=== PATIENT | female | born 1940 | race Caucasian/White ===

== ENCOUNTER 2019-12-10 11:42 | Inpatient (IN) | payer MEDICARE, OTHER ==
[2019-12-10] VITALS (19 sets, daily range): BP systolic 85–146; BP diastolic 44–96
[~2019-12-10] VITALS: Ht 162.6 cm; Wt 55.3 kg
--- NOTE | 2019-12-10 11:45 | NUR ---
PT BIBRA FROM SNF TO ER BED 08. PER REPORT PT WAS NOTED TO BE HAVING SOB FOR THE PAST 24 HRS. PT ARRIVED ON RESPIRATORY DISTRESS AND ON 15L NON REBREATHER. SKIN WARM TO TOUCH. ON MONITOR. DR GUILLORY FOR EVAL.
[2019-12-10 12:15] LABS: BASOPHILS % (AUTO) 0.2 % (0.0-2.0); EOSINOPHILS % (AUTO) 0.7 % (0.0-6.0); HEMATOCRIT 30 % (33-45); HEMOGLOBIN 9.8 g/dL (11.5-14.8); LYMPHOCYTES # (AUTO) 0.3 /CMM (0.8-4.8); LYMPHOCYTES % (AUTO) 3.6 % (20.0-44.0); MEAN CORPUSCULAR HGB CONC 33 g/dl (31.0-36.0); MEAN CORPUSCULAR VOLUME 83 fL (82-100); MONOCYTES # (AUTO) 0.2 /CMM (0.1-1.30); MONOCYTES % (AUTO) 1.9 % (2.0-12.0); NEUTROPHILS # (AUTO) 8.9 /CMM (1.8-8.9); NEUTROPHILS % (AUTO) 93.6 % (43.0-81.0); PLATELET COUNT (AUTO) 189 /CMM (150-450); RED BLOOD CELL COUNT(AUTO) 3.59 MIL/uL (4.0-5.2); WHITE BLOOD COUNT (AUTO) 9.5 K/uL (4.3-11.0)
[2019-12-10 12:19] LABS: APPEARANCE,URINE Cloudy (CLEAR); BILIRUBIN,URINE Negative (NEGATIVE); BLOOD, URINE Small Ery/uL (NEGATIVE); COLOR,URINE Yellow (YELLOW); KETONES,URINE Negative (NEGATIVE); LEUKOCYTE ESTERASE ,URINE Small (NEGATIVE); NITRITE, URINE Positive (NEGATIVE); PROTEIN,URINE 100 mg/dl (NEGATIVE); UGLUCOSE Negative (NEGATIVE)
[2019-12-10] MEDS ORDERED: MULT-447 PO (12:26)
[2019-12-10] MEDS ORDERED: GEMF600T PO (12:26)
[2019-12-10] MEDS ORDERED: LEVO175T7 PO (12:26)
[2019-12-10] MEDS ORDERED: BISA10SU11 RC (12:26)
[2019-12-10] MEDS ORDERED: MAGN400O6 PO (12:26)
[2019-12-10] MEDS ORDERED: ACET650S11 RC (12:26)
[2019-12-10] MEDS ORDERED: NA P133E RC (12:26)
[2019-12-10] MEDS ORDERED: ATOR10TA PO (12:26)
[2019-12-10] MEDS ORDERED: ACET-868 PO (12:26)
[2019-12-10] MEDS ORDERED: DONE23TA3 PO (12:26)
[2019-12-10] MEDS ORDERED: QUET25TA PO (12:26)
[2019-12-10] MEDS ORDERED: GUAI-755 PO (12:26)
[2019-12-10] MEDS ORDERED: IPRATROPIUM NEB FS 0.5 MG/2.5 ML AMPUL.NEB NEB ONE (12:30)
[2019-12-10] MEDS ORDERED: ALBUTEROL FS 2.5 MG/3 ML VIAL.NEB NEB ONE (12:30)
[2019-12-10] MEDS ORDERED: IV NS 0.9% 1,000 ML BAG IV ONE (12:30)
[2019-12-10 12:33] LABS: CALCIUM, SERUM 8.5 mg/dL (8.5-10.1); CREATININE 0.7 mg/dL (0.6-1.3)
[2019-12-10 12:34] LABS: BACTERIA,URINE Many /HPF (None Seen)
[2019-12-10 12:35] LABS: SQUAMOUS EPITHELIAL CELL,UR Few /HPF (None Seen)
[2019-12-10] MEDS ORDERED: PROPOFOL 100 ML ONE (12:35)
[2019-12-10 12:36] LABS: POTASSIUM 3.4 mmol/L (3.5-5.1)
--- NOTE | 2019-12-10 12:39 | NUR ---
RN, RT AND MD AT BEDSIDE FOR INTUBATION
--- NOTE | 2019-12-10 12:40 | NUR ---
ETOMIDATE 20MG IVP X 1. VS
--- NOTE | 2019-12-10 12:41 | NUR ---
INTUBATED. ET 7.5, 24 @ LIP. POSITIVE BILAT CHEST RISE. +CO2 CHANGE
--- NOTE | 2019-12-10 12:41 | NUR ---
Philip figueroa in ED - 12/10/19 at 1313 by NICKI PT INTUBATED. ET 7.5
--- NOTE | 2019-12-10 12:41 | NUR ---
SUCCINYLCHOLINE 100MG IVP X 1
[2019-12-10 12:44] LABS: ALBUMIN 1.8 g/dL (3.4-5.0); BILIRUBIN,TOTAL 0.5 mg/dL (0.2-1.0); TOTAL PROTEIN, SERUM 6.6 g/dL (6.4-8.2)
--- NOTE | 2019-12-10 12:48 | NUR ---
RADIOLOGY AT BEDSIDE FOR CHEST XRAY S/P RSI.
[2019-12-10] MEDS ORDERED: VANCOMYCIN 1 GM in IV D5W 250 ML IV ONE (13:00)
[2019-12-10] MEDS ORDERED: PIPERACILLIN /TAZOBACTAM 3.375 G in IV D5W 50 ML IV ONE (13:00)
[2019-12-10] MEDS ORDERED: PROPOFOL 1,000 MG/100 ML BOTTLE IV ONE (13:00)
--- NOTE | 2019-12-10 13:19 | NUR ---
ACCOMPANIED PT TO RADIOLOGY FOR HEAD CT SCAN VIA [employer].
--- NOTE | 2019-12-10 13:30 | NUR ---
ER TALKING TO EPIC
--- NOTE | 2019-12-10 13:30 | NUR ---
RT NOTE PATIENT INTUBATED PER MD ORDERS. POSITIVE COLOR CHANGE ON CO2 DETECTOR. BILATERAL BREATH SOUNDS AND EVEN CHEST RISE. ET TUBE 7.5 SECURED WITH ANCHOR FAST, 21CM AT THE LIP. PLACED ON VENT WITH ORDERED SETTINGS. ALARMS ON AND AUDIBLE. VENT PLUGGED IN TO THE RED OUTLET. AMBU BAG BY THE BEDSIDE.
--- NOTE | 2019-12-10 13:32 | NUR ---
PT VENT CURRENT SETTINGS: AC 14, TV 450 FIO2 100% PEEP 5
--- NOTE | 2019-12-10 13:40 | NUR ---
NURSING SUP GAVE ICU 257.
--- NOTE | 2019-12-10 13:40 | NUR ---
RT NOTE PT TRANSPORTED TO ICU 254, BAGGED ON 15L WITH VIRAL FILTER AT THE EXHALATION, AND INHALATION PORT. VENT PLUGGED IN TO RED OUTLET. ALARMS ON AND AUDIBLE WITH ORDERED SETTINGS. ET TUBE 7.5, 21CM AT THE LIP.
--- NOTE | 2019-12-10 13:48 | NUR ---
REPORT GIVEN TO DESMOND BURKS. AWAITING TRANSFER TO ICU FLOOR.
[2019-12-10] MEDS ORDERED: ONDANSETRON HCL/PF 4 MG/2 ML VIAL IVP PRN (14:00)
[2019-12-10] MEDS ORDERED: Z GUARD REMEDY 2 OZ OINT TP PRN (14:00)
--- NOTE | 2019-12-10 14:15 | NUR ---
ICU/RN PT ADMITTED FROM SNF,FROM ER.INTUBATED ON THE VENT AC MODE,FIO2-100%.V/S STABLE,AFEBRILE.SEDATED ON DIPRIVAN.F/C IN PLACE DRAINING WITH YELLOW CLOUDY URINE.PERIFERAL IV.WOUND ON THE LOWER BACK ,MEPILEX APPLY,KCI MATRASS ORDERED,WOUND CONSULT ORDERED.OG TUBE INSERTED.SUCTION PROVIDED.
[2019-12-10] MEDS ORDERED: FEE PK DOSING 1 MIN EA MC ONE (14:19)
[2019-12-10] MEDS ORDERED: PROPOFOL 100 ML IV PRN (14:30)
[2019-12-10] MEDS ORDERED: SUCCINYLCHOLINE CHLORIDE 20 MG/ML VIAL IV ONE (15:29)
[2019-12-10] MEDS ORDERED: ETOMIDATE 2 MG/ML VIAL IV ONE (15:29)
[2019-12-10] MEDS: POTASSIUM CL. PREMIX PERIPHER. 50 ML IV SCH ×3 (15:43→18:42)
[2019-12-10] MEDS: DEXAMETHASONE SOD PHOSPHATE 10 MG/ML VIAL IV SCH (15:43)
[2019-12-10] MEDS: FUROSEMIDE 40 MG/4 ML VIAL IV SCH ×2 (15:43→20:21)
[2019-12-10] MEDS: ENOXAPARIN SODIUM 40 MG/0.4 ML DISP.SYRIN SQ SCH (15:44)
[2019-12-10 16:03] LABS: ABG BASE EXCESS -3.7 mmol/L; ABG OXYGEN SATURATION 92.8 % (92.0-98.5); ABG PCO2 28.4 mmHg (35.0-45.0); ABG PH 7.452 (7.350-7.450); ABG PO2 64.5 mmHg (75.0-100.0); AaDO2 620.1 mmHg; COHb 0.3 % (0.5-1.5); MetHb 0.3 % (0.0-1.5); O2Hb 92.2 % (94.0-97.0); SITE, ABG Right Radial; VENT MODE, BG AC 14 450 100% +5
[2019-12-10] MEDS: PIPERACILLIN /TAZOBACTAM 3.375 G in IV D5W 50 ML IV SCH ×2 (17:05→23:32)
[2019-12-10 17:42] LABS: C-REACTIVE PROTEIN 36.1 mg/dL (0.0-0.9)
--- NOTE | 2019-12-10 18:02 | NUR ---
RT NOTE TX NOT GIVEN. PT INTUBATED INSTEAD PER MD ORDERS.
--- NOTE | 2019-12-10 19:00 | NUR ---
ICU/RN K-3.4.REPLACED WITH 30 MEQ KCL IV.LASIX 40 MG WAS GIVEN ORDERED.1300 ML URINE OUTPUT.SEDATED WITH DIPRIVAN. SUCTION PROVIDED.REPOSITION FOR COMFORT.MRSA SWAB DONE.
--- NOTE | 2019-12-10 20:30 | NUR ---
Received patient sedated on Diprivan gtt and orally intubated to mechanical vent.Tolerating vent settings well.No acute respiratory distress noted.VSS.SR per monitor.OGT clamped.NPO.Good urine output from [place] [facility].Sputum sample collected and sent to lab.Turned and repositioned. continue monitoring.
[2019-12-10] MEDS ORDERED: NOREPINEPHRINE 4 MG/4 ML AMPUL IV ONE (23:06)
[2019-12-10] MEDS: NOREPINEPHRINE 8 MG in IV NS 0.9% 242 ML IV PRN (23:26)
[2019-12-10] MEDS ORDERED: IV NS 0.9% 1,000 ML IV SCH (23:30)
--- NOTE | 2019-12-10 23:30 | NUR ---
Noted patient anastasia'd down to the 40's and BP low.EKG done.COUTURE DRESSMAKER,Brant notified with orders and carried out.Levophed gtt started and titrated.VS monitored.Diprivan gtt stopped.No acute distress noted.
[2019-12-10 23:34] LABS: MAGNESIUM 1.8 mg/dL (1.8-2.4); PHOSPHORUS 2.7 mg/dL (2.5-4.9); POTASSIUM 3.5 mmol/L (3.5-5.1)
[2019-12-11] VITALS (84 sets, daily range): BP systolic 78–155; BP diastolic 41–104
[2019-12-11 05:11] LABS: ALBUMIN 1.7 g/dL (3.4-5.0); BILIRUBIN,TOTAL 0.5 mg/dL (0.2-1.0); CALCIUM, SERUM 8.4 mg/dL (8.5-10.1); CREATININE 0.9 mg/dL (0.6-1.3); MAGNESIUM 1.8 mg/dL (1.8-2.4); PHOSPHORUS 2.5 mg/dL (2.5-4.9); POTASSIUM 3.2 mmol/L (3.5-5.1); TOTAL PROTEIN, SERUM 6.6 g/dL (6.4-8.2)
[2019-12-11 05:19] LABS: THYROID STIMULATING HORMONE 3.838 uIU/mL (0.358-3.74)
[2019-12-11 05:28] LABS: BASOPHILS % (AUTO) 0.1 % (0.0-2.0); HEMATOCRIT 33 % (33-45); HEMOGLOBIN 10.7 g/dL (11.5-14.8); LYMPHOCYTES # (AUTO) 0.7 /CMM (0.8-4.8); LYMPHOCYTES % (AUTO) 5.5 % (20.0-44.0); MEAN CORPUSCULAR HGB CONC 33 g/dl (31.0-36.0); MEAN CORPUSCULAR VOLUME 83 fL (82-100); MONOCYTES # (AUTO) 0.2 /CMM (0.1-1.30); MONOCYTES % (AUTO) 1.5 % (2.0-12.0); NEUTROPHILS # (AUTO) 11.7 /CMM (1.8-8.9); NEUTROPHILS % (AUTO) 92.9 % (43.0-81.0); PLATELET COUNT (AUTO) 250 /CMM (150-450); RED BLOOD CELL COUNT(AUTO) 3.91 MIL/uL (4.0-5.2); WHITE BLOOD COUNT (AUTO) 12.6 K/uL (4.3-11.0)
[2019-12-11 05:44] LABS: BAND % (MANUAL) 1 % (0.0-5.0); LYMPHOCYTES % (MANUAL) 8 % (16-48); MONOCYTES % (MANUAL) 2 % (0-11.0); NEUTROPHILS % (MANUAL) 89 (42-76)
[2019-12-11] MEDS: PIPERACILLIN /TAZOBACTAM 3.375 G in IV D5W 50 ML IV SCH ×4 (05:56→23:37)
--- NOTE | 2019-12-11 06:30 | NUR ---
Patient resting.VSS.SR/SB 40's.Bathed and complete linens changed.Tolerating vent settings. Good respond to Lasix.No BM noted.All due meds administered.Turned and repositioned.IVF infusing well.Will endorse to day shift for henna.
[2019-12-11 07:19] LABS: ABG BASE EXCESS 0.3 mmol/L; ABG OXYGEN SATURATION 97.5 % (92.0-98.5); ABG PCO2 29.2 mmHg (35.0-45.0); ABG PO2 98.8 mmHg (75.0-100.0); COHb 0.3 % (0.5-1.5); MetHb 0.3 % (0.0-1.5); O2Hb 96.9 % (94.0-97.0); SITE, ABG Right Radial; VENT MODE, BG AC 14 450 100% +10
[2019-12-11] MEDS: VANCOMYCIN 1 GM in IV D5W 250 ML IV SCH (07:40)
--- NOTE | 2019-12-11 08:00 | NUR ---
ICU/RN PT IS INTUBATED ON THE VENT ,AC MODE,FIO2-100%.,PEEP-8.V/S STABLE,AFEBRILE.NO PAIN REPORTED AT THIS TIME.NOT SEDATED.OG TUBE CLAMPED. F/C DRAINING WITH YELLOW URINE.SUCTION PROVIDED.REPOSITION FOR COMFORT.
[2019-12-11] MEDS: DEXAMETHASONE SOD PHOSPHATE 10 MG/ML VIAL IV SCH (08:03)
[2019-12-11] MEDS: PANTOPRAZOLE 40 MG VIAL IV SCH (08:03)
[2019-12-11] MEDS: POTASSIUM CHLORIDE 20 MEQ POWDER PACKET NG SCH ×2 (08:59→10:59)
[2019-12-11] MEDS: FUROSEMIDE 40 MG/4 ML VIAL IV SCH ×3 (08:59→17:22)
--- NOTE | 2019-12-11 09:30 | NUR ---
ICU/RN DUE MEDS ARE GIVEN ORDERED.LABS REVIEW.MD NOTIFIED NEW ORDERERS RECEIVED.
[2019-12-11] MEDS: PROPOFOL 10MG/ML 50ML 50 ML IV PRN ×4 (12:42→22:18)
--- NOTE | 2019-12-11 13:00 | NUR ---
ICU/RN PT IS RR 33., DR OQUENDO NOTIFIED.DIPRIVAN RESTARTED..CONTINUE MONITORING .
[2019-12-11] MEDS: NOREPINEPHRINE 8 MG in IV NS 0.9% 242 ML IV PRN (17:51)
--- NOTE | 2019-12-11 18:10 | NUR ---
ICU/RN RIGHT UPPER ARM ML INSERTED.PT IS ON LEVOPHED AND DIPRIVAN NOW.F/C DRAINED WITH 2000 ML OF URINE.
[2019-12-11] MEDS: ENOXAPARIN SODIUM 40 MG/0.4 ML DISP.SYRIN SQ SCH (21:23)
[2019-12-12] VITALS (97 sets, daily range): BP systolic 82–182; BP diastolic 36–95
[2019-12-12] MEDS: PROPOFOL 10MG/ML 50ML 50 ML IV PRN ×3 (02:01→15:58)
[2019-12-12] MEDS: VANCOMYCIN 1 GM in IV D5W 250 ML IV SCH ×2 (02:01→19:51)
[2019-12-12 04:21] LABS: BASOPHILS % (AUTO) 0.2 % (0.0-2.0); HEMATOCRIT 30 % (33-45); HEMOGLOBIN 9.9 g/dL (11.5-14.8); LYMPHOCYTES # (AUTO) 1.3 /CMM (0.8-4.8); LYMPHOCYTES % (AUTO) 9.5 % (20.0-44.0); MEAN CORPUSCULAR HGB CONC 33 g/dl (31.0-36.0); MEAN CORPUSCULAR VOLUME 82 fL (82-100); MONOCYTES # (AUTO) 0.4 /CMM (0.1-1.30); MONOCYTES % (AUTO) 2.6 % (2.0-12.0); NEUTROPHILS # (AUTO) 12.2 /CMM (1.8-8.9); NEUTROPHILS % (AUTO) 87.7 % (43.0-81.0); PLATELET COUNT (AUTO) 320 /CMM (150-450); RED BLOOD CELL COUNT(AUTO) 3.67 MIL/uL (4.0-5.2); WHITE BLOOD COUNT (AUTO) 13.9 K/uL (4.3-11.0)
[2019-12-12 04:40] LABS: CALCIUM, SERUM 9.2 mg/dL (8.5-10.1); PHOSPHORUS 2.5 mg/dL (2.5-4.9); POTASSIUM 3.7 mmol/L (3.5-5.1)
[2019-12-12 04:57] LABS: C-REACTIVE PROTEIN 35.4 mg/dL (0.0-0.9)
[2019-12-12] MEDS: PIPERACILLIN /TAZOBACTAM 3.375 G in IV D5W 50 ML IV SCH ×4 (05:45→23:50)
[2019-12-12] MEDS ORDERED: IV NS 0.9% 250 ML IV ONE (06:00)
[2019-12-12] MEDS ORDERED: POTASSIUM CHLORIDE 20 MEQ POWDER PACKET NG SCH (08:00)
[2019-12-12 08:52] LABS: ABG BASE EXCESS 0.8 mmol/L; ABG OXYGEN SATURATION 93.5 % (92.0-98.5); ABG PCO2 30.8 mmHg (35.0-45.0); ABG PH 7.501 (7.350-7.450); ABG PO2 65.4 mmHg (75.0-100.0); AaDO2 328.5 mmHg; COHb 0.3 % (0.5-1.5); MetHb 0.3 % (0.0-1.5); O2Hb 92.9 % (94.0-97.0); SITE, ABG Right Radial; VENT MODE, BG AC 14 400 60% +10
[2019-12-12] MEDS: FUROSEMIDE 40 MG/4 ML VIAL IV SCH ×2 (09:26→12:07)
[2019-12-12] MEDS: DEXAMETHASONE SOD PHOSPHATE 10 MG/ML VIAL IV SCH (09:26)
[2019-12-12] MEDS: PANTOPRAZOLE 40 MG VIAL IV SCH (09:26)
[2019-12-12] MEDS ORDERED: POTASSIUM CHLORIDE 20 MEQ POWDER PACKET GT ONE (09:30)
[2019-12-12] MEDS: NOREPINEPHRINE 8 MG in IV NS 0.9% 242 ML IV PRN (17:41)
[2019-12-12] MEDS: GLUCERNA 1.2 1,000 ML BOTTLE GT PRN (17:42)
--- NOTE | 2019-12-12 18:55 | NUR ---
END OF SHIFT NOTE: PT HAD A FAIRLY UNEVENTFUL SHIFT. TUBE FEEDING STARTED AT 1800, GLUCERNA AT 20ML/S, GOAL 50ML/HR. LEVOPHED GTT STARTED BACK UP AT 1043 THIS AM, CURRENTLY INFUSING AT 0.04 MCG/KG/MIN. NO SEDATION VACATION TODAY PER MD ORDERS. PT WAS PUT ON A KCI MATTRESS. TOTAL URINE OUTPUT THIS SHIFT WAS 1625ML. PT CHECKED ON HOURLY AND PRN BY NURSING STAFF.
--- NOTE | 2019-12-12 19:30 | NUR ---
CANDY FORMING MACHINE OPERATOR INITIAL SHIFT NOTES RECEIVED PATIENT IN BED, SEDATED ON DIPRIVAN DRIP, ORALLY INTUBATED ON MECHANICAL VENTILATION, TOLERATING FAIRLY, NO SIGNS OF ACUTE RESPIRATORY DISTRESS AT THIS TIME. OGT PATENT AND INTACT, ONGOING TUBE FEEDING AT PRESCRIBED RATE, MINIMAL GASTRIC RESIDUALS. HOB KEPT ELEVATED FOR ASPIRATION PRECAUTIONS, ISOLATION PRECAUTIONS OBSERVED. WILL MONITOR CLOSELY
[2019-12-12] MEDS: ENOXAPARIN SODIUM 40 MG/0.4 ML DISP.SYRIN SQ SCH (20:04)
--- NOTE | 2019-12-12 21:30 | NUR ---
REVERBERATORY FURNACE OPERATOR NOTES RT AT BEDSIDE. PATIENT REMAINS ON HI-FLOW NC @60LPM, FIO2 TITRATED BY RT DOWN TO 75%. ONGOING CLOSE MONITORING Addendum: 12/13/19 at 0724 by OANH MACIEL RN WRONG PATIENT
[2019-12-13] VITALS (83 sets, daily range): BP systolic 85–164; BP diastolic 38–101
[2019-12-13] MEDS: PROPOFOL 10MG/ML 50ML 50 ML IV PRN ×3 (00:32→16:29)
[2019-12-13 04:15] LABS: BASOPHILS # (AUTO) 0.1 /CMM (0.0-0.2); BASOPHILS % (AUTO) 1.1 % (0.0-2.0); HEMATOCRIT 28 % (33-45); HEMOGLOBIN 9.5 g/dL (11.5-14.8); LYMPHOCYTES # (AUTO) 0.9 /CMM (0.8-4.8); LYMPHOCYTES % (AUTO) 9.2 % (20.0-44.0); MEAN CORPUSCULAR HGB CONC 34 g/dl (31.0-36.0); MEAN CORPUSCULAR VOLUME 83 fL (82-100); MONOCYTES # (AUTO) 0.3 /CMM (0.1-1.30); MONOCYTES % (AUTO) 2.9 % (2.0-12.0); NEUTROPHILS # (AUTO) 8.2 /CMM (1.8-8.9); NEUTROPHILS % (AUTO) 86.8 % (43.0-81.0); PLATELET COUNT (AUTO) 290 /CMM (150-450); RED BLOOD CELL COUNT(AUTO) 3.42 MIL/uL (4.0-5.2); WHITE BLOOD COUNT (AUTO) 9.5 K/uL (4.3-11.0)
[2019-12-13 04:28] LABS: CALCIUM, SERUM 8.7 mg/dL (8.5-10.1); CREATININE 1.2 mg/dL (0.6-1.3); PHOSPHORUS 3.1 mg/dL (2.5-4.9); POTASSIUM 3.5 mmol/L (3.5-5.1)
[2019-12-13] MEDS: PIPERACILLIN /TAZOBACTAM 3.375 G in IV D5W 50 ML IV SCH ×2 (05:24→11:42)
--- NOTE | 2019-12-13 06:45 | NUR ---
HIGH SCHOOL AGRICULTURE TEACHER CLOSING NOTES PATIENT LAYING IN BED, REMAINS ORALLY INTUBATED ON MECHANICAL VENTILATOR. NO BM NOTED THIS SHIFT, REMAINS ON LEVOPHED DRIP AT 0.02MCG/KG/MIN, UNABLE TO TITRATE OFF AND KEEP OFF. DIPRIVAN DRIP @ 10MCG/KG/MIN. OGT CONTINUES WITH TUBE FEEDING, WILL ENDORSE PATIENT TO THE AM SHIFT NURSE FOR CEE
--- NOTE | 2019-12-13 07:20 | NUR ---
RN INITIAL NOTES RECEIVED PT INTUBATED, ON VENT. NO RESPIRATORY DISTRESS NOTED. NO SIGNS OF PAIN NOTED. PT SEDATED, ON DIPRIVAN AT 10MCG/KG/MIN. ON LEVO AT 0.02MCG/KG/MIN. OG TUBE IN PLACE. TOLERATING TUBE FEEDING WELL. DANY MIDLINE IN PLACE. FC IN PLACE. BLE ELEVATED. PT COMFORTABLE. WILL MONITOR
--- NOTE | 2019-12-13 07:48 | NUR ---
WOUND CARE CONSULT: REVIEWED CHART, NURSING DOCUMENTATION AND ADMISSION PHOTOS WHICH SHOW FULL THICKNESS WOUND TO SACRAL AREA WHICH EXTENDS TO LEFT BUTTOCK, PRESENT ON ADMISSION. RECOMMEND SURGICAL CONSULT. DR DARRIAN DE LA [place]GA CALLED FOR CONSULT REQUEST. RECOMMENDATIONS MADE FOR SKIN PROTECTION AND WOUND CARE. DISCUSSED WITH NURSING STAFF. PT IS ON FIRST STEP [facility]. WILL SEE PRN. IN AGREEMENT WITH PLAN OF CARE.
[2019-12-13] MEDS ORDERED: HYDROGEL DRESSING 90 GM TUBE TP PRN (08:00)
[2019-12-13 08:09] LABS: ABG BASE EXCESS 4.1 mmol/L; ABG OXYGEN SATURATION 93.5 % (92.0-98.5); ABG PCO2 32.6 mmHg (35.0-45.0); ABG PH 7.531 (7.350-7.450); ABG PO2 65.6 mmHg (75.0-100.0); AaDO2 326.3 mmHg; COHb 0.3 % (0.5-1.5); MetHb 0.3 % (0.0-1.5); O2Hb 92.9 % (94.0-97.0); SITE, ABG Right Radial
[2019-12-13] MEDS: HYDROGEL DRESSING 90 GM TUBE TP SCH (08:16)
[2019-12-13] MEDS: DEXAMETHASONE SOD PHOSPHATE 10 MG/ML VIAL IV SCH (08:50)
[2019-12-13] MEDS: PANTOPRAZOLE 40 MG VIAL IV SCH (08:50)
--- NOTE | 2019-12-13 09:30 | NUR ---
RN NOTES 09 SEEN AND EXAMINED BY DR OQUENDO. PT ON LEVO AT 0.02MGC/KG/MIN AND DIPRIVAN 10MCG/KG/MIN. STILL INTUBATED, PEEP +12. NO SEDATION VACATION TODAY. WILL CONTINUE TO MONITOR 929 SEEN AND EXAMINED BY DR CONNER. AWARE OF LAB VALUES AND CXR RESULT. TOLERATING TUBE FEEDING. CONTINUE ON LEVO AND DIPRIVAN, WILL TITRATE ACCORDIINGLY. WILL MONITOR
[2019-12-13] MEDS: CEFTRIAXONE 1 G in IV D5W 50 ML IV SCH (16:29)
--- NOTE | 2019-12-13 18:33 | NUR ---
RN CLOSING NOTES NO SIGNIFICANT CHANGE NOTED. NO RESPIRATORY DISTRESS NOTED. NO SIGNS OF PAIN NOTED. PT REMAINS INTUBATED. HOB ELEVATED. KEPT CLEAN AND DRY. TX PROVIDED ORDERED. KEPT COMFORTABLE. WILL ENDORSE FOR CONTINUITY OF CARE
[2019-12-13 18:48] LABS: URINE TOTAL PROTEIN 70.5 mg/dL (0-11.9)
[2019-12-13 18:50] LABS: APPEARANCE,URINE CLEAR (CLEAR); BILIRUBIN,URINE NEGATIVE (NEGATIVE); BLOOD, URINE TRACE-INTA Ery/uL (NEGATIVE); COLOR,URINE YELLOW (YELLOW); KETONES,URINE NEGATIVE (NEGATIVE); LEUKOCYTE ESTERASE ,URINE NEGATIVE (NEGATIVE); NITRITE, URINE NEGATIVE (NEGATIVE); PROTEIN,URINE 30 mg/dl (NEGATIVE); UGLUCOSE NEGATIVE (NEGATIVE)
--- NOTE | 2019-12-13 19:00 | NUR ---
Received patient on Contact/Droplet isolation COVID 19 +,orally intubated on AC mode rate -12,TV-400,Fio2-60 % , PEEP-12, sedated on Propofol drip ,breathing regular, non labored. Levophed drip off at this time .MIDLINE via DANY intact with good blood return. OGT (59 cm at the lip)with on going tube feeding(rate increase to goal 50 ml/hr),tolerating well,Aspiration Precaution implemented, will monitor residuals. 1930 Patient got tachypneic RR=40's, deep labored breathing and coughing,Propofol increased.
[2019-12-13 19:11] LABS: BACTERIA,URINE 1+ /HPF (None Seen); SQUAMOUS EPITHELIAL CELL,UR 0-2 /HPF (None Seen); WBC,URINE 0-2 /HPF (0-3)
[2019-12-13 19:34] LABS: EOSINOPHIL,URINE None Seen
[2019-12-13] MEDS ORDERED: VANCOMYCIN 1 GM in IV D5W 250 ML IV SCH (20:00)
[2019-12-13] MEDS: ENOXAPARIN SODIUM 40 MG/0.4 ML DISP.SYRIN SQ SCH (21:19)
[2019-12-14] VITALS (36 sets, daily range): BP systolic 85–126; BP diastolic 39–61
--- NOTE | 2019-12-14 | NUR ---
Stable,no change in status,remains on Propofol @ 15 mcg/kg/min, occasionally awakens and gets tachypneic but calms down easily.Continue comfort care.
--- NOTE | 2019-12-14 02:00 | NUR ---
AM care done,tolerated turning with no SOB.
[2019-12-14] MEDS: PROPOFOL 10MG/ML 50ML 50 ML IV PRN ×7 (03:12→22:18)
[2019-12-14 04:03] LABS: BASOPHILS % (AUTO) 0.4 % (0.0-2.0); EOSINOPHILS % (AUTO) 0.6 % (0.0-6.0); HEMATOCRIT 28 % (33-45); HEMOGLOBIN 9.4 g/dL (11.5-14.8); LYMPHOCYTES % (AUTO) 10.6 % (20.0-44.0); MEAN CORPUSCULAR HGB CONC 34 g/dl (31.0-36.0); MEAN CORPUSCULAR VOLUME 83 fL (82-100); MONOCYTES # (AUTO) 0.2 /CMM (0.1-1.30); MONOCYTES % (AUTO) 1.9 % (2.0-12.0); NEUTROPHILS # (AUTO) 8.5 /CMM (1.8-8.9); NEUTROPHILS % (AUTO) 86.5 % (43.0-81.0); PLATELET COUNT (AUTO) 275 /CMM (150-450); RED BLOOD CELL COUNT(AUTO) 3.35 MIL/uL (4.0-5.2); WHITE BLOOD COUNT (AUTO) 9.9 K/uL (4.3-11.0)
[2019-12-14 04:15] LABS: CREATININE 0.9 mg/dL (0.6-1.3); MAGNESIUM 1.9 mg/dL (1.8-2.4); PHOSPHORUS 2.8 mg/dL (2.5-4.9); POTASSIUM 3.5 mmol/L (3.5-5.1)
[2019-12-14 04:19] LABS: BILIRUBIN,DIRECT 0.2 mg/dL (0.0-0.2); BILIRUBIN,TOTAL 0.3 mg/dL (0.2-1.0); TOTAL PROTEIN, SERUM 6.4 g/dL (6.4-8.2)
[2019-12-14 04:28] LABS: C-REACTIVE PROTEIN 10.2 mg/dL (0.0-0.9)
--- NOTE | 2019-12-14 06:00 | NUR ---
Remains stable,on mild sedation but easily arousable,opens eyes,coughs,gets tachypneic when awake,will maintain Propofol drip.
--- NOTE | 2019-12-14 07:00 | NUR ---
Report given to Raquel BURKS.Patient stable,still on Propofol drip,off Levophed drip.
--- NOTE | 2019-12-14 07:15 | NUR ---
RN INITIAL NOTES RECEIVED PT INTUBATED, ON VENT. NO RESPIRATORY DISTRESS NOTED. NO SIGNS OF PAIN NOTED. PT SEDATED, ON DIPRIVAN AT 10MCG/KG/MIN. OG TUBE IN PLACE. TOLERATING TUBE FEEDING WELL. DANY MIDLINE IN PLACE. FC IN PLACE. BLE ELEVATED. PT COMFORTABLE. WILL MONITOR
[2019-12-14] MEDS: PANTOPRAZOLE 40 MG VIAL IV SCH (08:29)
[2019-12-14] MEDS: DEXAMETHASONE SOD PHOSPHATE 10 MG/ML VIAL IV SCH (08:29)
[2019-12-14 08:30] LABS: ABG PCO2 32.4 mmHg (35.0-45.0); ABG PH 7.486 (7.350-7.450); ABG PO2 56.5 mmHg (75.0-100.0); AaDO2 335.7 mmHg; COHb 0.3 % (0.5-1.5); MetHb 0.3 % (0.0-1.5); O2Hb 88.5 % (94.0-97.0); VENT MODE, BG AC 12 400 60% +12
[2019-12-14] MEDS: HYDROGEL DRESSING 90 GM TUBE TP SCH (08:30)
[2019-12-14] MEDS: GLUCERNA 1.2 1,000 ML BOTTLE GT PRN (14:26)
[2019-12-14] MEDS ORDERED: ACETAMINOPHEN 650 MG/20.3 ML UDC GT ONE (16:00)
[2019-12-14] MEDS ORDERED: diphenhydrAMINE HCL 50 MG/ML VIAL IV ONE (16:00)
[2019-12-14] MEDS ORDERED: TOCILIZUMAB 400 MG in IV NS 0.9% 80 ML IV ONE (16:30)
[2019-12-14] MEDS: CEFTRIAXONE 1 G in IV D5W 50 ML IV SCH (17:46)
[2019-12-14] MEDS: ENOXAPARIN SODIUM 40 MG/0.4 ML DISP.SYRIN SQ SCH (21:22)
[2019-12-15] VITALS (26 sets, daily range): BP systolic 83–137; BP diastolic 41–69
[2019-12-15] MEDS: PROPOFOL 10MG/ML 50ML 50 ML IV PRN ×6 (03:00→22:07)
[2019-12-15 04:21] LABS: BASOPHILS % (AUTO) 0.2 % (0.0-2.0); EOSINOPHILS % (AUTO) 1.5 % (0.0-6.0); HEMATOCRIT 30 % (33-45); HEMOGLOBIN 9.9 g/dL (11.5-14.8); LYMPHOCYTES # (AUTO) 0.8 /CMM (0.8-4.8); LYMPHOCYTES % (AUTO) 12.2 % (20.0-44.0); MEAN CORPUSCULAR HGB CONC 33 g/dl (31.0-36.0); MEAN CORPUSCULAR VOLUME 84 fL (82-100); MONOCYTES # (AUTO) 0.2 /CMM (0.1-1.30); MONOCYTES % (AUTO) 2.3 % (2.0-12.0); NEUTROPHILS # (AUTO) 5.6 /CMM (1.8-8.9); NEUTROPHILS % (AUTO) 83.8 % (43.0-81.0); PLATELET COUNT (AUTO) 292 /CMM (150-450); RED BLOOD CELL COUNT(AUTO) 3.55 MIL/uL (4.0-5.2); WHITE BLOOD COUNT (AUTO) 6.7 K/uL (4.3-11.0)
[2019-12-15 04:46] LABS: CALCIUM, SERUM 9.3 mg/dL (8.5-10.1); CREATININE 0.7 mg/dL (0.6-1.3); POTASSIUM 3.8 mmol/L (3.5-5.1)
[2019-12-15 04:53] LABS: C-REACTIVE PROTEIN 17.8 mg/dL (0.0-0.9)
[2019-12-15 04:58] LABS: FERRITIN 407 ng/mL (8-388); TRIGLYCERIDES 263 mg/dL (30-150)
--- NOTE | 2019-12-15 07:15 | NUR ---
RN INITIAL NOTES RECEIVED PT INTUBATED, ON VENT. NO RESPIRATORY DISTRESS NOTED. NO SIGNS OF PAIN NOTED. PT SEDATED, ON DIPRIVAN AT 30MCG/KG/MIN. OG TUBE IN PLACE. TOLERATING TUBE FEEDING WELL. DANY MIDLINE IN PLACE. FC IN PLACE. BLE ELEVATED. PT COMFORTABLE. WILL MONITOR
[2019-12-15 07:56] LABS: ABG BASE EXCESS 3.5 mmol/L; ABG OXYGEN SATURATION 97.1 % (92.0-98.5); ABG PCO2 36.4 mmHg (35.0-45.0); ABG PH 7.488 (7.350-7.450); ABG PO2 98.7 mmHg (75.0-100.0); AaDO2 361.3 mmHg; COHb 0.3 % (0.5-1.5); MetHb 0.3 % (0.0-1.5); O2Hb 96.5 % (94.0-97.0); PEEP,BG 14 cm H2O; SITE, ABG Right Radial; VENT MODE, BG AC 70%; VT, ABG 400 mL
[2019-12-15] MEDS: HYDROGEL DRESSING 90 GM TUBE TP SCH (08:51)
[2019-12-15] MEDS: PANTOPRAZOLE 40 MG VIAL IV SCH (08:52)
[2019-12-15] MEDS: DEXAMETHASONE SOD PHOSPHATE 10 MG/ML VIAL IV SCH (08:53)
[2019-12-15] MEDS: GLUCERNA 1.2 1,000 ML BOTTLE GT PRN (08:58)
[2019-12-15] MEDS: CEFTRIAXONE 1 G in IV D5W 50 ML IV SCH (16:28)
--- NOTE | 2019-12-15 18:18 | NUR ---
RN CLOSING NOTES NO SIGNIFICANT CHANGE NOTED. NO RESPIRATORY DISTRESS NOTED. NO SIGNS OF PAIN NOTED. PT REMAINS INTUBATED. HOB ELEVATED. KEPT CLEAN AND DRY. TX PROVIDED ORDERED. KEPT COMFORTABLE. REPOSITIONED WHEN ABLE DUE TO ISOLATION WILL ENDORSE FOR CONTINUITY OF CARE
--- NOTE | 2019-12-15 20:00 | NUR ---
Received patient mildly sedated on full vent support.Vent settings well tolerated.SR/SB 50's. VSS.Tube feeding infusing via OGT tolerating well.Placement verified with small residual.HOB elevated.Diprivan gtt for sedation infusing via DANY ML site intact.No distress noted.Turned and repositioned.Drpolet/Contact Isolation precaution maintained for COVID 19 +.
[2019-12-15] MEDS: ENOXAPARIN SODIUM 40 MG/0.4 ML DISP.SYRIN SQ SCH (21:06)
[2019-12-16] VITALS (40 sets, daily range): BP systolic 79–125; BP diastolic 33–55
[2019-12-16] MEDS: PROPOFOL 10MG/ML 50ML 50 ML IV PRN ×5 (07:25→21:12)
--- NOTE | 2019-12-16 07:30 | NUR ---
RN OPENING NOTES RECEIVED PATIENT SEDATED IN BED, RUNNING ON PROPOFOL AT 30MCG, TOLERATING WELL, PATIENT SEEMS COMFORTABLE AT CURRENT RATE. PER REPORT, NO SEDATION VACATION FOR THIS PATIENT DUE TO HER CONDITION. PATIENT ON TELE MONITOR WITH SR NOTED, HR IN THE 70S. ON MECHANICAL VENTILATOR WITH SETTING ORDERED, TOLERATING WELL, NO SIGNS OF RESPIRATORY DISTRESS NOTED. O2 SATURATION AT 100%. VITAL SIGNS ARE STABLE. PATIENT HAS OGT, FEEDING RUNNING ORDERED, NO RESIDUAL NOTED, TOLERATING WELL. MARQUEZ CATHETER IN PLACE, DRAINING URINE. PATIENTS SAFETY MAINTAINED, CALL LIGHT WITHIN REACH WILL CONTINUE TO MONITOR CLOSELY
[2019-12-16] MEDS: PANTOPRAZOLE 40 MG VIAL IV SCH (08:02)
[2019-12-16] MEDS: DEXAMETHASONE SOD PHOSPHATE 10 MG/ML VIAL IV SCH (08:03)
[2019-12-16 08:19] LABS: CALCIUM, SERUM 8.8 mg/dL (8.5-10.1); CREATININE 0.7 mg/dL (0.6-1.3)
[2019-12-16] MEDS: HYDROGEL DRESSING 90 GM TUBE TP SCH (08:31)
[2019-12-16 08:54] LABS: BILIRUBIN,TOTAL 0.2 mg/dL (0.2-1.0); CREATININE 0.8 mg/dL (0.6-1.3); MAGNESIUM 2.4 mg/dL (1.8-2.4); POTASSIUM 3.9 mmol/L (3.5-5.1)
[2019-12-16 09:04] LABS: BASOPHILS % (AUTO) 0.4 % (0.0-2.0); EOSINOPHILS % (AUTO) 2.8 % (0.0-6.0); HEMATOCRIT 28 % (33-45); HEMOGLOBIN 9.3 g/dL (11.5-14.8); LYMPHOCYTES # (AUTO) 1.1 /CMM (0.8-4.8); LYMPHOCYTES % (AUTO) 17.2 % (20.0-44.0); MEAN CORPUSCULAR HGB CONC 33 g/dl (31.0-36.0); MEAN CORPUSCULAR VOLUME 84 fL (82-100); MONOCYTES # (AUTO) 0.2 /CMM (0.1-1.30); MONOCYTES % (AUTO) 2.4 % (2.0-12.0); NEUTROPHILS # (AUTO) 5.1 /CMM (1.8-8.9); NEUTROPHILS % (AUTO) 77.2 % (43.0-81.0); PLATELET COUNT (AUTO) 265 /CMM (150-450); RED BLOOD CELL COUNT(AUTO) 3.38 MIL/uL (4.0-5.2); WHITE BLOOD COUNT (AUTO) 6.6 K/uL (4.3-11.0)
[2019-12-16] MEDS ORDERED: IV NS 0.9% 250 ML IV ONE (09:30)
--- NOTE | 2019-12-16 10:10 | NUR ---
VENT CHANGES BELOW MADE PER DR. OQUENDO: FIO2 55% PEEP + 12 cm H2O Addendum: 12/16/19 at 1011 by MARY MARCOS RT Amended: Links added.
[2019-12-16 13:26] LABS: EOSINOPHILS % (MANUAL) 5 % (0-4); LYMPHOCYTES % (MANUAL) 21 % (16-48); MONOCYTES % (MANUAL) 4 % (0-11.0); MYELOCYTES % 1 % (0-0); NEUTROPHILS % (MANUAL) 69 (42-76)
[2019-12-16] MEDS: GLUCERNA 1.2 1,000 ML BOTTLE GT PRN (15:20)
--- NOTE | 2019-12-16 19:27 | NUR ---
RN CLOSING NOTES PATIENT REMAINED IN STABLE CONDITION DURING MY SHIFT. ALL PATIENT NEEDS MET. NO ACUTE CHANGES TO PATIENT CONDITION DURING MY SHIFT. SAFETY MAINTAINED, CALL LIGHT WITHIN REACH, ENDORSED TO PM NURSE FOR CONTINUITY OF CARE
[2019-12-16] MEDS: ENOXAPARIN SODIUM 40 MG/0.4 ML DISP.SYRIN SQ SCH (20:56)
[2019-12-17] VITALS (48 sets, daily range): BP systolic 83–127; BP diastolic 36–70
[2019-12-17] MEDS: PROPOFOL 10MG/ML 50ML 50 ML IV PRN ×3 (01:00→11:38)
[2019-12-17 04:37] LABS: BASOPHILS # (AUTO) 0.1 /CMM (0.0-0.2); BASOPHILS % (AUTO) 0.9 % (0.0-2.0); EOSINOPHILS % (AUTO) 2.4 % (0.0-6.0); HEMATOCRIT 31 % (33-45); LYMPHOCYTES # (AUTO) 1.3 /CMM (0.8-4.8); LYMPHOCYTES % (AUTO) 20.2 % (20.0-44.0); MEAN CORPUSCULAR HGB CONC 32 g/dl (31.0-36.0); MEAN CORPUSCULAR VOLUME 85 fL (82-100); MONOCYTES # (AUTO) 0.3 /CMM (0.1-1.30); MONOCYTES % (AUTO) 4.2 % (2.0-12.0); NEUTROPHILS # (AUTO) 4.8 /CMM (1.8-8.9); NEUTROPHILS % (AUTO) 72.3 % (43.0-81.0); PLATELET COUNT (AUTO) 325 /CMM (150-450); RED BLOOD CELL COUNT(AUTO) 3.66 MIL/uL (4.0-5.2); WHITE BLOOD COUNT (AUTO) 6.6 K/uL (4.3-11.0)
[2019-12-17 04:52] LABS: ALANINE AMINOTRANSFERASE 25 U/L (12-78); ALBUMIN 2.3 g/dL (3.4-5.0); ALKALINE PHOSPHATASE 65 U/L (46-116); ASPARTATE AMINOTRANSFERASE 33 U/L (15-37); BILIRUBIN,TOTAL 0.2 mg/dL (0.2-1.0); CALCIUM, SERUM 9.2 mg/dL (8.5-10.1); CARBON DIOXIDE 32 mmol/L (21-32); CHLORIDE 104 mmol/L (98-107); CREATININE 0.7 mg/dL (0.6-1.3); GLUCOSE 104 mg/dL (74-106); MAGNESIUM 2.6 mg/dL (1.8-2.4); PHOSPHORUS 3.2 mg/dL (2.5-4.9); POTASSIUM 4.6 mmol/L (3.5-5.1); SODIUM SERUM 140 mmol/L (136-145); TOTAL PROTEIN, SERUM 6.4 g/dL (6.4-8.2); UREA NITROGEN, BLOOD 27 mg/dL (7-18)
--- NOTE | 2019-12-17 07:16 | NUR ---
Patient resting in no acute distress.VSS.SR.Intubated to vent in full vent support.Sedated with Diprivan gtt at 30 mck/kg/min via DANY ML and site intact.Tube feeding via OGT infusing at 50 ml/hr.Placement verified and residual 10 ml.Abdomen soft BS active.Turned and repositioned.Droplet/Contact Isolation observed for patient with COVID 19 +.
--- NOTE | 2019-12-17 07:20 | NUR ---
Patient status unchanged.VSS.SR.All iv's infusing well.Tolerating vent settings and ogt feeding.No BM noted.Bathed and repositioned Q 2 hrs. All needs met.Endorse to day shift RM.
[2019-12-17] MEDS: PANTOPRAZOLE 40 MG VIAL IV SCH (08:09)
[2019-12-17] MEDS: DEXAMETHASONE SOD PHOSPHATE 10 MG/ML VIAL IV SCH (08:09)
--- NOTE | 2019-12-17 08:10 | NUR ---
NEONATAL DOCTOR: pt is sedated with Diprivan 30 mcg/kg/m, grimacing with suction, reactive to pain stimuli, rest, no SOB, O2sat over 95%, no sedation vacation per , FiO2 55% now, peep 12, SR, SBP over 90, GTF residual WNL, all AM/skin/wounds care done per report, suctioned via ETT with large amount
[2019-12-17] MEDS: HYDROGEL DRESSING 90 GM TUBE TP SCH (08:24)
[2019-12-17 08:26] LABS: ABG BASE EXCESS 5.7 mmol/L; ABG OXYGEN SATURATION 98.4 % (92.0-98.5); ABG PCO2 41.2 mmHg (35.0-45.0); ABG PH 7.477 (7.350-7.450); ABG PO2 135.4 mmHg (75.0-100.0); AaDO2 319.4 mmHg; COHb 0.3 % (0.5-1.5); MetHb 0.3 % (0.0-1.5); O2Hb 97.8 % (94.0-97.0); SITE, ABG Right Radial; VENT MODE, BG AC 12 400 +12 70%
[2019-12-17 08:26] LABS: ABG BASE EXCESS 4.7 mmol/L; ABG OXYGEN SATURATION 98.1 % (92.0-98.5); ABG PCO2 40.5 mmHg (35.0-45.0); ABG PH 7.469 (7.350-7.450); ABG PO2 115.5 mmHg (75.0-100.0); AaDO2 340.1 mmHg; COHb 0.3 % (0.5-1.5); MetHb 0.1 % (0.0-1.5); O2Hb 97.7 % (94.0-97.0); PEEP,BG 14 cm H2O; SITE, ABG Right Radial; VT, ABG 400 mL
--- NOTE | 2019-12-17 08:40 | NUR ---
TAXATION INSPECTOR: is updated with pt.current condition, VS, ABG
--- NOTE | 2019-12-17 11:42 | NUR ---
REGULATORY AFFAIRS COORDINATOR: pt.son updated with pt current condition, VS, orders, POC, O2sat.
--- NOTE | 2019-12-17 11:46 | NUR ---
NOTE KEEPER: reupdated with pt VS, O2sat., sedation level, vent.setting, said: ok to start sedation vacation/ V and report neuro status
--- NOTE | 2019-12-17 13:45 | NUR ---
ROCKET ENGINE COMPONENT MECHANIC: pt is off of sedation during 1.5hrs, RR 24-27, O2sat. 98-100%, no distress noted, FiO2 55%, peep8 now, suctioned well with large amount, pt is able to open eyes for seconds by touch, no any interaction reaction, trace arms activity, notified /said: keep pt without sedation if no distress otherwise resume sedation
--- NOTE | 2019-12-17 15:31 | NUR ---
THERAPEUTIC RECREATION LEADER: NARESH Mckenna called/updated with pt.VS, Levophed gtt, no vomiting, NPO, meds, wounds status/discharge, s/s oozing from lower part abdomen incision, NGT LIsuction amount, small loose stool, pain meds given x1
--- NOTE | 2019-12-17 15:32 | NUR ---
JOB COACH/JOB DEVELOPER: previous note is error
--- NOTE | 2019-12-17 18:31 | NUR ---
ACADEMIC SPECIALIST: pt is off of sedation, rest, no SOB/distress, O2sat over 98%, RR 22-26, VSS
[2019-12-17 18:54] LABS: FERRITIN 360 ng/mL (8-388)
--- NOTE | 2019-12-17 19:00 | NUR ---
RN OPENING NOTE: PATIENT IN BED. INTUBATED AND TOLERATING CURRENT VENT SETTINGS WELL. NO RESPIRATORY DISTRESS. NO S/S OF PAIN. NO FACIAL GRIMACING. SAFETY PRECAUTIONS IMPLEMENTED. ON BILATERAL SOFT WRIST RESTRAINTS. ASSESSED SKIN FOR CIRCULATION. BED LOCKED, LOW POSITION, SIDE RAILS X 2 UP. HOB ELEVATED. ON BEDSIDE MONITOR, NSR. WILL TURN AND REPOSITION Q2H FOR SKIN INTEGRITY. WILL CONT. TO MONITOR.
[2019-12-17] MEDS: GLUCERNA 1.2 1,000 ML BOTTLE GT PRN (20:12)
[2019-12-17] MEDS: ENOXAPARIN SODIUM 40 MG/0.4 ML DISP.SYRIN SQ SCH (20:17)
[2019-12-18] VITALS (46 sets, daily range): BP systolic 91–128; BP diastolic 46–82
[2019-12-18 04:49] LABS: BASOPHILS # (AUTO) 0.1 /CMM (0.0-0.2); BASOPHILS % (AUTO) 0.8 % (0.0-2.0); EOSINOPHILS % (AUTO) 1.4 % (0.0-6.0); HEMATOCRIT 27 % (33-45); LYMPHOCYTES # (AUTO) 1.3 /CMM (0.8-4.8); LYMPHOCYTES % (AUTO) 16.5 % (20.0-44.0); MEAN CORPUSCULAR HGB CONC 33 g/dl (31.0-36.0); MEAN CORPUSCULAR VOLUME 84 fL (82-100); MONOCYTES # (AUTO) 0.3 /CMM (0.1-1.30); MONOCYTES % (AUTO) 3.8 % (2.0-12.0); NEUTROPHILS # (AUTO) 6.2 /CMM (1.8-8.9); NEUTROPHILS % (AUTO) 77.5 % (43.0-81.0); PLATELET COUNT (AUTO) 336 /CMM (150-450); RED BLOOD CELL COUNT(AUTO) 3.24 MIL/uL (4.0-5.2)
[2019-12-18 05:14] LABS: CREATININE 0.8 mg/dL (0.6-1.3); MAGNESIUM 2.3 mg/dL (1.8-2.4); PHOSPHORUS 3.4 mg/dL (2.5-4.9); POTASSIUM 4.5 mmol/L (3.5-5.1)
[2019-12-18 05:20] LABS: BAND % (MANUAL) 3 % (0.0-5.0); EOSINOPHILS % (MANUAL) 3 % (0-4); LYMPHOCYTES % (MANUAL) 22 % (16-48); MONOCYTES % (MANUAL) 4 % (0-11.0); NEUTROPHILS % (MANUAL) 68 (42-76)
--- NOTE | 2019-12-18 06:30 | NUR ---
RN CLOSING NOTES: PATIENT IN BED. INTUBATED AND TOLERATING CURRENT VENT SETTINGS WELL. UNLABORED BREATHING. NO S/S OF PAIN. NO FACIAL GRIMACING. SAFETY PRECAUTIONS IMPLEMENTED. ON BILATERAL SOFT WRIST RESTRAINTS. ASSESSED SKIN FOR CIRCULATION. BED LOCKED, LOW POSITION, SIDE RAILS X 2 UP. HOB ELEVATED. TURNED AND REPOSITIONED Q2H FOR SKIN INTEGRITY. WOUND CARE AND BED BATH DONE. PATIENT TOLERATED PROCEDURES WELL. REMAINS OFF DIPRIVAN. WILL ENDORSE TO AM SHIFT NURSE FOR CONTINUITY OF CARE.
--- NOTE | 2019-12-18 08:10 | NUR ---
BLASTING WORKER: pt is obtunded, grimacing by touch/eyes are close, strong coughing with suction, no any contact tracking reaction, weak arms activity, on wrists restraints for self extubation prevention, sedation is off since 12/16, no distress reported over night, O2sat. over 96%, no SOB now, 50% FiO2, peep8, suctioned x2 well, ABG: pH7.49/36/100/27, SR, SBP is over 100, I/O -175ml/24hrs, GTF residual 10ml, keep HOB over 40, urine out 750ml/over night, T WNL
[2019-12-18] MEDS: DEXAMETHASONE SOD PHOSPHATE 10 MG/ML VIAL IV SCH (08:37)
[2019-12-18] MEDS: PANTOPRAZOLE 40 MG VIAL IV SCH (08:37)
[2019-12-18] MEDS: FUROSEMIDE 40 MG/4 ML VIAL IV SCH ×2 (08:53→13:30)
[2019-12-18] MEDS: HYDROGEL DRESSING 90 GM TUBE TP SCH (09:14)
--- NOTE | 2019-12-18 10:56 | NUR ---
BOOK SORTER: is in unit/updated with pt.current neuro status without sedation, VS, vent.setting/suction amount, GTF, I/O, ABG, ordered: repeat Covid19 test
--- NOTE | 2019-12-18 11:19 | NUR ---
SUPERVISOR NET MAKING: updated with pt.current neurostatus/sedation is off/no distress noted, vent setting/ABG, VS, I/O, NGTF, suction amount, see new orders
[2019-12-18 11:49] LABS: ABG OXYGEN SATURATION 97.4 % (92.0-98.5); ABG PH 7.498 (7.350-7.450); ABG PO2 100.1 mmHg (75.0-100.0); AaDO2 215.9 mmHg; COHb 0.3 % (0.5-1.5); MetHb 0.3 % (0.0-1.5); O2Hb 96.8 % (94.0-97.0); SITE, ABG Right Radial; VENT MODE, BG AC 12 400 +8 50%
[2019-12-18] MEDS: PROSOURCE / PROSTAT (PYXIS) 30 ML UDC GT SCH ×2 (13:30→17:32)
--- NOTE | 2019-12-18 18:40 | NUR ---
DAIRY EQUIPMENT REPAIRER: pt is obtunded, grimacing, head,arms weak activity, unable to open eyes, no any tracking reaction, O2sat. over 97%, no SOB/no distress during shift, FiO2 40%/peep8, suctioned well, keep HOB over 40, SR, SBP is over 90/below 160, GTF residual WNL, 2.7L urine out per shift, BMx1, all PM/skin/wound care done, skin under restraints: intact/normal color, second Covid19 test taken
[2019-12-18] MEDS: ENOXAPARIN SODIUM 40 MG/0.4 ML DISP.SYRIN SQ SCH (21:22)
[2019-12-18] MEDS: GLUCERNA 1.2 1,000 ML BOTTLE GT PRN (23:15)
[2019-12-19] VITALS (32 sets, daily range): BP systolic 91–126; BP diastolic 41–77
[2019-12-19 04:53] LABS: BASOPHILS # (AUTO) 0.1 /CMM (0.0-0.2); BASOPHILS % (AUTO) 0.7 % (0.0-2.0); HEMATOCRIT 33 % (33-45); HEMOGLOBIN 10.7 g/dL (11.5-14.8); LYMPHOCYTES # (AUTO) 1.6 /CMM (0.8-4.8); LYMPHOCYTES % (AUTO) 16.1 % (20.0-44.0); MEAN CORPUSCULAR HGB CONC 32 g/dl (31.0-36.0); MEAN CORPUSCULAR VOLUME 85 fL (82-100); MONOCYTES # (AUTO) 0.6 /CMM (0.1-1.30); MONOCYTES % (AUTO) 6.1 % (2.0-12.0); NEUTROPHILS # (AUTO) 7.8 /CMM (1.8-8.9); NEUTROPHILS % (AUTO) 76.1 % (43.0-81.0); PLATELET COUNT (AUTO) 356 /CMM (150-450); WHITE BLOOD COUNT (AUTO) 10.2 K/uL (4.3-11.0)
[2019-12-19 05:13] LABS: ALBUMIN 2.8 g/dL (3.4-5.0); BILIRUBIN,TOTAL 0.3 mg/dL (0.2-1.0); CALCIUM, SERUM 9.5 mg/dL (8.5-10.1); CREATININE 0.9 mg/dL (0.6-1.3); MAGNESIUM 2.6 mg/dL (1.8-2.4); PHOSPHORUS 3.9 mg/dL (2.5-4.9); POTASSIUM 3.9 mmol/L (3.5-5.1)
--- NOTE | 2019-12-19 06:44 | NUR ---
RN notes In bed, comfortably resting with no apparent distress. Breathing even and unlabored. Vent setting well tolerated. No physical manifestation of pain or discomfort. Vital signs wnl. NO significant change of condition. Will endorse to next shift for continuity of care.
[2019-12-19] MEDS: PROSOURCE / PROSTAT (PYXIS) 30 ML UDC GT SCH ×3 (08:12→17:07)
[2019-12-19] MEDS: HYDROGEL DRESSING 90 GM TUBE TP SCH (08:13)
[2019-12-19] MEDS: PANTOPRAZOLE 40 MG VIAL IV SCH (08:13)
[2019-12-19] MEDS: DEXAMETHASONE SOD PHOSPHATE 10 MG/ML VIAL IV SCH (08:13)
[2019-12-19] MEDS ORDERED: PANTOPRAZOLE 40 MG/PACK PACK NG SCH (09:00)
[2019-12-19] MEDS ORDERED: BUMETANIDE INJ 0.25 MG/ML VIAL IV ONE (14:00)
--- NOTE | 2019-12-19 18:57 | NUR ---
END OF SHIFT NOTE: PT HAD AN UNEVENTFUL SHIFT. PT HAD 2 BM'S THIS SHIFT, 1 SMALL AND 1 LARGE, LIQUID. PT HAD A TOTAL UOP OF 1475, BUMEX WAS GIVEN PER MD ORDERS. NO CHANGES TO VENT SETTINGS OR TUBE FEEDING. NO RESIDUAL NOTED THIS SHIFT. PT CHANGE IN MENTAL STATUS THIS SHIFT, PT OBTUNDED, WITHDRAWALS TO PAIN ONLY.
--- NOTE | 2019-12-19 20:39 | NUR ---
RECEIVED PT INTUBATED ON VENT. 7.5 ETT SECURED AT 21CM AT THE LIP. NO RESP DISTRESS. PT TOLERATING VENT SETTINGS. SX'D FOR SML AMT OF THIN WHITE SECRETIONS. VENT ALARMS SET AND AUDIBLE. VENT PLUGGED INTO RED OUTLET. CONTINUE [facility] VENT SUPPORT. Addendum: 12/19/19 at 2040 by DIONTE ALVAREZ RT Amended: Links added.
[2019-12-19] MEDS: ENOXAPARIN SODIUM 40 MG/0.4 ML DISP.SYRIN SQ SCH (21:18)
[2019-12-20] VITALS (25 sets, daily range): BP systolic 92–135; BP diastolic 38–94
[2019-12-20 04:35] LABS: BASOPHILS # (AUTO) 0.1 /CMM (0.0-0.2); BASOPHILS % (AUTO) 0.5 % (0.0-2.0); EOSINOPHILS % (AUTO) 0.5 % (0.0-6.0); HEMATOCRIT 37 % (33-45); HEMOGLOBIN 11.8 g/dL (11.5-14.8); LYMPHOCYTES # (AUTO) 1.5 /CMM (0.8-4.8); LYMPHOCYTES % (AUTO) 12.3 % (20.0-44.0); MEAN CORPUSCULAR HGB CONC 32 g/dl (31.0-36.0); MEAN CORPUSCULAR VOLUME 87 fL (82-100); MONOCYTES # (AUTO) 0.7 /CMM (0.1-1.30); MONOCYTES % (AUTO) 5.8 % (2.0-12.0); NEUTROPHILS # (AUTO) 9.6 /CMM (1.8-8.9); NEUTROPHILS % (AUTO) 80.9 % (43.0-81.0); PLATELET COUNT (AUTO) 397 /CMM (150-450); WHITE BLOOD COUNT (AUTO) 11.9 K/uL (4.3-11.0)
[2019-12-20 05:01] LABS: ALBUMIN 3.2 g/dL (3.4-5.0); BILIRUBIN,TOTAL 0.3 mg/dL (0.2-1.0); CREATININE 0.9 mg/dL (0.6-1.3); MAGNESIUM 2.7 mg/dL (1.8-2.4); PHOSPHORUS 3.9 mg/dL (2.5-4.9); POTASSIUM 4.7 mmol/L (3.5-5.1); TOTAL PROTEIN, SERUM 7.8 g/dL (6.4-8.2)
--- NOTE | 2019-12-20 06:29 | NUR ---
RN notes No significant change of condition. Comfortably resting in bed. No distress noted. Breathing even and unlabored. Vent setting well tolerated. No physical manifestation of pain or discomfort. Vital signs wnl. Will endorse to next shift for continuity of care.
[2019-12-20] MEDS: DEXAMETHASONE SOD PHOSPHATE 10 MG/ML VIAL IV SCH (08:25)
[2019-12-20] MEDS: PROSOURCE / PROSTAT (PYXIS) 30 ML UDC GT SCH ×3 (08:25→17:43)
[2019-12-20] MEDS: PANTOPRAZOLE 40 MG/PACK PACK NG SCH (08:25)
[2019-12-20] MEDS: HYDROGEL DRESSING 90 GM TUBE TP SCH (08:26)
--- NOTE | 2019-12-20 09:00 | NUR ---
PER REQUEST ON CHEST XRAY OG TUBE WAS PULLED BACK 5CM, PLACEMENT WAS CHECKED AFTER, TUBE SECURED.
[2019-12-20 12:19] LABS: ABG BASE EXCESS 7.5 mmol/L; ABG OXYGEN SATURATION 94.1 % (92.0-98.5); ABG PCO2 39.3 mmHg (35.0-45.0); ABG PH 7.514 (7.350-7.450); ABG PO2 68.5 mmHg (75.0-100.0); AaDO2 171.5 mmHg; COHb 0.3 % (0.5-1.5); MetHb 0.1 % (0.0-1.5); O2Hb 93.7 % (94.0-97.0); SITE, ABG Right Radial
--- NOTE | 2019-12-20 18:54 | NUR ---
END OF SHIFT NOTE: PT HAD AN UNEVENTFUL SHIFT. TMAX WAS 99.8 AX. PT HAD 1 LARGE LIQUID BM AND 2 SMALL STICKY BM'S. NEW ORDER TO SEND CDIFF SAMPLE IF PT HAS 3 DIARRHEA STOOLS IN 24 HOURS. PT HAD 1 AT 0800 THIS AM. PT CHECKED ON HOURLY AND PRN BY NURSING STAFF.
--- NOTE | 2019-12-20 20:00 | NUR ---
Received patient obtunded.Intubated to mechanical vent with prescribed settings.Patient tolerating vent settings well.No acute distress noted.SR per monitor.OGT feeding in progress.OGT placement verified no residual noted.HOB elevated.FC to gravity drainage with clear yellow urine.Turned and repositioned.Continue monitoring.
[2019-12-20] MEDS: ENOXAPARIN SODIUM 40 MG/0.4 ML DISP.SYRIN SQ SCH (21:03)
--- NOTE | 2019-12-20 22:00 | NUR ---
Patient incontinent of stool pasty brown.Perineal care done.Bed bath rendered and complete linens changed. Turned and repositioned.
[2019-12-21] VITALS (25 sets, daily range): BP systolic 100–144; BP diastolic 51–82
--- NOTE | 2019-12-21 07:10 | NUR ---
Patient resting in no acute distress.No significant change noted during the shift.VS remains stable.SR. BM X2 pasty brown colored.Kept clean and dry.Turned and repositioned q 2 hrs.All needs met.
[2019-12-21] MEDS: PANTOPRAZOLE 40 MG/PACK PACK NG SCH (08:39)
[2019-12-21] MEDS: PROSOURCE / PROSTAT (PYXIS) 30 ML UDC GT SCH ×3 (08:40→17:22)
[2019-12-21] MEDS: GLUCERNA 1.2 1,000 ML BOTTLE GT PRN (08:40)
[2019-12-21] MEDS: DEXAMETHASONE SOD PHOSPHATE 10 MG/ML VIAL IV SCH (08:40)
[2019-12-21] MEDS: HYDROGEL DRESSING 90 GM TUBE TP SCH (08:41)
[2019-12-21 10:33] LABS: ABG BASE EXCESS 7.5 mmol/L; ABG OXYGEN SATURATION 95.1 % (92.0-98.5); ABG PCO2 39.9 mmHg (35.0-45.0); ABG PH 7.509 (7.350-7.450); ABG PO2 71.5 mmHg (75.0-100.0); AaDO2 167.8 mmHg; COHb 0.1 % (0.5-1.5); PEEP,BG 5 cm H2O; SITE, ABG Right Radial; VT, ABG 400 mL
--- NOTE | 2019-12-21 10:44 | NUR ---
PT'S SECOND COVID TEST CAME BACK NEGATIVE THIS AM, THE FIRST ONE WAS POSITIVE. RN SENT A 3RD TEST TO LAB AT THIS TIME PER MD ORDERS.
--- NOTE | 2019-12-21 17:13 | NUR ---
RT NOTE: RECEIVED PT ON NOTED ORDERED VENT SETTINGS. NO RESPIRATORY DISTRESS NOTED. ETT CHECKED SECURE AND PATENT. ROTATED Q 2 FOR INFECTION CONTROL MEASURE. SXD AND LAVAGE NEEDED. EMERGENCY EQUIPMENT @ BEDSIDE. ALARMS CHECKED ON AND AUDIBLE. VENT PLUGGED INTO RED OUTLET.
--- NOTE | 2019-12-21 18:24 | NUR ---
END OF SHIFT NOTE: PT HAD AN UNEVENTFUL SHIFT. 1 PASTY BM THIS SHIFT. TOTAL URINE OUTPUT WAS 370ML. REPEAT COVID TEST SENT THIS AM. PT REMAINS IN ISOLATION. PT CHECKED ON HOURLY AND PRN BY NURSING STAFF.
--- NOTE | 2019-12-21 19:30 | NUR ---
GAS METER CHECKER INITIAL SHIFT NOTES RECEIVED PATIENT IN BED, OBTUNDED NOW AT BASELINE, OFF SEDATION SINCE 12/17/19, REACTS ONLY TO PAINFUL STIMULI, NO MEANINGFUL COMMUNICATION ESTABLISHED. PATIENT ORALLY INTUBATED ON MECHANICAL VENTILATION, FREE FROM ANY SIGNS AND SYMPTOMS OF DISTRESS. BEDSIDE TELEMETRY MONITORING SHOWS SINUS RHYTHM. MARQUEZ CATHETER PATENT AND INTACT, DRAINING CLEAR YELLOW URINE TO BEDSIDE DRAINAGE BAG. BILATERAL SOFT WRIST RESTRAINTS IN PLACE FOR SAFETY TO PREVENT PATIENT FROM SELF EXTUBATION. ISOLATION PRECAUTIONS OBSERVED PATIENT IS NOW A COVID-19 SUSPECT SINCE THE FIRST TEST RESULTED POSITIVE, SECOND RESULT NEGATIVE, AND NOW PENDING 3RD COVID-19 RESULT. HOB KEPT ELEVATED FOR ASPIRATION PRECAUTIONS. WILL MONITOR CLOSELY
[2019-12-21] MEDS: ENOXAPARIN SODIUM 40 MG/0.4 ML DISP.SYRIN SQ SCH (21:16)
--- NOTE | 2019-12-21 22:30 | NUR ---
BRAZER RESISTANCE NOTES NOTED WITH BOWEL MOVEMENT, SOFT BROWN. PARTIAL BED BATH RENDERED, TOLERATED WELL, WILL CONTINUE TO MONITOR
[2019-12-22] VITALS (24 sets, daily range): BP systolic 100–139; BP diastolic 51–74
[2019-12-22 04:39] LABS: BASOPHILS # (AUTO) 0.1 /CMM (0.0-0.2); BASOPHILS % (AUTO) 0.7 % (0.0-2.0); EOSINOPHILS % (AUTO) 0.2 % (0.0-6.0); HEMATOCRIT 36 % (33-45); HEMOGLOBIN 11.3 g/dL (11.5-14.8); LYMPHOCYTES # (AUTO) 1.2 /CMM (0.8-4.8); LYMPHOCYTES % (AUTO) 11.2 % (20.0-44.0); MEAN CORPUSCULAR HGB CONC 32 g/dl (31.0-36.0); MEAN CORPUSCULAR VOLUME 87 fL (82-100); MONOCYTES # (AUTO) 0.5 /CMM (0.1-1.30); MONOCYTES % (AUTO) 4.4 % (2.0-12.0); NEUTROPHILS # (AUTO) 9.3 /CMM (1.8-8.9); NEUTROPHILS % (AUTO) 83.5 % (43.0-81.0); PLATELET COUNT (AUTO) 319 /CMM (150-450); RED BLOOD CELL COUNT(AUTO) 4.12 MIL/uL (4.0-5.2); WHITE BLOOD COUNT (AUTO) 11.1 K/uL (4.3-11.0)
[2019-12-22 04:44] LABS: CALCIUM, SERUM 10.2 mg/dL (8.5-10.1); CARBON DIOXIDE 34 mmol/L (21-32); CHLORIDE 104 mmol/L (98-107); CREATININE 0.8 mg/dL (0.6-1.3); GLUCOSE 130 mg/dL (74-106); POTASSIUM 4.2 mmol/L (3.5-5.1); SODIUM SERUM 142 mmol/L (136-145); UREA NITROGEN, BLOOD 41 mg/dL (7-18)
[2019-12-22 05:02] LABS: C-REACTIVE PROTEIN 0.8 mg/dL (0.0-0.9); FERRITIN 301 ng/mL (8-388)
--- NOTE | 2019-12-22 07:00 | NUR ---
BELT TENDER CLOSING NOTES PATIENT RESTING IN BED, APPEARS COMFORTABLE, NO NOTED FACIAL GRIMACE OR CHANGE IN VITALS TO SUGGEST PATIENT IS EXPERIENCING PAIN OR DISCOMFORT. WILL ENDORSE THE PATIENT TO THE AM SHIFT NURSE FOR CEE
--- NOTE | 2019-12-22 07:20 | NUR ---
RN OPENING NOTE Received patient in bed appears calm and relaxed. On ETT 7.5 and vent settings: AC 12 TV 400 Fio2 40% PEEP 5. tolerating well no signs of distress. Patient is non verbal and obtunded and was off sedation since 12/16, withdraws from painful stimuli. Tele reading SR 70 bpm. Andrea catheter in place draining clear yellow urine by gravity. Patient on Bilateral soft wrist restraints kept extremities elevated. On OGT running Glucerna 1.2 @ 50ml/hr. Has DANY midline and L hand #20. COVID test pending from yesterday. Patient was off sedation from 12/17/19. Safety measures reinforced. Bed locked and on lowest position. Call light within reach. Side rails up x2. Will cont to monitor
[2019-12-22] MEDS: PROSOURCE / PROSTAT (PYXIS) 30 ML UDC GT SCH ×3 (08:40→17:35)
[2019-12-22] MEDS: DEXAMETHASONE SOD PHOSPHATE 10 MG/ML VIAL IV SCH (08:40)
[2019-12-22] MEDS: PANTOPRAZOLE 40 MG/PACK PACK NG SCH (08:40)
[2019-12-22] MEDS: HYDROGEL DRESSING 90 GM TUBE TP SCH (08:41)
[2019-12-22] MEDS: ACETAMINOPHEN 650 MG/SUPP.RECT RC PRN (09:25)
[2019-12-22 11:31] LABS: ABG BASE EXCESS 4.2 mmol/L; ABG OXYGEN SATURATION 95.1 % (92.0-98.5); ABG PCO2 37.6 mmHg (35.0-45.0); ABG PH 7.486 (7.350-7.450); ABG PO2 76.3 mmHg (75.0-100.0); AaDO2 165.7 mmHg; COHb 0.3 % (0.5-1.5); MetHb 0.3 % (0.0-1.5); O2Hb 94.5 % (94.0-97.0); SITE, ABG Right Radial; VENT MODE, BG AC 12 400 +5 40%
[2019-12-22] MEDS: GLUCERNA 1.2 1,000 ML BOTTLE GT PRN (17:35)
--- NOTE | 2019-12-22 20:16 | NUR ---
COOLER CONVEYOR LOADER. INITIAL ASSESSMENT. RECEIVED THE PT REST ON THE BED. ORALLY INTUBATED, ETT 7.5,FIO2 40%,TV 400, PEEP 5. SAT 98%. NO ACUTE DISTRESS NOTED. JACQUARD CARD LACER SHOWING NSR. IV RT UPPER ARM MID LINE. RT HAND 20G. TKO RUNNING, TITA SOFT WRIST RESTRAINT CHECKED AND RELEASED. NO INJURY OR REDNESS NOTED, HOB ELEVATED. WILL CONTINUE TO MONITOR VITALS.
[2019-12-22] MEDS: ENOXAPARIN SODIUM 40 MG/0.4 ML DISP.SYRIN SQ SCH (21:15)
[2019-12-23] VITALS (27 sets, daily range): BP systolic 93–137; BP diastolic 45–95
--- NOTE | 2019-12-23 03:15 | NUR ---
CONVENTIONAL MORTGAGE UNDERWRITER. AM CARE, ORAL CARE, BED BATH GIVEN. LINEN CHANGED, REMAINING SAME VENT SETTING TOLERATED WELL. SAT 98%, NO ACUTE DISTRESS NOTED. BUTTON DECORATING MACHINE OPERATOR SHOWING NSR, IV RT UPPER ARM MID LINE. TKO RUNNING. WILL CONTINUE TO MONITOR VITALS.
--- NOTE | 2019-12-23 07:44 | NUR ---
RN OPENING NOTE: Received patient in bed and asleep. Appears comfortable and relaxed. On mechanical ventilation and tolerating settings well. Isolation precaution for COVID-[address] Bilateral soft-wrist restraints on. OGT in place, patent and intact with feeding of Glucerna 1.2 @ 50mls/hr running. IV site clean, dry, patent and intact. Call light in reach. Bed locked, low and at semi-ellington's position. Side rails up x3. Safety ensured and observed. Will continue to monitor.
[2019-12-23] MEDS: PROSOURCE / PROSTAT (PYXIS) 30 ML UDC GT SCH ×3 (08:13→17:12)
[2019-12-23] MEDS: DEXAMETHASONE SOD PHOSPHATE 10 MG/ML VIAL IV SCH (08:13)
[2019-12-23] MEDS: PANTOPRAZOLE 40 MG/PACK PACK NG SCH (08:13)
[2019-12-23] MEDS: HYDROGEL DRESSING 90 GM TUBE TP SCH (09:36)
[2019-12-23] MEDS: GLUCERNA 1.2 1,000 ML BOTTLE GT PRN (17:12)
--- NOTE | 2019-12-23 19:25 | NUR ---
RN CLOSING NOTE: No acute changes noted on shift. Patient remains stable. Providers made rounds earlier on shift. Spoke to armand Jean Baptiste and clarified to only disclose patient information to only him. Patient remains in bed and asleep. Appears comfortable and relaxed. On mechanical ventilation and tolerating settings well. Isolation precaution for COVID-[address] Bilateral soft-wrist restraints on. OGT in place, patent and intact with feeding of Glucerna 1.2 @ 50mls/hr running. Tele monitor showing sinus rhythm @ 90s. IV site clean, dry, patent and intact. Call light in reach. Bed locked, low and at semi-ellington's position. Side rails up x3. Safety ensured and observed. Due medications given. Treatment given as ordered. Endorsed to oncoming shift for CEE.
--- NOTE | 2019-12-23 19:42 | NUR ---
rn note: Stool sample given to lab for C. diff testing.
--- NOTE | 2019-12-23 19:43 | NUR ---
RT NOTES PT RECEIVED ORALLY INTUBATED WITH 7.5 ETT SECURED AT 21CM AT THE LIP LINE ON [facility] VENT ON ORDERED VENT SETTINGS. AIRWAY PATENT AND SECURED. LINK ASSEMBLER DONE. SUCTIONED MODERATE AMOUNT OF THICK, YELLOW SECRETIONS. ALARMS SET AND AUDIBLE. AMBUBAG AT BESIDE. VENT PLUGGED INTO RED OUTLET. WILL CONT TO MONITOR. Addendum: 12/23/19 at 2246 by KARINA VALERA RT Amended: Links added.
[2019-12-23] MEDS ORDERED: IV NS 0.9% 250 ML IV ONE (20:00)
[2019-12-23] MEDS: ENOXAPARIN SODIUM 40 MG/0.4 ML DISP.SYRIN SQ SCH (21:08)
--- NOTE | 2019-12-23 21:45 | NUR ---
Patient desat to 88%.Secretions suctioned by RT.Hyperventilating to upper 30"s -40.FIO2 increased to 100% by RT.Continue to monitor.
--- NOTE | 2019-12-23 21:50 | NUR ---
Patient incontinent of loose brown stool.Perineal and bed bath rendered.All linens changed. Turned and repositioned.Report given to Liudmila Savage RN for continuity of care.
[2019-12-24] VITALS (25 sets, daily range): BP systolic 81–135; BP diastolic 41–76
[2019-12-24 04:27] LABS: BASOPHILS % (AUTO) 0.1 % (0.0-2.0); EOSINOPHILS % (AUTO) 0.1 % (0.0-6.0); HEMATOCRIT 34 % (33-45); LYMPHOCYTES % (AUTO) 8.5 % (20.0-44.0); MEAN CORPUSCULAR HGB CONC 33 g/dl (31.0-36.0); MEAN CORPUSCULAR VOLUME 87 fL (82-100); MONOCYTES # (AUTO) 0.3 /CMM (0.1-1.30); MONOCYTES % (AUTO) 2.8 % (2.0-12.0); NEUTROPHILS # (AUTO) 9.9 /CMM (1.8-8.9); NEUTROPHILS % (AUTO) 88.5 % (43.0-81.0); PLATELET COUNT (AUTO) 263 /CMM (150-450); RED BLOOD CELL COUNT(AUTO) 3.86 MIL/uL (4.0-5.2); WHITE BLOOD COUNT (AUTO) 11.2 K/uL (4.3-11.0)
[2019-12-24 05:04] LABS: CALCIUM, SERUM 10.1 mg/dL (8.5-10.1); CREATININE 0.9 mg/dL (0.6-1.3); MAGNESIUM 2.4 mg/dL (1.8-2.4); PHOSPHORUS 3.2 mg/dL (2.5-4.9); POTASSIUM 4.7 mmol/L (3.5-5.1)
--- NOTE | 2019-12-24 07:00 | NUR ---
OIL WELL SHOOTER CLOSING NOTES Patient remains stable. Patient remains in bed and asleep. Appears comfortable at this time On mechanical ventilation and tolerating settings well. Isolation precaution for COVID-[address] Bilateral soft-wrist restraints in place. OGT is patent and intact with feeding Glucerna 1.2 infusing at 50mls/hr running. Andrea cath draining yellow urine, pt afebrile throughout shift. SR on monitor, IV site and midliine patent intact and flushing well. Side rails up x 2, bed locked and in lowest position. Endorsed to am RN for henna.
--- NOTE | 2019-12-24 08:00 | NUR ---
PROOF COINS INSPECTOR: pt is obtunded, grimacing with touch, pain stimuli, suction, weak arms/legs activity, unable to open eyes, no any interaction, traction reaction, on wrists restraints for self extubation prevention by report, SR, SBP over 100, O2sat. over 96%, no SOB, suctioned well, GTF residual 5ml/keep HOB over 40%, cdiff pending, w/c done by report, plan: pt is candidate for trach f/u note by night nurse report
--- NOTE | 2019-12-24 09:00 | NUR ---
RECYCLING CREW SUPERVISOR: updated with pt.current condition, VS, neuro status, I/O ,vent setting, GTF, note: pt is candidate to trach, see new orders
[2019-12-24] MEDS: PROSOURCE / PROSTAT (PYXIS) 30 ML UDC GT SCH ×3 (09:04→16:55)
[2019-12-24] MEDS: DEXAMETHASONE SOD PHOSPHATE 10 MG/ML VIAL IV SCH (09:06)
[2019-12-24] MEDS: PANTOPRAZOLE 40 MG/PACK PACK NG SCH (09:07)
[2019-12-24] MEDS: HYDROGEL DRESSING 90 GM TUBE TP SCH (09:21)
--- NOTE | 2019-12-24 11:30 | NUR ---
SHRIMP TRAWLER CAPTAIN: updated with pt neuro status, VS, vent setting/suction amount, O2sat., I/O, GTF
--- NOTE | 2019-12-24 14:15 | NUR ---
TOOL TURRET LATHE SET UP OPERATOR: ABHINAV Lee updated with pt.neuro status, VS, T, labs, I/O, GTF, microbio/labs, POC
--- NOTE | 2019-12-24 17:43 | NUR ---
SALESPERSON HOUSEHOLD APPLIANCES: same neurostatus, obtunded, rest, no SOB/distress, O2sat. over 96%, suctioned well, SR, SBP [id number], tolerated well for OGTF, all PM/bedbath/wounds care done, pt is clean now, all IV access ok, 3d Covid19 test negative
--- NOTE | 2019-12-24 19:00 | NUR ---
RN NOTES RECEIVED PATIENT IN BED, OBTUNDED, UNABLE TO OPEN EYES, HOWEVER GRIMACING WITH TOUCH/LIGHT PAIN NOTED. ON TELE MONITOR SR WITH HR 90'S. ETT NOTED INTACT, MECHANICAL VENT SETTINGS AC 12, TV 400, FIO2 40%, PEEP 5; TOLERATING WELL, SATURATING 96%, NO SOB OR RESPIRATORY DISTRESS NOTED. IV SITE DANY MIDLINE, FLUSHING AND PATENT, ON TKO 10ML/HR, NO INFILTRATION NOTED. OGT INTACT, TUBE FEEDING RUNNING ORDERED, MINIMAL RESIDUAL NOTED. MARQUEZ CATH INTACT AND DRAINING WELL. REPOSITIONED. SAFETY MEASURES IN PLACE, CALL LIGHT WITHIN REACH, SIDE RAILS UP X2, HOB ELEVATED, BED LOCKED AND IN LOW POSITION. WILL CONT TO MONITOR CLOSELY.
--- NOTE | 2019-12-24 20:04 | NUR ---
RT NOTES PT RECEIVED ORALLY INTUBATED WITH 7.5 ETT SECURED AT 21CM AT THE LIP LINE ON [facility] VENT ON ORDERED VENT SETTINGS. AIRWAY PATENT AND SECURED. INSPECTOR HEATING AND REFRIGERATION DONE. ALARMS SET AND AUDIBLE. AMBUBAG AT BESIDE. VENT PLUGGED INTO RED OUTLET. WILL CONT TO MONITOR. Addendum: 12/24/19 at 2005 by KENNETH BOWEN RT Amended: Links added.
[2019-12-24] MEDS: ENOXAPARIN SODIUM 40 MG/0.4 ML DISP.SYRIN SQ SCH (21:29)
[2019-12-24] MEDS: GLUCERNA 1.2 1,000 ML BOTTLE GT PRN (21:33)
[2019-12-25] VITALS (25 sets, daily range): BP systolic 89–142; BP diastolic 53–86
[2019-12-25] MEDS: ACETAMINOPHEN 650 MG/SUPP.RECT RC PRN ×2 (03:09→20:34)
--- NOTE | 2019-12-25 04:01 | NUR ---
RN NOTES PATIENT TEMP 99.6 VIA AXILLARY, COOLING MEASURES PLACED. WILL CONT TO MONITOR.
--- NOTE | 2019-12-25 06:53 | NUR ---
RN NOTES PATIENT REMAINS OBTUNDED, UNABLE TO OPEN EYES, HOWEVER GRIMACING WITH TOUCH/LIGHT PAIN NOTED. ON TELE MONITOR SR WITH HR 70'S. ETT INTACT, MECHANICAL VENT SETTINGS AC 12, TV 400, FIO2 40%, PEEP 5; TOLERATING WELL, SATURATING 98%, NO SOB OR RESPIRATORY DISTRESS NOTED. IV SITE DANY MIDLINE, FLUSHING AND PATENT, ON TKO 10ML/HR, NO INFILTRATION NOTED. OGT INTACT, TUBE FEEDING RUNNING ORDERED, MINIMAL RESIDUAL NOTED. MARQUEZ CATH INTACT AND DRAINING WELL. REPOSITIONED Q2H. WOUND TX DONE ORDERED. SAFETY MEASURES MAINTAINED. WILL ENDORSE TO AM RN FOR CEE. PATIENT TMAX 99.6, RECHECKED AT 0600 TEMP 99.2 VIA AXILLARY. COOLING MEASURES MAINTAINED.
--- NOTE | 2019-12-25 08:15 | NUR ---
INFORMATION SYSTEMS DIRECTOR: pt is obtunded/lethargic, reactive by touch/pain stimuli with grimacing. weak arms/legs activity, unable to open eyes, no any tracking/interaction reaction, rest, good coughing reaction with suction, on wrists restraints for self extubation prevention, SR, SBP over 100/[id number], O2sat. over 95%, no SOB, no distress reported, OGTF residual WNL, keep SOB over 40, voids, suctioned well, will speak with re d/c? Decadron f/u IDNP Q
[2019-12-25] MEDS: HYDROGEL DRESSING 90 GM TUBE TP SCH (09:00)
--- NOTE | 2019-12-25 09:30 | NUR ---
RN CHRISTOPH: , updated with pt.condition, neurostatus, VS, O2sat/suction amount, I/O OGTF, meds
[2019-12-25] MEDS: PANTOPRAZOLE 40 MG/PACK PACK NG SCH (09:50)
--- NOTE | 2019-12-25 10:00 | NUR ---
MAINTENANCE SUPERINTENDENT: updated with Decadron 6mg IV daily used period, ordered: stop
[2019-12-25] MEDS: PROSOURCE / PROSTAT (PYXIS) 30 ML UDC GT SCH ×3 (10:37→16:43)
--- NOTE | 2019-12-25 17:36 | NUR ---
FLYER REPAIRER: same neurostatus, obtunded, grimacing with touch/pain/suction, unable to open eyes, on wrists restraints, skin under restraints is intact/WNL, weak arms/legs activity, little tremor occasionally, no any contact reaction, SR, SBO over 100/below 160, O2sat. over 97%, suctioned q2-4h, no SOB/distress, OGTF tolerated well, f/c 400ml/12hr, all PM/bedbath/skin/wound care done
--- NOTE | 2019-12-25 19:00 | NUR ---
RN NOTES RECEIVED PATIENT IN BED, OBTUNDED, UNABLE TO OPEN EYES, HOWEVER GRIMACING WITH TOUCH/LIGHT PAIN NOTED. ON TELE MONITOR SR WITH HR 80'S. ETT NOTED INTACT, MECHANICAL VENT SETTINGS AC 12, TV 400, FIO2 40%, PEEP 5; TOLERATING WELL, SATURATING 96%, NO SOB OR RESPIRATORY DISTRESS NOTED. IV SITE DANY MIDLINE, FLUSHING AND PATENT, ON TKO 10ML/HR, NO INFILTRATION NOTED. OGT INTACT, TUBE FEEDING RUNNING ORDERED, MINIMAL RESIDUAL NOTED. MARQUEZ CATH INTACT AND DRAINING WELL. REPOSITIONED. SAFETY MEASURES IN PLACE, CALL LIGHT WITHIN REACH, SIDE RAILS UP X2, HOB ELEVATED, BED LOCKED AND IN LOW POSITION. WILL CONT TO MONITOR CLOSELY.
--- NOTE | 2019-12-25 20:00 | NUR ---
RN NOTES PATIENT NOTED WITH INCREASED TEMP 100.2 VIA AXILLARY. WILL ADMINISTER PRN TYLENOL. COOLING MEASURES IN PLACE.
[2019-12-25] MEDS: ENOXAPARIN SODIUM 40 MG/0.4 ML DISP.SYRIN SQ SCH (20:34)
--- NOTE | 2019-12-25 23:26 | NUR ---
RN NOTES PATIENT STILL NOTED WITH ELEVATED TEMP 100 VIA AXILLARY, ALSO NOTED PATIENT WITH SMALL AMOUNT OF EMESIS. HR 110'S. PUT TUBE FEEDING ON HOLD. WILL ADMINISTER PRN ZOFRAN. WILL CONT TO MONITOR PATIENT CLOSELY.
[2019-12-26] VITALS (24 sets, daily range): BP systolic 92–134; BP diastolic 45–81
[2019-12-26] MEDS: ACETAMINOPHEN 650 MG/SUPP.RECT RC PRN (04:46)
[2019-12-26 04:56] LABS: BASOPHILS % (AUTO) 0.1 % (0.0-2.0); EOSINOPHILS % (AUTO) 1.3 % (0.0-6.0); HEMATOCRIT 36 % (33-45); HEMOGLOBIN 11.4 g/dL (11.5-14.8); LYMPHOCYTES # (AUTO) 0.6 /CMM (0.8-4.8); LYMPHOCYTES % (AUTO) 3.9 % (20.0-44.0); MEAN CORPUSCULAR HGB CONC 32 g/dl (31.0-36.0); MEAN CORPUSCULAR VOLUME 86 fL (82-100); MONOCYTES # (AUTO) 0.5 /CMM (0.1-1.30); MONOCYTES % (AUTO) 3.6 % (2.0-12.0); NEUTROPHILS # (AUTO) 13.7 /CMM (1.8-8.9); NEUTROPHILS % (AUTO) 91.1 % (43.0-81.0); PLATELET COUNT (AUTO) 230 /CMM (150-450); RED BLOOD CELL COUNT(AUTO) 4.13 MIL/uL (4.0-5.2); WHITE BLOOD COUNT (AUTO) 15.1 K/uL (4.3-11.0)
[2019-12-26 05:02] LABS: CALCIUM, SERUM 9.3 mg/dL (8.5-10.1); CARBON DIOXIDE 27 mmol/L (21-32); CHLORIDE 107 mmol/L (98-107); CREATININE 0.8 mg/dL (0.6-1.3); GLUCOSE 166 mg/dL (74-106); POTASSIUM 4.1 mmol/L (3.5-5.1); SODIUM SERUM 142 mmol/L (136-145); UREA NITROGEN, BLOOD 37 mg/dL (7-18)
[2019-12-26] MEDS: PROSOURCE / PROSTAT (PYXIS) 30 ML UDC GT SCH ×3 (11:18→17:32)
[2019-12-26] MEDS: PANTOPRAZOLE 40 MG/PACK PACK NG SCH (11:18)
[2019-12-26] MEDS: HYDROGEL DRESSING 90 GM TUBE TP SCH (11:18)
[2019-12-26] MEDS: GLUCERNA 1.2 1,000 ML BOTTLE GT PRN (11:56)
--- NOTE | 2019-12-26 12:00 | NUR ---
RECTAL TUBE INSERTED AT THIS TIME D/T LARGE AMOUNT OF LIQUID STOOL. PT HAS PREVIOUSLY BEEN TESTED FOR C-DIFF, RESULT WAS NEGATIVE
[2019-12-26] MEDS ORDERED: FEE PK DOSING 1 MIN EA MC ONE (14:49)
[2019-12-26] MEDS ORDERED: MEROPENEM 1 G in IV NS 0.9% 100 ML IV SCH ×3 (15:00→17:00)
--- NOTE | 2019-12-26 15:47 | NUR ---
BLOOD CULTURES WERE COLLECTED BY LAB, URINE CULTURE AND MRSA SWAB WAS COLLECTED AT THIS TIME BY RN AND SENT TO LAB. RT NOTIFIED OF NEED FOR SPUTUM CULTURE.
[2019-12-26] MEDS: VANCOMYCIN 1 GM in IV D5W 250ml IV SCH (15:49)
[2019-12-26] MEDS ORDERED: VANCOMYCIN 1 GM in IV D5W 250ml IV SCH (16:00)
[2019-12-26] MEDS ORDERED: MEROPENEM 1 G in IV NS 0.9% 100 ML IV ONE (16:00)
[2019-12-26 16:45] LABS: APPEARANCE,URINE CLEAR (CLEAR); BILIRUBIN,URINE NEGATIVE (NEGATIVE); BLOOD, URINE NEGATIVE Ery/uL (NEGATIVE); COLOR,URINE YELLOW (YELLOW); KETONES,URINE NEGATIVE (NEGATIVE); LEUKOCYTE ESTERASE ,URINE TRACE (NEGATIVE); NITRITE, URINE NEGATIVE (NEGATIVE); PH,URINE 5.5 (5.0-8.0); PROTEIN,URINE NEGATIVE (NEGATIVE); UGLUCOSE NEGATIVE (NEGATIVE); UROBILINOGEN,URINE 0.2 EU/dL (0.2)
--- NOTE | 2019-12-26 17:30 | NUR ---
TELEPHONE CONSENT FOR TRACHEOSTOMY PLACEMENT RECEIVED FROM ALEXANDRA VERDE AND ON CHART
[2019-12-26 17:37] LABS: BACTERIA,URINE 1+ /HPF (None Seen); SQUAMOUS EPITHELIAL CELL,UR 0-2 /HPF (None Seen)
--- NOTE | 2019-12-26 18:38 | NUR ---
END OF SHIFT NOTE: PT HAD A FAIRLY UNEVENTFUL SHIFT. RECTAL TUBE WAS INSERTED PER MD ORDERS FOR LIQUID STOOL. TMAX THIS SHIFT WAS 100.0 TYMPANIC. PREVIOUSLY NOTED CONSENT ON CHART FOR TRACH TOMORROW BY DR. AGUILAR, SCHEDULED FOR 1000 TOMORROW AM. PT WILL BE NPO AFTER MIDNIGHT FOR TRACH PLACEMENT. PT WAS COATES CULTURED TODAY PER MD ORDERS. ABX GIVEN PER MD ORDERS. PT CHECKED ON HOURLY AND PRN BY NURSING STAFF.
--- NOTE | 2019-12-26 19:40 | NUR ---
SOCIAL SCIENCES RESEARCH SCIENTIST OPENING NOTES, RECEIVED PATIENT IN BED INTUBATED, OBTUNDED, TOLERATING VENT SETTING WELL, NO SOB OR ACUTE DISTRESS NOTED AT THIS TIME. NO EYE OPENING. ON TELE MONITOR HR @90/100s. IV SITE DANY MIDLINE, FLUSHING WELL, NO S/S OF INFILTRATION NOTED RUNNING NS @ 10ML/HR TKO. OGT FEEDING INTACT AND RUNNING GLUCERNA @50ML./HR TOLERATING WILL. PATIENT WILL BE NPO AFTER MIDNIGHT FOR THE TRACH SURGERY IN THE MORNING. SAFETY MEASURES IN PLACE, BED IN LOW LOCKED POSITION, HOB ELEVATED, SIDE RAILS UP X3. WILL CONTINUE TO MONITOR THE PATIENT CLOSELY.
[2019-12-26] MEDS: ENOXAPARIN SODIUM 40 MG/0.4 ML DISP.SYRIN SQ SCH (21:03)
[2019-12-27] VITALS (36 sets, daily range): BP systolic 88–122; BP diastolic 44–79
[2019-12-27] MEDS: MEROPENEM 1 G in IV NS 0.9% 100 ML IV SCH ×3 (00:01→16:17)
--- NOTE | 2019-12-27 00:10 | NUR ---
PATIENT IS NPO FOR THE TRACHEOSTOMY PROCEDURE IN THE MORNING. VSS, NO ACUTE DISTRESS OR SOB. WILL CONTINUE TO MONITOR.
[2019-12-27 04:48] LABS: B-TYPE NATRIURETIC PEPTIDE 260 PG/ML (0-125)
--- NOTE | 2019-12-27 05:30 | NUR ---
CRITICAL LAB VALUE RECEIVED FROM OG RESENDIZ. LACTIC ACID 2.1, REPRODUCTION MACHINE LOADER PHOTOGRAPHIC MACHINE OPERATOR WAS NOTIFIED, NO NEW ORDERS RECEIVED. VSS. WILL CONTINUE TO MONITOR.
--- NOTE | 2019-12-27 07:15 | NUR ---
MOLD CLOSER HELPER CLOSING NOTES, PATIENT IN BED INTUBATED, OBTUNDED, TOLERATING VENT SETTING WELL, NO SOB OR ACUTE DISTRESS NOTED AT THIS TIME. NO EYE OPENING. ON TELE MONITOR HR @80/90s. IV SITE DANY MIDLINE, FLUSHING WELL, NO S/S OF INFILTRATION NOTED RUNNING NS @ 10ML/HR TKO. PATIENT WAS NPO SINCE MIDNIGHT FOR THE TRACH SURGERY AT 1000. BILATERAL SOFT RESTRAINS IN PLACE FOR SAFETY. SAFETY MEASURES IN PLACE, BED IN LOW LOCKED POSITION, HOB ELEVATED, SIDE RAILS UP X3. ENDORSED THE PATIENT TO AM RN FOR CEE.
[2019-12-27 07:40] LABS: BILIRUBIN,DIRECT 0.1 mg/dL (0.0-0.2); BILIRUBIN,TOTAL 0.3 mg/dL (0.2-1.0)
[2019-12-27] MEDS: PROSOURCE / PROSTAT (PYXIS) 30 ML UDC GT SCH ×3 (07:49→18:00)
--- NOTE | 2019-12-27 07:49 | NUR ---
PROTONIX HELD UNTIL AFTER SURGERY THIS AM AND OK FROM TO GIVE MEDS
[2019-12-27] MEDS: HYDROGEL DRESSING 90 GM TUBE TP SCH (08:17)
[2019-12-27] MEDS ORDERED: ROCURONIUM BROMIDE 50 MG/5 ML ONE (09:28)
[2019-12-27] MEDS ORDERED: CELLULOSE,OXIDIZED 1 PKT EACH MC ONE (09:56)
[2019-12-27] MEDS ORDERED: LIDOCAINE HCL/MPF 1% 30 ML VIAL IJ ONE (09:56)
--- NOTE | 2019-12-27 10:25 | NUR ---
PT LEFT FOR SURGERY AT APPROX 1020, VIA BED WITH SURGERY STAFF AND RT JIMENEZ.
--- NOTE | 2019-12-27 11:17 | NUR ---
PT RETURNED FROM SURGERY AT THIS TIME
--- NOTE | 2019-12-27 11:38 | NUR ---
SRIRAM NOTE: Sales Representative Door To Door followed up with ICU Charge Nurse, eKith regarding consensus for trach treatment on the pt. Per multidisciplinary report this morning with [facility] medical staff, was pending consent from the pt's son to move forward with a trach, and wanted SW to confirm consent in order to proceed with treatment. SRIRAM reviewed pt's chart and contacted Keith, who indicated the pt's trach was already put in as she received consent from her son via telephone. SRIRAM notified Starter Mechanic, Enriqueta.
[2019-12-27] MEDS: PANTOPRAZOLE 40 MG/PACK PACK NG SCH (14:40)
[2019-12-27] MEDS: VANCOMYCIN 1 GM in IV D5W 250ml IV SCH (14:41)
[2019-12-27] MEDS: GLUCERNA 1.2 1,000 ML BOTTLE GT PRN (15:00)
--- NOTE | 2019-12-27 18:28 | NUR ---
END OF SHIFT NOTE: PT HAD A TRACH PLACEMENT TODAY. KYLIE #8. OG TUBE REMOVED AND LEFT NARE NG TUBE REPLACED. TUBE FEEDING RESUMED PER MD ORDERS. RESTRAINTS DC'D. PT OBTUNDED, APPEARS SLIGHTLY LESS RESPONSIVE TO PAIN THAN PRIOR TO TRACH PLACEMENT, PT HAD SEDATION DURING TRACH PLACEMENT. PT CHECKED ON HOURLY AND PRN BY NURSING STAFF.
--- NOTE | 2019-12-27 19:40 | NUR ---
SAND TECHNOLOGIST OPENING NOTES, RECEIVED PATIENT IN BED NEW TRACHEOSTOMY IN PLACE, OBTUNDED, TOLERATING VENT SETTING WELL, NO SOB OR ACUTE DISTRESS NOTED AT THIS TIME. NO EYE OPENING. ON TELE MONITOR HR @90/100s. IV SITE DANY MIDLINE, FLUSHING WELL, NO S/S OF INFILTRATION NOTED RUNNING NS @ 10ML/HR TKO. NGT FEEDING INTACT AND RUNNING GLUCERNA @50ML./HR TOLERATING WILL. MARQUEZ CATH DRAINING CLEAR YELLOW URIN TO THE GRAVITY.RECTAL TUBE IN PLACE. SAFETY MEASURES IN PLACE, BED IN LOW LOCKED POSITION, HOB ELEVATED, SIDE RAILS UP X3. WILL CONTINUE TO MONITOR THE PATIENT CLOSELY.
[2019-12-27] MEDS: ENOXAPARIN SODIUM 40 MG/0.4 ML DISP.SYRIN SQ SCH (20:54)
--- NOTE | 2019-12-27 21:30 | NUR ---
LITTLE BLOODS DRAINAGE NOTED AT NEW TRACHEAL SITE. CHARGE NURSE NOTIFIED. NO ACUTE DISTRESS NOTED, VSS. WILL CONTINUE TO MONITOR.
[2019-12-28] VITALS (22 sets, daily range): BP systolic 94–123; BP diastolic 48–65
[2019-12-28] MEDS: MEROPENEM 1 G in IV NS 0.9% 100 ML IV SCH ×3 (00:12→20:33)
[2019-12-28 04:32] LABS: CALCIUM, SERUM 8.9 mg/dL (8.5-10.1); CREATININE 0.7 mg/dL (0.6-1.3); POTASSIUM 3.9 mmol/L (3.5-5.1)
--- NOTE | 2019-12-28 07:00 | NUR ---
RN NOTES, RECEIVED PATIENT ON BED, TRACH/ VENT DEPENDENT, TOLERATING CURRENT VENT SETTING WELL, NO DISTRESS NOTED, PT DOES NOT FOLLOW COMMAND, RESPONSE TO PAINFUL, ON TELE MONITOR HR IN 90'S , IV SITE DANY MIDLINE, FLUSHING WELL, NO S/S OF INFILTRATION NOTED RUNNING NS @ 10ML/HR TKO. NGT FEEDING INTACT AND RUNNING GLUCERNA @50 ML/ HR TOLERATING WILL. MARQUEZ CATH DRAINING CLEAR YELLOW URIN TO THE GRAVITY.RECTAL TUBE IN PLACE. SAFETY MEASURES IN PLACE, BED IN LOW LOCKED POSITION, HOB ELEVATED, SIDE RAILS UP X3. WILL CONTINUE TO MONITOR THE PATIENT CLOSELY.
--- NOTE | 2019-12-28 07:09 | NUR ---
MANAGER PIPELINE CLOSING NOTES, PATIENT HAD A TRACH PLACEMENT YESTERDAY. KYLIE #8. LEFT NARES TUBE FEEDING, @ 50ML/HR TOLERATING WELL. BILATERAL UPPER SOFT RESTRAINS RESTRAINTS APPLIED FOR SAFETY. PATIENT IS OBTUNDED, NO SIGN OF PAIN , PATIENT CHECKED ON HOURLY AND PRN. ALL SAFETY MEASURES IN PLACE, BED IN LOW/LOCKED POSITION, SIDRAIES UOP X2. ENDORSED THE PATIENT TO AM RN FOR CEE,
[2019-12-28] MEDS: PANTOPRAZOLE 40 MG/PACK PACK NG SCH (08:05)
[2019-12-28] MEDS: PROSOURCE / PROSTAT (PYXIS) 30 ML UDC GT SCH ×3 (08:07→16:46)
[2019-12-28] MEDS: HYDROGEL DRESSING 90 GM TUBE TP SCH (08:08)
--- NOTE | 2019-12-28 10:00 | NUR ---
RN NOTES BAILEE STUNTMAN NOITFED REGARDING LOW URIN OUTPUT. CONTINUE TO MONITOR .
--- NOTE | 2019-12-28 14:00 | NUR ---
RN NOTES SMALL AMOUNT OF SEROSANGUINEOUS DRAINING NOTED AT THE TRACH SITE, DRESSING APPLIED , CONTINUE TO MONITOR .
[2019-12-28] MEDS: GLUCERNA 1.2 1,000 ML BOTTLE GT PRN (14:05)
[2019-12-28] MEDS: VANCOMYCIN 1 GM in IV D5W 250ml IV SCH (14:35)
--- NOTE | 2019-12-28 18:01 | NUR ---
RN NOTES REPORT GIVEN TO DAVIE BURKS ON 3W FOR CONTINUITY OF CARE .
--- NOTE | 2019-12-28 18:30 | NUR ---
RN NOTES NO SIGNIFICANT CHANGES NOTED ON THIS SHIFT, PT TOLERATING VENT SETTING WELL, MARQUEZ DRINING TO GRAVITY, KIMMIEANG TF AT 50CC/HR, NO RESIDUAL NOTED , TELEPHONE CONSENT OBTAINED FROM PT SON, FOR PEG PLACEMENT TOMORROW PER DR AKHTAR'S ORDER . SR UP X3, CALL LIGHT WITHIN EASY REACH, BED LOCKED AND IN LOWEST POSITION, WILL ENDORSE TO CYBER SECURITY ENGINEER NURSE FOR CONTINUITY OF CARE .
--- NOTE | 2019-12-28 19:24 | NUR ---
RN NOTES PT TRANSFERRED TO ROOM 320-1 , TELE STATUS VIA ACLS PROTOCOL IN STABLE CONDITION, NO BELONGINGS NOTED .
--- NOTE | 2019-12-28 19:25 | NUR ---
OIL CHANGE TECHNICIAN NOTES PATIENT ARRIVED ON FLOOR AT 1925. PATIENT IS NONVERBAL, WITH EYES CLOSED. BREATHING EVEN AND UNLABORED ON MV TRACH SHILEY 8, AC 12, FI02 40%, PEEP 5, AND TV 400. SHOWS NO SIGNS OF ACUTE RESPIRATORY DISTRESS, NO ACUTE PAIN. TELE MONITOR SR. RECTAL TUBE CLEAN DRY AND IN PLACE. FC DRAINING YELLOW CLEAR URINE. NG TUBE FEEDING ON GLUCERNA AT 50ML/HR, NO RESIDUALS. IV ON DANY MIDLINE AND L HAND 20G ITS CLEAN DRY AND INTACT. SHOWS NO SIGNS OF INFILTRATION. SAFETY PRECAUTIONS IN PLACE. BED IN LOWEST POSITION, LOCKED, AND CALL LIGHT KEPT WITHIN REACH. WILL CONTINUE TO MONITOR.
[2019-12-28] MEDS: ENOXAPARIN SODIUM 40 MG/0.4 ML DISP.SYRIN SQ SCH (21:00)
[2019-12-29] VITALS: BP 125/57
[2019-12-29 04:00] VITALS: BP 116/53
--- NOTE | 2019-12-29 06:19 | NUR ---
INSTRUMENT LENS GRINDER NOTES CALLED FAMILY FOR CONSENT FOR PROCEDURE. UNABLE TO GET CONSENT, FAMILY DID NOT ANSWER. WILL ENDORSE TO ONCOMING NURSE.
[2019-12-29 06:40] LABS: CALCIUM, SERUM 8.9 mg/dL (8.5-10.1); CREATININE 0.6 mg/dL (0.6-1.3); POTASSIUM 3.7 mmol/L (3.5-5.1)
--- NOTE | 2019-12-29 06:43 | NUR ---
CHIPPER FEEDER NOTES PATIENT IS NONVERBAL, WITH EYES CLOSED. BREATHING EVEN AND UNLABORED ON MV TRACH SHILEY 8, AC 12, FI02 40%, PEEP 5, AND TV 400. SHOWS NO SIGNS OF ACUTE RESPIRATORY DISTRESS, NO ACUTE PAIN. TELE MONITOR SR. RECTAL TUBE CLEAN DRY AND IN PLACE. FC DRAINING YELLOW CLEAR URINE. NG TUBE FEEDING ON GLUCERNA AT 50ML/HR, HELD AT 0000 FOR PROCEDURE. IV ON DANY MIDLINE AND L HAND 20G ITS CLEAN DRY AND INTACT. SHOWS NO SIGNS OF INFILTRATION. ALL DUE MEDICATIONS GIVEN. SAFETY PRECAUTIONS IN PLACE. BED IN LOWEST POSITION, LOCKED, AND CALL LIGHT KEPT WITHIN REACH. WILL ENDORSE TO ONCOMING NURSE.
[2019-12-29 06:44] LABS: EOSINOPHILS % (AUTO) 6.9 % (0.0-6.0); HEMATOCRIT 31 % (33-45); HEMOGLOBIN 9.8 g/dL (11.5-14.8); LYMPHOCYTES # (AUTO) 0.9 /CMM (0.8-4.8); LYMPHOCYTES % (AUTO) 23.2 % (20.0-44.0); MEAN CORPUSCULAR HGB CONC 32 g/dl (31.0-36.0); MEAN CORPUSCULAR VOLUME 88 fL (82-100); MONOCYTES # (AUTO) 0.3 /CMM (0.1-1.30); MONOCYTES % (AUTO) 6.5 % (2.0-12.0); NEUTROPHILS # (AUTO) 2.5 /CMM (1.8-8.9); NEUTROPHILS % (AUTO) 62.4 % (43.0-81.0); PLATELET COUNT (AUTO) 155 /CMM (150-450); RED BLOOD CELL COUNT(AUTO) 3.51 MIL/uL (4.0-5.2)
--- NOTE | 2019-12-29 07:41 | NUR ---
CLAIMS ADJUDICATOR OPENING NOTE PATIENT IN BED RESTING COMFORTABLY. PATIENT IN NO ACUTE DISTRESS. NO SOB NOTED. PATIENT BREATHING IS EVEN AND UNLABORED. PATIENT ON VENT, TOLERATING VENT SETTINGS WELL. PATIENT ON CARDIAC MONITORING READING SINUS RHYTHM HR 74. PATIENT MAINTAINED NPO STATUS EXCEPTS MEDS. HOB IS ELEVATED. PATIENT BED ALARM IS ON. SAFETY PRECAUTIONS IN PLACE. PATIENT BED IS LOCKED AND IN LOWEST POSITION. CALL LIGHT WITHIN REACH. WILL CONTINUE TO MONITOR.
[2019-12-29 08:00] VITALS: BP 131/71
[2019-12-29] MEDS: MEROPENEM 1 G in IV NS 0.9% 100 ML IV SCH (08:29)
[2019-12-29] MEDS: PROSOURCE / PROSTAT (PYXIS) 30 ML UDC GT SCH ×3 (08:29→17:22)
[2019-12-29] MEDS: PANTOPRAZOLE 40 MG/PACK PACK NG SCH (08:30)
[2019-12-29] MEDS: HYDROGEL DRESSING 90 GM TUBE TP SCH (08:31)
[2019-12-29 13:09] VITALS: BP 112/57
--- NOTE | 2019-12-29 13:26 | NUR ---
FIELD SERVICES ANALYST NOTE PATIENT TOLERATED PEG PLACEMENT INSERTION WELL. NG TUBE REMOVED. WRITTEN ORDERS FROM DR. AKHTAR FOR USE OF PEG TUBE FOR WATER AND MEDS IN 4 HOURS AND RESUME TUBE FEEDINGS TOMORROW AM.
[2019-12-29] MEDS: CEFEPIME 2 GM in IV D5W 100 ML IV SCH (17:22)
--- NOTE | 2019-12-29 19:30 | NUR ---
RN OPENING NOTES Received patient on vent with current settings tolerated well. No respiratory distress or s/sx of discomfort noted at this time. With rectal tube with liquid stool noted. With Andrea catheter noted with clear yellow urine out put noted. With trach dressing noted soiled with secretions - Changed accordingly. With L hand peripheral IV line, noted patent, reinforced dressing. S/P PEG placement day 0, to resume GTF tomorrow AM. Kept HOB elevated, on fall and aspiration precautions. Ensure KCI mattress working well, will continue to monitor accordingly.
--- NOTE | 2019-12-29 19:42 | NUR ---
MUTUAL FUND MANAGER CLOSING NOTE PATIENT IN BED RESTING COMFORTABLY. PATIENT IN NO ACUTE DISTRESS. NO SOB NOTED. PATIENT BREATHING IS EVEN AND UNLABORED. PATIENT ON VENT, TOLERATING VENT SETTINGS WELL. PATIENT ON CARDIAC MONITORING READING SINUS RHYTHM HR 80. PATIENT TO RESUME TUBE FEEDINGS IN THE AM. PATIENT GTUBE IS PATENT AND INTACT. HOB IS ELEVATED. PATIENT KEPT CLEAN, DRY AND COMFORTABLE. PATIENT TURNED AND REPOSITIONED Q2H. PATIENT BED ALARM IS ON. SAFETY PRECAUTIONS IN PLACE. PATIENT BED IS LOCKED AND IN LOWEST POSITION. CALL LIGHT WITHIN REACH. WILL ENDORSE CARE TO PM SHIFT FOR CEE.
[2019-12-29] MEDS: ENOXAPARIN SODIUM 40 MG/0.4 ML DISP.SYRIN SQ SCH (21:02)
[2019-12-30] MEDS: CEFEPIME 2 GM in IV D5W 100 ML IV SCH ×2 (03:25→16:17)
[2019-12-30] MEDS: GLUCERNA 1.2 1,000 ML BOTTLE GT PRN (06:16)
--- NOTE | 2019-12-30 06:17 | NUR ---
RN NOTES Current PEG tube checked for patency and residual, 0ml residual noted and patent. Started GTF as ordered, Glucerna 1.2 @ 20ml/hr with goal rate of 50ml/hr as ordered. Kept HOB elevated at least 30 degrees up, respiratory monitored. On aspiration precautions. Will continue to monitor accordingly.
--- NOTE | 2019-12-30 06:45 | NUR ---
RN CLOSING NOTES Pt on bed, no new unusualities noted. Afebrile the whole shift, all nursing needs attended. Due meds given as ordered. On tele monitor with NSR noted. Kept on bed clean, dry comfortable. Endorsed.
--- NOTE | 2019-12-30 07:24 | NUR ---
rn notes patient received on room air, no sob noted, a/o x0 at this time. rectal tube present and is draining, [place] cath drained 550, glucerna 1.2 @ 50 ml per hour. to be increased 5 ml per hour. DANY midline SL and .l hand 20 SL. bed at the lowest setting, call light within reach, side rails up x2.
[2019-12-30 08:00] VITALS: BP 125/65
[2019-12-30 08:40] LABS: BASOPHILS % (AUTO) 0.6 % (0.0-2.0); EOSINOPHILS % (AUTO) 5.4 % (0.0-6.0); HEMATOCRIT 32 % (33-45); HEMOGLOBIN 10.4 g/dL (11.5-14.8); LYMPHOCYTES # (AUTO) 0.8 /CMM (0.8-4.8); LYMPHOCYTES % (AUTO) 21.7 % (20.0-44.0); MEAN CORPUSCULAR HGB CONC 32 g/dl (31.0-36.0); MEAN CORPUSCULAR VOLUME 87 fL (82-100); MONOCYTES # (AUTO) 0.3 /CMM (0.1-1.30); NEUTROPHILS # (AUTO) 2.5 /CMM (1.8-8.9); NEUTROPHILS % (AUTO) 65.3 % (43.0-81.0); PLATELET COUNT (AUTO) 136 /CMM (150-450); RED BLOOD CELL COUNT(AUTO) 3.74 MIL/uL (4.0-5.2); WHITE BLOOD COUNT (AUTO) 3.8 K/uL (4.3-11.0)
[2019-12-30 08:47] LABS: CREATININE 0.6 mg/dL (0.6-1.3); POTASSIUM 3.7 mmol/L (3.5-5.1)
[2019-12-30] MEDS: PROSOURCE / PROSTAT (PYXIS) 30 ML UDC GT SCH ×3 (08:47→16:17)
[2019-12-30] MEDS: PANTOPRAZOLE 40 MG/PACK PACK NG SCH (08:47)
[2019-12-30] MEDS: HYDROGEL DRESSING 90 GM TUBE TP SCH (08:47)
[2019-12-30 16:00] VITALS: BP 131/60
--- NOTE | 2019-12-30 18:03 | NUR ---
rn notes patient remains on room air, no sob noted, a/o x0 at this time. rectal tube present and is draining, [place] cath drained 450, glucerna 1.2 @ 50 ml per hour and is GOAL, to be ran for 24 hours. Remains on the ventilator. DANY midline SL and .l hand 20 SL. bed at the lowest setting, call light within reach, side rails up x2.
--- NOTE | 2019-12-30 19:40 | NUR ---
RT NOTE Pt received trach'd on mechanical ventilation. Alarms are set and audible gilbert fregoso @ hob. Pt sx'd. Pt is stable. No respiratory distress noted t/o shift. Addendum: 12/30/19 at 1941 by KENNETH BOWEN RT Amended: Links added.
[2019-12-30 20:00] VITALS: BP 137/73
--- NOTE | 2019-12-30 20:00 | NUR ---
RN NOTES/ASSESSMENT: RECEIVED REPORT FORM EV RN. PT [facility] VENT TRACHE DEPENDENT WITH THE FF SETTINGS: AC 12 TV 400 PEEP 5 FIO2 40%, SHILEY #8. CLINICAL ALARMS CHECK AND AUDIBLE. AMBU BAG AT BED SIDE. PT ON CONTINUOUS PULSE OXIMETRY, TELE MONITORING SINUS RHYTHM HR 88. SUCTION SET UP SECURED. RECEIVED PT WITH BILATERAL SOFT WRIST RESTRAINT PT TUGGING/PULLING ON IV ACCESS, GTUBE AND TRACHE. RADIAL PULSES PALPABLE AND INTACT, PT ABLE TO MOVE ARMS AND HANDS, WITH GOOD CAPILLARY REFILL NOTED, NO S/S OF IMPEDIMENT IN CIRCULATION NOTED. PT HAS MARQUEZ CATHETER IN PLACED, AND RECTAL TUBE IN PLACED. DANY MIDLINE PATENT AND FLUSHING WELL, ON HL. S/P PEG PLACEMENT ON 12/29/2019, CURRENTLY RECEIVING GLUCERNA 1.2 AT 50ML/HR, GOAL. KEPT HOB 30 DEGREES. BLE AND BUE KEPT OFFLOADED ON PILLOWS, SCD IN USE. SAFETY PRECAUTIONS FOR FALL INITIATED, CALL LIGHT IN REACH, WILL CONTINUE MONITORING PT.
[2019-12-30 20:24] VITALS: BP 137/73
--- NOTE | 2019-12-30 21:00 | NUR ---
rn notes/gtube residual: check pt's gtube residual, noted 210ml of feeding/milk, pt's abdomen soft to touch with active bowel sound hreard upon auscultation of abdomen. gtube can be easily flushes with water. will hold gtube feeding for 2hrs per protocol, and will continue to monitor.
[2019-12-30] MEDS: ENOXAPARIN SODIUM 40 MG/0.4 ML DISP.SYRIN SQ SCH (21:25)
--- NOTE | 2019-12-30 21:55 | NUR ---
RN NOTES/EPIC MD: NOTIFIED EPIC MD REGARDING PT'S GTUBE RESIDUAL, INFORMED THAT ASSIGNED RN HOLD GTUBE FEEDING AT THE MOMENT, WILL STAY ON HOLD FOR 2HRS AND THEN WILL REASSESS. NO NEW ORDERS RECEIVE FROM MD.
--- NOTE | 2019-12-30 23:00 | NUR ---
rn notes/gtube residual reassessment: reassessment performed after 2hrs of holding gtube feeding. 5ml of gtube residual noted. flushed gtube with 30cc of water. glucerna 1.2 restarted at 20cc/hr, will continue to monitor .
[2019-12-30 23:47] VITALS: BP 119/54
[2019-12-31] VITALS (8 sets, daily range): BP systolic 111–126; BP diastolic 54–66
[2019-12-31] MEDS: GLUCERNA 1.2 1,000 ML BOTTLE GT PRN (03:41)
[2019-12-31] MEDS: CEFEPIME 2 GM in IV D5W 100 ML IV SCH ×2 (03:41→15:21)
--- NOTE | 2019-12-31 06:40 | NUR ---
rn notes: rectal tube accidentally came out during cleaning of pt. new rectal tube inserted with help of another rn vu, following rectal tube protocol.
--- NOTE | 2019-12-31 07:03 | NUR ---
end of shift report: Pt tolerated mech vent settings well, no bleeding noted on tracheostomy site and surrounding area. Latest Gtube residual is 10ml. Pt currently on Glucerna 1.2 at 30 ml/hr. DANY midline remains patent and flushing well, on hl, no s/s of iv infiltration noted. Remains tele monitoring sinus rhythm hr 99. Andrea catheter remains in placed.Pt remains with bilateral soft wrist restraint, no s/s of impediment in circulation noted, restraint protocol followed. Kept on aspiration precaution, hob 30 degree. Turning and repositioning q2hrs provided. AM care, wound care and complete linen change provided. PLAN OF CARE: Dc planning to SO-JOS. Ble offloaded on pillows. VS remains stable, needs attended. Safety precautions for fall remains engaged, call light in reach, will endorse to day rn for continuity of care.
--- NOTE | 2019-12-31 07:35 | NUR ---
RN OPENING NOTE Patient is resting in bed, obtunded, opens eyes, on mechanical vent Shiley #8 AC 12 TV 400 PEEP 5 FiO2 40%. Continuous pulse ox at the bedside saturating 100%. Tele monitor SR 80s. DANY midline noted is clean and intact flushing well. Left hand #20g is clean and intact flushing well. Andrea catheter noted with clear urine output and rectal tube in place with brown stool. Patient is bedbound, on KCI mattress, will turn and reposition, q2 hours. Bed is in lowest position, side rails x3 in upright position, fall safety and aspiration precautions enforced. Will continue with plan of care.
--- NOTE | 2019-12-31 08:00 | NUR ---
RN NOTE G-TUBE residual 10ml at this time. G-tube feeding running 30mls/hr. Will increase feeding as tolerated.
[2019-12-31 08:21] LABS: CALCIUM, SERUM 8.8 mg/dL (8.5-10.1); CREATININE 0.6 mg/dL (0.6-1.3)
[2019-12-31] MEDS: PANTOPRAZOLE 40 MG/PACK PACK NG SCH (09:09)
[2019-12-31] MEDS: PROSOURCE / PROSTAT (PYXIS) 30 ML UDC GT SCH ×3 (09:09→17:00)
[2019-12-31] MEDS: HYDROGEL DRESSING 90 GM TUBE TP SCH (09:10)
--- NOTE | 2019-12-31 18:48 | NUR ---
RN CLOSING NOTE Patient is resting in bed, obtunded, opens eyes, on mechanical vent Shiley #8 AC 12 TV 400 PEEP 5 FiO2 40%. Continuous pulse ox at the bedside saturating 100%. Tele monitor SR 80s. DANY midline noted is clean and intact flushing well. Left hand #20g is clean and intact flushing well. Andrea catheter noted with clear urine output total 350cc out. Rectal tube re-inserted 2x this shift, and it continues to come out, notifed Chidi Hunter Made a call to ICU and they stated to call after change of shift report to see if an TRANSPLANT WORKER can come down to re-insert rectal tube. Will endorse to maintenance fitter RN. Patient is bedbound, on KCI mattress, turned and repositioned q 2 hours. Bed is in lowest position, side rails x3 in upright position, fall safety and aspiration precautions enforced. All patient needs met, all due medications given, patient kept clean and dry throughout shift. Will endorse to maintenance fitter for CEE.
--- NOTE | 2019-12-31 19:10 | NUR ---
ELASTIC ATTACHER ZIGZAG NOTES received pt in bed resting. pt obtunded, opens eyes, on mechanical vent Shiley #8 AC 12 TV 400 PEEP 5 FiO2 40%. pt on Continuous pulse ox at the bedside saturating 100%. DANY midline noted. Left hand #20g noted. Andrea catheter noted draining well. safety measures in place with bed in lowest locked position with side rails up x2. call light within reach. will continue to monitor.
--- NOTE | 2019-12-31 21:37 | NUR ---
RESPIRATORY CARE PRACTITIONER NOTES PT NOTED WITH PLT OF 136, LAB DRAW FOR 12/30/19. MADE AWARE. OK TO GIVE ENOXAPARIN. WILL CONTINUE TO MONITOR.
[2019-12-31] MEDS: ENOXAPARIN SODIUM 40 MG/0.4 ML DISP.SYRIN SQ SCH (21:42)
[2020-01-01] VITALS (7 sets, daily range): BP systolic 104–120; BP diastolic 46–56
[2020-01-01 06:53] LABS: CALCIUM, SERUM 8.4 mg/dL (8.5-10.1); CARBON DIOXIDE 26 mmol/L (21-32); CHLORIDE 103 mmol/L (98-107); CREATININE 0.5 mg/dL (0.6-1.3); GLUCOSE 123 mg/dL (74-106); POTASSIUM 3.7 mmol/L (3.5-5.1); SODIUM SERUM 135 mmol/L (136-145); UREA NITROGEN, BLOOD 20 mg/dL (7-18)
--- NOTE | 2020-01-01 07:30 | NUR ---
RN OPENING NOTES Received patient in bed, obtunded. Responsive to tactile and verbal stimulation through opening eyes. Currently tolerating mechanical vent settings well, [place] #8 AC 12 TV 400 PEEP 5 FiO2 40%. Continuous pulse ox at the bedside saturating 100%. Breathing even and non-labored. Tele monitor SR HR 63. DANY midline and L hand #20 gauge IV accesses noted, patent and intact, and flushing well. Andrea catheter noted with clear urine output. Fall precautions maintained.Will continue with plan of care. Addendum: 01/01/20 at 1813 by LYDIA BARAHONA RN G-tube in place, clean and patent.
--- NOTE | 2020-01-01 07:42 | NUR ---
PALLIATIVE SENIOR NP NOTES pt in bed resting. pt obtunded, opens eyes, on mechanical vent Shiley #8 AC 12 TV 400 PEEP 5 FiO2 40%. pt on Continuous pulse ox at the bedside saturating 100%. DANY midline noted. Left hand #20g noted. Andrea catheter noted draining well. pt kept clean, dry, and comfortable. safety measures in place with bed in lowest locked position with side rails up x2. call light within reach. will endorse to oncoming nurse for henna.
[2020-01-01] MEDS: PANTOPRAZOLE 40 MG/PACK PACK NG SCH (08:39)
[2020-01-01] MEDS: HYDROGEL DRESSING 90 GM TUBE TP SCH (08:39)
[2020-01-01] MEDS: PROSOURCE / PROSTAT (PYXIS) 30 ML UDC GT SCH ×3 (08:42→16:44)
--- NOTE | 2020-01-01 09:34 | NUR ---
TELE/RN NOTES Paused patient's tube feeding due to gastric residual of > 100 mL noted. Notified Chidi Winston, will order reglan 5 mg BID. Will continue to monitor patient.
[2020-01-01] MEDS: METOCLOPRAMIDE HCL 10 MG/10 ML UDC GT SCH ×2 (09:54→21:13)
[2020-01-01] MEDS: GLUCERNA 1.2 1,000 ML BOTTLE GT PRN (11:22)
--- NOTE | 2020-01-01 11:30 | NUR ---
TELE/RN NOTES Gastric residual at 5 cc noted. Started tube feeding at 40 mls/hr. Will continue to monitor patient for feeding toleration.
--- NOTE | 2020-01-01 13:05 | NUR ---
MS/RN NOTES Patient tolerating tube feeding well @40 mls/hr. Gastric residual of 5 cc noted. Will continue to monitor.
--- NOTE | 2020-01-01 14:00 | NUR ---
MS/RN NOTES Patient tolerating tube feeding well, gastric residual of < 5 cc noted. Increased tube feeding to goal of 50 cc/hr. Will continue to monitor patient feeding toleration.
--- NOTE | 2020-01-01 16:08 | NUR ---
MS/RN NOTES Patient currently tolerates feeding of 50 cc/hr, gastric residual of < 5 cc noted. Will continue to monitor patient for any changes of condition.
--- NOTE | 2020-01-01 18:08 | NUR ---
TELE/RN CLOSING NOTES Patient resting in bed, obtunded. Eye opening response to tactile and verbal stimulation. No s/s of pain/discomfort noted. Tolerating mechanical vent settings well, Shiley #8 AC 12 TV 400 PEEP 5 FiO2 40%, saturating at 100%. Breathing even and non-labored. Tele monitor SR HR 70. DANY midline and L hand #20 gauge IV accesses noted, patent and intact, and flushing well. G-tube in place, clean and intact. Currently tolerating tube feeding running at 50 mls/hr, 10 cc of gastric residual noted. Andrea catheter noted with clear urine output. Fall precautions maintained. Continue to monitor tube feeding tolerance and gastric residual. Will endorse to housing management officer nurse.
--- NOTE | 2020-01-01 19:57 | NUR ---
RN OPENING NOTES RECEIVED PATIENT IN BED, OBTUNDED, RESPONSIVE TO TACTILE AND VERBAL STIMULI, OPENS EYES. MECHANICAL VENT SETTINGS TOLERATING WELL, TRACH SHILEY #8 AC 12 TV 400 PEEP 5 FIO2 40%. CONTINUOUS PULSE OXIMETRY MONITOR AT BEDSIDE SATING 100%. NO SIGNS OF ACUTE RESPIRATORY DISTRESS NOTED. TELE MONITOR READS SR 80s. DANY MIDLINE AND PERIPHERAL IV LINE ON HER LEFT HAND G#20 INTACT AND PATENT, FLUSHING WELL. MARQUEZ CATHETER INTACT AND PATENT DRAINING TO A CLEAR YELLOW URINE OUTPUT. SAFETY MEASURES IN PLACE, ASPIRATION PRECAUTION INPLACE. CALL LIGHT WITHIN EASY REACH AT BEDSIDE. REPOSITIONED FOR COMFORT. ALL NEEDS ANTICIPATED. WILL CONTINUE TO MONITOR ACCORDINGLY.
[2020-01-01] MEDS: ENOXAPARIN SODIUM 40 MG/0.4 ML DISP.SYRIN SQ SCH (21:16)
[2020-01-02] VITALS (8 sets, daily range): BP systolic 98–121; BP diastolic 53–73
--- NOTE | 2020-01-02 06:15 | NUR ---
RN NOTES ALL NEEDS ATTENDED AND MET. KEPT RESTED. PATIENT IN BED, OBTUNDED, RESPONSIVE TO TACTILE AND VERBAL STIMULI, OPENS EYES. MECHANICAL VENT SETTINGS TOLERATING WELL, TRACH SHILEY #8 AC 12 TV 400 PEEP 5 FIO2 40%. CONTINUOUS PULSE OXIMETRY MONITOR AT BEDSIDE SATING 100%. NO SIGNS OF ACUTE RESPIRATORY DISTRESS NOTED. TELE MONITOR READS SR 80s. DANY MIDLINE AND PERIPHERAL IV LINE ON HER LEFT HAND G#20 INTACT AND PATENT, FLUSHING WELL. MARQUEZ CATHETER INTACT AND PATENT DRAINING TO A CLEAR YELLOW URINE OUTPUT. SAFETY MEASURES IN PLACE, ASPIRATION PRECAUTION INPLACE. CALL LIGHT WITHIN EASY REACH AT BEDSIDE. REPOSITIONED FOR COMFORT. ALL NEEDS ANTICIPATED. WILL ENDORSE TO AM NURSE FOR CONTINUITY OF CARE.
[2020-01-02 06:43] LABS: CALCIUM, SERUM 8.6 mg/dL (8.5-10.1); CREATININE 0.6 mg/dL (0.6-1.3); POTASSIUM 3.9 mmol/L (3.5-5.1)
--- NOTE | 2020-01-02 07:30 | NUR ---
RN OPENING NOTE Patient is resting in bed, A/O x0, opens eyes, non-verbal. Patient is on mechanical vent Shiley #8 AC 12 TV 400 PEEP 5 FiO2 40%. Tele monitor SR 80s. Andrea catheter in place with clear yellow output. Patient is on [employer] mattress, will turn [id number]. DANY Midline noted and left hand #20g noted flushed and patent. G-tube feedings running at 50 mls/hr, with 15 ml residual. Bed is in lowest position, side rails x3 in upright position, call light is within reach, fall safety and aspiration precautions enforced. Will continue with plan of care.
[2020-01-02] MEDS: PANTOPRAZOLE 40 MG/PACK PACK NG SCH (08:40)
[2020-01-02] MEDS: PROSOURCE / PROSTAT (PYXIS) 30 ML UDC GT SCH ×3 (08:40→17:16)
[2020-01-02] MEDS: HYDROGEL DRESSING 90 GM TUBE TP SCH (08:40)
[2020-01-02] MEDS: METOCLOPRAMIDE HCL 10 MG/10 ML UDC GT SCH ×2 (08:40→20:20)
--- NOTE | 2020-01-02 10:12 | NUR ---
RN NOTE Patient presents with temp of 99.2. Bed bath given, cooling measures implemented. Temp re-checked 98.9, Will continue to monitor.
[2020-01-02] MEDS: ACETAMINOPHEN 650 MG/20.3 ML UDC GT PRN (12:58)
--- NOTE | 2020-01-02 13:06 | NUR ---
RN NOTE Temp is 99.3. Tylenol given, cooling measure implemented. Will continue to monitor.
[2020-01-02] MEDS: GLUCERNA 1.2 1,000 ML BOTTLE GT PRN (17:16)
--- NOTE | 2020-01-02 18:43 | NUR ---
RN CLOSING NOTE Patient is resting in bed, A/O x0, opens eyes, non-verbal. Patient is on mechanical vent Shiley #8 AC 12 TV 400 PEEP 5 FiO2 40%, trach tie and dressing changed this shift. Tele monitor SR 80s. Andrea catheter in place with clear yellow output 200cc out this shift. Patient is on [employer] mattress, turned q 2 hours. DANY Midline noted dressing changed this shift and left hand #20g noted flushed and patent. G-tube feedings running at 50 mls/hr, with 15 ml residual, feeding has been changed this shift. All patient needs met, all due medications given, patient kept clean and dry throughout shift, 1 BM today, skin protection measures and mepilex applied. Bed is in lowest position, side rails x3 in upright position, call light is within reach, fall safety and aspiration precautions enforced. Will endorse to second shift supervisor for CEE.
--- NOTE | 2020-01-02 19:38 | NUR ---
DATA DEVELOPER NOTES PATIENT IN BED, EYES CLOSED, OBTUNDED. BREATHING EVEN AND UNLABORED ON MV TRACH SHILEY #8, AC 12, TV 400, PEEP 5, FIO2 40%. TELE MONITOR SR. FC CLEAN DRY AND INTACT. FLOWING YELLOW CLEAR URINE. GTUBE RUNNING GLUCERNA 1.2 AT 50ML/HR. 5ML RESIDUAL. DANY MIDLINE AND L HAND 20G ITS CLEAN DRY AND INTACT. SHOWS NO SIGNS OF INFILTRATION. SAFETY PRECAUTIONS IN PLACE. BED IN LOWEST POSITION, LOCKED, AND CALL LIGHT KEPT WITHIN REACH. WILL CONTINUE TO MONITOR.
[2020-01-02] MEDS: ENOXAPARIN SODIUM 40 MG/0.4 ML DISP.SYRIN SQ SCH (20:21)
[2020-01-03] VITALS (7 sets, daily range): BP systolic 109–137; BP diastolic 51–79
[2020-01-03] MEDS: ACETAMINOPHEN 650 MG/20.3 ML UDC GT PRN ×2 (04:30→14:53)
--- NOTE | 2020-01-03 07:06 | NUR ---
NATURALIZATION EXAMINER NOTES PATIENT IN BED, EYES CLOSED, OBTUNDED. BREATHING EVEN AND UNLABORED ON MV TRACH SHILEY #8, AC 12, TV 400, PEEP 5, FIO2 40%. TELE MONITOR SR. FC CLEAN DRY AND INTACT. FLOWING YELLOW CLEAR URINE. GTUBE RUNNING GLUCERNA 1.2 AT 50ML/HR. 0ML RESIDUAL. DANY MIDLINE AND L HAND 20G ITS CLEAN DRY AND INTACT. SHOWS NO SIGNS OF INFILTRATION. ALL DUE MEDICATIONS GIVEN. SAFETY PRECAUTIONS IN PLACE. BED IN LOWEST POSITION, LOCKED, AND CALL LIGHT KEPT WITHIN REACH. WILL ENDORSE TO ONCOMING NURSE.
--- NOTE | 2020-01-03 07:31 | NUR ---
RN OPENING NOTE Patient is resting in bed, A/O x0, opens eyes, non-verbal. Patient is on mechanical vent Shiley #8 AC 12 TV 400 PEEP 5 FiO2 40%. Tele monitor SR 70-71. Andrea catheter in place with clear yellow output. Patient is on [employer] mattress, will turn [id number]. DANY Midline noted and left hand #20g noted flushed and patent. G-tube feedings running at 50 mls/hr, with 5 ml residual. Bed is in lowest position, side rails x3 in upright position, call light is within reach, fall safety and aspiration precautions enforced. Will continue with plan of care.
--- NOTE | 2020-01-03 09:00 | NUR ---
RN NOTE Patient presents with temp of 99.0, cooling measures implemented and bed bath given. Will continue to monitor.
[2020-01-03] MEDS: PANTOPRAZOLE 40 MG/PACK PACK NG SCH (09:22)
[2020-01-03] MEDS: METOCLOPRAMIDE HCL 10 MG/10 ML UDC GT SCH ×2 (09:22→20:10)
[2020-01-03] MEDS: PROSOURCE / PROSTAT (PYXIS) 30 ML UDC GT SCH ×3 (09:22→17:00)
[2020-01-03] MEDS: HYDROGEL DRESSING 90 GM TUBE TP SCH (09:23)
--- NOTE | 2020-01-03 18:11 | NUR ---
RT NOTE RECEIVED PT MECHANICALLY VENTILATED VIA CUFFED TRACHEOSTOMY TUBE. CUFF INFLATED. TRACH TUBE MIDLINE AND SECURE. ALARMS SET PER PROTOCOL AND AUDIBLE. VENT PLUGGED IN TO RED OUTLET. AMBU BAG AT BED SIDE. NO DISTRESS NOTED. Addendum: 01/03/20 at 1811 by NAIF QUACH RT Amended: Links added.
--- NOTE | 2020-01-03 18:51 | NUR ---
RN CLOSING NOTE Patient is resting in bed, A/O x0, opens eyes, non-verbal. Patient is on mechanical vent Shiley #8 AC 12 TV 400 PEEP 5 FiO2 40%, trach tie and dressing changed this shift. Tele monitor SR 70s. Andrea catheter in place with clear yellow output 450cc out this shift. Patient is on [employer] mattress, turned q 2 hours. DANY Midline noted and left hand #20g noted flushed and patent. G-tube feedings running at 50 mls/hr, with 5 ml residual, feeding has been changed this shift. All patient needs met, all due medications given, patient kept clean and dry throughout shift, 2 BM today, skin protection measures and mepilex applied. Bed is in lowest position, side rails x3 in upright position, call light is within reach, fall safety and aspiration precautions enforced. Will endorse to instrument and control technician for CEE.
--- NOTE | 2020-01-03 19:35 | NUR ---
EARLY YEARS TEACHER NOTES PATIENT IN BED, EYES CLOSED, OBTUNDED. BREATHING EVEN AND UNLABORED ON MV TRACH SHILEY #8, AC 12, TV 400, PEEP 5, FIO2 40%. TELE MONITOR SR 70's . FC CLEAN DRY AND INTACT. FLOWING YELLOW CLEAR URINE. GTUBE RUNNING GLUCERNA 1.2 AT 50ML/HR. 5ML RESIDUAL. DANY MIDLINE AND L HAND 20G ITS CLEAN DRY AND INTACT. SHOWS NO SIGNS OF INFILTRATION. SAFETY PRECAUTIONS IN PLACE. BED IN LOWEST POSITION, LOCKED, AND CALL LIGHT KEPT WITHIN REACH. WILL CONTINUE TO MONITOR.
[2020-01-03] MEDS: ENOXAPARIN SODIUM 40 MG/0.4 ML DISP.SYRIN SQ SCH (20:10)
[2020-01-04] VITALS: BP_SYST 52
[2020-01-04 04:00] VITALS: BP 135/59
[2020-01-04] MEDS: GLUCERNA 1.2 1,000 ML BOTTLE GT PRN (04:38)
--- NOTE | 2020-01-04 06:34 | NUR ---
MAIL CARRIER AND CLERK NOTES PATIENT IN BED, EYES CLOSED, OBTUNDED. BREATHING EVEN AND UNLABORED ON MV TRACH SHILEY #8, AC 12, TV 400, PEEP 5, FIO2 40%. TELE MONITOR SR. FC CLEAN DRY AND INTACT. FLOWING YELLOW CLEAR URINE. GTUBE RUNNING GLUCERNA 1.2 AT 50ML/HR. 0ML RESIDUAL. DANY MIDLINE AND L HAND 20G ITS CLEAN DRY AND INTACT. SHOWS NO SIGNS OF INFILTRATION, NO REDNESS. ALL DUE MEDICATIONS GIVEN. SAFETY PRECAUTIONS IN PLACE. BED IN LOWEST POSITION, LOCKED, AND CALL LIGHT KEPT WITHIN REACH. WILL ENDORSE TO ONCOMING NURSE.
--- NOTE | 2020-01-04 07:30 | NUR ---
MANAGER BENCH OPEN NOTES PATIENT IS IN BED OBTUNDED OPENS EYES. VENTILATOR SETTINGS IN 100% SPO2. R UA MIDLINE SL AND IV L HAND #20G INTACT AND PATENT. MARQUEZ CATHETER PRESENT AND INTACT. G-TUBE PRESENT AND INTACT FEEDING GLUCERNAL 1.2 AT 50 ML/HR. SAFETY MEASURE ARE APPLIED BED LOCK IN LOW POSITION, SIDE RAILS X 2 UP FOR SAFETY. CALL LIGHT WITHIN REACH. WILL CONTINUE TO MONITOR.
[2020-01-04 08:00] VITALS: BP 136/78
[2020-01-04] MEDS: PROSOURCE / PROSTAT (PYXIS) 30 ML UDC GT SCH ×3 (08:02→16:13)
[2020-01-04] MEDS: METOCLOPRAMIDE HCL 10 MG/10 ML UDC GT SCH ×2 (08:14→20:59)
[2020-01-04] MEDS: HYDROGEL DRESSING 90 GM TUBE TP SCH (08:14)
[2020-01-04] MEDS: PANTOPRAZOLE 40 MG/PACK PACK NG SCH (08:14)
[2020-01-04 09:09] LABS: BASOPHILS % (AUTO) 0.5 % (0.0-2.0); HEMATOCRIT 33 % (33-45); HEMOGLOBIN 9.9 g/dL (11.5-14.8); LYMPHOCYTES # (AUTO) 3.2 /CMM (0.8-4.8); LYMPHOCYTES % (AUTO) 35.8 % (20.0-44.0); MEAN CORPUSCULAR HGB CONC 30 g/dl (31.0-36.0); MEAN CORPUSCULAR VOLUME 92 fL (82-100); MONOCYTES % (AUTO) 11.3 % (2.0-12.0); NEUTROPHILS # (AUTO) 4.5 /CMM (1.8-8.9); NEUTROPHILS % (AUTO) 49.4 % (43.0-81.0); PLATELET COUNT (AUTO) 174 /CMM (150-450); RED BLOOD CELL COUNT(AUTO) 3.57 MIL/uL (4.0-5.2); WHITE BLOOD COUNT (AUTO) 9.1 K/uL (4.3-11.0)
[2020-01-04 11:41] LABS: EOSINOPHILS % (MANUAL) 4 % (0-4); LYMPHOCYTES % (MANUAL) 31 % (16-48); MONOCYTES % (MANUAL) 6 % (0-11.0); NEUTROPHILS % (MANUAL) 59 (42-76)
[2020-01-04 16:00] VITALS: BP 128/52
[2020-01-04] MEDS ORDERED: ACET650S26 GT (17:33)
[2020-01-04] MEDS ORDERED: METO5SOL2 GT (17:33)
[2020-01-04] MEDS ORDERED: Prosource GT (17:33)
[2020-01-04] MEDS ORDERED: ENOX40DI SQ ×2 (17:33→18:27)
[2020-01-04] MEDS ORDERED: NUT.237L45 GT (17:33)
[2020-01-04] MEDS ORDERED: PANT40SU2 NG (17:33)
[2020-01-04] MEDS ORDERED: PANT40TA4 GT (18:27)
[2020-01-04] MEDS ORDERED: AMIN887L GT (18:27)
[2020-01-04] MEDS ORDERED: METO-295 GT (18:27)
[2020-01-04] MEDS ORDERED: ACET325T53 GT (18:27)
[2020-01-04] MEDS ORDERED: NUT.237L30 GT (18:27)
--- NOTE | 2020-01-04 19:07 | NUR ---
PRODUCT CONTROL AND LOGISTICS ANALYST CLOSED NOTES PRODUCT CONTROL AND LOGISTICS ANALYST CLOSING NOTES PATIENT IS OBTUNDED WITH NO SIGNS OF DISTRESS ON VENTILATOR WITH SPO2 100%. IV L HAND INTACT AND PATENT. G-TUBE INTACT AND PATENT FEEDING GLUCERNA AT 50ML/HR. MARQUEZ CATHETER IN PLACE AND INTACT. SCHEDULED MEDICATION WERE GIVEN AND TOLERATED WELL. SAFETY MEASURED ARE APPLIED BED IS IN LOCK POSITION LOCKED AND SIDE RAILS UP X 2 FOR SAFETY. CALL LIGHT WITHIN REACH. WILL ENDORSE TO THE NEXT SHIFT.
--- NOTE | 2020-01-04 20:02 | NUR ---
HERB DIGGER OPENING NOTES PATIENT RECEIVED RESTING IN BED, OBTUNDED. TOLERATING VENT SETTINGS WELL WITH BREATHING EVEN AND UNLABORED, NO SOB NOTED. NO SIGNS OF ACUTE DISTRESS. NO FACIAL GRIMACING NOTED. DANY MIDLINE SL AND L HAND #20 SL INTACT. MARQUEZ NOTED AND IN PLACE. GTUBE FEEDING RUNNING GLUCERNA 1.2 @ 50ML/HR. SAFETY PRECAUTIONS IN PLACE WITH BED IN LOWEST POSITION, BREAKS ON, SIDE RAILS UP. WILL CONTINUE TO MONITOR THROUGHOUT THE NIGHT.
[2020-01-04] MEDS: ENOXAPARIN SODIUM 40 MG/0.4 ML DISP.SYRIN SQ SCH (20:59)
--- NOTE | 2020-01-04 23:06 | NUR ---
MILITARY PILOT NOTES PATIENT DISCHARGED TO [facility] ASSISTED BY RT, RN, AND RESORT HOUSEKEEPER. PATIENT MEDICALLY STABLE. NO SIGNS OF ACUTE DISTRESS. REPORT GIVEN TO PAEDIATRIC PHYSIOTHERAPISTKIMMIE VALENZUELA. DISCHARGE PACKET GIVEN TO PAEDIATRIC PHYSIOTHERAPIST.
== END 2020-01-04 22:45 | DRG 4 ==
LOC: ER 11:55 → ICU 13:55 → TELE 12-28 19:18
PROVIDERS: ADMIT Hospitalist; ATTEND Hospitalist
PROC: 5A1955Z Respiratory Ventilation, Greater than 96 Consecutive Hours (ICD-10-PCS; principal; 2019-12-10)
PROC: 0BH17EZ Insertion of Endotracheal Airway into Trachea, Via Natural or Artificial Opening (ICD-10-PCS; 2019-12-10)
PROC: 05H533Z Insertion of Infusion Device into Right Subclavian Vein, Percutaneous Approach (ICD-10-PCS; 2019-12-11)
PROC: B546ZZA Ultrasonography of Right Subclavian Vein, Guidance (ICD-10-PCS; 2019-12-11)
PROC: 0B110F4 Bypass Trachea to Cutaneous with Tracheostomy Device, Open Approach (ICD-10-PCS; 2019-12-27)
PROC: 0DH63UZ Insertion of Feeding Device into Stomach, Percutaneous Approach (ICD-10-PCS; 2019-12-29)
DX: A41.89 Other specified sepsis (principal); E43 Unspecified severe protein-calorie malnutrition; G93.41 Metabolic encephalopathy; U07.1 COVID-19; J12.89 Other viral pneumonia; N17.0 Acute kidney failure with tubular necrosis; J96.21 Acute and chronic respiratory failure with hypoxia; R53.2 Functional quadriplegia; R65.21 Severe sepsis with septic shock; R40.2342 Coma scale, best motor response, flexion withdrawal, at arrival to emergency department; R40.2212 Coma scale, best verbal response, none, at arrival to emergency department; F01.51 Vascular dementia, unspecified severity, with behavioral disturbance; N39.0 Urinary tract infection, site not specified; E22.2 Syndrome of inappropriate secretion of antidiuretic hormone; D68.69 Other thrombophilia; E03.9 Hypothyroidism, unspecified; G30.9 Alzheimer's disease, unspecified; I25.10 Atherosclerotic heart disease of native coronary artery without angina pectoris; D63.8 Anemia in other chronic diseases classified elsewhere; I50.9 Heart failure, unspecified; I11.0 Hypertensive heart disease with heart failure; D64.9 Anemia, unspecified; E88.09 Other disorders of plasma-protein metabolism, not elsewhere classified; F09 Unspecified mental disorder due to known physiological condition; E87.6 Hypokalemia; Z68.20 Body mass index [BMI] 20.0-20.9, adult; I95.9 Hypotension, unspecified; E86.1 Hypovolemia; L89.329 Pressure ulcer of left buttock, unspecified stage; B96.5 Pseudomonas (aeruginosa) (mallei) (pseudomallei) as the cause of diseases classified elsewhere; B95.1 Streptococcus, group B, as the cause of diseases classified elsewhere; Z74.01 Bed confinement status; E11.65 Type 2 diabetes mellitus with hyperglycemia; R13.10 Dysphagia, unspecified; R40.2142 Coma scale, eyes open, spontaneous, at arrival to emergency department
CPT/HCPCS: 31720; 36410; 36415; 36600; 43246; 70450-TC; 71045-TC; 80048-TC; 80053-TC; 80061-TC; 80076-TC; 80202-TC; 81000-TC; 82247-TC; 82248-TC; 82550-TC; 82570-TC; 82728-TC; 82803-TC; 82962-TC; 83540-TC; 83605-TC; 83615-TC; 83735-TC; 83880; 84100-TC; 84132-TC; 84155-TC; 84300-TC; 84439-TC; 84443-TC; 84478-TC; 84484-TC; 85025-TC; 85378-TC; 85610-TC; 85730-TC; 86140-TC; 86480; 86850-TC; 87040-TC; 87070-TC; 87081-TC; 87086-TC; 87186-TC; 93307-TC; 94002-TC; 94003-TC; 94640-TC; 94760-TC; 94762-TC; 94799-TC; 99082-TC; A4623; A6248; A6253; A6403; A7526; C9113; G0378; J0330; J0692; J0696; J1100; J1200; J1650; J1940; J2185; J2405; J2543; J2704; J3262; J3370; J3480; J3490; J7030; J7050; J7060; J8597; U0003-CS

== ENCOUNTER 2020-08-04 09:25 | Outpatient (CLI) | payer MEDICARE, MEDICAID ==
[~2020-08-04 09:25] MED LIST: ACET325T53 GT; AMIN887L GT; ENOX40DI SQ; METO-295 GT; NUT.237L30 GT; PANT40TA49 GT
[2020-08-04] MEDS ORDERED: IOHEXOL-300 100 ML VIAL IV ONE (14:09)
[2020-08-04] MEDS ORDERED: IV NS 0.9% 250 ML IV ONE (14:09)
== END 2020-08-04 23:59 | disposition home or self-care (01) ==
LOC: CT 09:25
PROVIDERS: ATTEND Internal Medicine
DX: S72.91XA Unspecified fracture of right femur, initial encounter for closed fracture (principal); K57.30 Diverticulosis of large intestine without perforation or abscess without bleeding; I70.0 Atherosclerosis of aorta; X58.XXXA Exposure to other specified factors, initial encounter; Y93.89 Activity, other specified; Y92.89 Other specified places as the place of occurrence of the external cause; Y99.8 Other external cause status
CPT/HCPCS: 72192; J7050; Q9967

== ENCOUNTER 2021-01-16 11:17 | Outpatient (CLI) | payer MEDICARE, MEDICAID | END 2021-01-16 23:59 | disposition home or self-care (01) | LOC: CT 11:17 | PROVIDERS: ATTEND Internal Medicine | DX: I25.10 Atherosclerotic heart disease of native coronary artery without angina pectoris (principal); I70.0 Atherosclerosis of aorta; J98.11 Atelectasis; M47.819 Spondylosis without myelopathy or radiculopathy, site unspecified | CPT/HCPCS: 74150-TC ==

== ENCOUNTER 2021-01-22 08:00 | Day surgery (SDC) | payer MEDICARE, OTHER | END 2021-01-22 12:00 | disposition home or self-care (01) | LOC: DS 08:00 | PROVIDERS: ATTEND Internal Medicine | DX: R13.10 Dysphagia, unspecified (principal); K29.70 Gastritis, unspecified, without bleeding; G93.40 Encephalopathy, unspecified; F01.50 Vascular dementia, unspecified severity, without behavioral disturbance, psychotic disturbance, mood disturbance, and anxiety; I70.90 Unspecified atherosclerosis; I10 Essential (primary) hypertension; E78.5 Hyperlipidemia, unspecified; E03.9 Hypothyroidism, unspecified; R53.2 Functional quadriplegia; E87.1 Hypo-osmolality and hyponatremia; L89.159 Pressure ulcer of sacral region, unspecified stage | CPT/HCPCS: 43246; J2704; J3490 ==

== ENCOUNTER 2021-01-27 08:49 | Outpatient (CLI) | payer MEDICARE, MEDICAID | END 2021-01-27 23:59 | disposition home or self-care (01) | LOC: CT 08:49 | PROVIDERS: ATTEND Internal Medicine | DX: I25.10 Atherosclerotic heart disease of native coronary artery without angina pectoris (principal); J43.9 Emphysema, unspecified; L02.211 Cutaneous abscess of abdominal wall; J98.11 Atelectasis; I70.0 Atherosclerosis of aorta; K57.90 Diverticulosis of intestine, part unspecified, without perforation or abscess without bleeding; M47.819 Spondylosis without myelopathy or radiculopathy, site unspecified; Z93.1 Gastrostomy status ==

== ENCOUNTER 2021-02-02 14:40 | Outpatient (CLI) | payer MEDICARE, MEDICAID ==
[2021-02-02] MEDS ORDERED: DIATR MEGLU/DIATRIZOATE SODIUM 30 ML BOTTLE (GASTROGRAPHIN) ONE (15:15)
== END 2021-02-02 23:59 | disposition home or self-care (01) ==
LOC: RAD 14:40
PROVIDERS: ATTEND Internal Medicine
DX: I25.10 Atherosclerotic heart disease of native coronary artery without angina pectoris (principal); R16.0 Hepatomegaly, not elsewhere classified; K57.90 Diverticulosis of intestine, part unspecified, without perforation or abscess without bleeding; I70.0 Atherosclerosis of aorta; J43.9 Emphysema, unspecified; L02.211 Cutaneous abscess of abdominal wall; M47.819 Spondylosis without myelopathy or radiculopathy, site unspecified
CPT/HCPCS: 74176; Q9963

== ENCOUNTER 2021-02-05 14:12 | Day surgery (SDC) | payer MEDICARE, OTHER ==
[2021-02-05] MEDS ORDERED: BUPIVACAINE MPF W/EPI 0.25% 30 ML VIAL ONE (15:06)
[2021-02-05] MEDS ORDERED: POLYMYXIN B SULFATE 0 UNITS ONE (15:06)
[2021-02-05] MEDS ORDERED: LIDOCAINE 1% INJ 50 ML MDV IJ ONE (15:07)
[2021-02-05] MEDS ORDERED: ROCURONIUM BROMIDE 50 MG/5 ML ONE (15:24)
[2021-02-05] MEDS ORDERED: FENTANYL PF 100MCG/2ML AMPUL ONE (15:24)
== END 2021-02-05 23:00 ==
LOC: DS 14:12
PROVIDERS: ATTEND Internal Medicine
DX: L02.211 Cutaneous abscess of abdominal wall (principal); I96 Gangrene, not elsewhere classified
CPT/HCPCS: 10060; 11005; 87070; 87075; 87077; 87186; A4217; A6253; A6407; J0690; J3010; J3490

== ENCOUNTER 2022-05-23 14:15 | Outpatient (CLI) | payer MEDICARE, OTHER ==
[2022-05-23] MEDS ORDERED: CT SWABBABLE VALVE TRANS SET 1 EA INFUS.SET MC ONE (20:58)
[2022-05-23] MEDS ORDERED: IV NS 0.9% 250 ML IV ONE (20:58)
[2022-05-23] MEDS ORDERED: IOHEXOL-300 100 ML VIAL IV ONE (20:58)
== END 2022-05-23 23:59 | disposition home or self-care (01) ==
LOC: CT 14:15
PROVIDERS: ATTEND Surgery
DX: K94.29 Other complications of gastrostomy (principal); M62.08 Separation of muscle (nontraumatic), other site; M47.819 Spondylosis without myelopathy or radiculopathy, site unspecified; R93.89 Abnormal findings on diagnostic imaging of other specified body structures
CPT/HCPCS: 74160; J7050; Q9967

== ENCOUNTER 2024-06-23 00:01 | Inpatient (IN) | payer MEDICARE, MEDICAID ==
[~2024-06-23] VITALS: Ht 154.9 cm; Wt 64.9 kg
[2024-06-24] MEDS ORDERED: LEVOTHYROXINE SODIUM 125 MCG TABLET GT SCH ×2 (07:52)
[2024-06-24] MEDS ORDERED: Z GUARD REMEDY 4 OZ OINT TP PRN (07:52)
[2024-06-24] MEDS ORDERED: LEVOTHYROXINE SODIUM 100 MCG TABLET GT SCH (07:52)
[2024-06-24] MEDS ORDERED: LEVOTHYROXINE SODIUM 100 MCG TABLET PO SCH ×6 (07:52)
[2024-06-24] MEDS ORDERED: TUBERCULIN,PURIF.PROT.DERIV. 5 TU/0.1 ML VIAL ID SCH (07:52)
[2024-06-24] MEDS ORDERED: LEVOTHYROXINE INJ 100 MCG VIAL IV SCH ×2 (07:52)
[2024-06-24 07:56] VITALS: BP 102/52; TEMP 98.4; O2SAT 99
[2024-06-24] MEDS: HYDROGEN PEROXIDE 480 ML BOTTLE TP SCH (09:14)
[2024-06-24] MEDS: VITAMINS A AND D 56.7 GM TUBE TP SCH (09:43)
[2024-06-24] MEDS: LEVOTHYROXINE SODIUM 75 MCG TABLET GT SCH (09:55)
[2024-06-24] MEDS: ENOXAPARIN SODIUM 40 MG/0.4 ML DISP.SYRIN SQ SCH (09:55)
[2024-06-24] MEDS: DOCUSATE SODIUM LIQ 100 MG/10 ML UDC GT SCH (09:59)
[2024-06-24] MEDS: NEOMY SULF/BACITRAC ZN/POLY 15 GM TUBE TP SCH (09:59)
[2024-06-24] MEDS: SODIUM CHLORIDE 1000 MG TABLET GT SCH (09:59)
[2024-06-24] MEDS: METOPROLOL TARTRATE 25 MG TABLET GT SCH (09:59)
[2024-06-24 11:10] VITALS: O2SAT 99
[2024-06-24 11:11] VITALS: O2SAT 99
[2024-06-24] MEDS: BACLOFEN (10 MG) 10 MG TABLET GT SCH (12:45)
[2024-06-24] MEDS: ALBUTEROL FS 2.5 MG/0.5 ML VIAL.NEB NEB SCH (13:02)
[2024-06-24] MEDS: IPRATROPIUM NEB FS 0.5 MG/2.5 ML AMPUL.NEB NEB SCH (13:02)
[2024-06-24] MEDS: METOCLOPRAMIDE HCL 10 MG/10 ML UDC GT SCH (17:39)
[2024-06-24] MEDS: SENNOSIDES 8.6 MG TABLET GT SCH (21:01)
[2024-06-24] MEDS: ASCORBIC ACID 500 MG TABLET GT SCH (21:01)
[2024-06-24] MEDS: MULTIVIT W/MINERALS 1 TAB TABLET GT SCH (21:01)
[2024-06-24 21:27] VITALS: BP 99/58; TEMP 98.2; O2SAT 99
[2024-06-24 23:07] VITALS: O2SAT 99
[2024-06-25] MEDS: JEVITY 1.5 CAL LIQUID 1,000 ML BOTTLE GT PRN (04:44)
[2024-06-25] MEDS: LEVOTHYROXINE SODIUM 100 MCG TABLET PO SCH (05:10)
[2024-06-25] MEDS: OMEPRAZOLE 20 MG CAPSULE.DR GT SCH (05:10)
[2024-06-25 08:01] VITALS: BP 109/44; TEMP 99.9; O2SAT 98
[2024-06-25 10:05] VITALS: O2SAT 99
[2024-06-25 19:19] VITALS: BP 100/58; TEMP 97.9; O2SAT 100
[2024-06-25 22:52] VITALS: O2SAT 99
[2024-06-25 22:53] VITALS: O2SAT 99
[2024-06-26] MEDS: ENOXAPARIN SODIUM 40 MG/0.4 ML DISP.SYRIN SQ SCH (09:38)
[2024-06-26 10:31] VITALS: O2SAT 99
[2024-06-26 19:29] VITALS: BP 119/58; TEMP 98.2; O2SAT 99
[2024-06-26 23:14] VITALS: O2SAT 99
[2024-06-26] MEDS: GUAIFENESIN 300 MG/15 ML UDC GT PRN (23:14)
[2024-06-26 23:16] VITALS: O2SAT 99
[2024-06-27 10:00] VITALS: BP 113/58; TEMP 91; O2SAT 100
[2024-06-27 10:06] VITALS: O2SAT 99
[2024-06-27 19:34] VITALS: BP 121/64; TEMP 99.3; O2SAT 100
[2024-06-27 22:04] VITALS: O2SAT 99
[2024-06-28 08:56] VITALS: BP 107/51; TEMP 99.1; O2SAT 99
[2024-06-28 10:37] VITALS: O2SAT 99
[2024-06-28 19:41] VITALS: BP 112/65; TEMP 99.7; O2SAT 100
[2024-06-29 00:51] VITALS: O2SAT 97
[2024-06-29 08:46] VITALS: BP 114/53; TEMP 99.8; O2SAT 99
[2024-06-29 10:45] VITALS: O2SAT 99
[2024-06-29 20:06] VITALS: BP 133/61; TEMP 99.7; O2SAT 99
[2024-06-30 01:03] VITALS: O2SAT 98
[2024-06-30 07:27] VITALS: BP 131/81; TEMP 99.8; O2SAT 98
[2024-06-30 10:44] VITALS: O2SAT 99
[2024-06-30] MEDS ORDERED: DIATR MEGLU/DIATRIZOATE SODIUM 30 ML BOTTLE (GASTROGRAPHIN) ONE (12:35)
[2024-06-30 21:22] VITALS: BP 101/62; TEMP 98.8; O2SAT 99
[2024-06-30 23:32] VITALS: O2SAT 98
[2024-07-01 07:40] VITALS: BP 99/78; TEMP 98; O2SAT 98
[2024-07-01 10:21] VITALS: O2SAT 100
[2024-07-01 10:22] VITALS: O2SAT 100
[2024-07-01 19:16] VITALS: BP 103/55; TEMP 99; O2SAT 98
[2024-07-01 23:26] VITALS: O2SAT 99
[2024-07-02 08:05] VITALS: BP 118/54; TEMP 97; O2SAT 100
[2024-07-02 10:14] VITALS: O2SAT 100
[2024-07-02 19:17] VITALS: BP 104/87; TEMP 98.6; O2SAT 99
[2024-07-02 22:27] VITALS: O2SAT 99
[2024-07-03 09:20] VITALS: BP 115/57; TEMP 99; O2SAT 100
[2024-07-03 10:18] VITALS: O2SAT 99
[2024-07-03 19:11] VITALS: BP 112/71; TEMP 102; O2SAT 100
[2024-07-03] MEDS: ACETAMINOPHEN 650 MG/20 ML UDC- SA PATIENTS-FEVER ONLY GT PRN (19:59)
[2024-07-03] MEDS: LEVOFLOXACIN 500 MG /D5W 100ML 500 MG in PREMIX 1 EA IV SCH (20:30)
[2024-07-03] MEDS ORDERED: DOSING PER PHARMACY-VANCOMYCIN IV XX PRN (20:30)
[2024-07-03 21:42] LABS: CREATININE 0.8 mg/dL (0.6-1.3); UREA NITROGEN, BLOOD 16.0 mg/dL (7-18)
[2024-07-03 21:53] VITALS: BP 107/58; TEMP 99.9; O2SAT 98
[2024-07-03] MEDS: VANCOMYCIN 1 GM in IV D5W 250ml IV ONE (23:38)
[2024-07-03 23:45] VITALS: O2SAT 100
[2024-07-04 05:11] VITALS: BP 108/54; TEMP 99.7; O2SAT 98
[2024-07-04 07:31] VITALS: BP 78/48; TEMP 97.4; O2SAT 99
[2024-07-04 10:17] VITALS: O2SAT 100
[2024-07-04 11:59] LABS: CALCIUM, SERUM 8.3 mg/dL (8.5-10.1); CREATININE 0.8 mg/dL (0.6-1.3); SODIUM SERUM 135.0 mmol/L (136-145); UREA NITROGEN, BLOOD 11.0 mg/dL (7-18)
[2024-07-04 19:30] VITALS: BP 106/54; TEMP 99.3; O2SAT 99
[2024-07-04] MEDS: VANCOMYCIN HCL 1.25 GM in IV D5W 250 ML IV SCH (22:56)
[2024-07-04 23:39] VITALS: O2SAT 98
[2024-07-05 07:05] LABS: CALCIUM, SERUM 8.8 mg/dL (8.5-10.1); CREATININE 0.9 mg/dL (0.6-1.3); SODIUM SERUM 137.0 mmol/L (136-145); UREA NITROGEN, BLOOD 12.0 mg/dL (7-18)
[2024-07-05 07:43] LABS: PLATELET COUNT (AUTO) 253 K/uL (150-450); RED BLOOD CELL COUNT(AUTO) 2.52 MIL/uL (4.0-5.2); RED CELL DISTRIBUTION WIDTH 17.9 % (11.5-15.0); WHITE BLOOD COUNT (AUTO) 9.8 K/uL (4.3-11.0)
[2024-07-05 08:19] VITALS: BP_SYST 106; BP_SYST 71; BP_DIAS 50; BP_DIAS 60; TEMP 99.9; O2SAT 99
[2024-07-05 11:02] LABS: IRON, SERUM 13 ug/dl (50-175)
[2024-07-05] MEDS ORDERED: DIATR MEGLU/DIATRIZOATE SODIUM 30 ML BOTTLE (GASTROGRAPHIN) ONE (11:17)
[2024-07-05] MEDS: LEVOFLOXACIN (250MG) 250 MG TABLET GT SCH (13:51)
[2024-07-05] MEDS: FERRLICET 125MG in 100 ML NS IVPB IV SCH (15:00)
[2024-07-05 18:20] VITALS: O2SAT 99
[2024-07-05] MEDS: BISACODYL SUPP (10 MG) 10 MG/SUPP.RECT SUPP.RECT RC PRN (19:27)
[2024-07-05 20:00] VITALS: BP 106/58; TEMP 98; O2SAT 99
[2024-07-05 22:29] VITALS: O2SAT 98
[2024-07-06 08:08] VITALS: BP 107/88; TEMP 99.7; O2SAT 98
[2024-07-06 08:20] LABS: CALCIUM, SERUM 8.9 mg/dL (8.5-10.1); CREATININE 0.9 mg/dL (0.6-1.3); SODIUM SERUM 140.0 mmol/L (136-145); UREA NITROGEN, BLOOD 13.0 mg/dL (7-18)
[2024-07-06 10:35] VITALS: O2SAT 100
[2024-07-06 20:00] VITALS: BP 114/63; TEMP 98; O2SAT 99
[2024-07-07 00:09] VITALS: O2SAT 98
[2024-07-07 07:57] LABS: CALCIUM, SERUM 9.3 mg/dL (8.5-10.1); CREATININE 0.9 mg/dL (0.6-1.3); SODIUM SERUM 144.0 mmol/L (136-145); UREA NITROGEN, BLOOD 16.0 mg/dL (7-18)
[2024-07-07 08:00] VITALS: BP 100/69; TEMP 98; O2SAT 99
[2024-07-07 10:38] VITALS: O2SAT 99
[2024-07-07 20:00] VITALS: BP 102/62; TEMP 98.1; O2SAT 99
[2024-07-07] MEDS: MEROPENEM 500 MG in IV NS 0.9% 50 ML IV SCH (21:00)
[2024-07-07] MEDS: IV D5/ 0.9% NACL 1,000 ML IV PRN (21:00)
[2024-07-07 21:53] LABS: PLATELET COUNT (AUTO) 303 K/uL (150-450); RED BLOOD CELL COUNT(AUTO) 2.74 MIL/uL (4.0-5.2); RED CELL DISTRIBUTION WIDTH 17.6 % (11.5-15.0); WHITE BLOOD COUNT (AUTO) 5.3 K/uL (4.3-11.0)
[2024-07-07 22:01] LABS: CALCIUM, SERUM 9.1 mg/dL (8.5-10.1); CREATININE 1.0 mg/dL (0.6-1.3); SODIUM SERUM 143.0 mmol/L (136-145); UREA NITROGEN, BLOOD 17.0 mg/dL (7-18)
[2024-07-07] MEDS: ACETAMINOPHEN SUP SA PATIENTS 650 MG SUPP RC PRN (22:06)
[2024-07-07 23:28] VITALS: O2SAT 98
[2024-07-08 07:31] VITALS: BP 124/89; TEMP 98.6; O2SAT 98
[2024-07-08 07:35] LABS: CALCIUM, SERUM 9.3 mg/dL (8.5-10.1); CREATININE 1.0 mg/dL (0.6-1.3); SODIUM SERUM 144.0 mmol/L (136-145); UREA NITROGEN, BLOOD 15.0 mg/dL (7-18)
[2024-07-08 10:22] VITALS: O2SAT 99
[2024-07-08 11:19] VITALS: O2SAT 99
[2024-07-08 19:05] VITALS: BP 114/59; TEMP 99.5; O2SAT 100
[2024-07-08] MEDS: ACETAMINOPHEN 650 MG/20 ML UDC- SA PATIENTS-PAIN ONLY GT PRN (20:00)
[2024-07-08] MEDS: NYSTATIN TOP POWDER 15 GM BOTTLE TP SCH (21:28)
[2024-07-08 23:39] VITALS: O2SAT 100
[2024-07-09 07:21] VITALS: BP 106/55; TEMP 98.6; O2SAT 99
[2024-07-09 08:16] LABS: CALCIUM, SERUM 8.7 mg/dL (8.5-10.1); CREATININE 0.8 mg/dL (0.6-1.3); SODIUM SERUM 146.0 mmol/L (136-145); UREA NITROGEN, BLOOD 11.0 mg/dL (7-18)
[2024-07-09 10:33] VITALS: O2SAT 99
[2024-07-09 12:12] VITALS: O2SAT 99
[2024-07-09] MEDS ORDERED: DIATR MEGLU/DIATRIZOATE SODIUM 30 ML BOTTLE (GASTROGRAPHIN) ONE (17:02)
[2024-07-09 19:57] VITALS: BP 129/63; TEMP 97.7; O2SAT 99
[2024-07-09] MEDS ORDERED: COD LIVER OIL/ZINC OXIDE 120 GM TUBE TP PRN (21:00)
[2024-07-09] MEDS: COD LIVER OIL/ZINC OXIDE 120 GM TUBE TP SCH (21:20)
[2024-07-09 22:11] VITALS: O2SAT 100
[2024-07-10 07:53] VITALS: BP 139/74; TEMP 98.2; O2SAT 98
[2024-07-10 08:42] LABS: CALCIUM, SERUM 8.6 mg/dL (8.5-10.1); CREATININE 0.7 mg/dL (0.6-1.3); SODIUM SERUM 148.0 mmol/L (136-145); UREA NITROGEN, BLOOD 9.0 mg/dL (7-18)
[2024-07-10 10:25] VITALS: O2SAT 99
[2024-07-10] MEDS ORDERED: ZINC OXIDE 56.7 GM TUBE TP PRN (12:00)
[2024-07-10] MEDS: IV 1/2NS 1000 ML 1,000 ML IV PRN (12:18)
[2024-07-10] MEDS: ZINC OXIDE 56.7 GM TUBE TP SCH (12:18)
[2024-07-10 19:33] VITALS: BP 124/69; TEMP 99.1; O2SAT 100
[2024-07-10 22:55] VITALS: O2SAT 98
[2024-07-11 07:18] VITALS: BP 125/70; TEMP 98.8; O2SAT 98
[2024-07-11 16:22] VITALS: O2SAT 99
[2024-07-11 19:17] VITALS: BP 114/55; TEMP 99.7; O2SAT 100
[2024-07-11 22:12] VITALS: O2SAT 99
[2024-07-12 07:56] VITALS: BP 112/57; TEMP 98.6; O2SAT 100
[2024-07-12 10:46] VITALS: O2SAT 99
[2024-07-12 20:00] VITALS: BP 120/68; TEMP 98.4; O2SAT 99
[2024-07-12 23:18] VITALS: O2SAT 99
[2024-07-13 08:01] VITALS: BP 91/50; TEMP 99; O2SAT 100
[2024-07-13 10:22] VITALS: O2SAT 100
[2024-07-13 19:48] VITALS: BP 134/59; TEMP 98.4; O2SAT 98
[2024-07-13 22:13] VITALS: O2SAT 99
[2024-07-14 07:26] VITALS: BP 127/82; TEMP 97.5; O2SAT 98
[2024-07-14 20:37] VITALS: BP 133/63; TEMP 98.8; O2SAT 99
[2024-07-14 23:48] VITALS: O2SAT 100
[2024-07-15 07:38] VITALS: BP 105/68; TEMP 97.6; O2SAT 100
[2024-07-15 10:36] VITALS: O2SAT 99
[2024-07-15 19:48] VITALS: BP 132/64; TEMP 97.2; O2SAT 100
[2024-07-15 23:06] VITALS: O2SAT 99
[2024-07-16 08:37] VITALS: BP 120/58; TEMP 97.9; O2SAT 98
[2024-07-16 12:38] VITALS: O2SAT 100; O2SAT 99
[2024-07-16 20:31] VITALS: BP 128/59; TEMP 98.1; O2SAT 99
[2024-07-16 23:37] VITALS: O2SAT 99
[2024-07-17 10:28] VITALS: O2SAT 100
[2024-07-17 20:01] VITALS: BP 146/62; TEMP 98.1; O2SAT 97
[2024-07-17 23:19] VITALS: O2SAT 100
[2024-07-18 07:56] VITALS: BP 141/67; TEMP 98.6; O2SAT 100
[2024-07-18 10:00] VITALS: BP 141/67; TEMP 98.6; O2SAT 100
[2024-07-18 10:40] VITALS: O2SAT 100
[2024-07-18 22:52] VITALS: O2SAT 100
[2024-07-19 08:02] VITALS: BP 146/75; TEMP 98.6; O2SAT 99
[2024-07-19 12:02] VITALS: O2SAT 100
[2024-07-19 21:08] VITALS: BP 137/62; TEMP 98.6; O2SAT 100
[2024-07-19 22:54] VITALS: O2SAT 100
[2024-07-20 07:17] VITALS: BP 131/56; TEMP 99; O2SAT 99
[2024-07-20 08:09] LABS: CALCIUM, SERUM 8.5 mg/dL (8.5-10.1); CREATININE 0.5 mg/dL (0.6-1.3); PHOSPHORUS 2.6 mg/dL (2.5-4.9); UREA NITROGEN, BLOOD 3.0 mg/dL (7-18)
[2024-07-20 08:14] LABS: PLATELET COUNT (AUTO) 179 K/uL (150-450); RED BLOOD CELL COUNT(AUTO) 2.99 MIL/uL (4.0-5.2); RED CELL DISTRIBUTION WIDTH 19.8 % (11.5-15.0); WHITE BLOOD COUNT (AUTO) 3.3 K/uL (4.3-11.0)
[2024-07-20 08:15] LABS: LDL 89.0 mg/dL (0-99)
[2024-07-20 08:21] LABS: SODIUM SERUM 140.0 mmol/L (136-145)
[2024-07-20] MEDS: POTASSIUM CL. PREMIX PERIPHER. 50 ML IV SCH (09:00)
[2024-07-20] MEDS: Magnesium 1GM/D5W 100ML PREMIX 100 ML IV SCH (09:00)
[2024-07-20] MEDS: TPN BAG #1 IV SCH (10:00)
[2024-07-20 10:10] VITALS: O2SAT 100; O2SAT 98
[2024-07-20] MEDS ORDERED: TPN BAG #2 IV SCH (11:30)
[2024-07-20] MEDS ORDERED: DEXTROSE 50%-WATER 50 ML DISP.SYRIN IV PRN (12:00)
[2024-07-20] MEDS: BLOOD SUGAR DIAGNOSTIC 1 EACH STRIP IN SCH (13:29)
[2024-07-20] MEDS: INSULIN REGULAR, HUMAN 100 UNIT/ML 3 ML VIAL SQ PRN (13:44)
[2024-07-20 19:55] VITALS: BP 130/69; TEMP 98.6; O2SAT 100
[2024-07-20 23:47] VITALS: O2SAT 99
[2024-07-21 07:38] VITALS: BP 134/46; TEMP 98.2; O2SAT 100
[2024-07-21 08:12] LABS: CALCIUM, SERUM 8.5 mg/dL (8.5-10.1); CREATININE 0.6 mg/dL (0.6-1.3); PHOSPHORUS 1.6 mg/dL (2.5-4.9); SODIUM SERUM 141.0 mmol/L (136-145); UREA NITROGEN, BLOOD 7.0 mg/dL (7-18)
[2024-07-21 10:04] VITALS: O2SAT 99
[2024-07-21 10:05] VITALS: O2SAT 99
[2024-07-21] MEDS: TPN BAG #2 IV SCH (11:39)
[2024-07-21] MEDS: Sodium Phosphate 15 MMOL in IV NS 0.9% 245 ML IV SCH (12:13)
[2024-07-21 21:09] VITALS: BP 100/56; TEMP 97.7; O2SAT 97
[2024-07-21 23:24] VITALS: O2SAT 99
[2024-07-22 07:49] VITALS: BP 127/49; TEMP 97.9; O2SAT 99
[2024-07-22 08:10] LABS: CALCIUM, SERUM 8.5 mg/dL (8.5-10.1); CREATININE 0.6 mg/dL (0.6-1.3); PHOSPHORUS 2.6 mg/dL (2.5-4.9); SODIUM SERUM 141.0 mmol/L (136-145); UREA NITROGEN, BLOOD 10.0 mg/dL (7-18)
[2024-07-22] MEDS: POTASSIUM CL. PREMIX PERIPHER. 50 ML IV SCH (10:00)
[2024-07-22 10:08] VITALS: O2SAT 99
[2024-07-22 10:09] VITALS: O2SAT 99
[2024-07-22] MEDS: TPN BAG #3 IV SCH (12:48)
[2024-07-22 19:37] VITALS: BP 141/61; TEMP 99.1; O2SAT 98
[2024-07-22 22:45] VITALS: O2SAT 100
[2024-07-23 08:06] VITALS: BP 128/90; TEMP 100.2; TEMP 100.4; O2SAT 99
[2024-07-23 10:18] VITALS: O2SAT 99
[2024-07-23 14:18] LABS: CALCIUM, SERUM 8.7 mg/dL (8.5-10.1); CREATININE 0.6 mg/dL (0.6-1.3); PHOSPHORUS 2.1 mg/dL (2.5-4.9); SODIUM SERUM 138.0 mmol/L (136-145); UREA NITROGEN, BLOOD 10.0 mg/dL (7-18)
[2024-07-23] MEDS: TPN BAG #4 IV SCH (14:48)
[2024-07-23] MEDS: JEVITY 1.5 CAL LIQUID 1,000 ML BOTTLE GT SCH (16:43)
[2024-07-23] MEDS: Sodium Phosphate 15 MMOL in IV NS 0.9% 245 ML IV SCH (18:16)
[2024-07-23 19:26] VITALS: BP 134/77; TEMP 98.8; O2SAT 100
[2024-07-24 00:22] VITALS: O2SAT 98
[2024-07-24 07:36] LABS: PLATELET COUNT (AUTO) 144 K/uL (150-450); RED BLOOD CELL COUNT(AUTO) 3.10 MIL/uL (4.0-5.2); RED CELL DISTRIBUTION WIDTH 20.6 % (11.5-15.0); WHITE BLOOD COUNT (AUTO) 3.6 K/uL (4.3-11.0)
[2024-07-24 07:57] LABS: CALCIUM, SERUM 9.2 mg/dL (8.5-10.1); CREATININE 0.6 mg/dL (0.6-1.3); PHOSPHORUS 2.3 mg/dL (2.5-4.9); SODIUM SERUM 140.0 mmol/L (136-145); UREA NITROGEN, BLOOD 13.0 mg/dL (7-18)
[2024-07-24 08:00] VITALS: BP 116/57; TEMP 98.1; O2SAT 99
[2024-07-24] MEDS: TPN BAG #5 IV SCH (10:47)
[2024-07-24] MEDS: Sodium Phosphate 15 MMOL in IV NS 0.9% 245 ML IV SCH (10:47)
[2024-07-24 11:45] VITALS: O2SAT 99
[2024-07-24 20:00] VITALS: BP 124/52; TEMP 97; O2SAT 100
[2024-07-24] MEDS: POTASSIUM CL. PREMIX PERIPHER. 50 ML IV SCH (20:37)
[2024-07-24] MEDS: Magnesium 1GM/D5W 100ML PREMIX 100 ML IV SCH (21:50)
[2024-07-24 23:35] VITALS: O2SAT 98
[2024-07-25] MEDS: TPN BAG #6 IV SCH (07:01)
[2024-07-25 07:27] VITALS: BP 113/81; TEMP 98.2; O2SAT 97
[2024-07-25 08:29] LABS: CALCIUM, SERUM 8.8 mg/dL (8.5-10.1); CREATININE 0.6 mg/dL (0.6-1.3); PHOSPHORUS 2.7 mg/dL (2.5-4.9); SODIUM SERUM 141.0 mmol/L (136-145); UREA NITROGEN, BLOOD 14.0 mg/dL (7-18)
[2024-07-25 10:12] VITALS: O2SAT 98; O2SAT 99
[2024-07-25] MEDS: POTASSIUM PHOSPHATE MM 7.5 MMOL in IV NS 0.9% 100 ML IV SCH (12:08)
[2024-07-25 19:36] VITALS: BP 131/64; TEMP 98.8; O2SAT 100
[2024-07-25 23:05] VITALS: O2SAT 99
[2024-07-26] MEDS: TPN BAG #7 IV SCH (02:51)
[2024-07-26 07:49] VITALS: BP 130/57; TEMP 98.8; O2SAT 99
[2024-07-26 08:00] LABS: CALCIUM, SERUM 9.4 mg/dL (8.5-10.1); CREATININE 0.6 mg/dL (0.6-1.3); PHOSPHORUS 2.9 mg/dL (2.5-4.9); SODIUM SERUM 140.0 mmol/L (136-145); UREA NITROGEN, BLOOD 14.0 mg/dL (7-18)
[2024-07-26 11:01] VITALS: O2SAT 98; O2SAT 99
[2024-07-26 20:13] VITALS: TEMP 98.2; O2SAT 100
[2024-07-26] MEDS: TPN BAG #8 IV SCH (23:27)
[2024-07-26 23:44] VITALS: O2SAT 99
[2024-07-27 08:01] LABS: CALCIUM, SERUM 9.1 mg/dL (8.5-10.1); CREATININE 0.6 mg/dL (0.6-1.3); PHOSPHORUS 2.1 mg/dL (2.5-4.9); SODIUM SERUM 142.0 mmol/L (136-145); UREA NITROGEN, BLOOD 16.0 mg/dL (7-18)
[2024-07-27 08:04] VITALS: BP 98/52; TEMP 98.6; O2SAT 99
[2024-07-27 11:39] VITALS: O2SAT 98; O2SAT 99
[2024-07-27] MEDS: Sodium Phosphate 15 MMOL in IV NS 0.9% 245 ML IV SCH (11:44)
[2024-07-27] MEDS ORDERED: TPN BAG #9 IV SCH (18:51)
[2024-07-27 21:22] VITALS: BP 119/52; TEMP 101.2; O2SAT 100
[2024-07-27 22:23] VITALS: O2SAT 99
[2024-07-28 07:17] VITALS: BP 113/69; TEMP 97.6; O2SAT 96
[2024-07-28 08:43] LABS: CALCIUM, SERUM 8.1 mg/dL (8.5-10.1); CREATININE 1.1 mg/dL (0.6-1.3); PHOSPHORUS 2.4 mg/dL (2.5-4.9); SODIUM SERUM 133.0 mmol/L (136-145); UREA NITROGEN, BLOOD 27.0 mg/dL (7-18)
[2024-07-28 10:45] VITALS: O2SAT 98
[2024-07-28] MEDS: POTASSIUM CHLORIDE 20 MEQ POWDER PACKET NG SCH (13:49)
[2024-07-28] MEDS ORDERED: POTASSIUM CHLORIDE 20 MEQ TAB.PRT.SR PO ONE ×2 (18:34→18:35)
[2024-07-28 20:00] VITALS: BP 108/66; TEMP 98.1; O2SAT 99
[2024-07-28 22:56] VITALS: O2SAT 99
[2024-07-29 07:29] VITALS: BP 89/68; TEMP 97.7; O2SAT 98
[2024-07-29 08:16] LABS: CALCIUM, SERUM 9.1 mg/dL (8.5-10.1); CREATININE 1.0 mg/dL (0.6-1.3); PHOSPHORUS 1.9 mg/dL (2.5-4.9); SODIUM SERUM 141.0 mmol/L (136-145); UREA NITROGEN, BLOOD 28.0 mg/dL (7-18)
[2024-07-29 10:40] VITALS: O2SAT 100; O2SAT 98
[2024-07-29 20:35] VITALS: BP 99/51; TEMP 98.2; O2SAT 99
[2024-07-29 23:20] VITALS: O2SAT 100
[2024-07-30 07:47] VITALS: BP 120/60; TEMP 97.9; O2SAT 99
[2024-07-30 10:16] LABS: CALCIUM, SERUM 9.4 mg/dL (8.5-10.1); CREATININE 0.7 mg/dL (0.6-1.3); PHOSPHORUS 2.3 mg/dL (2.5-4.9); SODIUM SERUM 142.0 mmol/L (136-145); UREA NITROGEN, BLOOD 21.0 mg/dL (7-18)
[2024-07-30 10:39] VITALS: O2SAT 100; O2SAT 98
[2024-07-30] MEDS: JEVITY 1.5 CAL LIQUID 1,000 ML BOTTLE GT PRN (17:10)
[2024-07-30 19:14] VITALS: BP 112/66; TEMP 99.7; O2SAT 100
[2024-07-30 22:00] VITALS: BP 112/66; TEMP 99.7; O2SAT 100
[2024-07-30 23:50] VITALS: O2SAT 99
[2024-07-31 07:17] LABS: CALCIUM, SERUM 9.3 mg/dL (8.5-10.1); CREATININE 0.7 mg/dL (0.6-1.3); PHOSPHORUS 2.3 mg/dL (2.5-4.9); SODIUM SERUM 139.0 mmol/L (136-145); UREA NITROGEN, BLOOD 18.0 mg/dL (7-18)
[2024-07-31 08:46] VITALS: BP 109/68; TEMP 97.2; O2SAT 100
[2024-07-31 10:41] VITALS: O2SAT 97
[2024-07-31 11:34] VITALS: O2SAT 97
[2024-07-31 20:26] VITALS: BP 111/61; TEMP 98.8; O2SAT 100
[2024-07-31 23:00] VITALS: O2SAT 98; O2SAT 99
[2024-08-01 07:32] VITALS: BP 122/75; TEMP 97.9; O2SAT 99
[2024-08-01 10:45] VITALS: O2SAT 100
[2024-08-01 19:26] VITALS: BP 132/48; TEMP 98.4; O2SAT 98
[2024-08-01 23:35] VITALS: O2SAT 99
[2024-08-02 07:43] VITALS: BP 140/64; TEMP 98.8; O2SAT 100
[2024-08-02 10:10] VITALS: O2SAT 100
[2024-08-02 11:14] VITALS: O2SAT 99
[2024-08-02 18:44] VITALS: O2SAT 99
[2024-08-02 19:59] VITALS: BP 127/61; TEMP 99; O2SAT 100
[2024-08-02 23:06] VITALS: O2SAT 99
[2024-08-03] MEDS: LEVOTHYROXINE SODIUM 125 MCG TABLET PO SCH (06:27)
[2024-08-03 07:34] VITALS: BP 102/51; TEMP 98.2; O2SAT 100
[2024-08-03 08:35] VITALS: BP 108/57; TEMP 97.7; O2SAT 99
[2024-08-03 10:26] VITALS: O2SAT 100
[2024-08-03 10:46] VITALS: O2SAT 100
[2024-08-03 21:13] VITALS: BP 98/56; TEMP 98.2; O2SAT 99
[2024-08-04 02:39] VITALS: O2SAT 99
[2024-08-04 07:25] VITALS: BP 137/56; TEMP 98.8; O2SAT 97
[2024-08-04 10:07] VITALS: O2SAT 98
[2024-08-04 21:12] VITALS: BP 137/38; TEMP 97.9; O2SAT 100
[2024-08-04 23:30] VITALS: O2SAT 100
[2024-08-05 08:00] VITALS: BP 97/60; TEMP 98.6; O2SAT 99
[2024-08-05 10:19] VITALS: O2SAT 99
[2024-08-05 19:18] VITALS: BP 99/45; TEMP 98.6; O2SAT 100
[2024-08-05 23:14] VITALS: O2SAT 100
[2024-08-06 07:51] VITALS: BP 84/60; TEMP 96.4; O2SAT 99
[2024-08-06 10:32] VITALS: O2SAT 100; O2SAT 99
[2024-08-06 10:50] VITALS: O2SAT 99
[2024-08-06 19:09] VITALS: BP 119/45; TEMP 99; O2SAT 100
[2024-08-06 22:35] VITALS: O2SAT 100
[2024-08-07 07:17] VITALS: BP 109/44; TEMP 97.9; O2SAT 98
[2024-08-07 10:14] VITALS: O2SAT 99
[2024-08-07 10:15] VITALS: O2SAT 100
[2024-08-07 20:06] VITALS: BP 102/45; TEMP 99; O2SAT 100
[2024-08-07 22:06] VITALS: O2SAT 99
[2024-08-08 08:08] VITALS: BP 110/52; TEMP 98; O2SAT 100
[2024-08-08 10:00] VITALS: BP 110/52; TEMP 98; O2SAT 100
[2024-08-08 11:18] VITALS: O2SAT 100
[2024-08-08 22:00] VITALS: BP 128/53; TEMP 97.9; O2SAT 100
[2024-08-08 22:17] VITALS: O2SAT 99
[2024-08-09 07:41] VITALS: BP 109/59; TEMP 99; O2SAT 100
[2024-08-09 10:24] VITALS: O2SAT 100
[2024-08-09 21:05] VITALS: BP 109/58; TEMP 97.5; O2SAT 100
[2024-08-10 00:28] VITALS: O2SAT 100
[2024-08-10 07:50] VITALS: BP 127/54; TEMP 99; O2SAT 100
[2024-08-10 10:06] VITALS: O2SAT 99
[2024-08-10 10:37] VITALS: O2SAT 99
[2024-08-10 21:12] VITALS: BP 120/53; TEMP 98.4; O2SAT 100
[2024-08-10 22:18] VITALS: O2SAT 100
[2024-08-11 07:42] VITALS: BP 128/57; TEMP 98.2; O2SAT 99
[2024-08-11 10:11] VITALS: O2SAT 98
[2024-08-11 12:08] VITALS: O2SAT 99
[2024-08-11 19:58] VITALS: BP 115/53; TEMP 97.8; O2SAT 99
[2024-08-11 23:16] VITALS: O2SAT 100
[2024-08-12 07:33] VITALS: BP 122/64; TEMP 98.4; O2SAT 99
[2024-08-12 10:26] VITALS: O2SAT 100
[2024-08-12 11:18] VITALS: O2SAT 100
[2024-08-12 20:02] VITALS: BP 105/58; TEMP 97.8; O2SAT 98
[2024-08-12 23:16] VITALS: O2SAT 100
[2024-08-13 08:25] VITALS: BP 122/66; TEMP 97.4; O2SAT 100
[2024-08-13 10:30] VITALS: O2SAT 99
[2024-08-13 11:47] VITALS: O2SAT 99
[2024-08-13 20:16] VITALS: BP 122/53; TEMP 97.1; O2SAT 100
[2024-08-13 23:22] VITALS: O2SAT 99
[2024-08-13 23:23] VITALS: O2SAT 98
[2024-08-14 08:38] VITALS: BP 111/59; TEMP 97.3; O2SAT 100
[2024-08-14 11:24] VITALS: O2SAT 100
[2024-08-14 19:54] VITALS: BP 123/73; TEMP 98.1; O2SAT 97
[2024-08-14 23:18] VITALS: O2SAT 99
[2024-08-15 07:31] VITALS: BP 105/76; TEMP 97.7; O2SAT 99
[2024-08-15 10:50] VITALS: O2SAT 99
[2024-08-15 11:35] VITALS: O2SAT 99
[2024-08-15 19:13] VITALS: BP 118/55; TEMP 98.2; O2SAT 100
[2024-08-15 23:23] VITALS: O2SAT 98
[2024-08-16 07:38] VITALS: BP 105/58; TEMP 98.8; O2SAT 100
[2024-08-16 10:50] VITALS: O2SAT 100
[2024-08-16 19:39] VITALS: O2SAT 100
[2024-08-16 20:00] VITALS: BP 112/58; TEMP 98.1; O2SAT 99
[2024-08-16 23:12] VITALS: O2SAT 99
[2024-08-17 07:48] VITALS: BP 100/52; TEMP 98.8; O2SAT 100
[2024-08-17 10:05] VITALS: O2SAT 99
[2024-08-17 11:12] VITALS: O2SAT 99
[2024-08-17 20:00] VITALS: BP 114/57; TEMP 98.1; O2SAT 99
[2024-08-17 23:41] VITALS: O2SAT 99
[2024-08-18 08:00] VITALS: BP 116/50; TEMP 98.6; O2SAT 100
[2024-08-18 10:36] VITALS: O2SAT 99
[2024-08-18 11:05] VITALS: O2SAT 99
[2024-08-18 20:00] VITALS: BP 99/65; TEMP 98.1; O2SAT 99
[2024-08-18 23:21] VITALS: O2SAT 99
[2024-08-19 07:24] VITALS: BP 107/52; TEMP 98.6; O2SAT 98
[2024-08-19 11:37] VITALS: O2SAT 99
[2024-08-19 11:38] VITALS: O2SAT 100
[2024-08-19 20:00] VITALS: BP 117/55; TEMP 98.8; O2SAT 97
[2024-08-19 23:10] VITALS: O2SAT 100
[2024-08-20 07:50] VITALS: BP 108/58; TEMP 98.6; O2SAT 99
[2024-08-20 10:43] VITALS: O2SAT 97
[2024-08-20 11:10] VITALS: O2SAT 100
[2024-08-20 19:04] VITALS: BP 117/53; TEMP 98.6; O2SAT 100
[2024-08-20 19:48] VITALS: O2SAT 100
[2024-08-20 23:16] VITALS: O2SAT 100
[2024-08-21 07:16] VITALS: BP 93/69; TEMP 99; O2SAT 98
[2024-08-21 10:12] VITALS: O2SAT 100
[2024-08-21 19:40] VITALS: O2SAT 100
[2024-08-21 20:00] VITALS: BP 93/60; TEMP 98.2; O2SAT 100
[2024-08-21 22:55] VITALS: O2SAT 100
[2024-08-22 07:35] VITALS: BP 119/62; TEMP 99; O2SAT 98
[2024-08-22 10:18] VITALS: O2SAT 99
[2024-08-22 11:22] VITALS: O2SAT 99
[2024-08-22 19:25] VITALS: O2SAT 100
[2024-08-22 20:00] VITALS: BP 99/65; TEMP 98; O2SAT 99
[2024-08-22 22:27] VITALS: O2SAT 100
[2024-08-23 07:40] VITALS: BP 108/58; TEMP 99.1; O2SAT 95
[2024-08-23 10:11] VITALS: O2SAT 99
[2024-08-23 20:00] VITALS: BP 118/58; TEMP 98.1; O2SAT 99
[2024-08-23 23:02] VITALS: O2SAT 98
[2024-08-24 10:18] VITALS: O2SAT 100
[2024-08-24 16:33] VITALS: BP 107/59; TEMP 98.6; O2SAT 98
[2024-08-24 20:19] VITALS: BP 102/59; TEMP 98.4; O2SAT 97
[2024-08-24 22:16] VITALS: O2SAT 98
[2024-08-25 07:23] VITALS: BP 117/52; TEMP 97.3; O2SAT 100
[2024-08-25 10:10] VITALS: O2SAT 100
[2024-08-25 10:48] VITALS: O2SAT 98
[2024-08-25 20:00] VITALS: BP 99/58; TEMP 98.1; O2SAT 99
[2024-08-25 23:08] VITALS: O2SAT 99
[2024-08-26 07:16] VITALS: BP 128/69; TEMP 97.8; O2SAT 100
[2024-08-26 10:48] VITALS: O2SAT 99
[2024-08-26 19:04] VITALS: BP 110/72; TEMP 98.4; O2SAT 99
[2024-08-26 19:54] VITALS: BP 104/53; TEMP 98.9; O2SAT 97
[2024-08-26 23:20] VITALS: O2SAT 98
[2024-08-27 08:48] VITALS: BP 122/77; TEMP 97.2; O2SAT 100
[2024-08-27 10:24] VITALS: O2SAT 100
[2024-08-27 11:27] VITALS: O2SAT 99
[2024-08-27 19:22] VITALS: O2SAT 100
[2024-08-27 20:30] VITALS: BP 117/53; TEMP 98.1; O2SAT 100
[2024-08-27 22:55] VITALS: O2SAT 100
[2024-08-28 08:07] VITALS: BP 99/62; TEMP 99; O2SAT 100
[2024-08-28 10:05] VITALS: O2SAT 98
[2024-08-28 23:09] VITALS: O2SAT 99
[2024-08-29 10:39] VITALS: O2SAT 98; O2SAT 99
[2024-08-29 20:06] VITALS: BP 98/53; TEMP 98.2; O2SAT 100
[2024-08-29 23:40] VITALS: O2SAT 99
[2024-08-30 07:55] VITALS: BP 109/68; TEMP 98.6; O2SAT 99
[2024-08-30 10:49] VITALS: O2SAT 98
[2024-08-30 19:47] VITALS: O2SAT 99
[2024-08-30 21:33] VITALS: BP 106/56; TEMP 98.1; O2SAT 99
[2024-08-30 22:55] VITALS: O2SAT 99
[2024-08-31] MEDS: LEVOTHYROXINE SODIUM 75 MCG TABLET GT SCH (05:11)
[2024-08-31 07:17] VITALS: BP 107/65; TEMP 98.6; O2SAT 98
[2024-08-31 10:10] VITALS: O2SAT 98
[2024-08-31 19:55] VITALS: BP 119/61; TEMP 98.6; O2SAT 99
[2024-08-31 22:26] VITALS: O2SAT 99
[2024-09-01 07:57] VITALS: BP 104/59; TEMP 97.2; O2SAT 98
[2024-09-01 10:12] VITALS: O2SAT 99
[2024-09-01 11:32] VITALS: O2SAT 98
[2024-09-01 19:51] VITALS: BP 120/54; TEMP 97.3; O2SAT 97
[2024-09-01 23:17] VITALS: O2SAT 99
[2024-09-02 08:49] VITALS: BP 127/59; TEMP 97.3; O2SAT 100
[2024-09-02 10:18] VITALS: O2SAT 98
[2024-09-02 19:35] VITALS: BP 113/53; TEMP 99; O2SAT 99
[2024-09-02 23:29] VITALS: O2SAT 99
[2024-09-03] VITALS (8 sets, daily range): BP systolic 108–118; BP diastolic 54–60; TEMP 97.9–100.4; O2SAT 98–99
[2024-09-04 00:14] VITALS: TEMP 98.8
[2024-09-04 07:41] VITALS: BP 114/52; TEMP 98.6; O2SAT 98
[2024-09-04 10:06] VITALS: O2SAT 98
[2024-09-04 19:53] VITALS: O2SAT 99
[2024-09-04 21:14] VITALS: BP 117/66; TEMP 98.1; O2SAT 100
[2024-09-04 23:30] VITALS: O2SAT 99
[2024-09-05 07:44] VITALS: BP 103/61; TEMP 98.4; O2SAT 98
[2024-09-05 10:20] VITALS: O2SAT 100
[2024-09-05 19:50] VITALS: O2SAT 98
[2024-09-05 21:46] VITALS: BP 119/55; TEMP 98.8; TEMP 99; O2SAT 100
[2024-09-05 23:13] VITALS: O2SAT 98
[2024-09-06 07:45] VITALS: BP 125/56; TEMP 99.1; O2SAT 99
[2024-09-06 10:19] VITALS: O2SAT 98
[2024-09-06 20:09] VITALS: BP 129/75; TEMP 98.2; O2SAT 100
[2024-09-06 22:30] VITALS: O2SAT 98
[2024-09-07 07:51] VITALS: BP 119/65; TEMP 98.6; O2SAT 100
[2024-09-07 10:21] VITALS: O2SAT 98
[2024-09-07 20:24] VITALS: BP 133/77; TEMP 98.6; O2SAT 99
[2024-09-07 22:46] VITALS: O2SAT 99
[2024-09-08 07:56] VITALS: BP 95/58; TEMP 98.8; O2SAT 99
[2024-09-08 10:11] VITALS: O2SAT 98
[2024-09-08 21:26] VITALS: BP 120/54; TEMP 98.8; O2SAT 100
[2024-09-08 23:29] VITALS: O2SAT 100
[2024-09-09 07:19] VITALS: BP 106/56; TEMP 98.6; O2SAT 98
[2024-09-09 10:09] VITALS: O2SAT 99
[2024-09-09 19:39] VITALS: BP 116/55; TEMP 98.6; O2SAT 98
[2024-09-09 23:19] VITALS: O2SAT 99
[2024-09-10 10:22] VITALS: O2SAT 99
[2024-09-10 14:42] VITALS: BP 112/52; TEMP 98.2; O2SAT 98
[2024-09-10 19:40] VITALS: O2SAT 98
[2024-09-10 19:58] VITALS: BP 109/68; TEMP 99; O2SAT 98
[2024-09-10 20:34] VITALS: BP 122/68; TEMP 97.9; O2SAT 98
[2024-09-10 23:34] VITALS: O2SAT 98
[2024-09-11 07:38] VITALS: BP 118/58; TEMP 98.8; O2SAT 100
[2024-09-11 10:05] VITALS: O2SAT 99
[2024-09-11 19:52] VITALS: BP 130/53; TEMP 98.9; O2SAT 97
[2024-09-11 23:07] VITALS: O2SAT 100
[2024-09-12 07:43] VITALS: BP 126/53; TEMP 98.8; O2SAT 99
[2024-09-12 10:07] VITALS: O2SAT 99
[2024-09-12 11:01] VITALS: O2SAT 99
[2024-09-12 19:35] VITALS: BP 116/60; TEMP 99.1; O2SAT 99
[2024-09-12 23:05] VITALS: O2SAT 100
[2024-09-13 08:00] VITALS: BP 120/56; TEMP 98.4; TEMP 99; O2SAT 99
[2024-09-13 10:25] VITALS: O2SAT 100; O2SAT 99
[2024-09-13 19:40] VITALS: O2SAT 98
[2024-09-13 19:44] VITALS: BP 155/56; TEMP 97.9; O2SAT 99
[2024-09-13 22:58] VITALS: O2SAT 100
[2024-09-14 07:10] VITALS: O2SAT 99
[2024-09-14 08:00] VITALS: BP 142/63
[2024-09-14 08:55] VITALS: BP 150/91; TEMP 98.1; O2SAT 100
[2024-09-14 10:08] VITALS: O2SAT 99
[2024-09-14 19:43] VITALS: BP 119/65; TEMP 98.4; O2SAT 100
[2024-09-14 22:11] VITALS: O2SAT 100
[2024-09-15 07:48] VITALS: BP 92/47; TEMP 98.4; O2SAT 98
[2024-09-15 10:11] VITALS: O2SAT 99
[2024-09-15 20:26] VITALS: BP 117/89; TEMP 98.5; O2SAT 100
[2024-09-15 23:18] VITALS: O2SAT 98
[2024-09-16 07:44] VITALS: BP 90/47; TEMP 98.6; O2SAT 99
[2024-09-16 09:00] VITALS: BP 105/67; TEMP 98.6; O2SAT 99
[2024-09-16 10:10] VITALS: O2SAT 99
[2024-09-16 19:22] VITALS: BP 118/64; TEMP 99.1; O2SAT 99
[2024-09-16 22:58] VITALS: O2SAT 99
[2024-09-17 07:44] VITALS: BP 108/87; TEMP 97.9; O2SAT 100
[2024-09-17 10:34] VITALS: O2SAT 100
[2024-09-17 19:01] VITALS: BP 117/64; TEMP 99; O2SAT 100
[2024-09-17 19:20] VITALS: O2SAT 99
[2024-09-17 22:35] VITALS: O2SAT 99
[2024-09-18 07:38] VITALS: BP 101/57; TEMP 98.1; O2SAT 99
[2024-09-18 10:38] VITALS: O2SAT 100
[2024-09-18 19:21] VITALS: O2SAT 98
[2024-09-18 19:25] VITALS: BP 119/78; TEMP 99; O2SAT 100
[2024-09-18 22:55] VITALS: O2SAT 98
[2024-09-19 07:53] VITALS: BP 119/68; TEMP 98.2; O2SAT 99
[2024-09-19 10:45] VITALS: O2SAT 100
[2024-09-19 19:19] VITALS: O2SAT 100
[2024-09-19 19:34] VITALS: BP 133/59; TEMP 98.8; O2SAT 99
[2024-09-19 23:05] VITALS: O2SAT 100
[2024-09-20 07:50] VITALS: BP 103/65; TEMP 98.1; O2SAT 99
[2024-09-20 10:44] VITALS: O2SAT 100
[2024-09-20 19:37] VITALS: BP 119/62; TEMP 98.1; O2SAT 100
[2024-09-20 23:16] VITALS: O2SAT 99
[2024-09-21 07:49] VITALS: BP 100/55; TEMP 98.2; O2SAT 99
[2024-09-21 08:07] LABS: CALCIUM, SERUM 9.6 mg/dL (8.5-10.1); CREATININE 0.8 mg/dL (0.6-1.3); SODIUM SERUM 134.0 mmol/L (136-145); UREA NITROGEN, BLOOD 18.0 mg/dL (7-18)
[2024-09-21 10:27] VITALS: O2SAT 100; O2SAT 99
[2024-09-21 20:32] VITALS: BP 118/60; TEMP 99.7; O2SAT 100
[2024-09-21 22:58] VITALS: O2SAT 98
[2024-09-22 07:30] VITALS: BP 117/66; TEMP 98.6; O2SAT 96
[2024-09-22 10:08] VITALS: O2SAT 100
[2024-09-22 11:09] VITALS: O2SAT 98
[2024-09-22 19:47] VITALS: BP 126/55; TEMP 98.4; O2SAT 99
[2024-09-22 23:15] VITALS: O2SAT 100
[2024-09-23 07:20] VITALS: BP 112/78; TEMP 98.6; O2SAT 98
[2024-09-23 10:11] VITALS: O2SAT 100
[2024-09-23 19:03] VITALS: BP 130/74; TEMP 99.1; O2SAT 100
[2024-09-23 23:25] VITALS: O2SAT 100
[2024-09-24 07:52] VITALS: BP 112/70; TEMP 97.7; O2SAT 99
[2024-09-24 10:04] VITALS: O2SAT 100
[2024-09-24 19:48] VITALS: O2SAT 100
[2024-09-24 21:45] VITALS: BP 100/59; TEMP 97.9; O2SAT 100
[2024-09-24 23:29] VITALS: O2SAT 100
[2024-09-25 07:41] VITALS: BP 111/58; TEMP 98.6; O2SAT 98
[2024-09-25 10:20] VITALS: O2SAT 100
[2024-09-25] MEDS: LEVOFLOXACIN 750 MG /D5W 150ML 150 ML IV ONE (15:50)
[2024-09-25 19:45] VITALS: BP 127/68; TEMP 98.8; O2SAT 99
[2024-09-25 23:21] VITALS: O2SAT 99
[2024-09-26 07:44] VITALS: BP 115/66; TEMP 98.1; O2SAT 99
[2024-09-26 10:36] VITALS: O2SAT 100
[2024-09-26 10:37] VITALS: O2SAT 98
[2024-09-26 19:26] VITALS: BP 152/92; TEMP 99.3; O2SAT 100
[2024-09-26 23:09] VITALS: O2SAT 98
[2024-09-27] VITALS (7 sets, daily range): BP systolic 114–118; BP diastolic 58–63; TEMP 97.8–98.1; O2SAT 95–100
[2024-09-28 07:25] VITALS: BP 127/71; TEMP 98.1; O2SAT 100; O2SAT 99
[2024-09-28 10:05] VITALS: O2SAT 100
[2024-09-28 20:00] VITALS: BP 116/59; TEMP 97.5; O2SAT 99
[2024-09-29 00:24] VITALS: O2SAT 98
[2024-09-29 07:21] VITALS: BP 98/81; TEMP 98.9; O2SAT 98
[2024-09-29 10:51] VITALS: O2SAT 99
[2024-09-29 20:08] VITALS: BP 115/59; TEMP 98.4; O2SAT 99
[2024-09-29 23:14] VITALS: O2SAT 99
[2024-09-30 07:28] VITALS: BP 132/74; TEMP 98.1; O2SAT 98
[2024-09-30 10:10] VITALS: O2SAT 99
[2024-09-30 19:49] VITALS: BP 112/57; TEMP 98.6; O2SAT 98
[2024-09-30 23:26] VITALS: O2SAT 98
[2024-10-01 07:42] VITALS: BP 123/57; TEMP 99; O2SAT 99
[2024-10-01 11:20] VITALS: O2SAT 100; O2SAT 99
[2024-10-01 19:27] VITALS: O2SAT 99
[2024-10-01 19:46] VITALS: BP 129/62; TEMP 98.6; O2SAT 98
[2024-10-01 23:23] VITALS: O2SAT 99
[2024-10-02 08:08] VITALS: BP 128/58; TEMP 97.7; O2SAT 100
[2024-10-02 10:14] VITALS: O2SAT 98; O2SAT 99
[2024-10-02 19:13] VITALS: O2SAT 98
[2024-10-02 20:04] VITALS: BP 123/71; TEMP 98.6; O2SAT 98
[2024-10-02 22:03] VITALS: O2SAT 98
[2024-10-03 07:17] VITALS: BP 116/75; TEMP 98.8; O2SAT 98
[2024-10-03 10:30] VITALS: O2SAT 99
[2024-10-03 19:27] VITALS: O2SAT 99
[2024-10-03 20:00] VITALS: BP 111/63; TEMP 98; O2SAT 99
[2024-10-03 22:41] VITALS: O2SAT 99
[2024-10-04 07:31] VITALS: BP 120/62; TEMP 98.6; O2SAT 98
[2024-10-04 11:47] VITALS: O2SAT 99
[2024-10-04 11:48] VITALS: O2SAT 99
[2024-10-04 15:31] VITALS: O2SAT 99
[2024-10-04 19:24] VITALS: O2SAT 99
[2024-10-04 23:07] VITALS: O2SAT 99
[2024-10-05 07:32] VITALS: BP 104/56; TEMP 98; O2SAT 98
[2024-10-05 08:02] VITALS: O2SAT 98
[2024-10-05 11:07] VITALS: O2SAT 99
[2024-10-05 19:54] VITALS: BP 128/52; TEMP 98.3; O2SAT 98
[2024-10-05 19:58] VITALS: O2SAT 99
[2024-10-05 22:45] VITALS: O2SAT 99
[2024-10-06 07:19] VITALS: BP 148/92; TEMP 97.9; O2SAT 99
[2024-10-06 10:11] VITALS: O2SAT 99
[2024-10-06 11:12] VITALS: O2SAT 99
[2024-10-06 20:00] VITALS: BP 105/61; TEMP 98.1; O2SAT 99
[2024-10-06 23:07] VITALS: O2SAT 99
[2024-10-06 23:08] VITALS: O2SAT 98
[2024-10-07 07:34] VITALS: BP 95/65; TEMP 98.1; O2SAT 97
[2024-10-07 10:34] VITALS: O2SAT 99
[2024-10-07] MEDS: COVID-19 VACC, SPIKEVAX /PF 50 MCG/0.5 ML VIAL/SYR IM ONE (15:26)
[2024-10-07 19:52] VITALS: BP 147/54; TEMP 98.2; O2SAT 100
[2024-10-07 22:45] VITALS: O2SAT 99
[2024-10-08] VITALS (7 sets, daily range): BP systolic 125–145; BP diastolic 69–79; TEMP 99–100.8; O2SAT 98–100
[2024-10-09 05:20] VITALS: TEMP 100.6
[2024-10-09] MEDS: ACETAMINOPHEN 650 MG SUPP.RECT RC PRN (05:20)
[2024-10-09 08:38] VITALS: BP 100/69; TEMP 98.8; O2SAT 99
[2024-10-09 10:13] VITALS: O2SAT 98
[2024-10-09 10:14] VITALS: O2SAT 98
[2024-10-09 19:32] VITALS: BP 135/74; TEMP 98.2; O2SAT 100
[2024-10-09 23:29] VITALS: O2SAT 99
[2024-10-10 08:06] VITALS: BP 117/96; TEMP 98.6; O2SAT 100
[2024-10-10 10:07] VITALS: O2SAT 99
[2024-10-10 10:08] VITALS: O2SAT 99
[2024-10-10 19:58] VITALS: BP 139/73; TEMP 98.6; O2SAT 98
[2024-10-10 23:50] VITALS: O2SAT 98
[2024-10-11 07:52] VITALS: BP 115/65; TEMP 98.6; O2SAT 99
[2024-10-11 10:54] VITALS: O2SAT 100
[2024-10-11 19:41] VITALS: O2SAT 99
[2024-10-11 19:56] VITALS: BP 107/86; TEMP 98.2; O2SAT 100
[2024-10-11 22:47] VITALS: O2SAT 99
[2024-10-12 07:33] VITALS: BP 127/58; TEMP 98; O2SAT 100
[2024-10-12 10:12] VITALS: O2SAT 99
[2024-10-12 11:12] VITALS: O2SAT 99
[2024-10-12 21:11] VITALS: BP 116/61; TEMP 98.1; O2SAT 99
[2024-10-12 22:12] VITALS: O2SAT 100
[2024-10-13 07:33] VITALS: BP 134/58; TEMP 98; O2SAT 100
[2024-10-13 10:11] VITALS: O2SAT 98
[2024-10-13 10:12] VITALS: O2SAT 98
[2024-10-13 19:48] VITALS: BP 119/60; TEMP 98.7; O2SAT 97
[2024-10-13 23:23] VITALS: O2SAT 99
[2024-10-14 09:07] VITALS: BP 139/63; TEMP 98.1; O2SAT 96
[2024-10-14 10:55] VITALS: O2SAT 100
[2024-10-14 20:48] VITALS: BP 114/63; TEMP 98.2; O2SAT 99
[2024-10-14 23:15] VITALS: O2SAT 98
[2024-10-15 09:09] VITALS: BP 132/60; TEMP 98.2; O2SAT 100
[2024-10-15 10:03] VITALS: O2SAT 100; O2SAT 99
[2024-10-15 19:11] VITALS: O2SAT 99
[2024-10-15 20:32] VITALS: BP 105/66; TEMP 98.4; O2SAT 98
[2024-10-15 23:41] VITALS: O2SAT 99
[2024-10-16 08:00] VITALS: BP 109/58; TEMP 99.1; O2SAT 99
[2024-10-16 11:03] VITALS: O2SAT 100
[2024-10-16 19:27] VITALS: O2SAT 100
[2024-10-16 20:12] VITALS: BP 110/76; TEMP 97.8; O2SAT 98
[2024-10-16 22:50] VITALS: O2SAT 100
[2024-10-17 08:00] VITALS: BP 130/57; TEMP 98.8; O2SAT 99
[2024-10-17 10:10] VITALS: O2SAT 100; O2SAT 99
[2024-10-17 19:26] VITALS: O2SAT 100
[2024-10-17 20:23] VITALS: BP 118/70; TEMP 98.2; O2SAT 100
[2024-10-17 22:28] VITALS: O2SAT 100
[2024-10-18 08:00] VITALS: BP 125/54; TEMP 98.3; O2SAT 100
[2024-10-18 10:04] VITALS: O2SAT 99
[2024-10-18 19:32] VITALS: O2SAT 98
[2024-10-18 20:02] VITALS: BP 114/59; TEMP 98.1; O2SAT 100
[2024-10-18 22:34] VITALS: O2SAT 98
[2024-10-19 07:25] VITALS: BP 113/62; TEMP 98; O2SAT 98
[2024-10-19 10:26] VITALS: O2SAT 100; O2SAT 99
[2024-10-19 20:33] VITALS: BP 119/67; TEMP 98.6; O2SAT 100
[2024-10-19 23:18] VITALS: O2SAT 99
[2024-10-20 08:00] VITALS: BP 122/66; TEMP 98.4; O2SAT 100
[2024-10-20 10:17] VITALS: O2SAT 100
[2024-10-20 20:00] VITALS: BP 99/62; TEMP 98.1; O2SAT 99
[2024-10-20 22:34] VITALS: O2SAT 98; O2SAT 99
[2024-10-21 08:00] VITALS: BP 112/60; TEMP 99.3; O2SAT 99
[2024-10-21 10:03] VITALS: O2SAT 99
[2024-10-21 21:30] VITALS: BP 105/58; TEMP 98.2; O2SAT 100
[2024-10-21 23:48] VITALS: O2SAT 99
[2024-10-21 23:49] VITALS: O2SAT 99
[2024-10-22 08:19] VITALS: BP 105/59; TEMP 98.4; O2SAT 99
[2024-10-22 10:16] VITALS: O2SAT 100; O2SAT 99
[2024-10-22 19:26] VITALS: O2SAT 99
[2024-10-22 21:53] VITALS: BP 118/98; TEMP 98.2; O2SAT 100
[2024-10-22 22:57] VITALS: O2SAT 99
[2024-10-23 09:24] VITALS: BP 129/76; TEMP 98.3; O2SAT 99
[2024-10-23 11:25] VITALS: O2SAT 100; O2SAT 99
[2024-10-23 19:25] VITALS: BP 123/64; TEMP 99; O2SAT 98
[2024-10-23 23:30] VITALS: O2SAT 99
[2024-10-24 05:54] VITALS: TEMP 98.2; O2SAT 99
[2024-10-24 07:53] VITALS: BP 137/77; TEMP 98.6; O2SAT 99
[2024-10-24 10:22] VITALS: O2SAT 100; O2SAT 99
[2024-10-24 19:43] VITALS: BP 122/52; TEMP 98.6; O2SAT 99
[2024-10-24 22:08] VITALS: O2SAT 99
[2024-10-24 22:09] VITALS: O2SAT 98
[2024-10-25 08:09] VITALS: BP 111/81; TEMP 98; O2SAT 100
[2024-10-25 10:03] VITALS: O2SAT 98; O2SAT 99
[2024-10-25 19:38] VITALS: O2SAT 99
[2024-10-25 20:11] VITALS: BP 121/62; TEMP 98.2; O2SAT 100
[2024-10-25 23:20] VITALS: O2SAT 98
[2024-10-26 07:47] VITALS: BP 112/78; TEMP 98.6; O2SAT 99
[2024-10-26 10:04] VITALS: O2SAT 99
[2024-10-26 10:05] VITALS: O2SAT 100
[2024-10-26 19:51] VITALS: BP 117/54; TEMP 98.2; O2SAT 99
[2024-10-26 22:02] VITALS: O2SAT 99
[2024-10-27 07:56] VITALS: BP 103/41; TEMP 98.8; O2SAT 99
[2024-10-27 10:11] VITALS: O2SAT 100
[2024-10-27 19:56] VITALS: BP 119/62; TEMP 98; O2SAT 98
[2024-10-27 23:04] VITALS: O2SAT 99
[2024-10-27 23:20] VITALS: O2SAT 98
[2024-10-28 07:47] VITALS: BP 102/72; TEMP 98.8; O2SAT 99
[2024-10-28 10:34] VITALS: O2SAT 99
[2024-10-28 10:35] VITALS: O2SAT 99
[2024-10-28 20:02] VITALS: BP 103/88; TEMP 98.1; O2SAT 100
[2024-10-28 23:33] VITALS: O2SAT 99
[2024-10-29] MEDS: LEVOTHYROXINE SODIUM 100 MCG TABLET GT SCH (05:10)
[2024-10-29 07:43] VITALS: BP 102/48; TEMP 98.1; O2SAT 99
[2024-10-29 10:03] VITALS: O2SAT 99
[2024-10-29 19:13] VITALS: BP 113/58; TEMP 99.7; O2SAT 97
[2024-10-29 19:53] VITALS: O2SAT 98
[2024-10-29 22:54] VITALS: O2SAT 99
[2024-10-30 07:35] VITALS: BP 99/43; TEMP 98.4; O2SAT 98
[2024-10-30 10:41] VITALS: O2SAT 99
[2024-10-30 10:43] VITALS: O2SAT 100
[2024-10-30 19:34] VITALS: O2SAT 98
[2024-10-30 20:34] VITALS: BP 133/62; TEMP 98.2; O2SAT 100
[2024-10-30 22:26] VITALS: O2SAT 100
[2024-10-31 10:07] VITALS: O2SAT 100
[2024-10-31 14:18] VITALS: BP 108/57; TEMP 97.5; O2SAT 98
[2024-10-31 19:25] VITALS: O2SAT 100
[2024-10-31 19:51] VITALS: BP 132/68; TEMP 99; O2SAT 100
[2024-10-31 22:30] VITALS: O2SAT 100
[2024-11-01 10:03] VITALS: O2SAT 98
[2024-11-01 16:46] VITALS: BP 112/63; TEMP 98.4; O2SAT 99
[2024-11-01 19:44] VITALS: BP 114/69; TEMP 99.1; O2SAT 99
[2024-11-01 23:14] VITALS: O2SAT 99
[2024-11-02 08:07] VITALS: O2SAT 98
[2024-11-02 09:02] VITALS: BP 118/57; TEMP 98.1; O2SAT 100
[2024-11-02 10:32] VITALS: O2SAT 98
[2024-11-02 20:20] VITALS: BP 126/67; TEMP 99.1; O2SAT 100
[2024-11-03 00:14] VITALS: O2SAT 98
[2024-11-03 07:25] VITALS: BP 109/74; TEMP 98.6; O2SAT 98
[2024-11-03 10:24] VITALS: O2SAT 100
[2024-11-03 19:50] VITALS: BP 111/58; TEMP 98.6; O2SAT 98
[2024-11-03 22:48] VITALS: O2SAT 99
[2024-11-04 07:23] VITALS: BP 134/54; TEMP 97.9; O2SAT 98
[2024-11-04 10:15] VITALS: O2SAT 100
[2024-11-04 19:23] VITALS: BP 123/68; TEMP 97.9; O2SAT 99
[2024-11-04 23:20] VITALS: O2SAT 98
[2024-11-05 08:37] VITALS: BP 103/63; TEMP 98.4; O2SAT 100
[2024-11-05 10:26] VITALS: O2SAT 100
[2024-11-05 19:10] VITALS: BP 127/63; TEMP 98.4; O2SAT 100
[2024-11-05 19:15] VITALS: O2SAT 99
[2024-11-05 23:16] VITALS: O2SAT 99
[2024-11-06 09:17] VITALS: BP 103/60; TEMP 98.1; O2SAT 100
[2024-11-06 10:02] VITALS: O2SAT 100
[2024-11-06 20:51] VITALS: BP 124/45; TEMP 99.1; O2SAT 98
[2024-11-06 23:05] VITALS: O2SAT 98
[2024-11-07 04:41] VITALS: TEMP 98.5
[2024-11-07 07:58] VITALS: BP 125/64; TEMP 97.7; O2SAT 99
[2024-11-07 10:57] VITALS: O2SAT 100
[2024-11-07 19:16] VITALS: BP 124/56; TEMP 97.7; O2SAT 100
[2024-11-07 23:19] VITALS: O2SAT 100
[2024-11-08 07:51] VITALS: BP 101/58; TEMP 98.1; O2SAT 99
[2024-11-08 07:57] VITALS: BP 138/71; TEMP 98.6; O2SAT 99
[2024-11-08 10:28] VITALS: O2SAT 100
[2024-11-08 19:30] VITALS: O2SAT 98
[2024-11-08 20:00] VITALS: BP 99/79; TEMP 98.1; O2SAT 99
[2024-11-08 23:34] VITALS: O2SAT 100
[2024-11-09 07:46] VITALS: BP 125/61; TEMP 98.6; O2SAT 98
[2024-11-09 10:24] VITALS: O2SAT 100
[2024-11-09 20:15] VITALS: BP 116/61; TEMP 98.1; O2SAT 99
[2024-11-09 22:12] VITALS: O2SAT 100
[2024-11-10 08:00] VITALS: BP 140/70; TEMP 98.6; O2SAT 100
[2024-11-10 10:22] VITALS: O2SAT 99
[2024-11-10 20:00] VITALS: BP 131/81; TEMP 98.1; O2SAT 99
[2024-11-10 23:22] VITALS: O2SAT 98
[2024-11-11 07:30] VITALS: BP 129/57; TEMP 98.1; O2SAT 98
[2024-11-11 12:09] VITALS: O2SAT 100; O2SAT 99
[2024-11-11 19:58] VITALS: BP 136/60; TEMP 98.4; O2SAT 100
[2024-11-11 22:24] VITALS: O2SAT 98
[2024-11-12 07:45] VITALS: BP 133/67; TEMP 97.7; O2SAT 99
[2024-11-12 10:08] VITALS: O2SAT 100
[2024-11-12 19:54] VITALS: BP 119/59; TEMP 98.1; O2SAT 99
[2024-11-12 23:34] VITALS: O2SAT 99
[2024-11-13 07:45] VITALS: BP 127/52; TEMP 97.9; O2SAT 98
[2024-11-13 11:28] VITALS: O2SAT 100
[2024-11-13 19:32] VITALS: O2SAT 99
[2024-11-13 19:37] VITALS: BP 120/84; TEMP 98.4; O2SAT 98
[2024-11-13 23:20] VITALS: O2SAT 99
[2024-11-14 07:47] VITALS: BP 130/69; TEMP 97.5; O2SAT 98
[2024-11-14 10:12] VITALS: O2SAT 100
[2024-11-14 19:15] VITALS: O2SAT 98
[2024-11-14 20:00] VITALS: BP 129/59; TEMP 98.6; O2SAT 99
[2024-11-14 23:12] VITALS: O2SAT 100
[2024-11-15 07:38] VITALS: BP 119/62; TEMP 98.1; O2SAT 100
[2024-11-15 10:20] VITALS: O2SAT 100
[2024-11-15 19:35] VITALS: O2SAT 100
[2024-11-15 20:00] VITALS: BP 141/97; TEMP 98.8; O2SAT 99
[2024-11-15 22:45] VITALS: O2SAT 99
[2024-11-16 07:46] VITALS: BP 153/84; TEMP 98.6; O2SAT 99
[2024-11-16 10:07] VITALS: O2SAT 100
[2024-11-16 20:00] VITALS: BP 130/61; TEMP 98.5; O2SAT 99
[2024-11-16 20:07] VITALS: BP 130/61; TEMP 98.5; O2SAT 99
[2024-11-16 22:09] VITALS: O2SAT 100
[2024-11-17 07:44] VITALS: BP 124/55; TEMP 98.1; O2SAT 100
[2024-11-17 10:08] VITALS: O2SAT 99
[2024-11-17 20:00] VITALS: BP 119/63; TEMP 98.4; O2SAT 99
[2024-11-17 23:10] VITALS: O2SAT 100
[2024-11-18 07:47] VITALS: BP 95/46; TEMP 98.8; O2SAT 100
[2024-11-18 10:39] VITALS: O2SAT 99
[2024-11-18 19:33] VITALS: BP 128/57; TEMP 98.8; O2SAT 97
[2024-11-18 23:25] VITALS: O2SAT 98
[2024-11-19 07:39] VITALS: BP 110/83; TEMP 98.8; O2SAT 100
[2024-11-19 10:03] VITALS: O2SAT 100
[2024-11-19 10:04] VITALS: O2SAT 100
[2024-11-19 19:59] VITALS: O2SAT 100
[2024-11-19 20:06] VITALS: BP 129/60; TEMP 99; O2SAT 99
[2024-11-19 22:56] VITALS: O2SAT 100
[2024-11-20 07:36] VITALS: BP 126/68; TEMP 97.7; O2SAT 99
[2024-11-20 07:44] VITALS: O2SAT 100
[2024-11-20 10:29] VITALS: O2SAT 100
[2024-11-20 19:13] VITALS: BP 155/85; TEMP 99.5; O2SAT 99
[2024-11-20 23:31] VITALS: O2SAT 98
[2024-11-21 07:36] VITALS: BP 118/65; TEMP 97.7; O2SAT 99
[2024-11-21 10:18] VITALS: O2SAT 100
[2024-11-21 21:37] VITALS: BP 110/61; TEMP 98.1; O2SAT 100
[2024-11-21 23:38] VITALS: O2SAT 98
[2024-11-22 07:43] VITALS: BP 117/53; TEMP 98.2; O2SAT 99
[2024-11-22 10:12] VITALS: O2SAT 99
[2024-11-22 20:13] VITALS: BP 113/65; TEMP 98.4; O2SAT 100
[2024-11-22 22:18] VITALS: O2SAT 98; O2SAT 99
[2024-11-23 07:23] VITALS: BP 140/52; TEMP 98.2; O2SAT 100
[2024-11-23 10:14] VITALS: O2SAT 100; O2SAT 99
[2024-11-23 20:02] VITALS: BP 124/62; TEMP 98.6; O2SAT 100
[2024-11-23 23:15] VITALS: O2SAT 98; O2SAT 99
[2024-11-24 07:14] VITALS: BP 106/73; TEMP 98.6; O2SAT 98
[2024-11-24 10:10] VITALS: O2SAT 100
[2024-11-24 20:00] VITALS: BP 117/77; TEMP 99.5; O2SAT 100
[2024-11-24 23:36] VITALS: O2SAT 99
[2024-11-25 07:23] VITALS: BP 128/79; TEMP 98.1; O2SAT 96
[2024-11-25 10:39] VITALS: O2SAT 97; O2SAT 99
[2024-11-25 19:25] VITALS: BP 98/75; TEMP 98.6; O2SAT 100
[2024-11-25 23:39] VITALS: O2SAT 98
[2024-11-26 10:13] VITALS: O2SAT 100
[2024-11-26] MEDS: TWOCAL HN 1,000 ML LIQUID GT PRN (17:46)
[2024-11-26 19:38] VITALS: O2SAT 98
[2024-11-26 20:43] VITALS: BP 108/96; TEMP 98.6; O2SAT 100
[2024-11-26 22:33] VITALS: O2SAT 99
[2024-11-27 07:27] VITALS: BP 126/79; TEMP 97.9; O2SAT 98
[2024-11-27 10:48] VITALS: O2SAT 100
[2024-11-27 19:22] VITALS: O2SAT 98
[2024-11-27 20:00] VITALS: BP 116/51; TEMP 98.8; O2SAT 100
[2024-11-27 22:44] VITALS: O2SAT 99
[2024-11-28 08:00] VITALS: BP 115/83; TEMP 98.6; O2SAT 99
[2024-11-28 10:48] VITALS: O2SAT 100
[2024-11-28 19:20] VITALS: O2SAT 100
[2024-11-28 20:12] VITALS: BP 100/68; TEMP 98.1; O2SAT 100
[2024-11-28 23:12] VITALS: O2SAT 99
[2024-11-29 08:00] VITALS: BP 115/52; TEMP 99; O2SAT 99
[2024-11-29 10:17] VITALS: O2SAT 99
[2024-11-29 20:29] VITALS: BP 101/59; TEMP 97.9; O2SAT 100
[2024-11-30 01:45] VITALS: O2SAT 99
[2024-11-30 08:47] VITALS: O2SAT 99
[2024-11-30 11:51] VITALS: O2SAT 99
[2024-11-30 21:26] VITALS: BP 128/59; TEMP 98.4; O2SAT 99
[2024-11-30 22:10] VITALS: O2SAT 99
[2024-12-01 08:00] VITALS: BP 103/60; TEMP 98.1; O2SAT 99
[2024-12-01 10:00] VITALS: O2SAT 100
[2024-12-01 21:10] VITALS: BP 129/50; TEMP 99; O2SAT 99
[2024-12-01 23:34] VITALS: O2SAT 99
[2024-12-02 10:11] VITALS: O2SAT 100
[2024-12-02 11:14] VITALS: O2SAT 100
[2024-12-02 14:58] VITALS: BP 105/90; TEMP 98.4; O2SAT 98
[2024-12-02 19:33] VITALS: BP 104/80; TEMP 98.1; O2SAT 97
[2024-12-02 23:44] VITALS: O2SAT 100
[2024-12-03 10:49] VITALS: O2SAT 100
[2024-12-03 14:42] VITALS: BP 90/47; TEMP 98.4; O2SAT 98
[2024-12-03 19:25] VITALS: O2SAT 100
[2024-12-03 19:59] VITALS: BP 112/63; TEMP 99; O2SAT 100
[2024-12-03 22:49] VITALS: O2SAT 100
[2024-12-04] VITALS (7 sets, daily range): BP systolic 105–115; BP diastolic 61–76; TEMP 97.6–99.1; O2SAT 92–100
[2024-12-05 07:56] VITALS: BP 118/66; TEMP 98.4; O2SAT 98
[2024-12-05 10:12] VITALS: O2SAT 100
[2024-12-05 11:18] VITALS: O2SAT 100
[2024-12-05 19:24] VITALS: BP 110/58; TEMP 99.1; O2SAT 98
[2024-12-05 23:26] VITALS: O2SAT 99
[2024-12-06 07:28] VITALS: BP 121/56; TEMP 97.9; O2SAT 98
[2024-12-06 10:19] VITALS: O2SAT 100
[2024-12-06 19:16] VITALS: O2SAT 99
[2024-12-06 19:56] VITALS: BP 124/68; TEMP 98.2; O2SAT 100
[2024-12-06 23:15] VITALS: O2SAT 99
[2024-12-07 08:46] VITALS: BP 118/59; TEMP 97.9; O2SAT 100
[2024-12-07 10:20] VITALS: O2SAT 100
[2024-12-07 23:06] VITALS: O2SAT 98
[2024-12-08 07:40] VITALS: BP 116/60; TEMP 99; O2SAT 99
[2024-12-08 10:16] VITALS: O2SAT 100
[2024-12-08 19:03] VITALS: BP 102/61; TEMP 99; O2SAT 100
[2024-12-08 23:22] VITALS: O2SAT 99
[2024-12-09 07:44] VITALS: BP 111/61; TEMP 98.1; O2SAT 100
[2024-12-09 10:24] VITALS: O2SAT 100
[2024-12-09 19:13] VITALS: BP 104/57; TEMP 98.8; O2SAT 100
[2024-12-09 23:30] VITALS: O2SAT 98
[2024-12-10 07:24] VITALS: BP 112/61; TEMP 98.6; O2SAT 98
[2024-12-10 10:20] VITALS: O2SAT 100; O2SAT 98
[2024-12-10 19:25] VITALS: O2SAT 98
[2024-12-10 19:37] VITALS: BP 127/69; TEMP 98.8; O2SAT 100
[2024-12-10 23:20] VITALS: O2SAT 98
[2024-12-11 07:22] VITALS: BP 125/66; TEMP 97.9; O2SAT 100
[2024-12-11 10:38] VITALS: O2SAT 99
[2024-12-11 19:20] VITALS: O2SAT 99
[2024-12-11 19:37] VITALS: BP 110/55; TEMP 98.4; O2SAT 100
[2024-12-11 23:22] VITALS: O2SAT 99
[2024-12-12 07:20] VITALS: BP 115/58; TEMP 98.2; O2SAT 99
[2024-12-12 10:04] VITALS: O2SAT 98
[2024-12-12 19:21] VITALS: O2SAT 98
[2024-12-12 19:30] VITALS: BP 94/79; TEMP 98.4; O2SAT 100
[2024-12-12 22:55] VITALS: O2SAT 99
[2024-12-13 10:38] VITALS: O2SAT 100
[2024-12-13 15:11] VITALS: BP 137/80; TEMP 98.8; O2SAT 98
[2024-12-13 19:20] VITALS: O2SAT 99
[2024-12-13 19:40] VITALS: BP 123/66; TEMP 97.9; O2SAT 100
[2024-12-13 22:29] VITALS: O2SAT 98
[2024-12-14 08:15] VITALS: O2SAT 100; O2SAT 99
[2024-12-14 08:28] VITALS: BP 114/56; TEMP 97.9; O2SAT 99
[2024-12-14 11:32] VITALS: O2SAT 99
[2024-12-14 19:43] VITALS: BP 117/63; TEMP 98.4; O2SAT 100
[2024-12-14 22:08] VITALS: O2SAT 100; O2SAT 99
[2024-12-15 07:30] VITALS: BP 99/68; TEMP 98.2; O2SAT 98
[2024-12-15 10:12] VITALS: O2SAT 99
[2024-12-15 11:12] VITALS: O2SAT 99
[2024-12-15 19:18] VITALS: BP 115/49; TEMP 97.7; O2SAT 97
[2024-12-15 23:01] VITALS: O2SAT 100
[2024-12-15 23:05] VITALS: O2SAT 100
[2024-12-16 07:29] VITALS: BP 96/74; TEMP 98.4; O2SAT 98
[2024-12-16 10:12] VITALS: O2SAT 99
[2024-12-16 11:18] VITALS: O2SAT 99
[2024-12-16 19:42] VITALS: BP 123/57; TEMP 98.6; O2SAT 100
[2024-12-16 22:00] VITALS: BP 123/57; TEMP 98.6; O2SAT 100
[2024-12-16 23:22] VITALS: O2SAT 99
[2024-12-17 07:08] VITALS: BP 123/57; TEMP 98.6; O2SAT 100
[2024-12-17 08:54] VITALS: BP 96/60; TEMP 98.1; O2SAT 100
[2024-12-17 10:21] VITALS: O2SAT 100
[2024-12-17 19:11] VITALS: O2SAT 100
[2024-12-17 23:40] VITALS: O2SAT 98
[2024-12-18 08:41] VITALS: BP 112/83; TEMP 98.2; O2SAT 100
[2024-12-18 10:14] VITALS: O2SAT 99
[2024-12-18 11:17] VITALS: O2SAT 99
[2024-12-18 19:45] VITALS: BP 103/62; TEMP 98.2; O2SAT 100
[2024-12-18 23:43] VITALS: O2SAT 98
[2024-12-19 07:50] VITALS: BP 118/56; TEMP 98.6; O2SAT 100
[2024-12-19 11:14] VITALS: O2SAT 99
[2024-12-19 19:42] VITALS: BP 108/71; TEMP 100.9; O2SAT 100
[2024-12-19 23:25] VITALS: O2SAT 98
[2024-12-20 08:00] VITALS: BP 90/60; TEMP 99; O2SAT 99
[2024-12-20 10:09] VITALS: O2SAT 99
[2024-12-20 19:21] VITALS: O2SAT 98
[2024-12-20 20:00] VITALS: BP 98/72; TEMP 98.1; O2SAT 99
[2024-12-20 23:30] VITALS: O2SAT 99
[2024-12-21 07:41] VITALS: BP 119/68; TEMP 98.2; O2SAT 100
[2024-12-21 10:51] VITALS: O2SAT 100
[2024-12-21 20:00] VITALS: BP 132/66; TEMP 98.3; O2SAT 99
[2024-12-21 23:43] VITALS: O2SAT 98
[2024-12-22 08:00] VITALS: BP 127/68; TEMP 98.6; O2SAT 99
[2024-12-22 10:46] VITALS: O2SAT 100
[2024-12-22 20:00] VITALS: BP 120/66; TEMP 98.1; O2SAT 99
[2024-12-22 23:37] VITALS: O2SAT 99
[2024-12-23 07:33] VITALS: BP 104/59; TEMP 98.4; O2SAT 100
[2024-12-23 10:21] VITALS: O2SAT 100
[2024-12-23 19:50] VITALS: BP 118/78; TEMP 99.1; O2SAT 100
[2024-12-23 23:38] VITALS: O2SAT 99
[2024-12-24 07:28] VITALS: BP 111/62; TEMP 98.4; O2SAT 100
[2024-12-24 10:43] VITALS: O2SAT 100
[2024-12-24 19:21] VITALS: O2SAT 100
[2024-12-24 19:43] VITALS: BP 132/65; TEMP 98.6; O2SAT 97
[2024-12-24 23:18] VITALS: O2SAT 99
[2024-12-25 08:00] VITALS: BP 139/64; TEMP 98.4; O2SAT 100
[2024-12-25 10:22] VITALS: O2SAT 100
[2024-12-25 19:30] VITALS: O2SAT 100
[2024-12-25 19:57] VITALS: BP 113/67; TEMP 98.1; O2SAT 99
[2024-12-25 22:27] VITALS: O2SAT 100
[2024-12-26 07:34] VITALS: BP 125/69; TEMP 98.4; O2SAT 100
[2024-12-26 10:08] VITALS: O2SAT 100
[2024-12-26 19:18] VITALS: O2SAT 98
[2024-12-26 20:00] VITALS: BP 113/87; TEMP 98.6; O2SAT 99
[2024-12-26 22:57] VITALS: O2SAT 100
[2024-12-27 07:32] VITALS: BP 137/64; TEMP 98.1; O2SAT 100
[2024-12-27 10:10] VITALS: O2SAT 100
[2024-12-27 19:10] VITALS: O2SAT 100
[2024-12-27 20:00] VITALS: BP 100/64; TEMP 98.6; O2SAT 99
[2024-12-27 22:38] VITALS: O2SAT 99
[2024-12-28 07:35] VITALS: BP 145/64; TEMP 98.1; O2SAT 100
[2024-12-28 10:10] VITALS: O2SAT 100
[2024-12-28 20:42] VITALS: BP 126/60; TEMP 98.7; O2SAT 97
[2024-12-29 00:27] VITALS: O2SAT 99
[2024-12-29 07:39] VITALS: BP 111/51; TEMP 98.1; O2SAT 100
[2024-12-29 10:15] VITALS: O2SAT 100
[2024-12-29 20:00] VITALS: BP 126/66; TEMP 98.7; O2SAT 99
[2024-12-29 23:12] VITALS: O2SAT 99
[2024-12-30 07:27] VITALS: BP 101/59; TEMP 97.5; O2SAT 97
[2024-12-30 10:23] VITALS: O2SAT 100
[2024-12-30 19:55] VITALS: BP 129/63; TEMP 98.7; O2SAT 98
[2024-12-30 23:18] VITALS: O2SAT 98
[2024-12-30 23:19] VITALS: O2SAT 98
[2024-12-31 07:33] VITALS: BP 101/69; TEMP 98.2; O2SAT 99
[2024-12-31 10:35] VITALS: O2SAT 100
[2024-12-31 19:28] VITALS: BP 131/83; TEMP 98.2; O2SAT 100
[2024-12-31 19:34] VITALS: O2SAT 99
[2024-12-31 23:11] VITALS: O2SAT 100
[2025-01-01 07:36] VITALS: BP 127/82; TEMP 98.4; O2SAT 98
[2025-01-01 10:17] VITALS: O2SAT 100
[2025-01-01 11:16] VITALS: O2SAT 100
[2025-01-01 19:43] VITALS: BP 122/87; TEMP 99.1; O2SAT 100
[2025-01-01 22:44] VITALS: O2SAT 100
[2025-01-02 07:36] VITALS: BP 121/76; TEMP 97.7; O2SAT 99
[2025-01-02 10:16] VITALS: O2SAT 99
[2025-01-02 11:18] VITALS: O2SAT 100
[2025-01-02 19:50] VITALS: BP 115/59; TEMP 98.2; O2SAT 100
[2025-01-02 22:00] VITALS: BP 115/59; TEMP 98.2; O2SAT 100
[2025-01-02 23:14] VITALS: O2SAT 98
[2025-01-03 07:47] VITALS: BP 117/58; TEMP 98; O2SAT 99
[2025-01-03 10:21] VITALS: O2SAT 100
[2025-01-03 10:22] VITALS: O2SAT 100
[2025-01-03 19:26] VITALS: O2SAT 100
[2025-01-03 19:59] VITALS: BP 113/62; TEMP 98.4; O2SAT 98
[2025-01-03 22:33] VITALS: O2SAT 98
[2025-01-04 07:27] VITALS: BP 102/68; TEMP 98; O2SAT 98
[2025-01-04 10:32] VITALS: O2SAT 100
[2025-01-04 19:46] VITALS: BP 109/56; TEMP 98.6; O2SAT 100
[2025-01-04 20:00] VITALS: BP 109/56; TEMP 98.6; O2SAT 100
[2025-01-04 22:00] VITALS: BP 109/56; TEMP 98.6; O2SAT 100
[2025-01-04 23:30] VITALS: O2SAT 96
[2025-01-05 07:23] VITALS: BP 105/68; TEMP 98.5; O2SAT 98
[2025-01-05 10:12] VITALS: O2SAT 97
[2025-01-05 11:18] VITALS: O2SAT 100
[2025-01-05] MEDS: TUBERCULIN,PURIF.PROT.DERIV. 5 TU/0.1 ML VIAL ID SCH (13:50)
[2025-01-05 20:46] VITALS: BP 126/66; TEMP 98.8; O2SAT 99
[2025-01-05 23:24] VITALS: O2SAT 99
[2025-01-06 07:19] VITALS: BP 96/62; TEMP 98.1; O2SAT 97
[2025-01-06 11:47] VITALS: O2SAT 100; O2SAT 99
[2025-01-06 19:56] VITALS: BP 100/65; TEMP 99.5; O2SAT 97
[2025-01-06 23:31] VITALS: O2SAT 98
[2025-01-06 23:32] VITALS: O2SAT 98
[2025-01-07 07:10] LABS: PLATELET COUNT (AUTO) 175 K/uL (150-450); RED BLOOD CELL COUNT(AUTO) 3.01 MIL/uL (4.0-5.2); RED CELL DISTRIBUTION WIDTH 15.9 % (11.5-15.0); WHITE BLOOD COUNT (AUTO) 5.4 K/uL (4.3-11.0)
[2025-01-07 07:28] LABS: CALCIUM, SERUM 9.4 mg/dL (8.5-10.1); CREATININE 0.8 mg/dL (0.6-1.3); SODIUM SERUM 134.0 mmol/L (136-145); UREA NITROGEN, BLOOD 24.0 mg/dL (7-18)
[2025-01-07 07:37] VITALS: BP 107/82; TEMP 98.4; O2SAT 100
[2025-01-07 10:14] VITALS: O2SAT 100
[2025-01-07 11:14] VITALS: O2SAT 99
[2025-01-07 19:24] VITALS: O2SAT 99
[2025-01-07 21:03] VITALS: BP 114/73; TEMP 97.9; O2SAT 98
[2025-01-07 23:06] VITALS: O2SAT 99
[2025-01-08 07:40] VITALS: BP 116/58; TEMP 98.4; O2SAT 100
[2025-01-08 10:10] VITALS: O2SAT 99
[2025-01-08 19:15] VITALS: O2SAT 98
[2025-01-08 20:18] VITALS: BP 125/89; TEMP 98; O2SAT 100
[2025-01-08 22:35] VITALS: O2SAT 99
[2025-01-09 07:35] VITALS: BP 108/60; TEMP 98.1; O2SAT 99
[2025-01-09 10:08] VITALS: O2SAT 100
[2025-01-09 19:43] VITALS: O2SAT 98
[2025-01-09 20:22] VITALS: BP 100/72; TEMP 98.4; O2SAT 99
[2025-01-09 23:27] VITALS: O2SAT 100
[2025-01-10 08:24] VITALS: BP 131/67; TEMP 99; O2SAT 100
[2025-01-10 10:05] VITALS: O2SAT 99
[2025-01-10 21:04] VITALS: BP 101/59; TEMP 98.4; O2SAT 100
[2025-01-10 22:11] VITALS: O2SAT 99
[2025-01-11 07:46] VITALS: BP 105/59; TEMP 98.8; O2SAT 100
[2025-01-11 10:40] VITALS: O2SAT 99
[2025-01-11 20:10] VITALS: BP 107/61; TEMP 98.6; O2SAT 98
[2025-01-11 22:12] VITALS: O2SAT 99
[2025-01-12 10:14] VITALS: O2SAT 98
[2025-01-12 19:52] VITALS: BP 126/61; TEMP 98.8; O2SAT 100
[2025-01-12 23:25] VITALS: O2SAT 97
[2025-01-13 07:24] VITALS: BP 121/66; TEMP 97.9; O2SAT 100
[2025-01-13 07:28] VITALS: BP 103/59; TEMP 97.7; O2SAT 98
[2025-01-13 10:09] VITALS: O2SAT 98
[2025-01-13 11:12] VITALS: O2SAT 99
[2025-01-13 19:26] VITALS: BP 126/65; TEMP 99.3; O2SAT 98
[2025-01-13 23:22] VITALS: O2SAT 99
[2025-01-14 08:48] VITALS: BP 120/50; TEMP 97.5; O2SAT 100
[2025-01-14 10:29] VITALS: O2SAT 99
[2025-01-14 19:24] VITALS: BP 108/84; TEMP 98.6; O2SAT 100
[2025-01-14 23:25] VITALS: O2SAT 100
[2025-01-15 08:07] VITALS: BP 98/64; TEMP 98.4; O2SAT 100
[2025-01-15 11:08] VITALS: O2SAT 100
[2025-01-15 19:29] VITALS: BP_SYST 105; BP_SYST 135; BP_DIAS 57; BP_DIAS 68; TEMP 98.6; TEMP 98.8; O2SAT 97; O2SAT 99
[2025-01-15 23:33] VITALS: O2SAT 99
[2025-01-16 07:41] VITALS: BP 118/72; TEMP 98.3; O2SAT 98
[2025-01-16 10:09] VITALS: O2SAT 100
[2025-01-16 11:09] VITALS: O2SAT 98
[2025-01-16 20:06] VITALS: BP 103/63; TEMP 98.6; O2SAT 100
[2025-01-16 23:20] VITALS: O2SAT 98
[2025-01-17 10:15] VITALS: O2SAT 98
[2025-01-17 11:54] VITALS: BP 101/69; TEMP 98.8; O2SAT 98
[2025-01-17 19:21] VITALS: O2SAT 99
[2025-01-17 22:00] VITALS: BP 101/58; TEMP 98.5; O2SAT 100
[2025-01-17 22:22] VITALS: O2SAT 98
[2025-01-18 07:37] VITALS: BP 133/65; TEMP 97.6; O2SAT 100
[2025-01-18 10:34] VITALS: O2SAT 99
[2025-01-18 22:00] VITALS: BP 103/55; TEMP 98.4; O2SAT 99
[2025-01-18 23:38] VITALS: O2SAT 98
[2025-01-19 07:33] VITALS: BP 119/59; TEMP 98.2; O2SAT 99
[2025-01-19 12:05] VITALS: O2SAT 99
[2025-01-19 20:17] VITALS: BP 148/85; TEMP 99.2; O2SAT 98
[2025-01-19 23:28] VITALS: O2SAT 98
[2025-01-20 07:39] VITALS: BP 101/71; TEMP 98.3; O2SAT 98
[2025-01-20 10:25] VITALS: O2SAT 98; O2SAT 99
[2025-01-20] MEDS ORDERED: Z GUARD REMEDY 4 OZ OINT TP PRN (16:00)
[2025-01-20 19:42] VITALS: BP 111/83; TEMP 98.6; O2SAT 99
[2025-01-20] MEDS: Z GUARD REMEDY 4 OZ OINT TP SCH (21:20)
[2025-01-20 21:52] VITALS: TEMP 98.6; O2SAT 99
[2025-01-20 23:22] VITALS: O2SAT 98
[2025-01-21 07:53] VITALS: BP 111/65; TEMP 98.8; O2SAT 100
[2025-01-21 11:18] VITALS: O2SAT 98
[2025-01-21 13:25] VITALS: O2SAT 99
[2025-01-21 19:20] VITALS: O2SAT 98
[2025-01-21 20:14] VITALS: BP 104/67; TEMP 99; O2SAT 99
[2025-01-21 23:08] VITALS: O2SAT 99
[2025-01-22 07:20] VITALS: BP 117/69; TEMP 98.1; O2SAT 98
[2025-01-22 10:26] VITALS: O2SAT 100
[2025-01-22 19:28] VITALS: O2SAT 98
[2025-01-22 19:40] VITALS: BP 122/65; TEMP 98.8; O2SAT 100
[2025-01-22 22:34] VITALS: O2SAT 99
[2025-01-23 07:37] VITALS: BP 125/65; TEMP 97.9; O2SAT 98
[2025-01-23 10:18] VITALS: O2SAT 99
[2025-01-23 11:21] VITALS: O2SAT 98
[2025-01-23 19:17] VITALS: O2SAT 98
[2025-01-23 19:31] VITALS: BP 101/62; TEMP 98.4; O2SAT 99
[2025-01-23 22:20] VITALS: O2SAT 99
[2025-01-24 07:34] VITALS: BP 108/54; TEMP 99.3; O2SAT 99
[2025-01-24 10:19] VITALS: O2SAT 99
[2025-01-24 19:38] VITALS: BP 111/60; TEMP 98; O2SAT 99
[2025-01-24 23:29] VITALS: O2SAT 94; O2SAT 97
[2025-01-25 09:05] VITALS: BP 115/60; TEMP 98.8; O2SAT 100
[2025-01-25 10:11] VITALS: O2SAT 99
[2025-01-25 11:12] VITALS: O2SAT 98
[2025-01-25 19:56] VITALS: BP 113/59; TEMP 98.6; O2SAT 98
[2025-01-25 22:18] VITALS: O2SAT 98
[2025-01-26 07:34] VITALS: BP 112/78; TEMP 97.6; O2SAT 99
[2025-01-26 10:04] VITALS: O2SAT 99
[2025-01-26] MEDS: NA PHOS,M-B/NA PHOS,DI-BA 1 EA ENEMA RC PRN (19:10)
[2025-01-26 19:46] VITALS: BP 117/54; TEMP 98.3; O2SAT 97
[2025-01-26 23:23] VITALS: O2SAT 99
[2025-01-27 07:20] VITALS: BP 117/58; TEMP 98.2; O2SAT 99
[2025-01-27 10:32] VITALS: O2SAT 100
[2025-01-27 19:44] VITALS: BP 106/78; TEMP 98.8; O2SAT 100
[2025-01-27 23:19] VITALS: O2SAT 99
[2025-01-28 08:46] VITALS: BP 124/83; TEMP 98.6; O2SAT 99
[2025-01-28 10:23] VITALS: O2SAT 99
[2025-01-28 19:39] VITALS: BP 119/62; TEMP 99.1; O2SAT 98
[2025-01-28 19:41] VITALS: O2SAT 98
[2025-01-28] MEDS: VITAMINS A AND D 56.7 GM TUBE TP SCH (21:05)
[2025-01-28 23:19] VITALS: O2SAT 99
[2025-01-29 07:01] VITALS: BP 108/60; TEMP 98.5; O2SAT 100
[2025-01-29 10:04] VITALS: O2SAT 98
[2025-01-29 20:20] VITALS: BP 115/65; TEMP 99.5; O2SAT 99
[2025-01-29 23:07] VITALS: O2SAT 99
[2025-01-30 07:51] VITALS: BP 118/63; TEMP 99.3; O2SAT 99
[2025-01-30 10:09] VITALS: O2SAT 100
[2025-01-30 19:41] VITALS: BP 99/54; TEMP 98.6; O2SAT 98
[2025-01-30 23:11] VITALS: O2SAT 99
[2025-01-31 07:51] VITALS: BP 107/58; TEMP 98; O2SAT 100
[2025-01-31 09:29] LABS: CALCIUM, SERUM 9.1 mg/dL (8.5-10.1); CREATININE 0.7 mg/dL (0.6-1.3); SODIUM SERUM 135.0 mmol/L (136-145); UREA NITROGEN, BLOOD 22.0 mg/dL (7-18)
[2025-01-31 10:35] VITALS: O2SAT 100
[2025-01-31 19:20] VITALS: O2SAT 99
[2025-01-31 19:36] VITALS: BP 106/54; TEMP 98.4; O2SAT 99
[2025-01-31 23:04] VITALS: O2SAT 99
[2025-02-01 07:18] VITALS: BP 107/81; TEMP 99; O2SAT 98
[2025-02-01 10:12] VITALS: O2SAT 100
[2025-02-01 11:12] VITALS: O2SAT 99
[2025-02-01 20:04] VITALS: BP 110/71; TEMP 98.5; O2SAT 97
[2025-02-01 23:59] VITALS: O2SAT 99
[2025-02-02 08:00] VITALS: BP 120/60; TEMP 98; O2SAT 100
[2025-02-02 10:12] VITALS: O2SAT 99
[2025-02-02 11:15] VITALS: O2SAT 98
[2025-02-02 20:06] VITALS: BP 100/59; TEMP 98.4; O2SAT 98
[2025-02-02 23:10] VITALS: O2SAT 99
[2025-02-03] VITALS (7 sets, daily range): BP systolic 90–105; BP diastolic 45–52; TEMP 97.6–98.4; O2SAT 98–100
[2025-02-04 08:06] VITALS: BP 98/59; TEMP 98.1; O2SAT 100
[2025-02-04 10:11] VITALS: O2SAT 99
[2025-02-04 19:29] VITALS: O2SAT 99
[2025-02-04 20:05] VITALS: BP 109/52; TEMP 98.8; O2SAT 99
[2025-02-04 23:03] VITALS: O2SAT 99
[2025-02-05 08:00] VITALS: BP 124/65; TEMP 98.7; O2SAT 99
[2025-02-05 10:25] VITALS: O2SAT 100
[2025-02-05 10:26] VITALS: O2SAT 100
[2025-02-05 19:20] VITALS: O2SAT 99
[2025-02-05 19:54] VITALS: BP 133/80; TEMP 99.7; O2SAT 98
[2025-02-05 22:17] VITALS: O2SAT 99
[2025-02-06 07:12] VITALS: BP 117/64; TEMP 98.2; O2SAT 98
[2025-02-06 10:02] VITALS: O2SAT 100
[2025-02-06 10:03] VITALS: O2SAT 98
[2025-02-06 19:23] VITALS: O2SAT 98
[2025-02-06 20:21] VITALS: BP 111/60; TEMP 98.5; O2SAT 100
[2025-02-06 23:00] VITALS: O2SAT 99
[2025-02-07 08:00] VITALS: BP 110/60; TEMP 98; O2SAT 100
[2025-02-07 10:04] VITALS: O2SAT 99
[2025-02-07 19:28] VITALS: BP 116/67; TEMP 99.1; O2SAT 100
[2025-02-07 23:18] VITALS: O2SAT 98
[2025-02-08 09:20] VITALS: BP 104/58; TEMP 98.1; O2SAT 99
[2025-02-08 10:06] VITALS: O2SAT 100
[2025-02-08 10:07] VITALS: O2SAT 100
[2025-02-08 20:22] VITALS: BP 110/59; TEMP 98.7; O2SAT 99
[2025-02-08 23:49] VITALS: O2SAT 97
[2025-02-09 07:42] VITALS: BP 103/51; TEMP 98.2; O2SAT 98
[2025-02-09 11:00] VITALS: O2SAT 99
[2025-02-09 19:49] VITALS: BP 119/57; TEMP 98.6; O2SAT 98
[2025-02-09 23:21] VITALS: O2SAT 98
[2025-02-10 07:47] VITALS: BP 104/56; TEMP 97.9; O2SAT 98
[2025-02-10 10:08] VITALS: O2SAT 100
[2025-02-10 19:53] VITALS: BP 135/76; TEMP 100.2; O2SAT 98
[2025-02-10 23:07] VITALS: O2SAT 100
[2025-02-11 08:33] VITALS: BP 109/83; TEMP 99; O2SAT 100
[2025-02-11 10:57] VITALS: O2SAT 100
[2025-02-11 18:46] VITALS: BP 98/78; TEMP 99; O2SAT 97
[2025-02-11 19:38] VITALS: O2SAT 97
[2025-02-11 23:02] VITALS: O2SAT 100
[2025-02-12 08:21] VITALS: BP 121/73; TEMP 98.8; O2SAT 99
[2025-02-12 10:23] VITALS: O2SAT 100
[2025-02-12 12:20] VITALS: O2SAT 100
[2025-02-12 19:36] VITALS: BP 123/71; TEMP 99; O2SAT 100
[2025-02-12 19:40] VITALS: BP 129/73; TEMP 97.8; O2SAT 100
[2025-02-12 23:36] VITALS: O2SAT 99
[2025-02-13 07:36] VITALS: BP 108/58; TEMP 98.1; O2SAT 99
[2025-02-13 10:08] VITALS: O2SAT 100
[2025-02-13 11:08] VITALS: O2SAT 99
[2025-02-13 19:44] VITALS: BP 102/60; TEMP 98.4; O2SAT 100
[2025-02-13 23:49] VITALS: O2SAT 99
[2025-02-14 07:46] VITALS: BP 102/56; TEMP 98.1; O2SAT 98
[2025-02-14 10:15] VITALS: O2SAT 100
[2025-02-14 19:20] VITALS: O2SAT 100
[2025-02-14 22:46] VITALS: O2SAT 100
[2025-02-15 07:31] VITALS: BP 129/56; TEMP 98.3; O2SAT 100
[2025-02-15 10:20] VITALS: O2SAT 98
[2025-02-15 22:11] VITALS: O2SAT 99
[2025-02-16 07:46] VITALS: BP 115/58; TEMP 98; O2SAT 100
[2025-02-16 10:12] VITALS: O2SAT 99
[2025-02-16 10:49] VITALS: O2SAT 98
[2025-02-16 19:52] VITALS: BP 125/61; TEMP 98.4; O2SAT 100
[2025-02-16 23:17] VITALS: O2SAT 98
[2025-02-17 08:47] VITALS: BP 107/69; TEMP 98.1; O2SAT 98
[2025-02-17 10:19] VITALS: O2SAT 100
[2025-02-17 19:44] VITALS: BP 109/55; TEMP 99.5; O2SAT 100
[2025-02-17 22:54] VITALS: O2SAT 98
[2025-02-17 22:55] VITALS: O2SAT 98
[2025-02-18 07:36] VITALS: BP 126/82; TEMP 98.1; O2SAT 99
[2025-02-18 10:12] VITALS: O2SAT 100
[2025-02-18 11:12] VITALS: O2SAT 99
[2025-02-18 19:40] VITALS: O2SAT 98
[2025-02-18 19:57] VITALS: BP 115/58; TEMP 98.6; O2SAT 100
[2025-02-18 22:20] VITALS: O2SAT 99
[2025-02-19 08:00] VITALS: BP 123/60; TEMP 98.6; O2SAT 100
[2025-02-19 10:20] VITALS: O2SAT 98
[2025-02-19 19:40] VITALS: O2SAT 98
[2025-02-19 19:55] VITALS: BP 120/71; TEMP 98.8; O2SAT 99
[2025-02-19 22:46] VITALS: O2SAT 98
[2025-02-20 10:25] VITALS: O2SAT 98
[2025-02-20 19:22] VITALS: O2SAT 98
[2025-02-20 22:00] VITALS: BP 100/67; TEMP 98.8; O2SAT 99
[2025-02-20 22:22] VITALS: O2SAT 98
[2025-02-21 08:00] VITALS: BP 109/63; TEMP 99; O2SAT 99
[2025-02-21 10:12] VITALS: O2SAT 98
[2025-02-21 19:44] VITALS: BP 100/61; TEMP 98.1; O2SAT 99
[2025-02-22 02:00] VITALS: O2SAT 98
[2025-02-22 08:26] VITALS: BP 108/60; TEMP 98.1; O2SAT 100
[2025-02-22 10:12] VITALS: O2SAT 100; O2SAT 98
[2025-02-22 20:06] VITALS: BP 100/58; TEMP 98.8; O2SAT 99
[2025-02-23 01:12] VITALS: O2SAT 99
[2025-02-23 08:00] VITALS: BP 107/75; TEMP 98.1; O2SAT 99
[2025-02-23 10:06] VITALS: O2SAT 98
[2025-02-23 20:00] VITALS: BP 99/64; TEMP 98.1; O2SAT 99
[2025-02-23 23:35] VITALS: O2SAT 98
[2025-02-24 10:45] VITALS: O2SAT 98
[2025-02-24 11:23] VITALS: BP 112/57; TEMP 98.6; O2SAT 98
[2025-02-24 19:54] VITALS: BP 133/65; TEMP 98.8; O2SAT 99
[2025-02-24 23:33] VITALS: O2SAT 98
[2025-02-25] VITALS (7 sets, daily range): BP systolic 110–130; BP diastolic 59–83; TEMP 98–98.2; O2SAT 91–100
[2025-02-25 07:38] LABS: PLATELET COUNT (AUTO) 185 K/uL (150-450); RED BLOOD CELL COUNT(AUTO) 2.97 MIL/uL (4.0-5.2); RED CELL DISTRIBUTION WIDTH 16.4 % (11.5-15.0); WHITE BLOOD COUNT (AUTO) 6.2 K/uL (4.3-11.0)
[2025-02-25 07:41] LABS: CALCIUM, SERUM 8.2 mg/dL (8.5-10.1); CREATININE 0.8 mg/dL (0.6-1.3); SODIUM SERUM 136.0 mmol/L (136-145); UREA NITROGEN, BLOOD 23.0 mg/dL (7-18)
[2025-02-26 07:49] VITALS: BP 104/54; TEMP 98.3; O2SAT 99
[2025-02-26 10:10] VITALS: O2SAT 100
[2025-02-26 19:30] VITALS: BP 138/68; TEMP 98.8; O2SAT 97
[2025-02-26 23:22] VITALS: O2SAT 99
[2025-02-27 08:11] VITALS: BP 112/55; TEMP 98.8; O2SAT 99
[2025-02-27 09:00] VITALS: BP 110/78; TEMP 98.5; O2SAT 99
[2025-02-27 10:11] VITALS: O2SAT 98
[2025-02-27 11:12] VITALS: O2SAT 99
[2025-02-27 19:56] VITALS: BP 105/66; TEMP 98.6; O2SAT 99
[2025-02-27 23:38] VITALS: O2SAT 100
[2025-02-28 07:55] VITALS: BP 98/57; TEMP 98.4; O2SAT 100
[2025-02-28 10:32] VITALS: O2SAT 98; O2SAT 99
[2025-02-28 19:34] VITALS: O2SAT 99
[2025-02-28 19:44] VITALS: BP 126/70; TEMP 99.1; O2SAT 98
[2025-02-28 22:41] VITALS: O2SAT 98
[2025-03-01 07:26] VITALS: BP 120/61; TEMP 98.1; O2SAT 97
[2025-03-01 10:09] VITALS: O2SAT 98
[2025-03-01 11:14] VITALS: O2SAT 99
[2025-03-01 19:57] VITALS: BP 134/78; TEMP 99; O2SAT 99
[2025-03-01 23:01] VITALS: O2SAT 98
[2025-03-02 07:22] VITALS: BP 105/55; TEMP 98.1; O2SAT 96
[2025-03-02 10:22] VITALS: O2SAT 98
[2025-03-02 19:41] VITALS: BP 119/68; TEMP 98.8; O2SAT 99
[2025-03-02 23:31] VITALS: O2SAT 98
[2025-03-03 07:15] VITALS: BP 92/53; TEMP 98.6; O2SAT 98
[2025-03-03 10:07] VITALS: O2SAT 100
[2025-03-03 19:42] VITALS: BP 133/61; TEMP 99.5; O2SAT 99
[2025-03-03 22:41] VITALS: O2SAT 99
[2025-03-03 22:42] VITALS: O2SAT 99
[2025-03-04 08:54] VITALS: BP 90/53; TEMP 98.6; O2SAT 98
[2025-03-04 10:26] VITALS: O2SAT 98
[2025-03-04 19:40] VITALS: BP 109/60; TEMP 99.5; O2SAT 98
[2025-03-04 19:43] VITALS: O2SAT 98
[2025-03-04 20:30] VITALS: TEMP 99
[2025-03-04 22:56] VITALS: O2SAT 98
[2025-03-05 07:21] VITALS: BP 102/78; TEMP 98.8; O2SAT 98
[2025-03-05 10:10] VITALS: O2SAT 100
[2025-03-05 19:46] VITALS: BP 126/57; TEMP 99.7; O2SAT 99
[2025-03-05 23:32] VITALS: O2SAT 98
[2025-03-06 07:37] VITALS: BP 107/56; TEMP 98.1; O2SAT 98
[2025-03-06 10:45] VITALS: O2SAT 100
[2025-03-06 19:35] VITALS: BP 127/67; TEMP 99; O2SAT 96
[2025-03-06 19:37] VITALS: O2SAT 99
[2025-03-06 23:32] VITALS: O2SAT 99
[2025-03-07 07:20] VITALS: BP 138/72; TEMP 97.8; O2SAT 100
[2025-03-07 10:08] VITALS: O2SAT 99
[2025-03-07 19:40] VITALS: O2SAT 99
[2025-03-07 21:32] VITALS: BP 108/54; TEMP 98.1; O2SAT 99
[2025-03-07 22:17] VITALS: O2SAT 99
[2025-03-08 08:29] VITALS: BP 106/77; TEMP 97.8; O2SAT 99
[2025-03-08 11:13] VITALS: O2SAT 99
[2025-03-08 11:14] VITALS: O2SAT 96
[2025-03-08 19:26] VITALS: BP 126/80; TEMP 98.1; O2SAT 99
[2025-03-08 23:27] VITALS: O2SAT 98
[2025-03-09 08:00] VITALS: BP 116/62; TEMP 98; O2SAT 99
[2025-03-09 10:16] VITALS: O2SAT 100
[2025-03-09 20:05] VITALS: BP 108/79; TEMP 98.9; O2SAT 97
[2025-03-09 23:33] VITALS: O2SAT 97
[2025-03-10 10:16] VITALS: O2SAT 98
[2025-03-10 19:36] VITALS: BP 128/69; TEMP 99.6; O2SAT 98
[2025-03-10 23:13] VITALS: O2SAT 98
[2025-03-11 08:31] VITALS: BP 109/68; TEMP 98.4; O2SAT 99
[2025-03-11 10:09] VITALS: O2SAT 98
[2025-03-11 10:10] VITALS: O2SAT 98
[2025-03-11 19:41] VITALS: BP 125/66; TEMP 97.9; O2SAT 98
[2025-03-11 23:39] VITALS: O2SAT 99
[2025-03-12 08:43] VITALS: BP 111/57; TEMP 97.9; O2SAT 98
[2025-03-12 10:09] VITALS: O2SAT 98
[2025-03-12 11:12] VITALS: O2SAT 99
[2025-03-12 19:38] VITALS: BP 129/66; TEMP 99.6; O2SAT 99
[2025-03-12 22:34] VITALS: O2SAT 97
[2025-03-13 07:35] VITALS: BP 124/67; TEMP 98.1; O2SAT 99
[2025-03-13 10:11] VITALS: O2SAT 98
[2025-03-13 11:14] VITALS: O2SAT 98
[2025-03-13 19:25] VITALS: BP 123/62; TEMP 98.8; O2SAT 98
[2025-03-13 23:28] VITALS: O2SAT 98
[2025-03-14 07:37] VITALS: BP 123/74; TEMP 98.1; O2SAT 99
[2025-03-14 10:36] VITALS: O2SAT 99
[2025-03-14 19:39] VITALS: BP 148/76; TEMP 98; O2SAT 98
[2025-03-14 22:17] VITALS: O2SAT 99
[2025-03-15 07:29] VITALS: BP 112/57; TEMP 98.1; O2SAT 97
[2025-03-15 10:21] VITALS: O2SAT 99
[2025-03-15 11:22] VITALS: O2SAT 99
[2025-03-15 20:00] VITALS: BP 116/65; TEMP 98.1; O2SAT 99
[2025-03-15 22:12] VITALS: O2SAT 99
[2025-03-16 07:20] VITALS: BP 127/82; TEMP 98; O2SAT 97
[2025-03-16 10:13] VITALS: O2SAT 99
[2025-03-16 19:35] VITALS: BP 147/77; TEMP 99.3; O2SAT 98
[2025-03-16 23:11] VITALS: O2SAT 99
[2025-03-17] VITALS (8 sets, daily range): BP systolic 93–120; BP diastolic 44–79; TEMP 99.9–102.7; O2SAT 97–100
[2025-03-17 01:06] LABS: PLATELET COUNT (AUTO) 254 K/uL (150-450); RED BLOOD CELL COUNT(AUTO) 3.55 MIL/uL (4.0-5.2); RED CELL DISTRIBUTION WIDTH 16.4 % (11.5-15.0); WHITE BLOOD COUNT (AUTO) 17.1 K/uL (4.3-11.0)
[2025-03-17 01:51] LABS: LYMPHOCYTES % (MANUAL) 11 % (16-48); MONOCYTES % (MANUAL) 4 % (0-11.0); NEUTROPHILS % (MANUAL) 85 (42-76); PLATELET ESTIMATE ADEQUATE
[2025-03-17 02:23] LABS: APPEARANCE,URINE TURBID (CLEAR); BLOOD, URINE 1+ Ery/uL (NEGATIVE); LEUKOCYTE ESTERASE ,URINE 3+ (NEGATIVE); NITRITE, URINE NEGATIVE (NEGATIVE); UGLUCOSE TRACE mg/dL (NEGATIVE)
[2025-03-17 02:33] LABS: ADD URINE CULTURE YES; SQUAMOUS EPITHELIAL CELL,UR 0-2 /HPF (None Seen)
[2025-03-17] MEDS: IV NS 0.9% 1,000 ML IV ONE ×2 (08:00→19:00)
[2025-03-17] MEDS: CEFTRIAXONE 1 G in IV D5W 50 ML IV SCH (09:00)
[2025-03-17] MEDS: IV NS 0.9% 1,000 ML IV PRN (09:00)
[2025-03-17 11:18] LABS: CALCIUM, SERUM 8.9 mg/dL (8.5-10.1); CREATININE 1.1 mg/dL (0.6-1.3); SODIUM SERUM 131.0 mmol/L (136-145); UREA NITROGEN, BLOOD 22.0 mg/dL (7-18)
[2025-03-17] MEDS: MEROPENEM 500 MG in IV NS 0.9% 50 ML IV SCH (15:00)
[2025-03-17] MEDS: SODIUM POLYSTYRENE SULFONATE 15 G/60 ML BOTTLE GT ONE (16:08)
[2025-03-17] MEDS: METOCLOPRAMIDE HCL 10 MG/10 ML UDC GT SCH (20:52)
[2025-03-17] MEDS ORDERED: MEROPENEM 500 MG in IV NS 0.9% 50 ML IV SCH (21:00)
[2025-03-18 01:00] VITALS: TEMP 99.5
[2025-03-18 06:48] LABS: PLATELET COUNT (AUTO) 188 K/uL (150-450); RED BLOOD CELL COUNT(AUTO) 3.00 MIL/uL (4.0-5.2); RED CELL DISTRIBUTION WIDTH 18.7 % (11.5-15.0); WHITE BLOOD COUNT (AUTO) 17.3 K/uL (4.3-11.0)
[2025-03-18 07:34] VITALS: BP 108/66; TEMP 101.8; O2SAT 98
[2025-03-18] MEDS: INSULIN ASPART/LISPRO 100 UNIT/ML CARTRIDGE SQ STA (08:31)
[2025-03-18 08:37] LABS: CREATININE 2.3 mg/dL (0.6-1.3); SODIUM SERUM 130.0 mmol/L (136-145); UREA NITROGEN, BLOOD 41.0 mg/dL (7-18)
[2025-03-18 08:56] LABS: CALCIUM, SERUM 5.5 mg/dL (8.5-10.1)
[2025-03-18 09:41] VITALS: BP 129/57
[2025-03-18 10:45] VITALS: TEMP 100.2
[2025-03-18] MEDS ORDERED: PETR113O TP (11:45)
[2025-03-18] MEDS ORDERED: ALLA266C2 TP (11:45)
[2025-03-18] MEDS ORDERED: DOCU50LI GT (11:45)
[2025-03-18] MEDS ORDERED: ASCO-352 GT (11:45)
[2025-03-18] MEDS ORDERED: LEVO100T GT (11:45)
[2025-03-18] MEDS ORDERED: IPRA0.2S49 IH (11:45)
[2025-03-18] MEDS ORDERED: BACL10TA GT (11:45)
[2025-03-18] MEDS ORDERED: MULT-447 GT (11:45)
[2025-03-18] MEDS ORDERED: OMEP20CA15 GT (11:45)
[2025-03-18] MEDS ORDERED: NA P133E RC (11:45)
[2025-03-18] MEDS ORDERED: CEFT1VIA14 IV (11:45)
[2025-03-18] MEDS ORDERED: NUT.237L25 GT (11:45)
[2025-03-18] MEDS ORDERED: NORM10004 IV (11:45)
[2025-03-18] MEDS ORDERED: SODI100037 GT (11:45)
[2025-03-18] MEDS ORDERED: METO25TA6 GT (11:45)
[2025-03-18] MEDS ORDERED: ACET650S11 RC (11:45)
[2025-03-18] MEDS ORDERED: GUAI100S11 GT (11:45)
[2025-03-18] MEDS ORDERED: ALBU2.5V38 IH (11:45)
[2025-03-18] MEDS ORDERED: SENN8.6T19 GT (11:45)
[2025-03-18] MEDS ORDERED: BISA10SU11 RC (11:45)
[2025-03-18] MEDS: INSULIN REGULAR, HUMAN 100 UNIT/ML 10 ML VIAL SQ ONE (12:00)
[2025-03-18 12:10] VITALS: O2SAT 100
== END 2025-03-18 13:00 | disposition short-term general hospital (02) | DRG 207 ==
LOC: SA 00:01
PROVIDERS: ADMIT Internal Medicine; ATTEND Internal Medicine
PROC: 5A1955Z Respiratory Ventilation, Greater than 96 Consecutive Hours (ICD-10-PCS; principal; 2024-06-23)
PROC: 02HV33Z Insertion of Infusion Device into Superior Vena Cava, Percutaneous Approach (ICD-10-PCS; 2024-07-19)
PROC: B548ZZA Ultrasonography of Superior Vena Cava, Guidance (ICD-10-PCS; 2024-07-19)
DX: J96.11 Chronic respiratory failure with hypoxia (principal); R53.2 Functional quadriplegia; G93.41 Metabolic encephalopathy; A41.9 Sepsis, unspecified organism; R40.3 Persistent vegetative state; D68.59 Other primary thrombophilia; E87.0 Hyperosmolality and hypernatremia; G93.1 Anoxic brain damage, not elsewhere classified; N39.0 Urinary tract infection, site not specified; K94.22 Gastrostomy infection; K94.23 Gastrostomy malfunction; L03.311 Cellulitis of abdominal wall; K31.6 Fistula of stomach and duodenum; Z99.11 Dependence on respirator [ventilator] status; D63.8 Anemia in other chronic diseases classified elsewhere; E03.9 Hypothyroidism, unspecified; E78.5 Hyperlipidemia, unspecified; F02.80 Dementia in other diseases classified elsewhere, unspecified severity, without behavioral disturbance, psychotic disturbance, mood disturbance, and anxiety; I10 Essential (primary) hypertension; I25.10 Atherosclerotic heart disease of native coronary artery without angina pectoris; R13.10 Dysphagia, unspecified; Z93.0 Tracheostomy status; F01.50 Vascular dementia, unspecified severity, without behavioral disturbance, psychotic disturbance, mood disturbance, and anxiety; G30.9 Alzheimer's disease, unspecified; K42.9 Umbilical hernia without obstruction or gangrene; L89.159 Pressure ulcer of sacral region, unspecified stage; Z86.16 Personal history of COVID-19; M19.90 Unspecified osteoarthritis, unspecified site; B35.1 Tinea unguium; B96.4 Proteus (mirabilis) (morganii) as the cause of diseases classified elsewhere; I73.9 Peripheral vascular disease, unspecified; L60.3 Nail dystrophy; M62.08 Separation of muscle (nontraumatic), other site; Z74.01 Bed confinement status; M24.562 Contracture, left knee; M24.561 Contracture, right knee
CPT/HCPCS: 31720; 36415; 36569; 71045-TC; 74018; 74150-TC; 80048-TC; 80061-TC; 80202-TC; 81001; 82040-TC; 82565-TC; 82962-TC; 83540-TC; 83735-TC; 84100-TC; 84134-TC; 84443-TC; 84478-TC; 84520-TC; 85025-TC; 85027-TC; 86580-TC; 87040-TC; 87086-TC; 94003-TC; 94640-TC; 94760-TC; 94761-TC; 94762-TC; 94799-TC; 99082-TC; A4216; A4223; A4623; A6253; A7526; A9563; J0696; J1650; J1815; J1956; J2185; J2916; J3370; J3475; J3480; J3490; J7030; J7050; J7060; J8597; Q9963

== ENCOUNTER 2025-03-18 09:39 | Inpatient (IN) | payer MEDICARE, OTHER ==
[~2025-03-18] VITALS: Ht 162.6 cm; Wt 75.3 kg
[2025-03-18] VITALS (11 sets, daily range): BP systolic 104–121; BP diastolic 46–89; TEMP 100.1–100.6; O2SAT 97–100
[2025-03-18] MEDS ORDERED: Z GUARD REMEDY 4 OZ OINT TP PRN (11:00)
[2025-03-18] MEDS ORDERED: MAGNESIUM HYDROXIDE 30 ML UDC PO PRN (11:00)
[2025-03-18] MEDS ORDERED: ONDANSETRON HCL/PF 4 MG/2 ML VIAL IVP PRN (11:00)
[2025-03-18] MEDS ORDERED: SENN8.6T19 GT (11:45)
[2025-03-18] MEDS ORDERED: NA P133E RC (11:45)
[2025-03-18] MEDS ORDERED: METO25TA6 GT (11:45)
[2025-03-18] MEDS ORDERED: ASCO-352 GT (11:45)
[2025-03-18] MEDS ORDERED: ALLA266C2 TP (11:45)
[2025-03-18] MEDS ORDERED: MULT-447 GT (11:45)
[2025-03-18] MEDS ORDERED: GUAI100S11 GT (11:45)
[2025-03-18] MEDS ORDERED: BACL10TA GT (11:45)
[2025-03-18] MEDS ORDERED: LEVO100T GT (11:45)
[2025-03-18] MEDS ORDERED: PETR113O TP (11:45)
[2025-03-18] MEDS ORDERED: NORM10004 IV (11:45)
[2025-03-18] MEDS ORDERED: ALBU2.5V38 IH (11:45)
[2025-03-18] MEDS ORDERED: IPRA0.2S49 IH (11:45)
[2025-03-18] MEDS ORDERED: DOCU50LI GT (11:45)
[2025-03-18] MEDS ORDERED: NUT.237L25 GT (11:45)
[2025-03-18] MEDS ORDERED: BISA10SU11 RC (11:45)
[2025-03-18] MEDS ORDERED: CEFT1VIA14 IV (11:45)
[2025-03-18] MEDS ORDERED: ACET650S11 RC (11:45)
[2025-03-18] MEDS ORDERED: OMEP20CA15 GT (11:45)
[2025-03-18] MEDS ORDERED: SODI100037 GT (11:45)
[2025-03-18 12:02] LABS: PLATELET COUNT (AUTO) 186 K/uL (150-450); RED BLOOD CELL COUNT(AUTO) 3.17 MIL/uL (4.0-5.2); RED CELL DISTRIBUTION WIDTH 19.5 % (11.5-15.0); WHITE BLOOD COUNT (AUTO) 19.5 K/uL (4.3-11.0)
[2025-03-18] MEDS ORDERED: MEROPENEM 500 MG in IV NS 0.9% 50 ML IV SCH (13:00)
[2025-03-18] MEDS: MEROPENEM 1 G in IV NS 0.9% 100 ML IV SCH (13:22)
[2025-03-18] MEDS: IV NS 0.9% 1,000 ML IV PRN (13:23)
[2025-03-18 13:35] LABS: ABG BASE EXCESS -6.2 mmol/L (-2.0-3.0); ABG OXYGEN SATURATION 96.8 % (94.0-98.0); ABG PCO2 30.9 mmHg (32.0-45.0); ABG PH 7.384 (7.350-7.450); ABG PO2 89.2 mmHg (83.0-108.0); ABG TOTAL HEMOGLOBIN 9.6 G/dL (12.0-16.0); PEEP,BG 5 cm H2O; SET RATE, BG 12.0; SITE, ABG RIGHT RADIAL; VT, ABG 450 mL
[2025-03-18 13:48] LABS: LACTIC ACID 6.4 mmol/L (0.4-2.0)
[2025-03-18] MEDS: INSULIN REGULAR, HUMAN 100 UNIT in IV NS 0.9% 99 ML IV PRN (14:11)
[2025-03-18] MEDS: IV LR 1000 ML 1,000 ML BAG IV ONE (14:13)
[2025-03-18] MEDS: HEPARIN SODIUM, PORCINE 5000 UNITS/1 ML VIAL SQ SCH (14:20)
[2025-03-18 16:23] LABS: SODIUM SERUM 141 mmol/L (136-145)
[2025-03-18 16:24] LABS: CREATININE 2.1 mg/dL (0.6-1.3); PHOSPHORUS 1.7 mg/dL (2.5-4.9); UREA NITROGEN, BLOOD 40 mg/dL (7-18)
[2025-03-18 16:25] LABS: ASPARTATE AMINOTRANSFERASE 37 U/L (15-37); TOTAL PROTEIN, SERUM 6.3 g/dL (6.4-8.2)
[2025-03-18] MEDS: BLOOD SUGAR DIAGNOSTIC 1 EACH STRIP IN SCH (16:26)
[2025-03-18] MEDS ORDERED: DOSING PER PHARMACY-VANCOMYCIN IV XX PRN (17:00)
[2025-03-18 17:29] LABS: CALCIUM, SERUM 5.9 mg/dL (8.5-10.1)
[2025-03-18 17:33] LABS: LACTIC ACID REFLEX 5.8 mmol/L (0.4-1.9)
[2025-03-18] MEDS: VANCOMYCIN 1 GM in IV D5W 250ml IV ONE (18:08)
[2025-03-18 18:14] LABS: APPEARANCE,URINE SLIGHTLY CLOUDY (CLEAR); BLOOD, URINE 3+ Ery/uL (NEGATIVE); LEUKOCYTE ESTERASE ,URINE TRACE (NEGATIVE); NITRITE, URINE NEGATIVE (NEGATIVE); UGLUCOSE 3+ mg/dL (NEGATIVE)
[2025-03-18 18:28] LABS: SQUAMOUS EPITHELIAL CELL,UR Few /HPF (None Seen); YEAST,URINE Many /HPF (None Seen)
[2025-03-18 18:29] LABS: ADD URINE CULTURE YES
[2025-03-18 19:31] LABS: CALCIUM, SERUM 6.3 mg/dL (8.5-10.1); CREATININE 1.8 mg/dL (0.6-1.3); SODIUM SERUM 144.0 mmol/L (136-145); UREA NITROGEN, BLOOD 35.0 mg/dL (7-18)
[2025-03-18] MEDS ORDERED: ACETAMINOPHEN 325 MG TABLET MC PRN (21:30)
[2025-03-18] MEDS: ACETAMINOPHEN 650 MG/20.3 ML UDC NG PRN (22:03)
[2025-03-18 23:31] LABS: CALCIUM, SERUM 6.4 mg/dL (8.5-10.1); CREATININE 1.6 mg/dL (0.6-1.3); SODIUM SERUM 145.0 mmol/L (136-145); UREA NITROGEN, BLOOD 34.0 mg/dL (7-18)
[2025-03-19] VITALS (23 sets, daily range): BP systolic 101–128; BP diastolic 49–67; TEMP 100.2–102; O2SAT 97–100
[2025-03-19 00:18] LABS: PHOSPHORUS 1.2 mg/dL (2.5-4.9)
[2025-03-19] MEDS ORDERED: IV PREMIX 0.45% NS + KCL 1,000 ML IV ONE (00:43)
[2025-03-19] MEDS: IV NS 0.9% 250 ML IV PRN (01:18)
[2025-03-19] MEDS: HEPARIN SODIUM, PORCINE 5000 UNITS/1 ML VIAL SQ SCH (02:04)
[2025-03-19 03:07] LABS: CALCIUM, SERUM 6.1 mg/dL (8.5-10.1); CREATININE 1.4 mg/dL (0.6-1.3); PHOSPHORUS 1.1 mg/dL (2.5-4.9); SODIUM SERUM 145.0 mmol/L (136-145); UREA NITROGEN, BLOOD 30.0 mg/dL (7-18)
[2025-03-19] MEDS ORDERED: POTASSIUM PHOSPHATE MM 7.5 MMOL in IV NS 0.9% 100 ML IV SCH (03:30)
[2025-03-19] MEDS ORDERED: INSULIN REGULAR, HUMAN 100 UNIT/ML 10 ML VIAL ONE (05:15)
[2025-03-19] MEDS: POTASSIUM PHOSPHATE MM 7.5 MMOL in IV NS 0.9% 100 ML IV SCH (07:21)
[2025-03-19 08:40] LABS: PLATELET COUNT (AUTO) 159 K/uL (150-450); RED BLOOD CELL COUNT(AUTO) 2.77 MIL/uL (4.0-5.2); RED CELL DISTRIBUTION WIDTH 17.4 % (11.5-15.0); WHITE BLOOD COUNT (AUTO) 12.3 K/uL (4.3-11.0)
[2025-03-19 09:15] LABS: CALCIUM, SERUM 6.2 mg/dL (8.5-10.1); CREATININE 1.2 mg/dL (0.6-1.3); PHOSPHORUS 1.1 mg/dL (2.5-4.9); SODIUM SERUM 145.0 mmol/L (136-145); UREA NITROGEN, BLOOD 28.0 mg/dL (7-18)
[2025-03-19 09:26] LABS: LDL 37.0 mg/dL (0-99)
[2025-03-19] MEDS ORDERED: DEXTROSE 50%-WATER 50 ML DISP.SYRIN IV PRN (09:30)
[2025-03-19 12:00] LABS: LYMPHOCYTES % (MANUAL) 4 % (16-48); NEUTROPHILS % (MANUAL) 96 (42-76); PLATELET ESTIMATE ADEQUATE
[2025-03-19] MEDS ORDERED: BLOOD SUGAR DIAGNOSTIC 1 EACH STRIP IN SCH (12:00)
[2025-03-19] MEDS: BLOOD SUGAR DIAGNOSTIC 1 EACH STRIP IN SCH (12:17)
[2025-03-19] MEDS: INSULIN REGULAR, HUMAN 100 UNIT/ML 3 ML VIAL SQ PRN (12:33)
[2025-03-19] MEDS: VANCOMYCIN 1 GM in IV D5W 250ml IV SCH (18:36)
[2025-03-20] VITALS: BP 122/63; TEMP 101.4; O2SAT 100
[2025-03-20 04:00] VITALS: BP 131/76; TEMP 99.2; O2SAT 99
[2025-03-20 08:29] VITALS: BP 133/71; TEMP 97.8; O2SAT 100
[2025-03-20 10:23] LABS: PLATELET COUNT (AUTO) 169 K/uL (150-450); RED BLOOD CELL COUNT(AUTO) 2.76 MIL/uL (4.0-5.2); RED CELL DISTRIBUTION WIDTH 17.9 % (11.5-15.0); WHITE BLOOD COUNT (AUTO) 8.1 K/uL (4.3-11.0)
[2025-03-20 10:38] LABS: CALCIUM, SERUM 6.3 mg/dL (8.5-10.1); CREATININE 1.0 mg/dL (0.6-1.3); SODIUM SERUM 144.0 mmol/L (136-145); UREA NITROGEN, BLOOD 17.0 mg/dL (7-18)
[2025-03-20 12:09] VITALS: BP 138/100; TEMP 98.2; O2SAT 98
[2025-03-20 16:48] VITALS: BP 131/73; TEMP 98.3; O2SAT 100
[2025-03-20] MEDS ORDERED: VANCOMYCIN 1 GM in IV D5W 250ml IV SCH (18:00)
[2025-03-20 20:00] VITALS: BP 108/95; TEMP 98.8; O2SAT 100
[2025-03-20] MEDS: INSULIN GLARGINE, 100 UNIT/ML CARTRIDGE SQ SCH (23:36)
[2025-03-21] VITALS: BP 125/83; TEMP 98.2; O2SAT 100
[2025-03-21 04:00] VITALS: BP 148/93; TEMP 98.6; O2SAT 98
[2025-03-21 07:33] LABS: CALCIUM, SERUM 7.5 mg/dL (8.5-10.1); CREATININE 0.9 mg/dL (0.6-1.3); SODIUM SERUM 138.0 mmol/L (136-145); UREA NITROGEN, BLOOD 12.0 mg/dL (7-18)
[2025-03-21 08:00] VITALS: BP 146/76; TEMP 99.7; O2SAT 100
[2025-03-21 12:00] VITALS: BP 151/65; TEMP 99.5; O2SAT 100
[2025-03-21 16:00] VITALS: BP 148/76; TEMP 99.3; O2SAT 100
[2025-03-21 18:42] LABS: PLATELET COUNT (AUTO) 189 K/uL (150-450); RED BLOOD CELL COUNT(AUTO) 2.80 MIL/uL (4.0-5.2); RED CELL DISTRIBUTION WIDTH 17.5 % (11.5-15.0); WHITE BLOOD COUNT (AUTO) 8.8 K/uL (4.3-11.0)
[2025-03-21 20:00] VITALS: BP 134/71; TEMP 98; O2SAT 97
[2025-03-21] MEDS: INSULIN GLARGINE, 100 UNIT/ML CARTRIDGE SQ SCH (21:47)
[2025-03-22] VITALS: BP 132/70; TEMP 99.8; O2SAT 97
[2025-03-22 04:00] VITALS: BP 155/85; TEMP 98.6; O2SAT 98
[2025-03-22 08:00] VITALS: BP 131/106; TEMP 98.3; O2SAT 100
[2025-03-22 12:00] VITALS: BP 144/66; TEMP 99; O2SAT 100
[2025-03-22] MEDS: VORICONAZOLE 200 MG TABLET NG SCH (12:27)
[2025-03-22 12:28] LABS: CALCIUM, SERUM 8.6 mg/dL (8.5-10.1); CREATININE 1.0 mg/dL (0.6-1.3); SODIUM SERUM 141.0 mmol/L (136-145); UREA NITROGEN, BLOOD 14.0 mg/dL (7-18)
[2025-03-22 16:00] VITALS: BP 134/73; TEMP 98; O2SAT 100
[2025-03-22 20:00] VITALS: BP_SYST 122; BP_SYST 141; BP_DIAS 64; BP_DIAS 68; TEMP 84; TEMP 99.2; O2SAT 100; O2SAT 97
[2025-03-23] VITALS: BP 136/70; TEMP 98.4; O2SAT 99
[2025-03-23 04:00] VITALS: BP 132/70; TEMP 98.5; O2SAT 99
[2025-03-23 06:55] LABS: PLATELET COUNT (AUTO) 181 K/uL (150-450); RED BLOOD CELL COUNT(AUTO) 2.95 MIL/uL (4.0-5.2); RED CELL DISTRIBUTION WIDTH 17.8 % (11.5-15.0); WHITE BLOOD COUNT (AUTO) 12.3 K/uL (4.3-11.0)
[2025-03-23 07:09] LABS: CALCIUM, SERUM 9.1 mg/dL (8.5-10.1); CREATININE 1.0 mg/dL (0.6-1.3); SODIUM SERUM 140.0 mmol/L (136-145); UREA NITROGEN, BLOOD 14.0 mg/dL (7-18)
[2025-03-23 08:00] VITALS: BP 127/78; TEMP 98.1; O2SAT 99
[2025-03-23] MEDS ORDERED: MERO1VIA23 IV (10:49)
[2025-03-23] MEDS ORDERED: METF-440 PO (10:49)
[2025-03-23 12:00] VITALS: BP 122/86; TEMP 98.1; O2SAT 99
[2025-03-23 16:00] VITALS: BP 118/77; TEMP 98.1; O2SAT 99
[2025-03-23 20:00] VITALS: BP 107/63; TEMP 99.9; O2SAT 100
[2025-03-23] MEDS: ACETAMINOPHEN 650 MG/SUPP.RECT RC ONE (22:30)
[2025-03-24] VITALS (7 sets, daily range): BP systolic 108–144; BP diastolic 55–93; TEMP 97.6–100.2; O2SAT 98–100
[2025-03-24 08:04] LABS: CALCIUM, SERUM 8.8 mg/dL (8.5-10.1); CREATININE 1.0 mg/dL (0.6-1.3); UREA NITROGEN, BLOOD 19.0 mg/dL (7-18)
[2025-03-24 08:17] LABS: SODIUM SERUM 143.0 mmol/L (136-145)
[2025-03-25] VITALS (7 sets, daily range): BP systolic 98–136; BP diastolic 53–83; TEMP 98.1–99.7; O2SAT 97–100
[2025-03-25 06:52] LABS: CALCIUM, SERUM 9.3 mg/dL (8.5-10.1); CREATININE 1.1 mg/dL (0.6-1.3); SODIUM SERUM 148.0 mmol/L (136-145); UREA NITROGEN, BLOOD 21.0 mg/dL (7-18)
[2025-03-25] MEDS: METFORMIN 500 MG TABLET PO SCH (11:32)
[2025-03-25] MEDS: TWOCAL HN 1,000 ML LIQUID GT PRN (13:07)
[2025-03-26] VITALS (7 sets, daily range): BP systolic 100–114; BP diastolic 49–66; TEMP 98.4–99.9; O2SAT 96–100
[2025-03-26 06:49] LABS: PLATELET COUNT (AUTO) 249 K/uL (150-450); RED BLOOD CELL COUNT(AUTO) 2.89 MIL/uL (4.0-5.2); RED CELL DISTRIBUTION WIDTH 18.9 % (11.5-15.0); WHITE BLOOD COUNT (AUTO) 10.3 K/uL (4.3-11.0)
[2025-03-26 06:50] LABS: CALCIUM, SERUM 9.2 mg/dL (8.5-10.1); CREATININE 1.7 mg/dL (0.6-1.3); SODIUM SERUM 148.0 mmol/L (136-145); UREA NITROGEN, BLOOD 31.0 mg/dL (7-18)
[2025-03-26] MEDS: IV 1/2NS 1000 ML 1,000 ML IV SCH (08:51)
[2025-03-26] MEDS: POTASSIUM CL. PREMIX PERIPHER. 50 ML IV SCH (12:50)
[2025-03-26 15:54] LABS: CALCIUM, SERUM 8.6 mg/dL (8.5-10.1); CREATININE 2.1 mg/dL (0.6-1.3); SODIUM SERUM 145.0 mmol/L (136-145); UREA NITROGEN, BLOOD 36.0 mg/dL (7-18)
[2025-03-26] MEDS: IV NS 0.9% 500 ML IV ONE (16:40)
[2025-03-26 21:42] LABS: CALCIUM, SERUM 8.4 mg/dL (8.5-10.1); CREATININE 2.4 mg/dL (0.6-1.3); SODIUM SERUM 147.0 mmol/L (136-145); UREA NITROGEN, BLOOD 36.0 mg/dL (7-18)
[2025-03-27] VITALS: BP 121/54; TEMP 98.4; O2SAT 98
[2025-03-27 04:00] VITALS: BP 133/54; TEMP 98.4; O2SAT 99
[2025-03-27 06:51] LABS: PLATELET COUNT (AUTO) 262 K/uL (150-450); RED BLOOD CELL COUNT(AUTO) 2.71 MIL/uL (4.0-5.2); RED CELL DISTRIBUTION WIDTH 17.9 % (11.5-15.0); WHITE BLOOD COUNT (AUTO) 10.7 K/uL (4.3-11.0)
[2025-03-27 07:10] LABS: ASPARTATE AMINOTRANSFERASE 174.0 U/L (15-37); CALCIUM, SERUM 8.5 mg/dL (8.5-10.1); CREATININE 2.6 mg/dL (0.6-1.3); PHOSPHORUS 5.0 mg/dL (2.5-4.9); SODIUM SERUM 145.0 mmol/L (136-145); TOTAL PROTEIN, SERUM 6.0 g/dL (6.4-8.2); UREA NITROGEN, BLOOD 38.0 mg/dL (7-18)
[2025-03-27 07:12] LABS: CREATINE KINASE, TOTAL 461.0 U/L (26-192)
[2025-03-27 08:00] VITALS: BP 124/61; TEMP 98.8; O2SAT 99
[2025-03-27 12:00] VITALS: BP 129/53; TEMP 99; O2SAT 99
[2025-03-27 16:00] VITALS: BP 113/64; TEMP 99.3; O2SAT 99
[2025-03-27 20:00] VITALS: BP 116/58; TEMP 99.1; O2SAT 98
[2025-03-28] VITALS (10 sets, daily range): BP systolic 100–130; BP diastolic 42–62; TEMP 97.5–98.3; O2SAT 96–100
[2025-03-28 07:37] LABS: ASPARTATE AMINOTRANSFERASE 189.0 U/L (15-37); CALCIUM, SERUM 8.5 mg/dL (8.5-10.1); CREATININE 3.5 mg/dL (0.6-1.3); SODIUM SERUM 139.0 mmol/L (136-145); TOTAL PROTEIN, SERUM 6.0 g/dL (6.4-8.2); UREA NITROGEN, BLOOD 44.0 mg/dL (7-18)
[2025-03-28 07:42] LABS: PLATELET COUNT (AUTO) 289 K/uL (150-450); RED BLOOD CELL COUNT(AUTO) 2.44 MIL/uL (4.0-5.2); RED CELL DISTRIBUTION WIDTH 18.7 % (11.5-15.0); WHITE BLOOD COUNT (AUTO) 8.9 K/uL (4.3-11.0)
[2025-03-28 07:47] LABS: INR 1.19 (0.91-1.10)
[2025-03-28] MEDS: POTASSIUM CL. PREMIX PERIPHER. 50 ML IV SCH (11:58)
[2025-03-29] VITALS (7 sets, daily range): BP systolic 112–126; BP diastolic 54–65; TEMP 97.5–98.9; O2SAT 100
[2025-03-29 07:27] LABS: PLATELET COUNT (AUTO) 272 K/uL (150-450); RED BLOOD CELL COUNT(AUTO) 2.50 MIL/uL (4.0-5.2); RED CELL DISTRIBUTION WIDTH 18.5 % (11.5-15.0); WHITE BLOOD COUNT (AUTO) 8.3 K/uL (4.3-11.0)
[2025-03-29 08:17] LABS: ASPARTATE AMINOTRANSFERASE 163.0 U/L (15-37); CALCIUM, SERUM 8.2 mg/dL (8.5-10.1); CREATININE 3.7 mg/dL (0.6-1.3); SODIUM SERUM 135.0 mmol/L (136-145); TOTAL PROTEIN, SERUM 5.8 g/dL (6.4-8.2); UREA NITROGEN, BLOOD 47.0 mg/dL (7-18)
[2025-03-29] MEDS: IV 1/2NS 1000 ML 1,000 ML IV PRN (23:27)
[2025-03-30] VITALS: BP 118/64; TEMP 97.5; O2SAT 100
[2025-03-30 04:00] VITALS: BP 120/60; TEMP 97.5; O2SAT 100
[2025-03-30 06:41] LABS: PLATELET COUNT (AUTO) 343 K/uL (150-450); RED BLOOD CELL COUNT(AUTO) 2.55 MIL/uL (4.0-5.2); RED CELL DISTRIBUTION WIDTH 18.2 % (11.5-15.0); WHITE BLOOD COUNT (AUTO) 8.7 K/uL (4.3-11.0)
[2025-03-30 07:47] LABS: ASPARTATE AMINOTRANSFERASE 163.0 U/L (15-37); CREATININE 3.6 mg/dL (0.6-1.3); PHOSPHORUS 7.4 mg/dL (2.5-4.9); SODIUM SERUM 135.0 mmol/L (136-145); TOTAL PROTEIN, SERUM 6.1 g/dL (6.4-8.2); UREA NITROGEN, BLOOD 48.0 mg/dL (7-18)
[2025-03-30 07:53] LABS: CALCIUM, SERUM 8.5 mg/dL (8.5-10.1)
[2025-03-30 08:00] VITALS: BP 132/63; TEMP 98.2; O2SAT 100
[2025-03-30 08:50] LABS: CREATINE KINASE, TOTAL 65.0 U/L (26-192)
[2025-03-30 12:00] VITALS: BP_SYST 100; BP_SYST 114; BP_SYST 122; BP_DIAS 47; BP_DIAS 61; BP_DIAS 71; TEMP 98; O2SAT 100
[2025-03-30 16:00] VITALS: BP 121/66; TEMP 98.2; O2SAT 99
[2025-03-30 19:58] LABS: APPEARANCE,URINE SLIGHTLY CLOUDY (CLEAR); BLOOD, URINE 1+ Ery/uL (NEGATIVE); LEUKOCYTE ESTERASE ,URINE TRACE (NEGATIVE); NITRITE, URINE NEGATIVE (NEGATIVE); UGLUCOSE NEGATIVE (NEGATIVE)
[2025-03-30 20:00] VITALS: BP 121/70; TEMP 98.2; O2SAT 100
[2025-03-30 20:08] LABS: ADD URINE CULTURE NO; CREATININE, URINE 57.9 MG/DL (30.0-125.0); URINE AMORPHOUS URATE Few /HPF (None Seen); URINE SODIUM, RANDOM 37.0 mmol/l (40-220); URINE TOTAL PROTEIN 101.3 mg/dL (0-11.9)
[2025-03-30 21:19] LABS: EOSINOPHIL,URINE None Seen
[2025-03-31] VITALS: BP 110/69; TEMP 98.6; O2SAT 100
[2025-03-31 04:00] VITALS: BP 119/77; TEMP 98; O2SAT 100
[2025-03-31 06:11] LABS: PTH, INTACT 98 pg/mL (15-65)
[2025-03-31 08:00] VITALS: BP 120/66; TEMP 97.5; O2SAT 98
[2025-03-31 08:07] LABS: OCCULT BLOOD STOOL POSITIVE (NEGATIVE)
[2025-03-31 08:08] LABS: PLATELET COUNT (AUTO) 354 K/uL (150-450); RED BLOOD CELL COUNT(AUTO) 2.40 MIL/uL (4.0-5.2); RED CELL DISTRIBUTION WIDTH 18.1 % (11.5-15.0); WHITE BLOOD COUNT (AUTO) 8.6 K/uL (4.3-11.0)
[2025-03-31 08:18] LABS: ASPARTATE AMINOTRANSFERASE 160.0 U/L (15-37); CALCIUM, SERUM 8.4 mg/dL (8.5-10.1); CREATININE 3.2 mg/dL (0.6-1.3); PHOSPHORUS 7.1 mg/dL (2.5-4.9); SODIUM SERUM 133.0 mmol/L (136-145); TOTAL PROTEIN, SERUM 5.9 g/dL (6.4-8.2); UREA NITROGEN, BLOOD 47.0 mg/dL (7-18)
[2025-03-31 08:46] LABS: EOSINOPHILS % (MANUAL) 1 % (0-4); LYMPHOCYTES % (MANUAL) 12 % (16-48); MONOCYTES % (MANUAL) 1 % (0-11.0); NEUTROPHILS % (MANUAL) 86 (42-76); PLATELET ESTIMATE ADEQUATE
[2025-03-31 12:00] VITALS: BP 106/70; TEMP 97.5; O2SAT 99
[2025-03-31] MEDS: FUROSEMIDE 40 MG/4 ML VIAL IV ONE (12:27)
[2025-03-31] MEDS: IV NS 0.9% 1,000 ML IV SCH (12:30)
[2025-03-31 16:00] VITALS: BP_SYST 106; BP_SYST 121; BP_DIAS 61; BP_DIAS 70; TEMP 97.5; O2SAT 99
[2025-03-31 20:00] VITALS: BP_SYST 106; BP_SYST 121; BP_DIAS 61; TEMP 98.8; O2SAT 100
[2025-04-01] VITALS (11 sets, daily range): BP systolic 100–140; BP diastolic 34–69; TEMP 97.3–98.4; O2SAT 98–100
[2025-04-01 07:01] LABS: INR 1.45 (0.91-1.10); PLATELET COUNT (AUTO) 384 K/uL (150-450); RED BLOOD CELL COUNT(AUTO) 2.23 MIL/uL (4.0-5.2); RED CELL DISTRIBUTION WIDTH 18.5 % (11.5-15.0); WHITE BLOOD COUNT (AUTO) 8.9 K/uL (4.3-11.0)
[2025-04-01 07:22] LABS: ASPARTATE AMINOTRANSFERASE 132.0 U/L (15-37); CALCIUM, SERUM 8.2 mg/dL (8.5-10.1); CREATININE 3.1 mg/dL (0.6-1.3); PHOSPHORUS 6.9 mg/dL (2.5-4.9); SODIUM SERUM 135.0 mmol/L (136-145); TOTAL PROTEIN, SERUM 5.8 g/dL (6.4-8.2); UREA NITROGEN, BLOOD 45.0 mg/dL (7-18)
[2025-04-01 09:33] LABS: LYMPHOCYTES % (MANUAL) 27 % (16-48); MONOCYTES % (MANUAL) 5 % (0-11.0); NEUTROPHILS % (MANUAL) 68 (42-76); PLATELET ESTIMATE ADEQUATE
[2025-04-01] MEDS ORDERED: ROCURONIUM BROMIDE 50 MG/5 ML ONE (09:53)
[2025-04-01] MEDS ORDERED: GLUCAGON,HUMAN RECOMBINANT 1 MG/VIAL VIAL ONE (09:54)
[2025-04-01] MEDS ORDERED: INDOMETHACIN 100 MG SUPP.RECT ONE (09:55)
[2025-04-01] MEDS ORDERED: IOHEXOL 50 ML IV ONE ×2 (09:55)
[2025-04-02] VITALS: BP_SYST 123; BP_SYST 130; BP_DIAS 58; BP_DIAS 59; TEMP 97.7; TEMP 98.1; O2SAT 100; O2SAT 98
[2025-04-02 04:00] VITALS: BP 92/56; TEMP 97.2; O2SAT 100
[2025-04-02 08:00] VITALS: BP 113/68; TEMP 97.5; O2SAT 99
[2025-04-02 12:00] VITALS: BP 118/62; TEMP 98.2; O2SAT 99
[2025-04-02 13:03] LABS: CALCIUM, SERUM 8.0 mg/dL (8.5-10.1); CREATININE 2.8 mg/dL (0.6-1.3); SODIUM SERUM 139.0 mmol/L (136-145); UREA NITROGEN, BLOOD 43.0 mg/dL (7-18)
[2025-04-02 13:09] LABS: PLATELET COUNT (AUTO) 367 K/uL (150-450); RED BLOOD CELL COUNT(AUTO) 2.88 MIL/uL (4.0-5.2); RED CELL DISTRIBUTION WIDTH 16.7 % (11.5-15.0); WHITE BLOOD COUNT (AUTO) 6.8 K/uL (4.3-11.0)
[2025-04-02 13:10] LABS: ASPARTATE AMINOTRANSFERASE 68.0 U/L (15-37); TOTAL PROTEIN, SERUM 5.8 g/dL (6.4-8.2)
[2025-04-02 16:00] VITALS: BP 135/56; TEMP 98.4; O2SAT 99
[2025-04-02 20:00] VITALS: BP 130/60; TEMP 98.1; O2SAT 100
[2025-04-03] VITALS (9 sets, daily range): BP systolic 86–136; BP diastolic 56–77; TEMP 97.8–98.8; O2SAT 100
[2025-04-04] VITALS: BP 146/58; TEMP 98.6; O2SAT 100
[2025-04-04 04:00] VITALS: BP 121/75; TEMP 98.2; O2SAT 100
[2025-04-04 08:00] VITALS: BP 135/72; TEMP 98.6; O2SAT 100
[2025-04-04 10:06] LABS: PLATELET COUNT (AUTO) 395 K/uL (150-450); RED BLOOD CELL COUNT(AUTO) 2.72 MIL/uL (4.0-5.2); RED CELL DISTRIBUTION WIDTH 17.5 % (11.5-15.0); WHITE BLOOD COUNT (AUTO) 7.6 K/uL (4.3-11.0)
[2025-04-04 10:41] LABS: CALCIUM, SERUM 8.2 mg/dL (8.5-10.1); CREATININE 2.3 mg/dL (0.6-1.3); SODIUM SERUM 144.0 mmol/L (136-145); UREA NITROGEN, BLOOD 35.0 mg/dL (7-18)
[2025-04-04 10:50] LABS: ASPARTATE AMINOTRANSFERASE 63.0 U/L (15-37); PHOSPHORUS 6.1 mg/dL (2.5-4.9); TOTAL PROTEIN, SERUM 5.9 g/dL (6.4-8.2)
[2025-04-04 12:00] VITALS: BP 139/68; TEMP 98.9; O2SAT 100
[2025-04-04 16:00] VITALS: BP 124/67; TEMP 98.7; O2SAT 100
[2025-04-04 20:00] VITALS: BP 119/80; TEMP 98.6; O2SAT 100
[2025-04-05] VITALS: BP 122/80; TEMP 98.6; O2SAT 100
[2025-04-05 04:00] VITALS: BP 142/82; TEMP 97.8; O2SAT 99
[2025-04-05 08:00] VITALS: BP 142/62; TEMP 97.9; O2SAT 99
[2025-04-05 12:00] VITALS: BP 136/77; TEMP 97.3; O2SAT 98
[2025-04-05] MEDS: ALBUMIN 25% 25 GM in PREMIX 1 EA IV SCH (13:28)
[2025-04-05 13:55] LABS: ASPARTATE AMINOTRANSFERASE 45.0 U/L (15-37); CALCIUM, SERUM 7.3 mg/dL (8.5-10.1); CREATININE 2.0 mg/dL (0.6-1.3); SODIUM SERUM 147.0 mmol/L (136-145); TOTAL PROTEIN, SERUM 3.9 g/dL (6.4-8.2); UREA NITROGEN, BLOOD 33.0 mg/dL (7-18)
[2025-04-05 15:05] LABS: PLATELET COUNT (AUTO) 352 K/uL (150-450); RED BLOOD CELL COUNT(AUTO) 2.50 MIL/uL (4.0-5.2); RED CELL DISTRIBUTION WIDTH 17.8 % (11.5-15.0); WHITE BLOOD COUNT (AUTO) 7.1 K/uL (4.3-11.0)
[2025-04-05 16:00] VITALS: BP 145/90; TEMP 97.9; O2SAT 99
[2025-04-05 20:00] VITALS: BP 132/77; TEMP 98.1; O2SAT 100
[2025-04-06] VITALS: BP 140/83; TEMP 97.9; O2SAT 100
[2025-04-06 04:00] VITALS: BP 139/78; TEMP 95.9; O2SAT 97
[2025-04-06 06:58] LABS: PLATELET COUNT (AUTO) 250 K/uL (150-450); RED BLOOD CELL COUNT(AUTO) 2.77 MIL/uL (4.0-5.2); RED CELL DISTRIBUTION WIDTH 19.3 % (11.5-15.0); WHITE BLOOD COUNT (AUTO) 11.2 K/uL (4.3-11.0)
[2025-04-06 07:00] LABS: ASPARTATE AMINOTRANSFERASE 45.0 U/L (15-37); CALCIUM, SERUM 8.5 mg/dL (8.5-10.1); CREATININE 1.9 mg/dL (0.6-1.3); PHOSPHORUS 5.0 mg/dL (2.5-4.9); SODIUM SERUM 145.0 mmol/L (136-145); TOTAL PROTEIN, SERUM 6.3 g/dL (6.4-8.2); UREA NITROGEN, BLOOD 29.0 mg/dL (7-18)
[2025-04-06 08:00] VITALS: BP 121/75; TEMP 97.5; O2SAT 100
[2025-04-06] MEDS: POTASSIUM CL. PREMIX PERIPHER. 50 ML IV SCH (10:15)
[2025-04-06] MEDS: Magnesium 1GM/D5W 100ML PREMIX 100 ML IV SCH (10:16)
[2025-04-06 12:00] VITALS: BP 131/62; TEMP 97.9; O2SAT 96
[2025-04-06 16:00] VITALS: BP 132/67; TEMP 98.2; O2SAT 99
[2025-04-06 20:00] VITALS: BP 132/75; TEMP 98.2; O2SAT 100
[2025-04-07] VITALS: BP 121/72; TEMP 97.7; O2SAT 98
[2025-04-07 04:00] VITALS: BP 140/72; TEMP 97.9; O2SAT 99
[2025-04-07 07:09] LABS: PLATELET COUNT (AUTO) 311 K/uL (150-450); RED BLOOD CELL COUNT(AUTO) 2.66 MIL/uL (4.0-5.2); RED CELL DISTRIBUTION WIDTH 18.3 % (11.5-15.0); WHITE BLOOD COUNT (AUTO) 7.3 K/uL (4.3-11.0)
[2025-04-07 07:25] LABS: CALCIUM, SERUM 9.2 mg/dL (8.5-10.1); CREATININE 1.8 mg/dL (0.6-1.3); SODIUM SERUM 149.0 mmol/L (136-145); UREA NITROGEN, BLOOD 24.0 mg/dL (7-18)
[2025-04-07 07:34] LABS: ASPARTATE AMINOTRANSFERASE 54.0 U/L (15-37); TOTAL PROTEIN, SERUM 6.3 g/dL (6.4-8.2)
[2025-04-07 08:00] VITALS: BP 128/60; TEMP 98.2; O2SAT 100
[2025-04-07 12:00] VITALS: BP 139/72; TEMP 98.6; O2SAT 100
[2025-04-07 16:00] VITALS: BP 111/78; TEMP 97.9; O2SAT 100
[2025-04-07 20:00] VITALS: BP 132/62; TEMP 98.4; O2SAT 95
[2025-04-08] VITALS: BP 125/72; TEMP 98; O2SAT 98
[2025-04-08 04:00] VITALS: BP 128/80; TEMP 98; O2SAT 99
[2025-04-08 07:02] LABS: ASPARTATE AMINOTRANSFERASE 43.0 U/L (15-37); CALCIUM, SERUM 8.3 mg/dL (8.5-10.1); CREATININE 1.7 mg/dL (0.6-1.3); PHOSPHORUS 3.6 mg/dL (2.5-4.9); SODIUM SERUM 148.0 mmol/L (136-145); TOTAL PROTEIN, SERUM 5.8 g/dL (6.4-8.2); UREA NITROGEN, BLOOD 23.0 mg/dL (7-18)
[2025-04-08 07:50] LABS: PLATELET COUNT (AUTO) 295 K/uL (150-450); RED BLOOD CELL COUNT(AUTO) 2.39 MIL/uL (4.0-5.2); RED CELL DISTRIBUTION WIDTH 18.3 % (11.5-15.0); WHITE BLOOD COUNT (AUTO) 7.1 K/uL (4.3-11.0)
[2025-04-08 08:00] VITALS: BP 123/83; TEMP 98.1; O2SAT 100
[2025-04-08] MEDS: Magnesium 1GM/D5W 100ML PREMIX 100 ML IV SCH (10:26)
[2025-04-08] MEDS: POTASSIUM CL. PREMIX PERIPHER. 50 ML IV SCH (10:27)
[2025-04-08 12:00] VITALS: BP 121/78; TEMP 98.2; O2SAT 100
[2025-04-08 16:00] VITALS: BP 126/64; TEMP 98.2; O2SAT 100
[2025-04-08] MEDS: IV D5W 1,000 ML IV PRN (17:29)
[2025-04-08 20:00] VITALS: BP 140/93; TEMP 98.8; O2SAT 99
[2025-04-09] VITALS: BP 129/51; TEMP 98.6; O2SAT 99
[2025-04-09 04:00] VITALS: BP 126/72; TEMP 98.4; O2SAT 100
[2025-04-09 07:44] LABS: CALCIUM, SERUM 8.7 mg/dL (8.5-10.1); CREATININE 1.4 mg/dL (0.6-1.3); SODIUM SERUM 149.0 mmol/L (136-145); UREA NITROGEN, BLOOD 19.0 mg/dL (7-18)
[2025-04-09 07:47] LABS: PLATELET COUNT (AUTO) 292 K/uL (150-450); RED BLOOD CELL COUNT(AUTO) 2.58 MIL/uL (4.0-5.2); RED CELL DISTRIBUTION WIDTH 18.6 % (11.5-15.0); WHITE BLOOD COUNT (AUTO) 7.5 K/uL (4.3-11.0)
[2025-04-09 07:48] LABS: ASPARTATE AMINOTRANSFERASE 35.0 U/L (15-37); TOTAL PROTEIN, SERUM 6.0 g/dL (6.4-8.2)
[2025-04-09 08:00] VITALS: BP 114/63; TEMP 98.6; O2SAT 98
[2025-04-09 12:00] VITALS: BP 113/62; TEMP 97.8; O2SAT 99
[2025-04-09 16:00] VITALS: BP 121/64; TEMP 98.8; O2SAT 97
[2025-04-09 20:00] VITALS: BP 113/53; TEMP 97.9; O2SAT 100
[2025-04-10] VITALS: BP 102/80; TEMP 97.9; O2SAT 99
[2025-04-10 04:00] VITALS: BP 110/88; TEMP 97.9; O2SAT 99
[2025-04-10 07:38] LABS: PLATELET COUNT (AUTO) 269 K/uL (150-450); RED BLOOD CELL COUNT(AUTO) 2.60 MIL/uL (4.0-5.2); RED CELL DISTRIBUTION WIDTH 18.2 % (11.5-15.0); WHITE BLOOD COUNT (AUTO) 7.3 K/uL (4.3-11.0)
[2025-04-10 08:00] VITALS: BP 110/88; TEMP 97.8; O2SAT 99
[2025-04-10 08:03] LABS: CALCIUM, SERUM 8.4 mg/dL (8.5-10.1); CREATININE 1.4 mg/dL (0.6-1.3); SODIUM SERUM 143.0 mmol/L (136-145); UREA NITROGEN, BLOOD 17.0 mg/dL (7-18)
[2025-04-10 08:20] LABS: TOTAL PROTEIN, SERUM 5.7 g/dL (6.4-8.2)
[2025-04-10 08:54] LABS: ASPARTATE AMINOTRANSFERASE 33.0 U/L (15-37)
[2025-04-10] MEDS: POTASSIUM CL. PREMIX PERIPHER. 50 ML IV SCH (09:41)
[2025-04-10 12:00] VITALS: BP 125/65; TEMP 97.8; O2SAT 99
[2025-04-10 16:00] VITALS: BP 128/65; TEMP 97.8; O2SAT 99
[2025-04-10 20:00] VITALS: BP 106/52; TEMP 99.5; O2SAT 98
[2025-04-11] VITALS (8 sets, daily range): BP systolic 93–122; BP diastolic 42–70; TEMP 97.8–99.8; O2SAT 98–100
[2025-04-11 08:13] LABS: PLATELET COUNT (AUTO) 243 K/uL (150-450); RED BLOOD CELL COUNT(AUTO) 2.54 MIL/uL (4.0-5.2); RED CELL DISTRIBUTION WIDTH 18.5 % (11.5-15.0); WHITE BLOOD COUNT (AUTO) 7.2 K/uL (4.3-11.0)
[2025-04-11 08:37] LABS: ASPARTATE AMINOTRANSFERASE 30 U/L (15-37); CALCIUM, SERUM 8.4 mg/dL (8.5-10.1); CREATININE 1.6 mg/dL (0.6-1.3); PHOSPHORUS 3.0 mg/dL (2.5-4.9); SODIUM SERUM 140 mmol/L (136-145); TOTAL PROTEIN, SERUM 5.9 g/dL (6.4-8.2); UREA NITROGEN, BLOOD 19 mg/dL (7-18)
[2025-04-12] VITALS: BP 107/67; TEMP 98.6; O2SAT 98
[2025-04-12 04:00] VITALS: BP 97/65; TEMP 98.8; O2SAT 100
[2025-04-12 08:00] VITALS: BP 104/56; TEMP 98.8; O2SAT 100
[2025-04-12 12:00] VITALS: BP 111/60; TEMP 99.3; O2SAT 100
[2025-04-12] MEDS ORDERED: DIATR MEGLU/DIATRIZOATE SODIUM 30 ML BOTTLE (GASTROGRAPHIN) ONE (12:28)
[2025-04-12] MEDS: IV D5/0.45 NACL 1,000 ML IV PRN (15:23)
[2025-04-12 16:00] VITALS: BP 108/52; TEMP 99.5; O2SAT 30
[2025-04-12] MEDS: CLOTRIMAZOLE/BETAMETASONE DIPROPIONATE 15 GM TUBE TP SCH (17:38)
[2025-04-12 20:00] VITALS: BP 100/55; TEMP 99.1; O2SAT 100
[2025-04-13] VITALS (14 sets, daily range): BP systolic 95–124; BP diastolic 48–77; TEMP 97.6–99.1; O2SAT 98–100
[2025-04-13 06:45] LABS: PLATELET COUNT (AUTO) 196 K/uL (150-450); RED BLOOD CELL COUNT(AUTO) 2.06 MIL/uL (4.0-5.2); RED CELL DISTRIBUTION WIDTH 17.5 % (11.5-15.0); WHITE BLOOD COUNT (AUTO) 5.5 K/uL (4.3-11.0)
[2025-04-13 07:28] LABS: ASPARTATE AMINOTRANSFERASE 21 U/L (15-37); CALCIUM, SERUM 7.6 mg/dL (8.5-10.1); CREATININE 1.5 mg/dL (0.6-1.3); PHOSPHORUS 3.0 mg/dL (2.5-4.9); SODIUM SERUM 139 mmol/L (136-145); TOTAL PROTEIN, SERUM 5.2 g/dL (6.4-8.2); UREA NITROGEN, BLOOD 18 mg/dL (7-18)
[2025-04-13] MEDS ORDERED: TPN/PPN PER PHARMACY IV PRN (09:00)
[2025-04-13] MEDS ORDERED: DIATR MEGLU/DIATRIZOATE SODIUM 30 ML BOTTLE (GASTROGRAPHIN) ONE (09:37)
[2025-04-13] MEDS: POTASSIUM CL. PREMIX PERIPHER. 50 ML IV SCH (10:03)
[2025-04-13] MEDS: Magnesium 1GM/D5W 100ML PREMIX 100 ML IV SCH (10:03)
[2025-04-13] MEDS: PANTOPRAZOLE 40 MG VIAL IV SCH (11:21)
[2025-04-13] MEDS: METOCLOPRAMIDE HCL 10 MG/2 ML VIAL IV SCH (12:45)
[2025-04-13 13:03] LABS: BASOPHILS % (MANUAL) 0 % (0.0-2.0); EOSINOPHILS % (MANUAL) 3 % (0-4); LYMPHOCYTES % (MANUAL) 22 % (16-48); MONOCYTES % (MANUAL) 10 % (0-11.0); NEUTROPHILS % (MANUAL) 65 (42-76); PLATELET ESTIMATE ADEQUATE
[2025-04-13 13:08] LABS: *SPE A/G RATIO 0.4 (0.7-1.7); *SPE ALBUMIN 1.5 g/dL (2.9-4.4); *SPE ALPHA-1-GLOBULIN 0.5 g/dL (0.0-0.4); *SPE ALPHA-2-GLOBULIN 1.1 g/dL (0.4-1.0); *SPE BETA GLOBULIN 1.2 g/dL (0.7-1.3); *SPE GLOBULIN, TOTAL 4.2 g/dL (2.2-3.9); *SPE M-SPIKE Not Observed g/dL (Not Observed); *SPE PROTEIN TOTAL 5.7 g/dL (6.0-8.5); *SPEGAMMA GLOBULIN 1.4 g/dL (0.4-1.8)
[2025-04-13] MEDS: SUCRALFATE 1 G/10 ML UDC GT SCH (13:18)
[2025-04-13] MEDS: PPN BAG #1 IV SCH (14:26)
[2025-04-13] MEDS: IV D5/0.45 NACL 1,000 ML IV SCH (14:27)
[2025-04-13] MEDS ORDERED: MUPIROCIN OINT 2% 22 GM TUBE ONE (23:42)
[2025-04-14] VITALS (9 sets, daily range): BP systolic 108–139; BP diastolic 60–84; TEMP 97.9–98.6; O2SAT 96–100
[2025-04-14] MEDS: MUPIROCIN OINT 2% 22 GM TUBE TP SCH (00:03)
[2025-04-14 06:17] LABS: APPEARANCE,URINE SLIGHTLY CLOUDY (CLEAR); BLOOD, URINE 1+ Ery/uL (NEGATIVE); LEUKOCYTE ESTERASE ,URINE 3+ (NEGATIVE); NITRITE, URINE NEGATIVE (NEGATIVE); UGLUCOSE NEGATIVE (NEGATIVE)
[2025-04-14 06:39] LABS: ADD URINE CULTURE YES; SQUAMOUS EPITHELIAL CELL,UR Moderate /HPF (None Seen)
[2025-04-14 07:52] LABS: CALCIUM, SERUM 7.8 mg/dL (8.5-10.1); CREATININE 1.6 mg/dL (0.6-1.3); PHOSPHORUS 2.9 mg/dL (2.5-4.9); SODIUM SERUM 137 mmol/L (136-145); UREA NITROGEN, BLOOD 20 mg/dL (7-18)
[2025-04-14 08:18] LABS: PLATELET COUNT (AUTO) 238 K/uL (150-450); RED BLOOD CELL COUNT(AUTO) 2.93 MIL/uL (4.0-5.2); RED CELL DISTRIBUTION WIDTH 20.4 % (11.5-15.0); WHITE BLOOD COUNT (AUTO) 6.0 K/uL (4.3-11.0)
[2025-04-14 08:42] LABS: ASPARTATE AMINOTRANSFERASE 23 U/L (15-37); TOTAL PROTEIN, SERUM 6.1 g/dL (6.4-8.2)
[2025-04-14] MEDS ORDERED: PPN BAG #3 IV SCH (11:33)
[2025-04-14] MEDS: PPN BAG #2 IV SCH (16:01)
[2025-04-14] MEDS: IV D5/0.45 NACL 1,000 ML IV PRN (20:55)
[2025-04-15 00:10] VITALS: BP 149/65; TEMP 98; O2SAT 94
[2025-04-15 04:03] VITALS: BP 124/65; TEMP 98.3; O2SAT 99
[2025-04-15 07:30] LABS: PLATELET COUNT (AUTO) 239 K/uL (150-450); RED BLOOD CELL COUNT(AUTO) 2.83 MIL/uL (4.0-5.2); RED CELL DISTRIBUTION WIDTH 18.8 % (11.5-15.0); WHITE BLOOD COUNT (AUTO) 6.2 K/uL (4.3-11.0)
[2025-04-15 07:50] LABS: ASPARTATE AMINOTRANSFERASE 21 U/L (15-37); CALCIUM, SERUM 7.9 mg/dL (8.5-10.1); CREATININE 1.3 mg/dL (0.6-1.3); PHOSPHORUS 2.6 mg/dL (2.5-4.9); SODIUM SERUM 136 mmol/L (136-145); TOTAL PROTEIN, SERUM 5.8 g/dL (6.4-8.2); UREA NITROGEN, BLOOD 21 mg/dL (7-18)
[2025-04-15 08:00] VITALS: BP 118/62; TEMP 98.6; O2SAT 99
[2025-04-15] MEDS: PPN BAG #3 IV SCH (11:59)
[2025-04-15 12:00] VITALS: BP 117/56; TEMP 98.2; O2SAT 99
[2025-04-15] MEDS: FAT EMULSION 20% 500 ML in PREMIX 1 EA IV SCH (15:42)
[2025-04-15 16:00] VITALS: BP 124/65; TEMP 98.1; O2SAT 100
[2025-04-15 20:00] VITALS: BP_SYST 117; BP_SYST 124; BP_DIAS 57; BP_DIAS 65; TEMP 99; O2SAT 98
[2025-04-16] VITALS: BP 128/81; TEMP 98.7; O2SAT 99
[2025-04-16 04:00] VITALS: BP 127/60; TEMP 98.2; O2SAT 98
[2025-04-16] MEDS: PPN BAG #4 IV SCH (04:37)
[2025-04-16 07:02] LABS: PLATELET COUNT (AUTO) 232 K/uL (150-450); RED BLOOD CELL COUNT(AUTO) 2.67 MIL/uL (4.0-5.2); RED CELL DISTRIBUTION WIDTH 18.4 % (11.5-15.0); WHITE BLOOD COUNT (AUTO) 5.8 K/uL (4.3-11.0)
[2025-04-16 07:04] LABS: CALCIUM, SERUM 8.1 mg/dL (8.5-10.1); CREATININE 1.3 mg/dL (0.6-1.3); PHOSPHORUS 2.5 mg/dL (2.5-4.9); SODIUM SERUM 134.0 mmol/L (136-145); UREA NITROGEN, BLOOD 24.0 mg/dL (7-18)
[2025-04-16 08:00] VITALS: BP 123/63; TEMP 98.8; O2SAT 100
[2025-04-16] MEDS: POTASSIUM CL. PREMIX PERIPHER. 50 ML IV SCH (11:31)
[2025-04-16 12:00] VITALS: BP 134/65; TEMP 97.8; O2SAT 99
[2025-04-16 16:00] VITALS: BP 135/62; TEMP 98.2; O2SAT 100
[2025-04-16] MEDS ORDERED: TPN/PPN PER PHARMACY XX PRN (18:00)
[2025-04-16 20:00] VITALS: BP 142/68; TEMP 98.8; O2SAT 100
[2025-04-16] MEDS: TPN #1 IV SCH (21:15)
[2025-04-16] MEDS ORDERED: PPN #5 IV SCH (21:15)
[2025-04-16] MEDS: TPN #5 IV SCH (21:29)
[2025-04-17] VITALS: BP 131/78; TEMP 98.6; O2SAT 99
[2025-04-17 04:00] VITALS: BP 128/61; TEMP 98.1; O2SAT 96
[2025-04-17 06:51] LABS: PLATELET COUNT (AUTO) 257 K/uL (150-450); RED BLOOD CELL COUNT(AUTO) 2.57 MIL/uL (4.0-5.2); RED CELL DISTRIBUTION WIDTH 18.2 % (11.5-15.0); WHITE BLOOD COUNT (AUTO) 4.7 K/uL (4.3-11.0)
[2025-04-17 07:14] LABS: ASPARTATE AMINOTRANSFERASE 24 U/L (15-37); CALCIUM, SERUM 7.9 mg/dL (8.5-10.1); CREATININE 1.2 mg/dL (0.6-1.3); PHOSPHORUS 2.3 mg/dL (2.5-4.9); SODIUM SERUM 136 mmol/L (136-145); TOTAL PROTEIN, SERUM 5.9 g/dL (6.4-8.2); UREA NITROGEN, BLOOD 25 mg/dL (7-18)
[2025-04-17 08:00] VITALS: BP 117/68; TEMP 99.1; O2SAT 100
[2025-04-17 12:00] VITALS: BP 105/59; TEMP 98.6; O2SAT 100
[2025-04-17] MEDS: Magnesium 1GM/D5W 100ML PREMIX 100 ML IV SCH (13:08)
[2025-04-17] MEDS: Sodium Phosphate 15 MMOL in IV NS 0.9% 245 ML IV SCH (15:23)
[2025-04-17 16:00] VITALS: BP 117/57; TEMP 98.2; O2SAT 100
[2025-04-17 20:00] VITALS: BP 115/51; TEMP 99; O2SAT 100
[2025-04-17] MEDS: TPN#2 IV SCH (20:13)
[2025-04-17] MEDS ORDERED: TPN #2 IV SCH (22:15)
[2025-04-17] MEDS ORDERED: TPN #5 IV SCH (22:15)
[2025-04-18] VITALS: BP 127/64; TEMP 99.9; O2SAT 97
[2025-04-18 04:00] VITALS: BP 116/54; TEMP 99.3; O2SAT 100
[2025-04-18 07:17] LABS: PLATELET COUNT (AUTO) 232 K/uL (150-450); RED BLOOD CELL COUNT(AUTO) 2.55 MIL/uL (4.0-5.2); RED CELL DISTRIBUTION WIDTH 18.3 % (11.5-15.0); WHITE BLOOD COUNT (AUTO) 4.9 K/uL (4.3-11.0)
[2025-04-18 07:21] LABS: ASPARTATE AMINOTRANSFERASE 24 U/L (15-37); CALCIUM, SERUM 7.7 mg/dL (8.5-10.1); CREATININE 1.1 mg/dL (0.6-1.3); PHOSPHORUS 2.9 mg/dL (2.5-4.9); SODIUM SERUM 136 mmol/L (136-145); TOTAL PROTEIN, SERUM 5.4 g/dL (6.4-8.2); UREA NITROGEN, BLOOD 25 mg/dL (7-18)
[2025-04-18 08:00] VITALS: BP 117/55; TEMP 98.4; O2SAT 97
[2025-04-18 12:00] VITALS: BP 119/54; TEMP 98.8; O2SAT 99
[2025-04-18] MEDS ORDERED: POTASSIUM CL. PREMIX PERIPHER. 50 ML IV SCH (13:00)
[2025-04-18] MEDS ORDERED: TPN#3 IV SCH (15:45)
== END 2025-04-18 13:20 | DRG 870 ==
LOC: ICU 09:39 → TELE1 03-19 22:14
PROVIDERS: ADMIT Nurse Practitioner Family; ATTEND Nurse Practitioner Family
PROC: 5A1955Z Respiratory Ventilation, Greater than 96 Consecutive Hours (ICD-10-PCS; principal; 2025-03-18)
PROC: 0DJ08ZZ Inspection of Upper Intestinal Tract, Via Natural or Artificial Opening Endoscopic (ICD-10-PCS; 2025-04-01)
PROC: 0FJB8ZZ Inspection of Hepatobiliary Duct, Via Natural or Artificial Opening Endoscopic (ICD-10-PCS; 2025-04-01)
PROC: 30233N1 Transfusion of Nonautologous Red Blood Cells into Peripheral Vein, Percutaneous Approach (ICD-10-PCS; 2025-04-01)
PROC: 02HV33Z Insertion of Infusion Device into Superior Vena Cava, Percutaneous Approach (ICD-10-PCS; 2025-04-16)
PROC: B548ZZA Ultrasonography of Superior Vena Cava, Guidance (ICD-10-PCS; 2025-04-16)
DX: A41.9 Sepsis, unspecified organism (principal); E11.10 Type 2 diabetes mellitus with ketoacidosis without coma; K85.90 Acute pancreatitis without necrosis or infection, unspecified; R53.2 Functional quadriplegia; N17.0 Acute kidney failure with tubular necrosis; G93.41 Metabolic encephalopathy; E43 Unspecified severe protein-calorie malnutrition; J18.9 Pneumonia, unspecified organism; G93.1 Anoxic brain damage, not elsewhere classified; J96.10 Chronic respiratory failure, unspecified whether with hypoxia or hypercapnia; Z99.11 Dependence on respirator [ventilator] status; K22.10 Ulcer of esophagus without bleeding; K80.71 Calculus of gallbladder and bile duct without cholecystitis with obstruction; E87.0 Hyperosmolality and hypernatremia; N39.0 Urinary tract infection, site not specified; K94.23 Gastrostomy malfunction; D68.9 Coagulation defect, unspecified; E11.65 Type 2 diabetes mellitus with hyperglycemia; R65.20 Severe sepsis without septic shock; E03.9 Hypothyroidism, unspecified; E11.22 Type 2 diabetes mellitus with diabetic chronic kidney disease; E78.5 Hyperlipidemia, unspecified; Z79.84 Long term (current) use of oral hypoglycemic drugs; Z86.16 Personal history of COVID-19; Z93.0 Tracheostomy status; D64.9 Anemia, unspecified; D63.8 Anemia in other chronic diseases classified elsewhere; F01.50 Vascular dementia, unspecified severity, without behavioral disturbance, psychotic disturbance, mood disturbance, and anxiety; E87.5 Hyperkalemia; L89.626 Pressure-induced deep tissue damage of left heel; L89.159 Pressure ulcer of sacral region, unspecified stage; R13.10 Dysphagia, unspecified; E80.6 Other disorders of bilirubin metabolism; E88.09 Other disorders of plasma-protein metabolism, not elsewhere classified; Z88.0 Allergy status to penicillin; K57.30 Diverticulosis of large intestine without perforation or abscess without bleeding; I10 Essential (primary) hypertension
CPT/HCPCS: 31720; 36415; 71045-TC; 74018; 76700-TC; 76770-TC; 78226; 80048-TC; 80053-TC; 80061-TC; 80076-TC; 80202-TC; 81001; 82247-TC; 82248-TC; 82272-TC; 82550-TC; 82553; 82570-TC; 82962-TC; 83605-TC; 83690-TC; 83735-TC; 83970; 84100-TC; 84155; 84165; 84300-TC; 84478-TC; 85025-TC; 85027-TC; 85610-TC; 85730-TC; 86803; 86850-TC; 87040-TC; 87070-TC; 87081-TC; 87086-TC; 87186-TC; 87205-TC; 87340; 93971-TC; 94002-TC; 94003-TC; 94760-TC; 94762-TC; 94799-TC; 99082-TC; A4216; A4217; A4223; A4623; A6213; A6223; A6253; A6254; A6403; A7526; A9537; A9563; G0378; J1610; J1644; J1815; J1938; J2185; J2470; J2704; J2765; J3373; J3475; J3480; J3490; J7030; J7040; J7050; J7060; J7070; J7120; P9016; P9047; Q9963; Q9967

== ENCOUNTER 2025-04-18 13:48 | Inpatient (IN) | payer MEDICARE, MEDICAID ==
[~2025-04-18] VITALS: Ht 154.9 cm; Wt 66.7 kg
[2025-04-18] MEDS: TPN#4 IV SCH (08:36)
[~2025-04-18 13:48] MED LIST changes: +ACET650S11 RC; +ALBU2.5V38 IH; +ALLA266C2 TP; -AMIN887L GT; +ASCO-352 GT; +BACL10TA GT; +BISA10SU11 RC; +CEFT1VIA14 IV; +DOCU50LI GT; +GUAI100S11 GT; +IPRA0.2S49 IH; +LEVO100T GT; +MERO1VIA23 IV; +METF-440 PO; +METO25TA6 GT; +MULT-447 GT; +NA P133E RC; +NORM10004 IV; +NUT.237L25 GT; -NUT.237L30 GT; +OMEP20CA15 GT; -PANT40TA49 GT; +PETR113O TP; +SENN8.6T19 GT; +SODI100037 GT
[2025-04-18] MEDS ORDERED: ONDANSETRON HCL/PF 4 MG/2 ML VIAL IVP PRN (15:51)
[2025-04-18] MEDS ORDERED: POTASSIUM CL. PREMIX PERIPHER. 50 ML IV SCH (15:51)
[2025-04-18] MEDS ORDERED: BLOOD SUGAR DIAGNOSTIC 1 EACH STRIP IN SCH (15:51)
[2025-04-18] MEDS ORDERED: PANTOPRAZOLE 40 MG VIAL IV SCH (15:51)
[2025-04-18] MEDS ORDERED: MUPIROCIN OINT 2% 22 GM TUBE TP SCH (15:51)
[2025-04-18] MEDS ORDERED: FAT EMULSION 20% 500 ML in PREMIX 1 EA IV SCH (15:51)
[2025-04-18] MEDS ORDERED: METOCLOPRAMIDE HCL 10 MG/2 ML VIAL IV SCH (15:51)
[2025-04-18] MEDS ORDERED: INSULIN GLARGINE, 100 UNIT/ML CARTRIDGE SQ SCH (15:51)
[2025-04-18] MEDS: TPN#3 IV SCH (16:30)
[2025-04-18] MEDS ORDERED: HYDROGEN PEROXIDE 480 ML BOTTLE TP PRN (17:00)
[2025-04-18] MEDS: POTASSIUM CL. PREMIX PERIPHER. 50 ML IV SCH (17:56)
[2025-04-18 18:09] VITALS: BP 124/52; TEMP 98.6; O2SAT 95
[2025-04-18] MEDS: BLOOD SUGAR DIAGNOSTIC 1 EACH STRIP IN SCH (18:42)
[2025-04-18] MEDS: INSULIN REGULAR, HUMAN 100 UNIT/ML 3 ML VIAL SQ PRN (18:44)
[2025-04-18] MEDS: IPRATROPIUM NEB FS 0.5 MG/2.5 ML AMPUL.NEB NEB PRN (19:28)
[2025-04-18] MEDS: ALBUTEROL FS 2.5 MG/0.5 ML VIAL.NEB NEB PRN (19:28)
[2025-04-18 19:37] VITALS: BP 131/65; TEMP 98.4; O2SAT 94
[2025-04-18] MEDS ORDERED: HYDROGEN PEROXIDE 480 ML BOTTLE TP SCH (21:00)
[2025-04-18] MEDS: MUPIROCIN OINT 2% 22 GM TUBE TP SCH (21:33)
[2025-04-18] MEDS: INSULIN GLARGINE, 100 UNIT/ML CARTRIDGE SQ SCH (21:36)
[2025-04-18 23:37] VITALS: BP 121/67; TEMP 98.8; O2SAT 100
[2025-04-19] MEDS: METOCLOPRAMIDE HCL 10 MG/2 ML VIAL IV SCH (00:28)
[2025-04-19 04:09] VITALS: BP 115/72; TEMP 98.8; O2SAT 100
[2025-04-19] MEDS: LEVOTHYROXINE INJ 100 MCG VIAL IV SCH (06:04)
[2025-04-19 08:11] LABS: CALCIUM, SERUM 8.0 mg/dL (8.5-10.1); CREATININE 1.2 mg/dL (0.6-1.3); PHOSPHORUS 2.4 mg/dL (2.5-4.9); SODIUM SERUM 136.0 mmol/L (136-145); UREA NITROGEN, BLOOD 32.0 mg/dL (7-18)
[2025-04-19] MEDS: POVIDONE-IODINE OINT 28.4 GM TUBE TP SCH (09:00)
[2025-04-19] MEDS: CLOTRIMAZOLE 1% 15 GM TUBE TP SCH ×3 (09:00)
[2025-04-19] MEDS: THERAHONEY GEL 1.5 OZ TUBE TP SCH (09:00)
[2025-04-19] MEDS: PANTOPRAZOLE 40 MG VIAL IV SCH (09:00)
[2025-04-19] MEDS: BACI/NEOM/POLY B OINT PKT 1 UDPKT PACKET TP SCH ×7 (09:00)
[2025-04-19 10:13] VITALS: O2SAT 100
[2025-04-19 10:23] VITALS: O2SAT 100
[2025-04-19] MEDS: TPN#4 IV SCH (11:00)
[2025-04-19] MEDS: POTASSIUM CL. PREMIX PERIPHER. 50 ML IV SCH (11:00)
[2025-04-19] MEDS: Magnesium 1GM/D5W 100ML PREMIX 100 ML IV SCH ×2 (11:00→12:00)
[2025-04-19] MEDS: FAT EMULSION 20% 500 ML in PREMIX 1 EA IV SCH (14:00)
[2025-04-19] MEDS: POTASSIUM PHOSPHATE MM 7.5 MMOL in IV NS 0.9% 100 ML IV SCH (14:00)
[2025-04-19 19:44] VITALS: BP 111/52; TEMP 98.2; O2SAT 99
[2025-04-19] MEDS: Z GUARD REMEDY 4 OZ OINT TP SCH (21:10)
[2025-04-19 23:26] VITALS: O2SAT 98
[2025-04-20] VITALS (7 sets, daily range): BP systolic 87–116; BP diastolic 56–74; TEMP 98–98.6; O2SAT 99–100
[2025-04-20] MEDS ORDERED: ACETAMINOPHEN 650 MG SUPP.RECT RC PRN (07:30)
[2025-04-20 08:44] LABS: CALCIUM, SERUM 8.2 mg/dL (8.5-10.1); CREATININE 1.2 mg/dL (0.6-1.3); PHOSPHORUS 2.8 mg/dL (2.5-4.9); SODIUM SERUM 135.0 mmol/L (136-145); UREA NITROGEN, BLOOD 32.0 mg/dL (7-18)
[2025-04-20] MEDS: TPN#5 IV SCH (20:06)
[2025-04-21] VITALS (12 sets, daily range): BP systolic 101–117; BP diastolic 46–73; TEMP 98–98.7; O2SAT 98–100
[2025-04-21 07:01] LABS: PLATELET COUNT (AUTO) 205 K/uL (150-450); RED BLOOD CELL COUNT(AUTO) 2.00 MIL/uL (4.0-5.2); RED CELL DISTRIBUTION WIDTH 18.4 % (11.5-15.0); WHITE BLOOD COUNT (AUTO) 4.0 K/uL (4.3-11.0)
[2025-04-21 07:12] LABS: CALCIUM, SERUM 8.3 mg/dL (8.5-10.1); CREATININE 1.2 mg/dL (0.6-1.3); PHOSPHORUS 2.7 mg/dL (2.5-4.9); SODIUM SERUM 135.0 mmol/L (136-145); UREA NITROGEN, BLOOD 34.0 mg/dL (7-18)
[2025-04-21] MEDS ORDERED: FUROSEMIDE 40 MG TABLET GT SCH (09:00)
[2025-04-21] MEDS: FUROSEMIDE 40 MG/4 ML VIAL IV SCH (09:00)
[2025-04-21 12:53] LABS: EOSINOPHILS % (MANUAL) 2 % (0-4); LYMPHOCYTES % (MANUAL) 21 % (16-48); MONOCYTES % (MANUAL) 6 % (0-11.0); NEUTROPHILS % (MANUAL) 71 (42-76); PLATELET ESTIMATE ADEQUATE
[2025-04-21] MEDS: ACETAMINOPHEN 650 MG/SUPP.RECT RC PRN (13:25)
[2025-04-21 19:33] LABS: PLATELET COUNT (AUTO) 266 K/uL (150-450); RED BLOOD CELL COUNT(AUTO) 3.00 MIL/uL (4.0-5.2); RED CELL DISTRIBUTION WIDTH 16.2 % (11.5-15.0); WHITE BLOOD COUNT (AUTO) 4.9 K/uL (4.3-11.0)
[2025-04-22] MEDS: TPN #6 IV SCH (05:46)
[2025-04-22 07:29] VITALS: BP 97/66; TEMP 98.1; O2SAT 98
[2025-04-22 09:24] LABS: CALCIUM, SERUM 8.3 mg/dL (8.5-10.1); CREATININE 1.2 mg/dL (0.6-1.3); PHOSPHORUS 2.5 mg/dL (2.5-4.9); SODIUM SERUM 136.0 mmol/L (136-145); UREA NITROGEN, BLOOD 34.0 mg/dL (7-18)
[2025-04-22 10:14] VITALS: O2SAT 100; O2SAT 96
[2025-04-22] MEDS: POTASSIUM CL. PREMIX PERIPHER. 50 ML IV SCH (12:39)
[2025-04-22 13:00] VITALS: BP 116/59; TEMP 98.1; O2SAT 100
[2025-04-22] MEDS: Magnesium 1GM/D5W 100ML PREMIX 100 ML IV SCH (14:54)
[2025-04-22] MEDS: POTASSIUM PHOSPHATE MM 15 MMOL in IV NS 0.9% 250 ML IV SCH (17:23)
[2025-04-22 19:28] VITALS: O2SAT 98
[2025-04-22 19:45] VITALS: BP 124/67; TEMP 98.1; O2SAT 99
[2025-04-22 23:28] VITALS: O2SAT 100
[2025-04-23] VITALS (7 sets, daily range): BP systolic 102–112; BP diastolic 57–71; TEMP 97.5–98.1; O2SAT 96–100
[2025-04-23 08:20] LABS: CALCIUM, SERUM 8.1 mg/dL (8.5-10.1); CREATININE 1.1 mg/dL (0.6-1.3); PHOSPHORUS 3.3 mg/dL (2.5-4.9); SODIUM SERUM 136.0 mmol/L (136-145); UREA NITROGEN, BLOOD 40.0 mg/dL (7-18)
[2025-04-23] MEDS: HYDROGEN PEROXIDE 480 ML BOTTLE TP SCH (09:15)
[2025-04-23] MEDS: TPN #7 IV SCH (10:55)
[2025-04-23] MEDS ORDERED: DEXTROSE 50%-WATER 50 ML DISP.SYRIN IV PRN (12:00)
[2025-04-23] MEDS ORDERED: METOCLOPRAMIDE HCL 10 MG/2 ML VIAL ONE (23:35)
[2025-04-24] MEDS ORDERED: METOCLOPRAMIDE HCL 10 MG/2 ML VIAL ONE (05:29)
[2025-04-24] MEDS ORDERED: LEVOTHYROXINE INJ 100 MCG VIAL IV ONE (05:30)
[2025-04-24 07:37] VITALS: BP 121/59; TEMP 98; O2SAT 98
[2025-04-24 08:08] LABS: CALCIUM, SERUM 8.1 mg/dL (8.5-10.1); CREATININE 1.1 mg/dL (0.6-1.3); PHOSPHORUS 2.3 mg/dL (2.5-4.9); SODIUM SERUM 135.0 mmol/L (136-145); UREA NITROGEN, BLOOD 43.0 mg/dL (7-18)
[2025-04-24 10:13] VITALS: O2SAT 100
[2025-04-24 10:14] VITALS: O2SAT 100
[2025-04-24] MEDS: POTASSIUM CL. PREMIX PERIPHER. 50 ML IV SCH (11:00)
[2025-04-24] MEDS: Magnesium 1GM/D5W 100ML PREMIX 100 ML IV SCH (12:00)
[2025-04-24] MEDS: TPN #8 IV SCH (12:15)
[2025-04-24] MEDS: POTASSIUM PHOSPHATE MM 7.5 MMOL in IV NS 0.9% 100 ML IV SCH (16:00)
[2025-04-24 19:41] VITALS: BP 106/54; TEMP 98.2; O2SAT 99
[2025-04-24 23:07] VITALS: O2SAT 100
[2025-04-25] VITALS (7 sets, daily range): BP systolic 97–129; BP diastolic 53–58; TEMP 98.2; O2SAT 99–100
[2025-04-25 08:08] LABS: CALCIUM, SERUM 8.4 mg/dL (8.5-10.1); CREATININE 1.0 mg/dL (0.6-1.3); PHOSPHORUS 2.5 mg/dL (2.5-4.9); SODIUM SERUM 136.0 mmol/L (136-145); UREA NITROGEN, BLOOD 47.0 mg/dL (7-18)
[2025-04-25 08:53] LABS: LDL 85 mg/dL (0-99)
[2025-04-25] MEDS: TPN #9 IV SCH (12:00)
[2025-04-25] MEDS: POTASSIUM CL. PREMIX PERIPHER. 50 ML IV SCH (16:00)
[2025-04-25] MEDS: ACETAMINOPHEN 650 MG/20 ML UDC- SA PATIENTS-PAIN ONLY GT PRN (18:24)
[2025-04-26 07:35] VITALS: BP 106/63; TEMP 97.7; O2SAT 96
[2025-04-26 07:53] LABS: CALCIUM, SERUM 8.4 mg/dL (8.5-10.1); CREATININE 1.0 mg/dL (0.6-1.3); PHOSPHORUS 2.1 mg/dL (2.5-4.9); SODIUM SERUM 134.0 mmol/L (136-145); UREA NITROGEN, BLOOD 48.0 mg/dL (7-18)
[2025-04-26] MEDS ORDERED: FUROSEMIDE 40 MG TABLET GT SCH (09:00)
[2025-04-26] MEDS ORDERED: TPN #10 IV SCH ×2 (11:00→12:29)
[2025-04-26] MEDS ORDERED: POTASSIUM PHOSPHATE MM 7.5 MMOL in IV NS 0.9% 100 ML IV SCH (11:00)
[2025-04-26] MEDS: POTASSIUM CL. PREMIX PERIPHER. 50 ML IV SCH (11:32)
[2025-04-26] MEDS: THERAHONEY GEL 1.5 OZ TUBE TP SCH (12:00)
[2025-04-26] MEDS: TPN #10 IV SCH (13:08)
[2025-04-26 14:24] VITALS: O2SAT 100
[2025-04-26] MEDS: POTASSIUM PHOSPHATE MM 7.5 MMOL in IV NS 0.9% 100 ML IV SCH (14:49)
[2025-04-26] MEDS ORDERED: POTASSIUM CL. PREMIX PERIPHER. 50 ML IV SCH ×2 (17:00→20:00)
[2025-04-26 20:00] VITALS: BP 123/83; TEMP 98.1; O2SAT 99
[2025-04-26 22:02] VITALS: O2SAT 99
[2025-04-27 07:28] VITALS: BP 111/85; TEMP 98.1; O2SAT 98
[2025-04-27 08:39] LABS: CALCIUM, SERUM 8.6 mg/dL (8.5-10.1); CREATININE 0.9 mg/dL (0.6-1.3); PHOSPHORUS 2.4 mg/dL (2.5-4.9); SODIUM SERUM 138.0 mmol/L (136-145); UREA NITROGEN, BLOOD 49.0 mg/dL (7-18)
[2025-04-27 10:12] VITALS: O2SAT 100
[2025-04-27] MEDS: POTASSIUM PHOSPHATE MM 15 MMOL in IV NS 0.9% 250 ML IV SCH (12:14)
[2025-04-27 14:12] VITALS: O2SAT 100
[2025-04-27] MEDS: TPN #11 IV SCH (14:41)
[2025-04-27 19:49] VITALS: BP 116/65; TEMP 98; O2SAT 99
[2025-04-27] MEDS: Magnesium 1GM/D5W 100ML PREMIX 100 ML IV SCH (21:03)
[2025-04-27 23:31] VITALS: O2SAT 100
[2025-04-28] MEDS: IPRATROPIUM NEB FS 0.5 MG/2.5 ML AMPUL.NEB NEB SCH (01:35)
[2025-04-28] MEDS: ALBUTEROL FS 2.5 MG/3 ML VIAL.NEB NEB SCH (01:35)
[2025-04-28 07:28] VITALS: BP 102/51; TEMP 98.6; O2SAT 100
[2025-04-28 08:12] LABS: CREATININE 0.9 mg/dL (0.6-1.3); PHOSPHORUS 2.4 mg/dL (2.5-4.9); SODIUM SERUM 136.0 mmol/L (136-145); UREA NITROGEN, BLOOD 49.0 mg/dL (7-18)
[2025-04-28 08:40] LABS: CALCIUM, SERUM 8.1 mg/dL (8.5-10.1)
[2025-04-28] MEDS: Potassium Chloride 10 MEQ in IV D5W 50 ML IV SCH (09:30)
[2025-04-28 10:24] VITALS: O2SAT 100
[2025-04-28] MEDS: TPN #12 IV SCH (15:38)
[2025-04-28 19:29] VITALS: BP 119/69; TEMP 98.8; O2SAT 98
[2025-04-28] MEDS: POTASSIUM PHOSPHATE MM 15 MMOL in IV NS 0.9% 250 ML IV SCH (20:00)
[2025-04-28 23:17] VITALS: O2SAT 100
[2025-04-29 07:24] VITALS: BP 112/55; TEMP 98.4; O2SAT 100
[2025-04-29 07:42] LABS: CALCIUM, SERUM 8.6 mg/dL (8.5-10.1); CREATININE 0.9 mg/dL (0.6-1.3); PHOSPHORUS 2.9 mg/dL (2.5-4.9); SODIUM SERUM 138.0 mmol/L (136-145); UREA NITROGEN, BLOOD 46.0 mg/dL (7-18)
[2025-04-29] MEDS: Magnesium 1GM/D5W 100ML PREMIX 100 ML IV SCH (10:12)
[2025-04-29 11:56] VITALS: O2SAT 99
[2025-04-29] MEDS: TPN #13 IV SCH (18:09)
[2025-04-29] MEDS: FLU VACC 2025-26(6MOS UP) 0.5 ML SYRINGE IM ONE (18:26)
[2025-04-29 19:36] VITALS: O2SAT 100
[2025-04-29 19:43] VITALS: BP 112/51; TEMP 98.2; O2SAT 100
[2025-04-29] MEDS: POTASSIUM CL. PREMIX PERIPHER. 50 ML IV SCH (20:11)
[2025-04-29] MEDS: POTASSIUM PHOSPHATE MM 7.5 MMOL in IV NS 0.9% 100 ML IV SCH (21:09)
[2025-04-29 23:38] VITALS: O2SAT 100
[2025-04-30 07:50] VITALS: BP 116/62; TEMP 98.1; O2SAT 100
[2025-04-30 07:59] LABS: CALCIUM, SERUM 8.7 mg/dL (8.5-10.1); CREATININE 0.9 mg/dL (0.6-1.3); PHOSPHORUS 2.5 mg/dL (2.5-4.9); SODIUM SERUM 139.0 mmol/L (136-145); UREA NITROGEN, BLOOD 47.0 mg/dL (7-18)
[2025-04-30 11:02] VITALS: O2SAT 99
[2025-04-30] MEDS: POTASSIUM CL. PREMIX PERIPHER. 50 ML IV SCH (14:32)
[2025-04-30] MEDS: POTASSIUM PHOSPHATE MM 7.5 MMOL in IV NS 0.9% 100 ML IV SCH (15:40)
[2025-04-30] MEDS: TPN #14 IV SCH (18:54)
[2025-04-30 19:32] VITALS: O2SAT 99
[2025-04-30 19:34] VITALS: BP 103/53; TEMP 98.2; O2SAT 100
[2025-04-30 23:03] VITALS: O2SAT 100
[2025-05-01 07:36] VITALS: BP 114/49; TEMP 98.6; O2SAT 98
[2025-05-01 08:19] LABS: CALCIUM, SERUM 9.1 mg/dL (8.5-10.1); CREATININE 1.0 mg/dL (0.6-1.3); PHOSPHORUS 3.0 mg/dL (2.5-4.9); SODIUM SERUM 135.0 mmol/L (136-145); UREA NITROGEN, BLOOD 50.0 mg/dL (7-18)
[2025-05-01 10:04] VITALS: O2SAT 99
[2025-05-01] MEDS: TPN #15 IV SCH (19:04)
[2025-05-01 19:26] VITALS: O2SAT 100
[2025-05-01 19:52] VITALS: BP 115/60; TEMP 99; O2SAT 100
[2025-05-01] MEDS ORDERED: TPN #15 IV SCH (20:17)
[2025-05-01 23:16] VITALS: O2SAT 100
[2025-05-02 08:00] VITALS: BP 107/75; TEMP 98.6; O2SAT 100
[2025-05-02 08:58] LABS: CALCIUM, SERUM 9.1 mg/dL (8.5-10.1); CREATININE 1.0 mg/dL (0.6-1.3); SODIUM SERUM 136.0 mmol/L (136-145); UREA NITROGEN, BLOOD 54.0 mg/dL (7-18)
[2025-05-02 10:04] VITALS: O2SAT 100; O2SAT 99
[2025-05-02 10:53] LABS: PHOSPHORUS 2.4 mg/dL (2.5-4.9)
[2025-05-02] MEDS: POTASSIUM PHOSPHATE MM 15 MMOL in IV NS 0.9% 250 ML IV SCH (12:11)
[2025-05-02] MEDS: POTASSIUM CL. PREMIX PERIPHER. 50 ML IV SCH (17:53)
[2025-05-02 19:33] VITALS: O2SAT 99
[2025-05-02 20:00] VITALS: BP 119/69; TEMP 98.1; O2SAT 99
[2025-05-02] MEDS: TPN #16 IV SCH (20:16)
[2025-05-02] MEDS: Magnesium 1GM/D5W 100ML PREMIX 100 ML IV SCH (20:16)
[2025-05-02 22:50] VITALS: O2SAT 99
[2025-05-03 07:55] LABS: CALCIUM, SERUM 8.2 mg/dL (8.5-10.1); CREATININE 0.9 mg/dL (0.6-1.3); PHOSPHORUS 2.8 mg/dL (2.5-4.9); SODIUM SERUM 134.0 mmol/L (136-145); UREA NITROGEN, BLOOD 54.0 mg/dL (7-18)
[2025-05-03 10:56] VITALS: O2SAT 100
[2025-05-03] MEDS: POTASSIUM CL. PREMIX PERIPHER. 50 ML IV SCH (13:04)
[2025-05-03] MEDS: TPN IV SCH (21:16)
[2025-05-03 22:00] VITALS: BP 103/53; TEMP 98.1; O2SAT 98
[2025-05-03 22:03] VITALS: O2SAT 100
[2025-05-04 07:55] VITALS: BP 111/43; TEMP 97.9; O2SAT 100
[2025-05-04 07:56] LABS: CALCIUM, SERUM 8.5 mg/dL (8.5-10.1); CREATININE 0.9 mg/dL (0.6-1.3); PHOSPHORUS 1.9 mg/dL (2.5-4.9); SODIUM SERUM 136.0 mmol/L (136-145); UREA NITROGEN, BLOOD 55.0 mg/dL (7-18)
[2025-05-04] MEDS: Magnesium 1GM/D5W 100ML PREMIX 100 ML IV SCH (11:00)
[2025-05-04] MEDS: POTASSIUM PHOSPHATE MM 15 MMOL in IV NS 0.9% 250 ML IV SCH (11:00)
[2025-05-04 11:10] VITALS: O2SAT 100
[2025-05-04 20:00] VITALS: BP 99/61; TEMP 98.4; O2SAT 99
[2025-05-04] MEDS ORDERED: TPN IV SCH (21:00)
[2025-05-04] MEDS: TPN IV SCH (21:19)
[2025-05-04 23:22] VITALS: O2SAT 100
[2025-05-05 07:28] VITALS: BP 109/65; TEMP 98.4; O2SAT 99
[2025-05-05 08:05] LABS: CALCIUM, SERUM 8.4 mg/dL (8.5-10.1); CREATININE 1.0 mg/dL (0.6-1.3); SODIUM SERUM 141.0 mmol/L (136-145); UREA NITROGEN, BLOOD 57.0 mg/dL (7-18)
[2025-05-05 08:50] LABS: PHOSPHORUS 3.6 mg/dL (2.5-4.9)
[2025-05-05] MEDS ORDERED: TPN IV SCH (10:00)
[2025-05-05] MEDS: TPN IV SCH (10:16)
[2025-05-05 10:44] VITALS: O2SAT 98
[2025-05-05] MEDS: POTASSIUM CL. PREMIX PERIPHER. 50 ML IV SCH (11:15)
[2025-05-05 19:35] VITALS: BP 121/63; TEMP 99.9; O2SAT 97
[2025-05-05 22:58] VITALS: O2SAT 100
[2025-05-06] VITALS (7 sets, daily range): BP systolic 92–117; BP diastolic 46–80; TEMP 98.4–99.1; O2SAT 94–100
[2025-05-06 07:35] LABS: CALCIUM, SERUM 9.0 mg/dL (8.5-10.1); CREATININE 1.0 mg/dL (0.6-1.3); SODIUM SERUM 135.0 mmol/L (136-145); UREA NITROGEN, BLOOD 58.0 mg/dL (7-18)
[2025-05-06 07:40] LABS: PHOSPHORUS 2.6 mg/dL (2.5-4.9)
[2025-05-06] MEDS: Magnesium 1GM/D5W 100ML PREMIX 100 ML IV SCH (10:56)
[2025-05-06] MEDS: TPN IV SCH (10:58)
[2025-05-06] MEDS ORDERED: TPN IV SCH (11:00)
[2025-05-06] MEDS: POTASSIUM CL. PREMIX PERIPHER. 50 ML IV SCH (11:30)
[2025-05-06] MEDS: Sodium Phosphate 15 MMOL in IV NS 0.9% 245 ML IV SCH (16:51)
[2025-05-07 07:59] LABS: CALCIUM, SERUM 8.9 mg/dL (8.5-10.1); CREATININE 1.1 mg/dL (0.6-1.3); PHOSPHORUS 3.1 mg/dL (2.5-4.9); SODIUM SERUM 139.0 mmol/L (136-145); UREA NITROGEN, BLOOD 62.0 mg/dL (7-18)
[2025-05-07 08:49] VITALS: BP 105/58; TEMP 98.1; O2SAT 99
[2025-05-07] MEDS: Magnesium 1GM/D5W 100ML PREMIX 100 ML IV SCH (10:37)
[2025-05-07 10:46] VITALS: O2SAT 98
[2025-05-07] MEDS: POTASSIUM PHOSPHATE MM 15 MMOL in IV NS 0.9% 250 ML IV SCH (11:47)
[2025-05-07] MEDS ORDERED: TPN IV SCH (12:38)
[2025-05-07] MEDS: TPN IV SCH (13:01)
[2025-05-07 19:30] VITALS: BP 108/49; TEMP 98.8; O2SAT 100
[2025-05-07 23:05] VITALS: O2SAT 99
[2025-05-08 05:22] LABS: CALCIUM, SERUM 8.7 mg/dL (8.5-10.1); CREATININE 1.0 mg/dL (0.6-1.3); PHOSPHORUS 3.0 mg/dL (2.5-4.9); SODIUM SERUM 137.0 mmol/L (136-145); UREA NITROGEN, BLOOD 60.0 mg/dL (7-18)
[2025-05-08 07:30] VITALS: BP 102/52; TEMP 98.4; O2SAT 100
[2025-05-08 10:16] VITALS: O2SAT 100
[2025-05-08] MEDS: POTASSIUM CL. PREMIX PERIPHER. 50 ML IV SCH (11:28)
[2025-05-08] MEDS: TPN IV SCH (14:10)
[2025-05-08] MEDS: POTASSIUM PHOSPHATE MM 15 MMOL in IV NS 0.9% 250 ML IV SCH (14:10)
[2025-05-08 22:59] VITALS: BP 119/59; TEMP 98.3; O2SAT 100
[2025-05-08 23:48] VITALS: O2SAT 99
[2025-05-09 07:45] LABS: CALCIUM, SERUM 9.0 mg/dL (8.5-10.1); CREATININE 1.0 mg/dL (0.6-1.3); PHOSPHORUS 3.2 mg/dL (2.5-4.9); SODIUM SERUM 138.0 mmol/L (136-145); UREA NITROGEN, BLOOD 55.0 mg/dL (7-18)
[2025-05-09 07:49] LABS: LDL 99 mg/dL (0-99)
[2025-05-09 08:03] VITALS: BP 125/59; TEMP 98.1; O2SAT 100
[2025-05-09 10:17] VITALS: O2SAT 100
[2025-05-09] MEDS: POTASSIUM CL. PREMIX PERIPHER. 50 ML IV SCH (12:23)
[2025-05-09] MEDS: TPN IV SCH (15:15)
[2025-05-09 19:34] VITALS: O2SAT 100
[2025-05-09 23:34] VITALS: O2SAT 100
[2025-05-10] VITALS (9 sets, daily range): BP systolic 102–124; BP diastolic 43–66; TEMP 98.1–98.8; O2SAT 99–100
[2025-05-10 06:59] LABS: CALCIUM, SERUM 9.3 mg/dL (8.5-10.1); CREATININE 1.0 mg/dL (0.6-1.3); SODIUM SERUM 138.0 mmol/L (136-145); UREA NITROGEN, BLOOD 53.0 mg/dL (7-18)
[2025-05-10 07:18] LABS: PHOSPHORUS 2.3 mg/dL (2.5-4.9)
[2025-05-10] MEDS: FUROSEMIDE 40 MG/4 ML VIAL IV SCH (09:36)
[2025-05-10 10:40] LABS: PLATELET COUNT (AUTO) 201 K/uL (150-450); RED BLOOD CELL COUNT(AUTO) 2.14 MIL/uL (4.0-5.2); RED CELL DISTRIBUTION WIDTH 18.4 % (11.5-15.0); WHITE BLOOD COUNT (AUTO) 5.5 K/uL (4.3-11.0)
[2025-05-10] MEDS: Sodium Phosphate 15 MMOL in IV NS 0.9% 245 ML IV SCH (11:22)
[2025-05-10 11:24] LABS: EOSINOPHILS % (MANUAL) 2 % (0-4); LYMPHOCYTES % (MANUAL) 21 % (16-48); MONOCYTES % (MANUAL) 5 % (0-11.0); NEUTROPHILS % (MANUAL) 72 (42-76); PLATELET ESTIMATE ADEQUATE
[2025-05-10] MEDS: TPN IV SCH (16:21)
[2025-05-10] MEDS: FUROSEMIDE 40 MG/4 ML VIAL IV ONE (17:54)
[2025-05-10 20:15] LABS: PLATELET COUNT (AUTO) 217 K/uL (150-450); RED BLOOD CELL COUNT(AUTO) 2.97 MIL/uL (4.0-5.2); RED CELL DISTRIBUTION WIDTH 19.1 % (11.5-15.0); WHITE BLOOD COUNT (AUTO) 6.3 K/uL (4.3-11.0)
[2025-05-10 20:44] LABS: LYMPHOCYTES % (MANUAL) 20 % (16-48); MONOCYTES % (MANUAL) 3 % (0-11.0); NEUTROPHILS % (MANUAL) 77 (42-76)
[2025-05-10 20:45] LABS: PLATELET ESTIMATE ADEQUATE
[2025-05-11 07:39] VITALS: BP 112/52; TEMP 98.2; O2SAT 99
[2025-05-11 09:43] LABS: CALCIUM, SERUM 9.2 mg/dL (8.5-10.1); CREATININE 1.1 mg/dL (0.6-1.3); SODIUM SERUM 135.0 mmol/L (136-145); UREA NITROGEN, BLOOD 63.0 mg/dL (7-18)
[2025-05-11 10:33] LABS: PHOSPHORUS 2.8 mg/dL (2.5-4.9)
[2025-05-11] MEDS: POTASSIUM CL. PREMIX PERIPHER. 50 ML IV SCH (12:30)
[2025-05-11 12:54] VITALS: O2SAT 100
[2025-05-11] MEDS: TPN IV SCH (18:29)
[2025-05-11 19:54] VITALS: BP 99/58; TEMP 98.6; O2SAT 100
[2025-05-11] MEDS: Magnesium 1GM/D5W 100ML PREMIX 100 ML IV SCH (20:00)
[2025-05-11] MEDS: ACETAMINOPHEN SUP SA PATIENTS 650 MG SUPP RC PRN (23:30)
[2025-05-11 23:33] VITALS: O2SAT 98
[2025-05-12 07:41] LABS: CALCIUM, SERUM 9.3 mg/dL (8.5-10.1); CREATININE 1.2 mg/dL (0.6-1.3); SODIUM SERUM 138.0 mmol/L (136-145); UREA NITROGEN, BLOOD 72.0 mg/dL (7-18)
[2025-05-12 07:42] LABS: PHOSPHORUS 2.5 mg/dL (2.5-4.9)
[2025-05-12 08:07] LABS: ASPARTATE AMINOTRANSFERASE 113.0 U/L (15-37); TOTAL PROTEIN, SERUM 7.4 g/dL (6.4-8.2)
[2025-05-12 08:39] VITALS: BP 98/51; TEMP 98.4; O2SAT 100
[2025-05-12 10:08] VITALS: O2SAT 100
[2025-05-12 10:09] VITALS: O2SAT 100
[2025-05-12] MEDS: FUROSEMIDE 40 MG/4 ML VIAL IV SCH (12:00)
[2025-05-12] MEDS: POTASSIUM PHOSPHATE MM 15 MMOL in IV NS 0.9% 250 ML IV SCH (12:24)
[2025-05-12] MEDS: FAT EMULSION 20% 500 ML in PREMIX 1 EA IV SCH (14:41)
[2025-05-12] MEDS ORDERED: DIATR MEGLU/DIATRIZOATE SODIUM 30 ML BOTTLE (GASTROGRAPHIN) ONE (17:25)
[2025-05-12] MEDS: TPN #26 IV SCH (19:30)
[2025-05-12 19:47] VITALS: BP 101/53; TEMP 99; O2SAT 100
[2025-05-12 23:22] VITALS: O2SAT 100
[2025-05-13 07:51] VITALS: BP 101/51; TEMP 98.2; O2SAT 99
[2025-05-13 07:57] LABS: CALCIUM, SERUM 9.2 mg/dL (8.5-10.1); CREATININE 1.3 mg/dL (0.6-1.3); PHOSPHORUS 3.2 mg/dL (2.5-4.9); SODIUM SERUM 137.0 mmol/L (136-145); UREA NITROGEN, BLOOD 78.0 mg/dL (7-18)
[2025-05-13] MEDS: POTASSIUM CL. PREMIX PERIPHER. 50 ML IV SCH (12:05)
[2025-05-13] MEDS: Magnesium 1GM/D5W 100ML PREMIX 100 ML IV SCH (15:47)
[2025-05-13 17:56] VITALS: O2SAT 98
[2025-05-13 18:24] LABS: ASPARTATE AMINOTRANSFERASE 69.0 U/L (15-37); TOTAL PROTEIN, SERUM 8.3 g/dL (6.4-8.2)
[2025-05-13 20:01] VITALS: BP 96/48; TEMP 98.4; O2SAT 100
[2025-05-13] MEDS: TPN #27 IV SCH (20:29)
[2026-01-05] MEDS ORDERED: TUBERCULIN,PURIF.PROT.DERIV. 5 TU/0.1 ML VIAL ID SCH (15:00)
== END 2025-05-13 16:00 | disposition short-term general hospital (02) | DRG 207 ==
LOC: SA 13:48 → UNDOLOA 05-13 22:08
PROVIDERS: ADMIT Internal Medicine; ATTEND Internal Medicine
PROC: 5A1955Z Respiratory Ventilation, Greater than 96 Consecutive Hours (ICD-10-PCS; principal; 2025-04-18)
PROC: 0DH63UZ Insertion of Feeding Device into Stomach, Percutaneous Approach (ICD-10-PCS; 2025-05-12)
DX: J96.10 Chronic respiratory failure, unspecified whether with hypoxia or hypercapnia (principal); L89.514 Pressure ulcer of right ankle, stage 4; L89.513 Pressure ulcer of right ankle, stage 3; K85.90 Acute pancreatitis without necrosis or infection, unspecified; E43 Unspecified severe protein-calorie malnutrition; R53.2 Functional quadriplegia; G93.41 Metabolic encephalopathy; G93.1 Anoxic brain damage, not elsewhere classified; Z99.11 Dependence on respirator [ventilator] status; Z93.0 Tracheostomy status; D63.8 Anemia in other chronic diseases classified elsewhere; E03.9 Hypothyroidism, unspecified; F01.50 Vascular dementia, unspecified severity, without behavioral disturbance, psychotic disturbance, mood disturbance, and anxiety; I10 Essential (primary) hypertension; R40.3 Persistent vegetative state; K22.10 Ulcer of esophagus without bleeding; E87.1 Hypo-osmolality and hyponatremia; R13.10 Dysphagia, unspecified; K80.70 Calculus of gallbladder and bile duct without cholecystitis without obstruction; D64.9 Anemia, unspecified; E88.09 Other disorders of plasma-protein metabolism, not elsewhere classified; I25.10 Atherosclerotic heart disease of native coronary artery without angina pectoris; K63.8219 Small intestinal bacterial overgrowth, unspecified; E78.5 Hyperlipidemia, unspecified; E87.6 Hypokalemia; L98.429 Non-pressure chronic ulcer of back with unspecified severity; M89.8X9 Other specified disorders of bone, unspecified site; Z87.440 Personal history of urinary (tract) infections; M19.90 Unspecified osteoarthritis, unspecified site; R79.89 Other specified abnormal findings of blood chemistry
CPT/HCPCS: 31720; 36415; 71045-TC; 74018; 76705-TC; 80048-TC; 80061-TC; 80076-TC; 82962-TC; 83735-TC; 84100-TC; 84478-TC; 85025-TC; 85027-TC; 86850-TC; 94003-TC; 94640-TC; 94760-TC; 94762-TC; 94799-TC; 97110-TC; 97530-TC; 99082-TC; A4216; A4223; A4623; A6253; A7526; A9563; J1815; J1938; J2470; J2765; J3475; J3480; J3490; J7030; J7050; J7060; P9016; Q9963

== ENCOUNTER 2025-05-13 20:34 | Inpatient (IN) | payer MEDICARE, MEDICAID ==
[~2025-05-13] VITALS: Ht 154.9 cm; Wt 59.0 kg
[~2025-05-13 20:34] MED LIST changes: -ACET325T53 GT; -ACET650S11 RC; -ALLA266C2 TP; -ASCO-352 GT; -BACL10TA GT; -BISA10SU11 RC; -CEFT1VIA14 IV; -DOCU50LI GT; -ENOX40DI SQ; -GUAI100S11 GT; -LEVO100T GT; -MERO1VIA23 IV; -METF-440 PO; -METO-295 GT; -METO25TA6 GT; -MULT-447 GT; -NA P133E RC; -NORM10004 IV; -NUT.237L25 GT; -OMEP20CA15 GT; -PETR113O TP; -SENN8.6T19 GT; -SODI100037 GT
[2025-05-13] MEDS ORDERED: DOSING PER PHARMACY-ZOSYN IV 1 EA EA XX PRN (21:00)
[2025-05-13] MEDS ORDERED: ONDANSETRON HCL/PF 4 MG/2 ML VIAL IVP PRN (21:00)
[2025-05-13] MEDS ORDERED: TPN/PPN PER PHARMACY IV PRN (21:30)
[2025-05-13] MEDS ORDERED: MEROPENEM 500 MG in IV NS 0.9% 50 ML IV SCH (21:30)
[2025-05-13 23:01] VITALS: BP 128/51; O2SAT 100
[2025-05-13 23:30] LABS: PLATELET COUNT (AUTO) 208 K/uL (150-450); RED BLOOD CELL COUNT(AUTO) 2.91 MIL/uL (4.0-5.2); RED CELL DISTRIBUTION WIDTH 20.3 % (11.5-15.0); WHITE BLOOD COUNT (AUTO) 7.4 K/uL (4.3-11.0)
[2025-05-13] MEDS: IV NS 0.9% 1,000 ML IV PRN (23:37)
[2025-05-13 23:40] LABS: INR 1.12 (0.91-1.10)
[2025-05-13 23:52] LABS: CALCIUM, SERUM 9.7 mg/dL (8.5-10.1); CREATININE 1.2 mg/dL (0.6-1.3); PHOSPHORUS 3.0 mg/dL (2.5-4.9); SODIUM SERUM 136.0 mmol/L (136-145); UREA NITROGEN, BLOOD 73.0 mg/dL (7-18)
[2025-05-13] MEDS: METRONIDAZOLE 500MG/ NS 100ML 500 MG in PREMIX 1 EA IV SCH (23:56)
[2025-05-13] MEDS: METRONIDAZOLE 500MG/ NS 100ML 100 ML IV ONE (23:57)
[2025-05-14] VITALS (24 sets, daily range): BP systolic 106–126; BP diastolic 42–59; TEMP 98.1–98.7; O2SAT 100
[2025-05-14] MEDS ORDERED: CIPROFLOXACIN IV RTU 200 ML IV ONE (00:04)
[2025-05-14] MEDS: ENOXAPARIN SODIUM 40 MG/0.4 ML DISP.SYRIN SQ ONE (00:17)
[2025-05-14 00:23] LABS: BAND % (MANUAL) 4 % (0.0-5.0); LYMPHOCYTES % (MANUAL) 16 % (16-48); METAMYELOCYTES % 1 % (0-0); MONOCYTES % (MANUAL) 2 % (0-11.0); MYELOCYTES % 1 % (0-0); NEUTROPHILS % (MANUAL) 75 (42-76)
[2025-05-14 00:24] LABS: PLATELET ESTIMATE ADEQUATE
[2025-05-14 00:25] LABS: ASPARTATE AMINOTRANSFERASE 76.0 U/L (15-37); TOTAL PROTEIN, SERUM 8.0 g/dL (6.4-8.2)
[2025-05-14] MEDS: CIPROFLOXACIN IV RTU 400 MG in PREMIX 1 EA IV SCH (01:17)
[2025-05-14 04:45] LABS: PLATELET COUNT (AUTO) 191 K/uL (150-450); RED BLOOD CELL COUNT(AUTO) 2.63 MIL/uL (4.0-5.2); RED CELL DISTRIBUTION WIDTH 20.4 % (11.5-15.0); WHITE BLOOD COUNT (AUTO) 6.6 K/uL (4.3-11.0)
[2025-05-14 05:00] LABS: ASPARTATE AMINOTRANSFERASE 68.0 U/L (15-37); CALCIUM, SERUM 9.6 mg/dL (8.5-10.1); CREATININE 1.2 mg/dL (0.6-1.3); PHOSPHORUS 2.8 mg/dL (2.5-4.9); SODIUM SERUM 138.0 mmol/L (136-145); TOTAL PROTEIN, SERUM 7.6 g/dL (6.4-8.2); UREA NITROGEN, BLOOD 76.0 mg/dL (7-18)
[2025-05-14] MEDS ORDERED: METRONIDAZOLE 500MG/ NS 100ML 100 ML IV ONE (06:25)
[2025-05-14] MEDS: TPN #27 IV SCH (07:58)
[2025-05-14] MEDS: PANTOPRAZOLE 40 MG VIAL IV SCH (08:28)
[2025-05-14] MEDS: BLOOD SUGAR DIAGNOSTIC 1 EACH STRIP IN SCH (11:49)
[2025-05-14] MEDS ORDERED: DEXTROSE 50%-WATER 50 ML DISP.SYRIN IV PRN (12:00)
[2025-05-14] MEDS: INSULIN REGULAR, HUMAN 100 UNIT/ML 3 ML VIAL SQ PRN (12:02)
[2025-05-14] MEDS: FAT EMULSION 20% 500 ML in PREMIX 1 EA IV SCH (13:59)
[2025-05-14] MEDS: POTASSIUM PHOSPHATE MM 15 MMOL in IV NS 0.9% 250 ML IV SCH (15:49)
[2025-05-14] MEDS: TPN IV SCH (20:48)
[2025-05-14] MEDS ORDERED: ENOXAPARIN SODIUM 40 MG/0.4 ML DISP.SYRIN SQ SCH (21:00)
[2025-05-14] MEDS: ENOXAPARIN SODIUM 30 MG/0.3 ML DISP.SYRIN SQ SCH (21:21)
[2025-05-15] VITALS (25 sets, daily range): BP systolic 58–123; BP diastolic 37–49; TEMP 98–100; O2SAT 100
[2025-05-15 05:10] LABS: CALCIUM, SERUM 8.8 mg/dL (8.5-10.1); CREATININE 1.3 mg/dL (0.6-1.3); PHOSPHORUS 2.9 mg/dL (2.5-4.9); SODIUM SERUM 132 mmol/L (136-145); UREA NITROGEN, BLOOD 69 mg/dL (7-18)
[2025-05-15] MEDS: POTASSIUM CL. PREMIX PERIPHER. 50 ML IV SCH (11:01)
[2025-05-15 11:23] LABS: ASPARTATE AMINOTRANSFERASE 80.0 U/L (15-37); TOTAL PROTEIN, SERUM 7.0 g/dL (6.4-8.2)
[2025-05-15] MEDS: ACETAMINOPHEN 650 MG/SUPP.RECT RC PRN (16:53)
[2025-05-15] MEDS: POTASSIUM PHOSPHATE MM 15 MMOL in IV NS 0.9% 250 ML IV SCH (20:01)
[2025-05-15] MEDS: Magnesium 1GM/D5W 100ML PREMIX 100 ML IV SCH (20:01)
[2025-05-15] MEDS: TPN #29 IV SCH (20:02)
[2025-05-16] VITALS (25 sets, daily range): BP systolic 107–138; BP diastolic 40–64; TEMP 98–99.5; O2SAT 99–100
[2025-05-16 04:17] LABS: PHOSPHORUS 3.9 mg/dL (2.5-4.9)
[2025-05-16 04:25] LABS: ASPARTATE AMINOTRANSFERASE 78.0 U/L (15-37); CALCIUM, SERUM 8.9 mg/dL (8.5-10.1); CREATININE 1.3 mg/dL (0.6-1.3); TOTAL PROTEIN, SERUM 6.7 g/dL (6.4-8.2); UREA NITROGEN, BLOOD 70.0 mg/dL (7-18)
[2025-05-16 04:38] LABS: SODIUM SERUM 139.0 mmol/L (136-145)
[2025-05-16] MEDS: TPN IV SCH (08:11)
[2025-05-16] MEDS ORDERED: LEVO200V9 IV (12:43)
[2025-05-16] MEDS ORDERED: IPRA0.2S49 NEB (12:43)
[2025-05-16] MEDS ORDERED: ACET650S11 RC (12:43)
[2025-05-16] MEDS ORDERED: FAT250EM4 IV (12:43)
[2025-05-16] MEDS ORDERED: DEXT50DI8 IV (12:43)
[2025-05-16] MEDS ORDERED: METO5VIA6 IV (12:43)
[2025-05-16] MEDS ORDERED: BLOO-668 IN (12:43)
[2025-05-16] MEDS ORDERED: INSU100V7 SQ (12:43)
[2025-05-16] MEDS ORDERED: INSU100V3 SQ (12:43)
[2025-05-16] MEDS ORDERED: ALBU2.5V13 NEB (12:43)
[2025-05-16] MEDS ORDERED: ONDA4VIA52 IVP (12:43)
[2025-05-16] MEDS ORDERED: TPN ADD IV (12:43)
[2025-05-16] MEDS ORDERED: PANT40VI IV (12:43)
[2025-05-16] MEDS ORDERED: MUPI22OI7 TP (12:43)
[2025-05-16] MEDS: ACETAMINOPHEN 650 MG/SUPP.RECT RC PRN (21:57)
[2025-05-16] MEDS: INSULIN GLARGINE, 100 UNIT/ML CARTRIDGE SQ SCH (22:21)
[2025-05-17] VITALS (24 sets, daily range): BP systolic 90–134; BP diastolic 36–65; TEMP 98.3–99.5; O2SAT 93–100
[2025-05-17 05:18] LABS: PLATELET COUNT (AUTO) 201 K/uL (150-450); RED BLOOD CELL COUNT(AUTO) 2.57 MIL/uL (4.0-5.2); RED CELL DISTRIBUTION WIDTH 21.6 % (11.5-15.0); WHITE BLOOD COUNT (AUTO) 13.7 K/uL (4.3-11.0)
[2025-05-17 05:43] LABS: ASPARTATE AMINOTRANSFERASE 125.0 U/L (15-37); CALCIUM, SERUM 8.5 mg/dL (8.5-10.1); CREATININE 1.6 mg/dL (0.6-1.3); PHOSPHORUS 3.8 mg/dL (2.5-4.9); TOTAL PROTEIN, SERUM 6.9 g/dL (6.4-8.2); UREA NITROGEN, BLOOD 75.0 mg/dL (7-18)
[2025-05-17 06:00] LABS: SODIUM SERUM 137.0 mmol/L (136-145)
[2025-05-17 06:11] LABS: EOSINOPHILS % (MANUAL) 1 % (0-4); LYMPHOCYTES % (MANUAL) 16 % (16-48); MONOCYTES % (MANUAL) 7 % (0-11.0); NEUTROPHILS % (MANUAL) 76 (42-76); PLATELET ESTIMATE ADEQUATE
[2025-05-17] MEDS: LEVOTHYROXINE INJ 100 MCG VIAL IV SCH (06:25)
[2025-05-17 06:36] LABS: ABG BASE EXCESS -23.2 mmol/L (-2.0-3.0); ABG OXYGEN SATURATION 97.5 % (94.0-98.0); ABG PCO2 28.0 mmHg (32.0-45.0); ABG PH 6.990 (7.350-7.450); ABG PO2 114.4 mmHg (83.0-108.0); ABG TOTAL HEMOGLOBIN 8.5 G/dL (12.0-16.0); FRACTIONATED INSPIRED OXYGEN 30.0 %; PEEP,BG 5 cm H2O; SET RATE, BG 12.0; SITE, ABG LEFT RADIAL; VT, ABG 450 mL
[2025-05-17] MEDS: TPN #31 IV SCH (09:53)
[2025-05-17] MEDS: Sodium Bicarbonate 150 MEQ in IV D5W 1,000 ML IV SCH (10:58)
[2025-05-17 13:39] LABS: INR 1.2 (0.91-1.10)
[2025-05-17 13:50] LABS: APPEARANCE,URINE SLIGHTLY CLOUDY (CLEAR); BLOOD, URINE 1+ Ery/uL (NEGATIVE); LEUKOCYTE ESTERASE ,URINE 3+ (NEGATIVE); NITRITE, URINE POSITIVE (NEGATIVE); UGLUCOSE NEGATIVE (NEGATIVE)
[2025-05-17 13:56] LABS: CREATININE, URINE 35.3 MG/DL (30.0-125.0); URINE SODIUM, RANDOM 19.0 mmol/l (40-220); URINE TOTAL PROTEIN 242.6 mg/dL (0-11.9)
[2025-05-17 14:00] LABS: ADD URINE CULTURE YES; YEAST,URINE Few /HPF (None Seen)
[2025-05-17 14:01] LABS: COARSE GRANULAR CASTS,URINE Few /LPF (None Seen); FINE GRANULAR CASTS,URINE Rare /LPF (None Seen)
[2025-05-17 14:55] LABS: EOSINOPHIL,URINE None Seen
[2025-05-17] MEDS ORDERED: ANESTHESIA TRAY IN PYXIS 1 EA TRAY MC ONE ×2 (15:54→19:00)
[2025-05-17] MEDS ORDERED: INDOMETHACIN 100 MG SUPP.RECT ONE (15:54)
[2025-05-17] MEDS ORDERED: IOHEXOL 50 ML IV ONE (15:54)
[2025-05-17] MEDS: NYSTATIN TOP POWDER 15 GM BOTTLE TP SCH (16:13)
[2025-05-17] MEDS ORDERED: VASOPRESSIN INJ 20 UNIT/ML VIAL ONE (17:35)
[2025-05-17 19:36] LABS: CALCIUM, SERUM 8.6 mg/dL (8.5-10.1); CREATININE 1.9 mg/dL (0.6-1.3); SODIUM SERUM 138.0 mmol/L (136-145)
[2025-05-17 19:40] LABS: UREA NITROGEN, BLOOD 83.0 mg/dL (7-18)
[2025-05-17] MEDS: MEROPENEM 1 G in IV NS 0.9% 100 ML IV SCH (21:07)
[2025-05-17] MEDS: Z GUARD REMEDY 4 OZ OINT TP SCH (21:49)
[2025-05-17] MEDS: SODIUM BICARBONATE SYR 50 MEQ/50 ML DISP.SYRIN ONE ×2 (23:41)
[2025-05-18] VITALS (27 sets, daily range): BP systolic 94–132; BP diastolic 35–61; TEMP 98–102.1; O2SAT 86–100
[2025-05-18 04:51] LABS: RED BLOOD CELL COUNT(AUTO) 2.25 MIL/uL (4.0-5.2)
[2025-05-18 05:04] LABS: CALCIUM, SERUM 8.4 mg/dL (8.5-10.1); CREATININE 2.2 mg/dL (0.6-1.3); PHOSPHORUS 2.1 mg/dL (2.5-4.9); SODIUM SERUM 138.0 mmol/L (136-145)
[2025-05-18 05:08] LABS: PLATELET COUNT (AUTO) 148 K/uL (150-450); RED CELL DISTRIBUTION WIDTH 21.2 % (11.5-15.0); WHITE BLOOD COUNT (AUTO) 10.3 K/uL (4.3-11.0)
[2025-05-18 05:43] LABS: UREA NITROGEN, BLOOD 88.0 mg/dL (7-18)
[2025-05-18 06:12] LABS: EOSINOPHILS % (MANUAL) 2 % (0-4); LYMPHOCYTES % (MANUAL) 10 % (16-48); MONOCYTES % (MANUAL) 2 % (0-11.0); NEUTROPHILS % (MANUAL) 86 (42-76); PLATELET ESTIMATE ADEQUATE
[2025-05-18] MEDS: POTASSIUM CL. PREMIX PERIPHER. 50 ML IV SCH ×2 (07:56→10:41)
[2025-05-18 08:12] LABS: ABG BASE EXCESS -15.4 mmol/L (-2.0-3.0); ABG OXYGEN SATURATION 97.5 % (94.0-98.0); ABG PCO2 25.4 mmHg (32.0-45.0); ABG PH 7.239 (7.350-7.450); ABG PO2 107.3 mmHg (83.0-108.0); ABG TOTAL HEMOGLOBIN 7.4 G/dL (12.0-16.0); FRACTIONATED INSPIRED OXYGEN 30.0 %; PEEP,BG 5 cm H2O; SET RATE, BG 12.0; SITE, ABG RIGHT RADIAL; VT, ABG 450 mL
[2025-05-18] MEDS: Sodium Bicarbonate 150 MEQ in IV D5W 1,000 ML IV SCH (10:12)
[2025-05-18] MEDS: Magnesium 1GM/D5W 100ML PREMIX 100 ML IV SCH (10:36)
[2025-05-18] MEDS: TPN IV SCH (11:51)
[2025-05-18] MEDS: MORPHINE SULFATE INJ 2 MG/ML DISP.SYRIN IV PRN (13:21)
[2025-05-18 14:23] LABS: CALCIUM, SERUM 7.3 mg/dL (8.5-10.1); CREATININE 2.1 mg/dL (0.6-1.3); SODIUM SERUM 130.0 mmol/L (136-145)
[2025-05-18 14:42] LABS: UREA NITROGEN, BLOOD 88.0 mg/dL (7-18)
[2025-05-18 16:54] LABS: CALCIUM, SERUM 8.2 mg/dL (8.5-10.1); CREATININE 2.3 mg/dL (0.6-1.3); SODIUM SERUM 135.0 mmol/L (136-145)
[2025-05-18 17:02] LABS: UREA NITROGEN, BLOOD 100.0 mg/dL (7-18)
[2025-05-18] MEDS: POTASSIUM PHOSPHATE MM 7.5 MMOL in IV NS 0.9% 100 ML IV SCH (17:18)
[2025-05-19] VITALS (24 sets, daily range): BP systolic 96–141; BP diastolic 41–89; TEMP 97.8–98.8; O2SAT 95–100
[2025-05-19 05:10] LABS: PLATELET COUNT (AUTO) 163 K/uL (150-450); RED BLOOD CELL COUNT(AUTO) 2.79 MIL/uL (4.0-5.2); RED CELL DISTRIBUTION WIDTH 22.2 % (11.5-15.0); WHITE BLOOD COUNT (AUTO) 9.8 K/uL (4.3-11.0)
[2025-05-19 05:19] LABS: CALCIUM, SERUM 7.6 mg/dL (8.5-10.1); CREATININE 2.4 mg/dL (0.6-1.3); PHOSPHORUS 2.3 mg/dL (2.5-4.9); SODIUM SERUM 134.0 mmol/L (136-145)
[2025-05-19 05:38] LABS: UREA NITROGEN, BLOOD 97.0 mg/dL (7-18)
[2025-05-19] MEDS: POTASSIUM CL. PREMIX PERIPHER. 50 ML IV SCH (07:26)
[2025-05-19] MEDS: POTASSIUM PHOSPHATE MM 15 MMOL in IV NS 0.9% 250 ML IV SCH (08:27)
[2025-05-19] MEDS: Sodium Bicarbonate 150 MEQ in IV D5W 1,000 ML IV SCH (09:49)
[2025-05-19 10:53] LABS: ABG BASE EXCESS -11.3 mmol/L (-2.0-3.0); ABG OXYGEN SATURATION 95.4 % (94.0-98.0); ABG PCO2 30.2 mmHg (32.0-45.0); ABG PH 7.289 (7.350-7.450); ABG PO2 81.1 mmHg (83.0-108.0); ABG TOTAL HEMOGLOBIN 9.2 G/dL (12.0-16.0); FRACTIONATED INSPIRED OXYGEN 30.0 %; PEEP,BG 5 cm H2O; SET RATE, BG 12.0; SITE, ABG RIGHT RADIAL; VT, ABG 450 mL
[2025-05-19] MEDS: TPN IV SCH (12:42)
[2025-05-19] MEDS ORDERED: TPN IV SCH (12:48)
[2025-05-19] MEDS: SODIUM BICARBONATE SYR 50 MEQ/50 ML DISP.SYRIN IV ONE (13:27)
[2025-05-20] VITALS (24 sets, daily range): BP systolic 92–127; BP diastolic 41–71; TEMP 97.5–98.9; O2SAT 95–100
[2025-05-20 05:33] LABS: PLATELET COUNT (AUTO) 149 K/uL (150-450); RED BLOOD CELL COUNT(AUTO) 2.54 MIL/uL (4.0-5.2); RED CELL DISTRIBUTION WIDTH 21.7 % (11.5-15.0); WHITE BLOOD COUNT (AUTO) 7.9 K/uL (4.3-11.0)
[2025-05-20 05:52] LABS: ASPARTATE AMINOTRANSFERASE 63.0 U/L (15-37); CALCIUM, SERUM 7.4 mg/dL (8.5-10.1); PHOSPHORUS 2.9 mg/dL (2.5-4.9); SODIUM SERUM 133.0 mmol/L (136-145); TOTAL PROTEIN, SERUM 5.3 g/dL (6.4-8.2)
[2025-05-20 05:59] LABS: CREATININE 2.7 mg/dL (0.6-1.3)
[2025-05-20 06:03] LABS: UREA NITROGEN, BLOOD 107.0 mg/dL (7-18)
[2025-05-20 06:14] LABS: EOSINOPHILS % (MANUAL) 4 % (0-4); LYMPHOCYTES % (MANUAL) 13 % (16-48); MONOCYTES % (MANUAL) 3 % (0-11.0); NEUTROPHILS % (MANUAL) 80 (42-76); PLATELET ESTIMATE DECREASED
[2025-05-20 08:45] LABS: PLATELET COUNT (AUTO) 139 K/uL (150-450); RED BLOOD CELL COUNT(AUTO) 2.78 MIL/uL (4.0-5.2); RED CELL DISTRIBUTION WIDTH 22.9 % (11.5-15.0); WHITE BLOOD COUNT (AUTO) 11.1 K/uL (4.3-11.0)
[2025-05-20] MEDS: IV NS 0.9% 250 ML IV PRN (09:25)
[2025-05-20] MEDS ORDERED: BUMETANIDE INJ 4 MG in IV D5W 24 ML IV ONE (09:30)
[2025-05-20] MEDS: Magnesium 1GM/D5W 100ML PREMIX 100 ML IV SCH (10:50)
[2025-05-20] MEDS: POTASSIUM CL. PREMIX PERIPHER. 50 ML IV SCH (10:53)
[2025-05-20] MEDS: TPN IV SCH (14:23)
[2025-05-21] VITALS (20 sets, daily range): BP systolic 97–129; BP diastolic 38–74; TEMP 98–99.3; O2SAT 96–99
[2025-05-21 05:41] LABS: PLATELET COUNT (AUTO) 192 K/uL (150-450); RED BLOOD CELL COUNT(AUTO) 2.66 MIL/uL (4.0-5.2); RED CELL DISTRIBUTION WIDTH 21.0 % (11.5-15.0); WHITE BLOOD COUNT (AUTO) 9.5 K/uL (4.3-11.0)
[2025-05-21 06:52] LABS: EOSINOPHILS % (MANUAL) 1 % (0-4); LYMPHOCYTES % (MANUAL) 20 % (16-48); MONOCYTES % (MANUAL) 2 % (0-11.0); NEUTROPHILS % (MANUAL) 77 (42-76)
[2025-05-21 06:53] LABS: PLATELET ESTIMATE ADEQUATE
[2025-05-21 09:27] LABS: CALCIUM, SERUM 7.8 mg/dL (8.5-10.1); CREATININE 2.8 mg/dL (0.6-1.3); SODIUM SERUM 130.0 mmol/L (136-145)
[2025-05-21 09:30] LABS: UREA NITROGEN, BLOOD 111.0 mg/dL (7-18)
[2025-05-21 09:33] LABS: ASPARTATE AMINOTRANSFERASE 47.0 U/L (15-37); TOTAL PROTEIN, SERUM 5.6 g/dL (6.4-8.2)
[2025-05-21] MEDS: TPN IV SCH (15:16)
[2025-05-22] VITALS (8 sets, daily range): BP systolic 92–124; BP diastolic 39–68; TEMP 99–101.8; O2SAT 97–98
[2025-05-22 07:38] LABS: ASPARTATE AMINOTRANSFERASE 41.0 U/L (15-37); CALCIUM, SERUM 8.0 mg/dL (8.5-10.1); CREATININE 2.8 mg/dL (0.6-1.3); PHOSPHORUS 3.7 mg/dL (2.5-4.9); SODIUM SERUM 129.0 mmol/L (136-145); TOTAL PROTEIN, SERUM 5.5 g/dL (6.4-8.2)
[2025-05-22 08:05] LABS: UREA NITROGEN, BLOOD 121.0 mg/dL (7-18)
[2025-05-22 11:01] LABS: PLATELET COUNT (AUTO) 181 K/uL (150-450); RED BLOOD CELL COUNT(AUTO) 2.54 MIL/uL (4.0-5.2); RED CELL DISTRIBUTION WIDTH 20.5 % (11.5-15.0); WHITE BLOOD COUNT (AUTO) 7.7 K/uL (4.3-11.0)
[2025-05-22 13:45] LABS: EOSINOPHILS % (MANUAL) 2 % (0-4); LYMPHOCYTES % (MANUAL) 10 % (16-48); MONOCYTES % (MANUAL) 3 % (0-11.0); NEUTROPHILS % (MANUAL) 85 (42-76)
[2025-05-22 13:46] LABS: PLATELET ESTIMATE ADEQUATE
[2025-05-22] MEDS: TPN IV SCH (17:54)
[2025-05-23 00:27] VITALS: BP 94/53; TEMP 99.7; O2SAT 98
[2025-05-23 04:29] VITALS: BP 96/54; TEMP 99.1; O2SAT 98
[2025-05-23 06:07] LABS: PLATELET COUNT (AUTO) 211 K/uL (150-450); RED BLOOD CELL COUNT(AUTO) 2.62 MIL/uL (4.0-5.2); RED CELL DISTRIBUTION WIDTH 20.3 % (11.5-15.0); WHITE BLOOD COUNT (AUTO) 7.9 K/uL (4.3-11.0)
[2025-05-23 06:15] LABS: CALCIUM, SERUM 7.7 mg/dL (8.5-10.1); CREATININE 2.9 mg/dL (0.6-1.3); SODIUM SERUM 133.0 mmol/L (136-145)
[2025-05-23 06:20] LABS: UREA NITROGEN, BLOOD 126.0 mg/dL (7-18)
[2025-05-23 06:21] LABS: ASPARTATE AMINOTRANSFERASE 32.0 U/L (15-37); TOTAL PROTEIN, SERUM 5.6 g/dL (6.4-8.2)
[2025-05-23 06:22] LABS: PHOSPHORUS 4.3 mg/dL (2.5-4.9)
[2025-05-23 08:00] VITALS: BP 96/53; TEMP 97.7; O2SAT 99
[2025-05-23 12:00] VITALS: BP 100/96; TEMP 98.1; O2SAT 98
[2025-05-23] MEDS: POTASSIUM CL. PREMIX PERIPHER. 50 ML IV SCH (15:08)
[2025-05-23 16:00] VITALS: BP 107/53; TEMP 97.9; O2SAT 99
[2025-05-23] MEDS: TPN IV SCH (18:11)
[2025-05-23 20:00] VITALS: BP 126/45; TEMP 98.6; O2SAT 99
[2025-05-24] VITALS: BP 120/56; TEMP 98.6; O2SAT 100
[2025-05-24 04:00] VITALS: BP 120/49; TEMP 97.7; O2SAT 100
[2025-05-24 06:32] LABS: PLATELET COUNT (AUTO) 113 K/uL (150-450); RED BLOOD CELL COUNT(AUTO) 3.11 MIL/uL (4.0-5.2); RED CELL DISTRIBUTION WIDTH 20.7 % (11.5-15.0); WHITE BLOOD COUNT (AUTO) 8.7 K/uL (4.3-11.0)
[2025-05-24 06:57] LABS: CALCIUM, SERUM 7.6 mg/dL (8.5-10.1); SODIUM SERUM 130 mmol/L (136-145)
[2025-05-24 07:30] LABS: ASPARTATE AMINOTRANSFERASE < 5 U/L (15-37); TOTAL PROTEIN, SERUM 6.0 g/dL (6.4-8.2)
[2025-05-24 07:46] LABS: CREATININE 2.7 mg/dL (0.6-1.3)
[2025-05-24 07:53] LABS: PHOSPHORUS 4.9 mg/dL (2.5-4.9)
[2025-05-24 07:58] LABS: UREA NITROGEN, BLOOD 125 mg/dL (7-18)
[2025-05-24 08:00] VITALS: BP 132/61; TEMP 97.7; O2SAT 95
[2025-05-24 12:00] VITALS: BP 111/60; TEMP 97.5; O2SAT 99
[2025-05-24] MEDS ORDERED: NYST15PO4 TP (19:29)
[2025-05-24] MEDS ORDERED: [UNRECOGNIZED DRUG - OTHER] TP (19:29)
[2025-05-24] MEDS ORDERED: MORPHINE SULFATE INJ IV (19:29)
[2025-05-24] MEDS ORDERED: MERO1PIG IV (19:29)
[2025-05-24] MEDS ORDERED: TPN IV SCH (19:36)
== END 2025-05-24 15:47 | DRG 380 ==
LOC: ICU 20:34 → TELE1 05-21 17:52
PROVIDERS: ADMIT Nurse Practitioner Family; ATTEND Student in an Organized Health Care Education/Training Program
PROC: 0FJB8ZZ Inspection of Hepatobiliary Duct, Via Natural or Artificial Opening Endoscopic (ICD-10-PCS; 2025-05-17)
PROC: 5A1955Z Respiratory Ventilation, Greater than 96 Consecutive Hours (ICD-10-PCS; principal; 2025-05-17 18:00)
PROC: 30233N1 Transfusion of Nonautologous Red Blood Cells into Peripheral Vein, Percutaneous Approach (ICD-10-PCS; 2025-05-18)
PROC: 0D20XUZ Change Feeding Device in Upper Intestinal Tract, External Approach (ICD-10-PCS; 2025-05-21)
DX: K31.5 Obstruction of duodenum (principal); G93.41 Metabolic encephalopathy; L89.514 Pressure ulcer of right ankle, stage 4; R53.2 Functional quadriplegia; N17.0 Acute kidney failure with tubular necrosis; R40.3 Persistent vegetative state; E87.20 Acidosis, unspecified; D68.59 Other primary thrombophilia; L89.629 Pressure ulcer of left heel, unspecified stage; L89.619 Pressure ulcer of right heel, unspecified stage; L89.159 Pressure ulcer of sacral region, unspecified stage; Z99.11 Dependence on respirator [ventilator] status; J96.10 Chronic respiratory failure, unspecified whether with hypoxia or hypercapnia; N39.0 Urinary tract infection, site not specified; Z93.0 Tracheostomy status; B96.4 Proteus (mirabilis) (morganii) as the cause of diseases classified elsewhere; I13.0 Hypertensive heart and chronic kidney disease with heart failure and stage 1 through stage 4 chronic kidney disease, or unspecified chronic kidney disease; E03.9 Hypothyroidism, unspecified; E11.22 Type 2 diabetes mellitus with diabetic chronic kidney disease; F01.50 Vascular dementia, unspecified severity, without behavioral disturbance, psychotic disturbance, mood disturbance, and anxiety; N18.31 Chronic kidney disease, stage 3a; D62 Acute posthemorrhagic anemia; R18.8 Other ascites; K22.10 Ulcer of esophagus without bleeding; K94.23 Gastrostomy malfunction; K80.41 Calculus of bile duct with cholecystitis, unspecified, with obstruction; I50.9 Heart failure, unspecified; E78.5 Hyperlipidemia, unspecified; E83.42 Hypomagnesemia; E87.6 Hypokalemia; L22 Diaper dermatitis; L30.4 Erythema intertrigo; Z79.4 Long term (current) use of insulin; R13.10 Dysphagia, unspecified; E80.6 Other disorders of bilirubin metabolism; Z66 Do not resuscitate; Z88.0 Allergy status to penicillin; E83.89 Other disorders of mineral metabolism; Z53.8 Procedure and treatment not carried out for other reasons
CPT/HCPCS: 31720; 36415; 36600; 71045-TC; 74018; 76770-TC; 80048-TC; 80053-TC; 80076-TC; 81001; 82570-TC; 82962-TC; 83605-TC; 83690-TC; 83735-TC; 84100-TC; 84300-TC; 84478-TC; 85025-TC; 85027-TC; 85610-TC; 86850-TC; 87040-TC; 87081-TC; 87086-TC; 87186-TC; 94003-TC; 94760-TC; 94762-TC; 94799-TC; A4216; A4223; A6213; A6253; A6403; A7526; G0378; J0330; J0744; J1650; J1815; J2185; J2270; J2470; J3475; J3480; J3490; J7030; J7050; J7060; J7070; P9016; Q9967

== ENCOUNTER 2025-05-24 15:02 | Inpatient (IN) | payer MEDICARE, OTHER ==
[~2025-05-24] VITALS: Ht 154.9 cm; Wt 84.4 kg
[~2025-05-24 15:02] MED LIST changes: +ACET650S11 RC; +ALBU2.5V13 NEB; +BLOO-668 IN; +DEXT50DI8 IV; +FAT250EM4 IV; +INSU100V3 SQ; +INSU100V7 SQ; +IPRA0.2S49 NEB; +LEVO200V9 IV; +METO5VIA6 IV; +MUPI22OI7 TP; +ONDA4VIA52 IVP; +PANT40VI IV; +TPN ADD IV
[2025-05-24] MEDS ORDERED: DEXTROSE 50%-WATER 50 ML DISP.SYRIN IV PRN (18:00)
[2025-05-24] MEDS ORDERED: INSULIN ASPART/LISPRO 100 UNIT/ML CARTRIDGE SQ PRN (18:00)
[2025-05-24] MEDS ORDERED: ONDANSETRON HCL/PF 4 MG/2 ML VIAL IV PRN (18:00)
[2025-05-24] MEDS: IPRATROPIUM NEB FS 0.5 MG/2.5 ML AMPUL.NEB NEB PRN (18:16)
[2025-05-24] MEDS: ALBUTEROL FS 2.5 MG/3 ML VIAL.NEB NEB PRN (18:16)
[2025-05-24 19:09] VITALS: BP 125/88; TEMP 98.1; O2SAT 100
[2025-05-24 19:11] VITALS: BP 125/88; TEMP 98.1; O2SAT 100
[2025-05-24] MEDS ORDERED: MERO1PIG IV (19:29)
[2025-05-24] MEDS ORDERED: MORPHINE SULFATE INJ IV (19:29)
[2025-05-24] MEDS ORDERED: [UNRECOGNIZED DRUG - OTHER] TP (19:29)
[2025-05-24] MEDS ORDERED: NYST15PO4 TP (19:29)
[2025-05-24] MEDS: IPRATROPIUM NEB FS 0.5 MG/2.5 ML AMPUL.NEB NEB SCH (20:12)
[2025-05-24] MEDS: ALBUTEROL FS 2.5 MG/3 ML VIAL.NEB NEB SCH (20:12)
[2025-05-24] MEDS: MEROPENEM 1 G in IV NS 0.9% 100 ML IV SCH (21:00)
[2025-05-24] MEDS: INSULIN GLARGINE, 100 UNIT/ML CARTRIDGE SQ SCH (21:04)
[2025-05-24] MEDS: BLOOD SUGAR DIAGNOSTIC 1 EACH STRIP IN SCH (21:04)
[2025-05-24 22:00] VITALS: BP 101/57; TEMP 98.4; O2SAT 99
[2025-05-25] VITALS: BP 127/69; TEMP 100.2; O2SAT 100
[2025-05-25] MEDS: ACETAMINOPHEN 650 MG SUPP.RECT RC PRN (03:37)
[2025-05-25] MEDS: LEVOTHYROXINE INJ 100 MCG VIAL IV SCH (06:00)
[2025-05-25] MEDS: INSULIN REGULAR, HUMAN 100 UNIT/ML 10 ML VIAL SQ PRN (06:23)
[2025-05-25] MEDS ORDERED: LEVOTHYROXINE INJ 100 MCG VIAL IV SCH (07:30)
[2025-05-25 07:38] VITALS: BP 104/55; TEMP 100.4; O2SAT 98
[2025-05-25] MEDS: THERAHONEY GEL 1.5 OZ TUBE TP SCH (09:00)
[2025-05-25] MEDS: BUMETANIDE INJ 0.25 MG/ML VIAL IV SCH (09:30)
[2025-05-25 14:03] LABS: CALCIUM, SERUM 7.9 mg/dL (8.5-10.1); CREATININE 2.3 mg/dL (0.6-1.3); SODIUM SERUM 136.0 mmol/L (136-145)
[2025-05-25 14:07] LABS: PHOSPHORUS 4.9 mg/dL (2.5-4.9); UREA NITROGEN, BLOOD 122.0 mg/dL (7-18)
[2025-05-25] MEDS: POTASSIUM CL. PREMIX PERIPHER. 50 ML IV SCH (16:34)
[2025-05-25] MEDS: PANTOPRAZOLE 40 MG VIAL IV SCH (18:58)
[2025-05-25 20:06] VITALS: BP 137/57; TEMP 98.6; O2SAT 100
[2025-05-25] MEDS: BACI/NEOM/POLY B OINT PKT 1 UDPKT PACKET TP SCH ×4 (21:12)
[2025-05-25] MEDS: NYSTATIN TOP POWDER 15 GM BOTTLE TP SCH (21:12)
[2025-05-25] MEDS: Z GUARD REMEDY 4 OZ OINT TP SCH ×3 (21:12)
[2025-05-25] MEDS ORDERED: TPN #2 IV SCH (21:14)
[2025-05-25] MEDS: TPN #2 IV SCH (21:28)
[2025-05-25 22:47] VITALS: O2SAT 100
[2025-05-26 01:04] VITALS: BP 137/57; TEMP 98; O2SAT 100
[2025-05-26 05:13] VITALS: BP 121/51; TEMP 97.9; O2SAT 100
[2025-05-26] MEDS: LEVOTHYROXINE INJ 100 MCG VIAL IV SCH (05:40)
[2025-05-26 07:40] VITALS: BP 88/48; TEMP 98.4; O2SAT 92
[2025-05-26 07:46] LABS: ASPARTATE AMINOTRANSFERASE 119.0 U/L (15-37); CALCIUM, SERUM 7.7 mg/dL (8.5-10.1); PHOSPHORUS 4.7 mg/dL (2.5-4.9); SODIUM SERUM 139.0 mmol/L (136-145); TOTAL PROTEIN, SERUM 6.1 g/dL (6.4-8.2)
[2025-05-26 08:21] LABS: CREATININE 2.0 mg/dL (0.6-1.3)
[2025-05-26 08:25] LABS: UREA NITROGEN, BLOOD 121.0 mg/dL (7-18)
[2025-05-26] MEDS: POVIDONE-IODINE OINT 28.4 GM TUBE TP SCH (09:00)
[2025-05-26 10:21] VITALS: O2SAT 100
[2025-05-26] MEDS ORDERED: FAT EMULSION 20% 500 ML in PREMIX 1 EA IV SCH (14:00)
[2025-05-26 19:53] VITALS: BP 105/53; TEMP 99.1; O2SAT 99
[2025-05-26] MEDS: MORPHINE SULFATE INJ 2 MG/ML DISP.SYRIN IV PRN (20:04)
[2025-05-26 23:23] VITALS: O2SAT 100
[2025-05-27] MEDS: LORAZEPAM INJ 2 MG/ML VIAL IV PRN (00:31)
[2025-05-27 07:22] LABS: CALCIUM, SERUM 7.6 mg/dL (8.5-10.1)
[2025-05-27 07:32] LABS: CREATININE 1.9 mg/dL (0.6-1.3); SODIUM SERUM 143.0 mmol/L (136-145)
[2025-05-27 07:36] LABS: UREA NITROGEN, BLOOD 111.0 mg/dL (7-18)
[2025-05-27 07:40] VITALS: BP 83/46; TEMP 98.1; O2SAT 92
[2025-05-27 10:22] VITALS: O2SAT 100
[2025-05-27] MEDS: POTASSIUM CL. PREMIX PERIPHER. 50 ML IV SCH (16:35)
[2025-05-27 19:00] VITALS: BP 111/35; TEMP 98.2; O2SAT 96
[2025-05-27 19:43] VITALS: O2SAT 100
[2025-05-27 23:38] VITALS: O2SAT 100
[2025-05-28 08:25] VITALS: BP 123/55; TEMP 91; O2SAT 99
[2025-05-28 10:53] VITALS: O2SAT 97
[2025-05-28 19:38] VITALS: O2SAT 98
[2025-05-28 20:50] VITALS: BP 116/53; TEMP 99; O2SAT 98
[2025-05-28 23:33] VITALS: O2SAT 99
[2025-05-29 10:52] VITALS: BP 64/41; TEMP 98.2; O2SAT 100; O2SAT 99
[2025-05-29 19:29] VITALS: O2SAT 100
[2025-05-29 19:36] VITALS: BP 119/61; TEMP 98.4; O2SAT 100
[2025-05-29 23:32] VITALS: O2SAT 99
[2025-05-30 08:00] VITALS: BP 107/45; TEMP 98.1; O2SAT 100
[2025-05-30 10:20] VITALS: O2SAT 99
[2025-05-30] MEDS: MORPHINE SULFATE INJ 2 MG/ML DISP.SYRIN IV PRN (11:32)
[2025-05-30 19:28] VITALS: O2SAT 100
[2025-05-30 19:36] VITALS: BP 103/49; TEMP 99; O2SAT 100
[2025-05-30 23:30] VITALS: O2SAT 100
[2025-05-31 07:51] VITALS: BP 113/52; TEMP 98.2; O2SAT 100
[2025-05-31 10:10] VITALS: O2SAT 99
[2025-05-31 19:46] VITALS: BP 139/72; TEMP 99.1; O2SAT 100
[2025-05-31 22:16] VITALS: O2SAT 99
[2025-06-01 08:25] VITALS: BP 149/62; TEMP 98.8; O2SAT 100
[2025-06-01 17:01] VITALS: O2SAT 99
[2025-06-01 21:05] VITALS: BP 119/69; TEMP 98.8; O2SAT 100
[2025-06-01 23:23] VITALS: O2SAT 100
[2025-06-02 07:53] VITALS: BP 96/50; TEMP 99; O2SAT 95
[2025-06-02 10:03] VITALS: O2SAT 100
[2025-06-02 10:04] VITALS: O2SAT 100
[2025-06-02 20:06] VITALS: BP 126/46; TEMP 98.4; O2SAT 97
[2025-06-02 23:29] VITALS: O2SAT 100
[2025-06-03 10:14] VITALS: O2SAT 100
[2025-06-03 13:27] VITALS: BP 112/64; TEMP 98.1
[2025-06-03 19:37] VITALS: O2SAT 100
[2025-06-03 21:24] VITALS: BP 107/62; TEMP 98.2; O2SAT 97
[2025-06-03 23:20] VITALS: O2SAT 100
[2025-06-04 07:37] VITALS: BP 93/41; TEMP 98.2; O2SAT 94
[2025-06-04 10:05] VITALS: O2SAT 100
[2025-06-04 19:44] VITALS: BP 99/60; TEMP 97.5; O2SAT 98
[2025-06-04 22:05] VITALS: O2SAT 98
[2025-06-05 07:59] VITALS: BP 99/42; TEMP 98.8; O2SAT 95
[2025-06-05 13:59] VITALS: O2SAT 100
[2025-06-05 19:31] VITALS: BP 104/33; TEMP 98.2; O2SAT 100
[2025-06-05 22:04] VITALS: O2SAT 97
[2025-06-06 08:00] VITALS: BP 111/55; TEMP 100; O2SAT 65
[2025-06-06 10:38] VITALS: O2SAT 100
[2025-06-06 19:33] VITALS: O2SAT 100
[2025-06-06 22:40] VITALS: O2SAT 100
[2025-06-07 08:00] VITALS: BP 90/40; TEMP 97.9; O2SAT 100
[2025-06-07 10:20] VITALS: O2SAT 100
[2025-06-07 19:45] VITALS: BP 98/33; TEMP 97.7; O2SAT 100
[2025-06-07 23:44] VITALS: O2SAT 99
[2025-06-08 08:00] VITALS: BP 57/50; TEMP 97; O2SAT 97
[2025-06-08 10:35] VITALS: O2SAT 99
[2025-06-08 10:37] VITALS: O2SAT 99
[2025-06-08 19:56] VITALS: BP 90/55; TEMP 97.5; O2SAT 100
[2025-06-08 23:26] VITALS: O2SAT 100
[2025-06-09 08:00] VITALS: BP 92/47; TEMP 97.5; O2SAT 99
[2025-06-09 10:56] VITALS: O2SAT 97
[2025-06-09 20:00] VITALS: BP 136/88; TEMP 97.5; O2SAT 97
[2025-06-09 23:18] VITALS: O2SAT 84
== END 2025-06-10 05:33 | DRG 207 ==
LOC: SA 15:02
PROVIDERS: ADMIT Internal Medicine; ATTEND Internal Medicine
PROC: 5A1955Z Respiratory Ventilation, Greater than 96 Consecutive Hours (ICD-10-PCS; principal; 2025-05-24)
DX: J96.10 Chronic respiratory failure, unspecified whether with hypoxia or hypercapnia (principal); L89.514 Pressure ulcer of right ankle, stage 4; N17.0 Acute kidney failure with tubular necrosis; R53.2 Functional quadriplegia; K31.5 Obstruction of duodenum; Z51.5 Encounter for palliative care; L89.896 Pressure-induced deep tissue damage of other site; Z99.11 Dependence on respirator [ventilator] status; K83.09 Other cholangitis; N39.0 Urinary tract infection, site not specified; B96.4 Proteus (mirabilis) (morganii) as the cause of diseases classified elsewhere; B96.89 Other specified bacterial agents as the cause of diseases classified elsewhere; E03.9 Hypothyroidism, unspecified; E11.9 Type 2 diabetes mellitus without complications; I10 Essential (primary) hypertension; F01.50 Vascular dementia, unspecified severity, without behavioral disturbance, psychotic disturbance, mood disturbance, and anxiety; D64.9 Anemia, unspecified; K94.23 Gastrostomy malfunction; D68.59 Other primary thrombophilia; K22.10 Ulcer of esophagus without bleeding; L89.620 Pressure ulcer of left heel, unstageable; L89.156 Pressure-induced deep tissue damage of sacral region; L89.616 Pressure-induced deep tissue damage of right heel; Z66 Do not resuscitate; R13.10 Dysphagia, unspecified; Y83.3 Surgical operation with formation of external stoma as the cause of abnormal reaction of the patient, or of later complication, without mention of misadventure at the time of the procedure; Y92.9 Unspecified place or not applicable; R60.1 Generalized edema; E88.09 Other disorders of plasma-protein metabolism, not elsewhere classified; E78.5 Hyperlipidemia, unspecified; I25.10 Atherosclerotic heart disease of native coronary artery without angina pectoris; K80.50 Calculus of bile duct without cholangitis or cholecystitis without obstruction; L30.4 Erythema intertrigo; E87.70 Fluid overload, unspecified; L22 Diaper dermatitis
CPT/HCPCS: 31720; 36415; 80048-TC; 80053-TC; 82962-TC; 83735-TC; 84100-TC; 94003-TC; 94760-TC; 94762-TC; 94799-TC; 97110-TC; 97530-TC; 99082-TC; A4216; A4223; A4623; A6253; A7526; J1815; J2060; J2185; J2270; J2470; J3480; J3490; J7030